=== PATIENT | male | born 1950 | race Caucasian/White ===

== ENCOUNTER 2022-01-15 13:18 | Outpatient (CLI) | payer BC, SELFPAY ==
--- NOTE | 2022-01-15 13:21 | RAD_ITS ---
STUDY: X-RAY - RIGHT FOOT CLINICAL: Lateral right foot pain. TECHNIQUE: 3 view(s) of the foot. COMPARISON: None. FINDINGS: Normal talus, calcaneus, and tarsal bones. Normal visualized subtalar, talonavicular, calcaneocuboid, tarsal and tarsometatarsal articulations. Normal metatarsi. Normal metatarsophalangeal joint of the great toe. Normal tibial and fibular sesamoid bones. Normal interphalangeal joint of the great toe. Normal phalanges of the great toe. Normal second through fifth metatarsophalangeal joints. Normal interphalangeal joints and phalanges of the lesser toes. The soft tissue structures are unremarkable. RAD/Foot min 3 Views IMPRESSION: Unremarkable x-ray examination of the right foot. Electronically Signed: Darnell Caballero MD at 13:58 EDT ,
== END 2022-01-15 23:59 | disposition home or self-care (01) ==
LOC: MTRAD 13:21
PROVIDERS: PCP Family Medicine; Referring Provider Physician Assistant Surgical; Visit Provider Physician Assistant Surgical
DX: S96.911A Strain of unspecified muscle and tendon at ankle and foot level, right foot, initial encounter (principal)
CPT/HCPCS: 73630

== ENCOUNTER → 2023-03-21 | Outpatient (CLI) | payer BC, SELFPAY ==
[2023-03-21 10:17] LABS: Hematocrit 48.2 % (40-54); Hemoglobin 16.2 g/dL (13.0-16.5); Mean Corp Hgb Conc 33.6 g/dL (32-36); Mean Corpuscular Hgb 33.8 pg (27.0-32.0); Mean Corpuscular Volume 100.6 fL (80-94); Mean Platelet Vol. 9.4 fl (6.2-12.0); Platelet Count 285 K/mm3 (150-450); RBC Distribution Width CV 14.1 % (11.6-14.6); Red Blood Count 4.79 M/mm3 (4.6-6.2); White Blood Count 6.1 K/mm3 (4.4-11.0)
[2023-03-21 10:45] LABS: Anion Gap 3 (5-15); BUN 14 mg/dL (7-18); BUN/Creat Ratio 17.4 RATIO (10-20); Chloride 108 mmol/L (98-107); Cholesterol 159 mg/dL (200); Creatinine, Serum 0.81 mg/dL (0.70-1.30); EST Glomerular Filtration Rate 99 mL/min (>60); Est Glom Filt Rate - Afr Amer 120 mL/min (>60); Ferritin 83 ng/mL (26-388); Glucose 90 mg/dL (74-106); High Density Lipoprotein 55 mg/dL; Iron 69 ug/dL (65-175); Potassium 4.6 mmol/L (3.5-5.1); Sodium Level 142 mmol/L (136-145); Triglycerides 57 mg/dL; Very Low Density Lipoprotein 11 mg/dL (5-40)
== END | disposition home or self-care (01) ==
LOC: MFPLAB 08:42
PROVIDERS: PCP Family Medicine; Visit Provider Family Medicine
DX: J45.909 Unspecified asthma, uncomplicated (principal); Z12.5 Encounter for screening for malignant neoplasm of prostate; Z13.1 Encounter for screening for diabetes mellitus; R06.00 Dyspnea, unspecified; Z13.220 Encounter for screening for lipoid disorders
CPT/HCPCS: 36415; 80048; 80061; 82728; 83540; 84153; 85027; G0103

== ENCOUNTER 2023-08-05 09:38 | Emergency (ER) | payer BC, SELFPAY ==
[2023-08-05 09:38] VITALS: BP 170/109; PULSE 89; RESP 14; TEMP 36.1; O2SAT 93; BMI 26.0
[2023-08-05] MEDS: Oxymetazoline 0.05% 1 SPRAY SPRAY.BTL 2 SPRAY NASAL (10:06)
--- NOTE | 2023-08-05 10:10 | EDS_ITS ---
HPI History of Present Illness Chief Complaint: Nosebleed Informant: patient Narrative Narrative: Nosebleed started spontaneously, especially after he blew his nose became a lot worse. He was blowing out clots, swallowing a little bit of blood, but not a lot. No systemic symptoms or presyncope/syncope. No injury or obvious reason for the bleeding. Takes no antiplatelet or anticoagulant medications. Mostly coming from the left side but a little from the right as well. Never had a bad bleed like this before but has had minor nosebleeds in the past. [facility] Medical History (Updated 08/05/23 @ 12:[address] Bj Pedraza MD) Asthma, mild intermittent Seasonal allergies Home Medications fluticasone 250 mcg-salmeterol 50 mcg/dose blistr powdr for inhalation ea inhalation 01/15/22 [History Last Taken Unknown] latanoprost 0.005 % eye drops ml ophthalmic (eye) 01/15/22 [History Last Taken Unknown] Allergy/AdvReac Type Severity Reaction Status Date / Time No Known Allergies Allergy Verified 08/05/23 09:38 Social History Smoking Status: Never smoker ROS ROS ED Constitutional Constitutional ED: Denies malaise or weakness ENT ENT ED: Reports as per HPI and epistaxis; Denies ear pain or sore throat Cardiovascular Cardiovascular: Denies chest pain, lightheadedness or tachypnea Respiratory/Chest Respiratory/Chest: Denies dyspnea Gastrointestinal Gastrointestinal: Denies abdominal pain, nausea or vomiting Integumentary Denies rash Neurologic Neurologic: Denies paresthesias or weakness EXAM Physical Exam Const Vital Signs: 08/05/23 09:38 Temperature 97.0 F L Temperature Source Temporal Pulse Rate 89 Respiratory Rate 14 Blood Pressure 170/109 H Blood Pressure Mean 129 Pulse Ox 93 Oxygen Delivery Method Room Air Positive well nourished and well developed General Appearance ED: well developed and NAD HEENT HEENT Narrative: Nasal clip in place, normal phonation no active bleeding no posterior pharyngeal blood. Eyes PERRL and EOMs intact bilaterally Neck no lymphadenopathy and supple Resp normal respiratory effort GI normal to inspection, nondistended, normoactive bowel sounds and non-tender Neuro oriented x3, CN's II-XII intact bilaterally, no focal motor deficits, no sensory deficits noted and gait normal MDM MDM MDM Narrative Medical decision making narrative: See the procedure note. Patient had evidence of active bleeding from 2 different areas on both sides, 1 on each. The one on the right was cauterized, the 1 on the left needed packing, he is tolerating this well and will follow-up with ENT or return if worse. Procedures Other Procedures Procedure(s): Epistaxis care: Patient was able to blow relatively small amount of blood out of his nose with minor bleeding, followed by placing oxymetazoline- soaked pledgets in both anterior nostrils, with good hemostasis. With removing the pledgets, on the right there is still good hemostasis and I was able to cauterize this with silver nitrate without recurrent bleeding. On the left, removing the pledget results in immediate recurrent bleeding. I had him blow his nose and placed a new oxymetazoline-soaked pledget. Again good hemostasis, after half an hour I checked it, there is persistent hemostasis but then it spo ntaneously started rebleeding while I was starting to reexamine him, so I placed a new pledget until I was able to get a Merisel packing, which was then placed. This was an anterior packing it was only 3 cm since I cut down the longer 1, he tolerated this well without any recurrent bleeding, and he will be discharged with this and refer to ENT. Discharge Plan Triage Chief Complaint: Nosebleed ED Provider: Bj Pedraza Dx/Rx/DC Orders Clinical Impression: Acute anterior epistaxis Instructions: ED Epistaxis (Adult) Prescriptions: No Action latanoprost 0.005 % drops ophthalmic (eye) fluticasone propion-salmeterol 250-50 mcg/dose blister with device inhalation Primary Care Provider: Oliver Frank Referrals: Oliver Frank MD [Primary Care Provider] - Sergey Sterling MD [Med Staff - Active Staff] - 2 Days (call for appt to have packing removed) Disposition Disposition: Home, Self Care
[2023-08-05] MEDS: Silver Nitrate (BKC) 1 EACH TOPICAL (12:05)
== END 2023-08-05 12:49 | disposition home or self-care (01) ==
PROVIDERS: Emergency Provider Emergency Medicine; PCP Family Medicine; Visit Provider Emergency Medicine
DX: R04.0 Epistaxis (principal)
CPT/HCPCS: 30901; 99282

== ENCOUNTER → 2023-12-26 | Outpatient (CLI) | payer BC, SELFPAY ==
--- OUTSIDE RECORDS SUMMARY | 2023-12-26 11:00 | XMS RPT_ITS | CCD ---
Author Name Unknown Address [facility] [employer] [id number] [place] [address] Organization [facility] Care Team Providers Care Watch Repairer Name Role Phone Ted Suárez Unavailable Medications Completed/Discontinued Medications Medication Drug Class(es) Dates Sig (Normalized) Sig (Original) cholecalciferol 0.025 mg oral capsule (3 sources) Vitamin D Start: 12-04-2019 take 1 capsule by mouth once daily Vitamin D (Cholecalciferol ) 25 MCG (1000 UT) Oral Capsule TAKE 1 CAPSULE Daily Quantity: 0 Refills: 0 Ordered: 04-Dec-2019 DO Start : 04-Dec-2019 Active Clobetasol (3 sources) Corticosteroid Clobetasol Propionate SOLN Quantity: 0 Refills: 0 Ordered: 14-Dec-2019 DO Active fluticasone propionate 0.05 mg/actuat metered dose nasal spray (3 sources) Corticosteroid Start: 12-04-2019 Fluticasone Propionate 50 MCG/ACT Nasal Suspension INSTILL 1 SPRAY Daily Quantity: 3 Refills: 3 Ordered: 04-Dec-2019 DO Start : 04-Dec-2019 Active 60 actuat fluticasone propionate 0.25 mg/actuat / salmeterol 0.05 mg/actuat dry powder inhaler (3 sources) Corticosteroid, beta2-Adrenergic Agonist Start: 09-09-2019 take 1 puff(s) by inhalation twice daily Wixela Inhub 250-50 MCG/ACT Inhalation Aerosol Powder Breath Activated INHALE 1 PUFF TWICE DAILY. Quantity: 3 Refills: 3 Ordered: 15-Apr-2022 Ted Suárez MD Start : 09-Sep-2019 Active latanoprost 0.05 mg/ml ophthalmic solution (3 sources) Prostaglandin Analog Start: 09-09-2019 take 1 drop(s) into the eye(s) at bedtime Latanoprost 0.005 % Ophthalmic Solution INSTILL 1 DROP IN BOTH EYES AT BEDTIME. Quantity: 3 Refills: 1 Ordered: 09-Sep-2019 Ted Suárez MD Start : 09-Sep-2019 Active loratadine 10 mg oral tablet (3 sources) Start: 12-14-2019 take 1 tablet by mouth once daily Claritin 10 MG Oral Tablet Take 1 tablet daily Quantity: 0 Refills: 0 Ordered: 14-Dec-2019 DO Start : 14-Dec-2019 Active sildenafil 50 mg oral tablet (3 sources) Phosphodiesterase 5 Inhibitor Start: 12-14-2019 take 1 tablet by mouth once daily Sildenafil Citrate 50 MG Oral Tablet TAKE 1 TABLET DAILY 1 HOUR BEFORE NEEDED Quantity: 30 Refills: 3 Ordered: 14-Dec-2019 Tde Suárez MD Start : 14-Dec-2019 Active Problems Problem Classification Problem Date Documented Da te Episodic/Chronic Asthma (3 sources) Asthma; Translations: [Asthma, unspecified type, unspecified] Chronic Immunizations and screening for infectious disease (3 sources) Viral screening status; Translations: [Special screening examination for unspecified viral disease] Episodic Nutritional deficiencies (3 sources) Vitamin D deficiency; Translations: [Unspecified vitamin D deficiency] Chronic Other aftercare (6 sources) Patient encounter status; Translations: [Long-term (current) use of other medications] Episodic Other and unspecified benign neoplasm (3 sources) Polyp of colon; Translations: [Benign neoplasm of colon] Episodic Other inflammatory condition of skin (3 sources) Seborrheic psoriasis; Translations: [Other psoriasis] Chronic Other male genital disorders (3 sources) Male erectile dysfunction, unspecified; Translations: [Erectile dysfunction] Chronic Other nutritional; endocrine; and metabolic disorders (3 sources) Body mass index 25-29 - overweight; Translations: [Body Mass Index 25.0-25.9, adult] Episodic Other upper respiratory disease (3 sources) Allergic rhinitis; Translations: [Allergic rhinitis, cause unspecified] Chronic Results Test Name Value Interpretation Reference Range Facil ity Encounters Encounter Date Encounter Type Care Provider Facility Start: 04-15-2022 AUDIT Ted Suárez Work Phone: [facility] Work Phone: Start: 02-04-2022 FRANK Suárez Work Phone: [facility] Work Phone: Start: 06-07-2021 AUDIT Ted Suárez Work Phone: [facility] Work Phone: Procedures Date Procedure Procedure Detail Performing Clinician Start: 11-10-2020 Follow-up visit Start: 12-14-2019 Follow-up visit Start: 06-22-2019 [object Object] Immunizations Immunization Date Immunization Notes Care Provider Dany [facility] 07-27-2019 influenza virus vaccine, unspecified formulation Ted Suárez Work Phone: [facility] Work Phone: Payers Date Payer Category Payer Policy ID Unknown ANTHEM Social History Date Type Detail Facility Former smoker Former smoker [facility] Work Phone: Summary Purpose Family History Unknown Family Member Name Dates Details No pertinent family history: Mother, Father(V49.89, Z78.9) Status:Active Unknown Family Member Name Dates Details No pertinent family history: Mother, Father(V49.89, Z78.9) Status:Active Unknown Family Member Name Dates Details No pertinent family history: Mother, Father(V49.89, Z78.9) Status:Active Advance Directives No Advanced Directives Records FoundNo Advanced Directives Records Found Additional Source Comments (unrecognized sect ion and content) No Status Records FoundNo Status Records Found INFORMATION SOURCE (unrecogn ized section and content) DATE CREATED AUTHOR AUTHOR'S ORGANIZ ATION 11/11/2020 [facility] FOR RECORDS PERTAINING TO PATIENTS WHO ARE OR HAVE BEEN ENROLLED IN A CHEMICAL DEPENDENCY/SUBSTANCEABUSE PROGRAM, SOME INFORMATION MAY BE OMITTED. This clinical summary was aggregated from multiple sources. Caution should be exercised in using it in the provision of clinical care. This summary normalizes information from multiple sources, and as a consequence, information in this document may materially change the coding, format and clinical context of patient data. In addition, data may be omitted in some cases. CLINICAL DECISIONS SHOULD BE BASED ON THE PRIMARY CLINICAL RECORDS. [facility] [employer] provides no warranty or guarantee of the accuracy or completeness of information in this document.
[2023-12-26 11:14] LABS: Absolute Lymphocyte Count 1.29 X10^3/uL (0.83-4.51); Absolute Neutrophil Count 5.5 X10^3/uL (2.0-7.7); Basophil# 0.07 X10^3/uL; Basophil% 0.8 % (0-1); Eosinophil# 0.72 X10^3/uL; Eosinophils% 8.4 % (0-5); Hematocrit 46.9 % (40-54); Lymphocyte # 1.29 X10^3/ul (0.83-4.51); Mean Corp Hgb Conc 34.1 g/dL (32-36); Mean Corpuscular Hgb 33.3 pg (27.0-32.0); Mean Corpuscular Volume 97.7 fL (80-94); Mean Platelet Vol. 8.9 fl (6.2-12.0); Monocyte# 0.98 X10^3/uL; Monocyte% 11.4 % (0-10); NRBC Flagged by Analyzer 0 % (0-5); Neutrophil # 5.52 X10^3/uL (2.7-7.7); Neutrophil % 63.9 % (47-70); Platelet Count 286 K/mm3 (150-450); RBC Distribution Width CV 13.2 % (11.6-14.6); RBC Distribution Width SD 48.1 fl (35.1-43.9); White Blood Count 8.6 K/mm3 (4.4-11.0)
[2023-12-26 11:19] LABS: Erythrocyte Sedimentation Rate 4 mm/hr (0-20)
[2023-12-26 11:33] LABS: Hemoglobin A1c 5.6 % (3.8-5.6)
[2023-12-26 11:44] LABS: AST(SGOT) 39 U/L (15-37); Alanine Aminotransfer ALT/SGPT 41 U/L (16-61); Albumin, Serum 3.7 g/dL (3.2-5.0); Alkaline Phosphatase 99 U/L (45-117); Anion Gap 1 (5-15); BUN 18 mg/dL (7-18); BUN/Creat Ratio 19.1 RATIO (10-20); CRP < 2.90 mg/L (0.0-3.0); Calcium,Total 8.6 mg/dL (8.5-10.1); Chloride 108 mmol/L (98-107); Creatinine, Serum 0.94 mg/dL (0.70-1.30); EST Glomerular Filtration Rate 83 mL/min (>60); Est Glom Filt Rate - Afr Amer 100 mL/min (>60); Globulin 3.6 g/dL (2.2-4.2); Glucose 102 mg/dL (74-106); Potassium 4.5 mmol/L (3.5-5.1); Protein, Total 7.3 g/dL (6.4-8.2); Sodium Level 139 mmol/L (136-145); Uric Acid 7.4 mg/dL (3.5-7.2)
[2024-01-02 10:09] LABS: HLA B27 Negative (.)
== END | disposition home or self-care (01) ==
PROVIDERS: PCP Family Medicine; Referring Provider Podiatrist; Visit Provider Podiatrist
DX: M79.671 Pain in right foot (principal)
CPT/HCPCS: 36415; 80053; 81374; 83036; 84550; 85025; 85652; 86140

== ENCOUNTER 2025-01-04 08:19 | Outpatient (CLI) | payer BC, SELFPAY ==
[2025-01-04 12:07] LABS: Cholesterol 175 mg/dL (<=200); High Density Lipoprotein 58 mg/dL; Low Density Lipoprotein Calc. 106 mg/dL; Triglycerides 57 mg/dL; Uric Acid 7.7 mg/dL (3.5-7.2); Very Low Density Lipoprotein 11 mg/dL (5-40); Vitamin D,25 Hydroxy 31.5 ng/mL (30-100); cholesterol:hdl ratio screen 3.04
[2025-01-04 12:16] LABS: Anion Gap 13 (5-15); BUN 18 mg/dL (4-19); BUN/Creat Ratio 20.8 RATIO (10-20); Calcium,Total 9.4 mg/dL (7.6-11.0); Carbon Dioxide 23.2 mmol/L (21.0-32.0); Chloride 102 mmol/L (98-108); Creatinine, Serum 0.87 mg/dL (0.70-1.20); EST Glomerular Filtration Rate 89 (>60); Glucose 116 mg/dL (70-99); Potassium 4.3 mmol/L (3.3-5.1); Sodium Level 138 mmol/L (133-145)
== END 2025-01-04 23:59 | disposition home or self-care (01) ==
LOC: MFPLAB 08:20
PROVIDERS: PCP Family Medicine; Referring Provider Family Medicine; Visit Provider Family Medicine
DX: Z13.1 Encounter for screening for diabetes mellitus (principal); Z13.220 Encounter for screening for lipoid disorders; M10.9 Gout, unspecified
CPT/HCPCS: 36415; 80048; 80061; 82306; 84550

== ENCOUNTER 2025-07-22 18:31 | Inpatient (IN) | payer BC, MEDICARE, SELFPAY ==
--- OUTSIDE RECORDS SUMMARY | 2025-05-19 11:00 | XMS RPT_ITS ---
Author Name Auto Generated Organization [facility] Care Team Providers Care Hydraulic Lift Operator Name Role Phone PCP, NONE Referring Unavailable PIPE RILEY Primary Care Unavailable PIPE RILEY Attending Unavailable PROBLEMS DATE TYPE CONDITION / CODE ATTENDING STATUS JOSE RAFAEL RCE 05/19/2025 Unknown Moderate persist ent asthma, uncomplicated / J45.40(ICD-10) PIPE RILEY Active [facility] PROCEDURES No Procedure Records Found RESULTS ALLERGIES No Allergies Records Found ENCOUNTERS ADMIT/DISCHARGE ACCOUNT NUMBER ADMITTING ENCOUNTER CLASS LOCATION SOURCE 05/19/2025/ [id number] [facility] [place] [address] PAYERS ENCOUNTER GUARANTOR PAYER SUBSCRIBER SOURCE 05/19/2025 SHEA MADONNAB: [facility] [address], [place] [address]Wqd: [phone]) Primary Insurance:MARK Cardona Number: [id number] ective Date:[facility] [id number] [place] [id number]: SHEA MADONNAB: [id number] [facility] [address], [place] [address]Txm: (HP) [facility]
[2025-07-22] VITALS (11 sets, daily range): BP systolic 134–165; BP diastolic 69–98; PULSE 54–69; RESP 16–22; TEMP 35.8–36.9; O2SAT 93–97; BMI 25.5
--- NOTE | 2025-07-22 18:39 | EKG12_ITS ---
Test Reason : STROKE Blood Pressure : */* mmHG Vent. Rate : 64 BPM Atrial Rate : 64 BPM P-R Int : 176 ms QRS Dur : 86 ms QT Int : 424 ms P-R-T Axes : * 16 36 degrees QTcB Int : 437 ms Normal sinus rhythm Normal ECG Confirmed by MUSHTAQ FLORES ([id number]), editor & co founder YIFAN BARAHONA ([id number]) on 07/25/2025 9:06:45 AM Referred By: Confirmed By: MUSHTAQ FLORES
--- NOTE | 2025-07-22 18:39 | CT_ITS ---
PROCEDURE: STROKE BRAIN/HEAD WITHOUT CONT 07/22/2025 REASON FOR EXAM: NEURO DEFICIT, ACUTE, STROKE SUSPECTED TECHNIQUE: Procedure Code: CTBR.ST Modality: CT Procedure: STROKE BRAIN/HEAD WITHOUT CONT Coronal and Sagittal reconstruction series were provided. One or more dose reduction techniques were used (e.g., Automated exposure control, adjustment of the mA and/or kV according to patient size, use of iterative reconstruction technique. RADIATION DOSE SUMMARY: CTDlvol: 47.06 mGy DLP: 890.33 mGycm COMPARISON: None. FINDINGS: BRAIN: No acute intraparenchymal hemorrhage. No mass lesion. No CT evidence for acute territorial infarct. No midline shift or extra-axial collection. VENTRICLES: No hydrocephalus. ORBITS: The orbits are unremarkable. SINUSES AND MASTOIDS: Mild bilateral maxillary, ethmoid and sphenoid sinus mucosal thickening. Small amount of right maxillary sinus fluid. The right mastoid air cells are clear. A few left inferior mastoid air cells are opacified. SOFT TISSUES: No acute abnormality seen. BONES: No acute osseous abnormality seen. OTHER: Carotid siphon calcification bilaterally. CT/STROKE Brain/Head without Cont IMPRESSION: No acute intracranial abnormality seen. Reading Location: [id number]
--- NOTE | 2025-07-22 18:40 | CT_ITS ---
PROCEDURE: STROKE CTA HEAD AND NECK W/CON 07/22/2025 REASON FOR EXAM: NEURO DEFICIT, ACUTE, STROKE SUSPECTED TECHNIQUE: Procedure Code: CTCTA.ST.HN Modality: CT Procedure: STROKE CTA HEAD AND NECK W/CON Multiplanar Sagittal and Coronal images were obtained. 3D post processing was performed. CONTRAST: Isovue 370 VOLUME: 100 mL One or more dose reduction techniques were used (e.g., Automated exposure control, adjustment of the mA and/or kV according to patient size, use of iterative reconstruction technique). RADIATION DOSE SUMMARY: DLP: 993.19 mGycm COMPARISON: None. FINDINGS: CTA HEAD: Patent intracranial arterial vasculature. No large vessel occlusion, flow- limiting stenosis, saccular aneurysm, or vascular malformation identified. There is focal short-segment mild luminal narrowing of the proximal basilar artery (S2 image [id number]). origin of the right posterior cerebral artery with no visible connection to the basilar, anatomic variant. Hypoplastic caliber of the right FARZANA A1 segment compared to the left. CTA NECK: Conventional aortic arch branching. Bilateral cervical carotid and codominant vertebral arteries are patent without any significant stenosis. No aneurysm or dissection. NON-ANGIOGRAPHIC FINDINGS: Absent [place] ocular lenses. Peripheral mucosal thickening throughout the paranasal sinuses with small amount of dependent fluid in right maxillary sinus. Mild multilevel cervical spondylotic changes. CT/STROKE CTA Head AND Neck W/Con IMPRESSION: No intracranial or cervical large vessel arterial occlusion or hemodynamically significant stenosis. Short-segment mild narrowing of the proximal basilar artery. Anatomic variants as noted. Reading Location: [id number]
--- OUTSIDE RECORDS SUMMARY | 2025-07-22 18:45 | XMS RPT_ITS | CCD ---
Author Organization [facility] Care Team Providers Care Duco Polisher Name Role Phone Ted Suárez Unavailable ADITHYA Lloyd Attending Provider Zac ISLAS, Dr. Arrington Primary Care Provider Zac ISLAS, Dr. Arrington Attending Provider Zac ISLAS, Dr. Arrington Referring Provider Murphy Frank Referring Unavailable Murphy Frank Attending Unavailable Murphy Frank Primary Care Unavailable PCP, NONE Referring Unavailable PIPE RILEY Primary Care Unavailable PIPE RILEY Attending Unavailable Medications Current Medications Medication Drug Class(es) Dates Sig (Normalized) Sig (Original) Fluticasone Propion-Salmeterol (6 sources) Corticosteroid, beta2-Adrenergic Agonist Start: 01-15-2022 Fluticasone Propion-Salmeterol Active EACH INHALATION January 15, 2022 1:06pm Start: 01-15-2022 Fluticasone Pr opion-Salmeterol 250-50 mcg/dose blister with device Active NMA INHALATION January 15, 2022 12:00am Start: 01-15-2022 Fluticasone Pr opion-Salmeterol Active EACH INHALATION January 15, 2022 12:00am Start: 09-09-2019 take 1 puff(s) by in halation twice daily Wixela Inhub 250-50 MCG/ACT Inhalation Aerosol Powder Breath Activated INHALE 1 PUFF TWICE DAILY. Quantity: 3 Refills: 3 Ordered: 15-Apr-2022 Ted Suárez MD Start : 09-Sep-2019 Active latanoprost 0.05 mg/ml ophthalmic solution (6 sources) Prostaglandin Analog Start: 01-15-[address] 0.005 % drops Active mL OPHTHALMIC January 15, 2022 12:00am Start: 01-15-2022 Latanoprost Ac tive ML OPHTHALMIC January 15, 2022 1:06pm Start: 09-09-2019 take 1 drop(s) into the eye(s) at bedtime Latanoprost 0.005 % Ophthalmic Solution INSTILL 1 DROP IN BOTH EYES AT BEDTIME. Quantity: 3 Refills: 1 Ordered: 09-Sep-2019 Ted Suárez MD Start : 09-Sep-2019 Active Completed/Discontinued Medications Medication Drug Class(es) Dates Sig [...] Ordered: 04-Dec-2019 DO Start : 04-Dec-2019 Active loratadine 10 mg oral tablet (3 [...] NEEDED Quantity: 30 Refills: 3 Ordered: 14-Dec-2019 Ted Suárez MD Start : 14-Dec-2019 Active Problems Problem Classification Problem Date Documented Da te Episodic/Chronic Asthma (4 sources) Asthma; Translations: [Asthma, unspecified type, unspecified] Onset: 05-19-2025 Chronic Immunizations and screening for infectious disease [...] [Body Mass Index 25.0-25.9, adult] Episodic Other screening for suspected conditions (not mental disorders or infectious disease) (1 source) Encounter for screening for diabetes mellitus; Translations: [Encounter for screening for diabetes mellitus] Onset: 02-18-2025 Episodic Other upper respiratory disease (3 sources) Allergic rhinitis; Translations: [Allergic rhinitis, cause unspecified] Chronic Other upper respiratory disease (1 source) Anterior epistaxis; Translations: [Epistaxis] 08-13-2023 Episodic Sprains and strains (4 sources) Strain of tendon of foot and ankle; Translations: [Strain of unspecified muscle and tendon at ankle and foot level, right foot, initial encounter] Episodic Results Test Name Value Interpretation Reference Range Facility Anion gap in Serum or Plasma Ordered By: Murphy Frank on 01-04-2025 Anion gap [Moles/Vol] 13 mmol/L - [facility] BUN/creatinine ratioOrdered By: Murphy Frank on 01-04-2025 Urea nitrogen/Creatinine [Mass ratio] 20.8 mg/mg High 08-15 [facility] Basic Metabolic Profile (BMP )on 01-04-2025 BUN/CRE 20.8 RATIO High 08-15 [facility] Comment on above: Order Comment: Order Date: 01/03/25 Order Info: 0667-1 - BMP Order Info: [id number] - LIPID Order Info: [id number] - URIC Performed By: #### L 500.4100, L501.1400, L500.2500 #### [facility] [address] [place], [address] Calcium [Mass/Vol] 9.4 mg/dL Normal 7.6-11.0 [facility] Comment on above: Order Comment: Order Date: 01/03/25 Order Info: 666-10 - BMP Order Info: - LIPID Order Info: [id number] - URIC Performed By: #### L 500.4100, L501.1400, L500.2500 #### [facility] [address] [place], [address] Chloride [Moles/Vol] 102 mmol/L Normal 98-108 [facility] Comment on above: Order Comment: Order Date: 01/03/25 Order Info: 666-10 - BMP Order Info: - LIPID Order Info: [id number] - URIC Performed By: #### L 500.4100, L501.1400, L500.2500 #### [facility] [address] [place], [address] CO2 [Moles/Vol] 23.2 mmol/L Normal 21.0-32.0 [facility] Comment on above: Order Comment: Order Date: 01/03/25 Order Info: 666-10 - BMP Order Info: - LIPID Order Info: [id number] - URIC Performed By: #### L 500.4100, L501.1400, L500.2500 #### [facility] [address] [place], [address] Creatinine [Mass/Vol] 0.87 mg/dL Normal 0.70-1.20 [facility] Comment on above: Order Comment: Order Date: 01/03/25 Order Info: 666-10 - BMP Order Info: - LIPID Order Info: [id number] - URIC Performed By: #### L 500.4100, L501.1400, L500.2500 #### [facility] [address] [place], [address] GAP 13 Normal 5-15 [facility] Comment on above: Order Comment: Order Date: 01/03/25 Order Info: 666-10 - BMP Order Info: - LIPID Order Info: [id number] - URIC Performed By: #### L 500.4100, L501.1400, L500.2500 #### [facility] [address] [place], [address] GFR/1.73 sq M.predicted among non-blacks MDRD (S/P/Bld) [Vol rate/Area] 89 mL/min/{1.73_m2} Normal >60 [facility] Comment on above: Order Comment: Order Date: 01/03/25 Order Info: 666-10 - BMP Order Info: - LIPID Order Info: [id number] - URIC Result Comment: mL/m in/1.73m2 CKD-EPI Creatinine Equation (2020) Performed By: #### L 500.4100, L501.1400, L500.2500 #### [facility] [address] [place], [address] Glucose [Mass/Vol] 116 mg/dL High 70-99 [facility] Comment on above: Order Comment: Order Date: 01/03/25 Order Info: 666-10 - BMP Order Info: - LIPID Order Info: 3083-10 - URIC Performed By: #### L 500.4100, L501.1400, L500.2500 #### [facility] [address] [place], [address] Potassium [Moles/Vol] 4.3 mmol/L Normal 3.3-5.1 [facility] Comment on above: Order Comment: Order Date: 01/03/25 Order Info: 666-10 - BMP Order Info: - LIPID Order Info: [id number] - URIC Performed By: #### L 500.4100, L501.1400, L500.2500 #### [facility] [address] [place], [place], [address] Sodium [Moles/Vol] 138 mmol/L Normal 133-145 [facility] Comment on above: Order Comment: Order Date: 01/03/25 Order Info: 0667-1 - BMP Order Info: [id number] - LIPID Order Info: 3081 - URIC Performed By: #### L 500.4100, L501.1400, L500.2500 #### [facility] [address] [place], [address] Urea nitrogen [Mass/Vol] 18 mg/dL Normal 4-19 [facility] Comment on above: Order Comment: Order Date: 01/03/25 Order Info: 0667-1 - BMP Order Info: [id number] - LIPID Order Info: [id number] - URIC Performed By: #### L 500.4100, L501.1400, L500.2500 #### [facility] [address] [place], [address] Calculated very low density lipoprotein (VLDL) cholesterol measurementOrdered By: Murphy Frank on 01-04-2025 VLDL Cholesterol 11 mg/dL 5-40 [facility] Carbon dioxide, total [Moles /volume] in Central venous bloodOrdered By: Murphy Frank on 01-04-2025 CO2 [Moles/Vol] 23.2 mmol/L 21.0-32.0 [facility] Chloride assayOrdered By: Michael Frank on 01-04-2025 Chloride [Moles/Vol] 102 mmol/L 98-108 [facility] GFR/1.73 sq M.predicted maria victoria g non-blacks MDRD (S/P/Bld) [Vol rate/Area]Ordered By: Murphy Frank on 01-04-2025 Estimated GFR (MDRD) Non-Af Amer 89 >60 [facility] Comment on above: mL/min/1.73m2 CKD-EP I Creatinine Equation (2020) L506.1001on 01-04-2025 Vitamin D 25-OH 31.5 ng/mL Normal 30-100 [facility] Comment on above: Order Comment: Order Date: 01/03/25 Order Info: 0667-1 - BMP Order Info: [id number] - LIPID Order Info: 308- - URIC Result Comment: Nayana min D Status Deficiency: <20 ng/mL (50nmol/L) Insufficiency: 20-30 ng/mL (50-75 nmol/L) Sufficiency: 30-100 ng/mL (75-250 nmol/L) Toxicity: >100 ng/mL (>250 nmol/L) Performed By: #### L 506.1001 #### [facility] [address] [place], [address] LDL calc ser/plasOrdered By: Murphy Frank on 01-04-2025 LDL Cholesterol, Calculated 106 mg/dL [facility] Comment on above: Vjndikhbgj=162-215 m g/dL & Higher Fdpz=698 mg/dL or greater Lipid Profileon 01-04-2025 CHOL:HDL 3.04 Normal [facility] Comment on above: Order Comment: Order Date: 01/03/25 Order Info: 06 - BMP Order Info: [id number] - LIPID Order Info: [id number] - URIC Performed By: #### L 500.4100, L501.1400, L500.2500 #### [facility] [address] [place], [address] Cholesterol [Mass/Vol] 175 mg/dL Normal <=200 [facility] Comment on above: Order Comment: Order Date: 01/03/25 Order Info: 0667-1 - BMP Order Info: [id number] - LIPID Order Info: 308- - URIC Result Comment: Chol esterol level, Desirable <200 mg/dL Borderline high cholesterol 200-239 mg/dL High cholesterol >=240 mg/dL Recommendations of the NCEP Adult Treatment Panel for the following risk-cutoff thresholds for the [place] population. Performed By: #### L 500.4100, L501.1400, L500.2500 #### [facility] [address] [place], [address] Cholesterol in HDL [Mass/Vol] 58 mg/dL Normal [facility] Comment on above: Order Comment: Order Date: 01/03/25 Order Info: 666-10 - BMP Order Info: - LIPID Order Info: [id number] - URIC Result Comment: Ashley onal Cholesterol Education Program (NCEP) guidelines: <40 mg/dL: Low HDL-cholesterol (major risk factor for CHD) >= 60 mg/dL: High HDL-cholesterol (negative risk factor for CHD) HDL-cholesterol is affected by a number of factors, e.g. smoking, exercise, hormones, sex and age. Performed By: #### L 500.4100, L501.1400, L500.2500 #### [facility] [address] [place], [address] Cholesterol in LDL [Mass/Vol] 106 mg/dL Normal [facility] Comment on above: Order Comment: Order Date: 01/03/25 Order Info: 666-10 - BMP Order Info: - LIPID Order Info: [id number] - URIC Result Comment: Bord ljqjoq=495-402 mg/dL Higher Tjuv=170 mg/dL or greater Performed By: #### L 500.4100, L501.1400, L500.2500 #### [facility] [address] [place], [address] Cholesterol in VLDL [Mass/Vol] 11 mg/dL Normal 5-40 [facility] Comment on above: Order Comment: Order Date: 01/03/25 Order Info: 666-10 - BMP Order Info: - LIPID Order Info: [id number] - URIC Performed By: #### L 500.4100, L501.1400, L500.2500 #### [facility] [address] [place], [address] Triglyceride [Mass/Vol] 57 mg/dL Normal [facility] Comment on above: Order Comment: Order Date: 01/03/25 Order Info: 666-10 - BMP Order Info: - LIPID Order Info: [id number] - URIC Result Comment: The drugs N-Acetylcysteine and Metamizole may falsely depress this assay. Normal range: <150 mg/dL Borderline High: 150-199 mg/dL High: 200-499 mg/dL Very High: >500 mg/dL Performed By: #### L 500.4100, L501.1400, L500.2500 #### [facility] [address] [place], [address] Potassium (Unsp spec) [Mass/ Vol]Ordered By: Murphy Frank on 01-04-2025 Potassium [Moles/Vol] 4.3 mmol/L 3.3-5.1 [facility] Screening total cholesterol/ high density lipoprotein (HDL) cholesterol ratioOrdered By: Murphy Frank on 01-04-2025 Cholesterol.total/Kaila sterol in HDL [Mass ratio] 3.04 {ratio} [facility] Serum creatinine measurement (mass/volume)Ordered By: Murphy Frank on 01-04-2025 Creatinine [Mass/Vol] 0.87 mg/dL 0.70-1.20 [facility] Serum glucose measurement (m ass/volume)Ordered By: Murphy Frank on 01-04-2025 Glucose [Mass/Vol] 116 mg/dL High 70-99 [facility] Serum or plasma calcium joe urement (mass/volume)Ordered By: Murphy Frank on 01-04-2025 Calcium [Mass/Vol] 9.4 mg/dL 7.6-11.0 [facility] Serum or plasma cholesterol in HDL measurement (mass/volume)Ordered By: Murphy Frank on 01-04-2025 Cholesterol in HDL [Mass/Vol] 58 mg/dL >40 [facility] Comment on above: National Cholesterol Education Program (NCEP) guidelines:<40 mg/dL: Low HDL-cholesterol (major risk factor for CHD)>= 60 mg/dL: High HDL-cholesterol (negative risk factor for CHD)HDL-cholesterol is affected by a number of factors, e.g. smoking, exercise, hormones, sex and age. Serum or plasma cholesterol measurement (mass/volume)Ordered By: Murphy Frank on 01-04-2025 Cholesterol [Mass/Vol] 175 mg/dL <201 [facility] Comment on above: Cholesterol level, D esirable <200 mg/dLBorderline high cholesterol 200-239 mg/dLHigh cholesterol >=240 mg/dLRecommendations of the NCEP Adult Treatment Panel for the following risk-cutoff thresholds for the [place] population. Serum or plasma urea nitroge n measurement (mass/volume)Ordered By: Murphy Frank on 01-04-2025 Urea nitrogen [Mass/Vol] 18 mg/dL 4-19 [facility] Serum or plasma uric acid me asurement (mass/volume)Ordered By: Murphy Frank on 01-04-2025 Urate [Mass/Vol] 7.7 mg/dL High 3.5-7.2 [facility] Comment on above: The drugs N-Acetylcy steine and Metamizole may falsely depress this assay. Sodium levelOrdered By: Hola Frank on 01-04-2025 Sodium [Moles/Vol] 138 mmol/L 133-145 [facility] Triglycerides measurementOrd ered By: Murphy Frank on 01-04-2025 Triglyceride [Mass/Vol] 57 mg/dL <199 [facility] Comment on above: The drugs N-Acetylcy steine and Metamizole may falsely depress this assay. Normal range: <150 mg/dLBorderline High: 150-199 mg/dLHigh: 200-499 mg/dLVery High: >500 mg/dL Uric Acidon 01-04-2025 URIC 7.7 mg/dL High 3.5-7.2 [facility] Comment on above: Order Comment: Order Date: 01/03/25 Order Info: 0667-1 - BMP Order Info: [id number] - LIPID Order Info: [id number] - URIC Result Comment: The drugs N-Acetylcysteine and Metamizole may falsely depress this assay. Performed By: #### L 500.4100, L501.1400, L500.2500 #### [facility] [address] [place], [place], [address] Vitamin D, 25-hydroxyOrdered By: Murphy Frank on 01-04-2025 Vitamin D 25-Hydroxy 31.5 ng/mL 30-100 [facility] Comment on above: Vitamin D StatusDefi ciency: <20 ng/mL (50nmol/L)Insufficiency: 20-30 ng/mL (50-75 nmol/L)Sufficiency: 30-100 ng/mL (75-250 nmol/L)Toxicity: >100 ng/mL (>250 nmol/L) Basophil percentageOrdered B y: Oliver Frank on 03-21-2023 Chloride [Moles/Vol] 108 mmol/L 98-107 [facility] Cholesterol [Mass/Vol] 159 mg/dL <200 [facility] Comment on above: <200 mg/dL Desirable 200-240 mg/dL Borderline >240 mg/dL High Risk Glucose [Mass/Vol] 90 mg/dL 74-106 [facility] Potassium [Moles/Vol] 4.6 mmol/L 3.5-5.1 [facility] Sodium [Moles/Vol] 142 mmol/L 136-145 [facility] Triglyceride [Mass/Vol] 57 mg/dL <199 [facility] Comment on above: The drugs N-Acetylcy steine and Metamizole may falsely depress this assay.Serum Triglycerides Reference Interval Normal <150 mg/dL Borderline high 150 - 199 mg/dL High 200 - 499 mg/dL Very High > or = 500 mg/dL WBC (Bld) [#/Vol] 6.1 10*3/uL 4.4-11.0 [facility] Blood erythrocytes count (nu mber/volume)Ordered By: Oliver Frank on 03-21-2023 RBC (Bld) [#/Vol] 4.79 10*6/uL 4.6-6.2 [facility] Blood hemoglobin measurement (mass/volume)Ordered By: Oliver Frank on 03-21-2023 Hemoglobin (Bld) [Mass/Vol] 16.2 g/dL 13.0-16.5 [facility] Blood platelet mean volumeOr dered By: Oliver Frank on 03-21-2023 Platelet mean volume (Bld) [Entitic vol] 9.4 fL 6.2-12.0 [facility] Determination of erythrocyte mean corpuscular volume (MCV)Ordered By: Oliver Frank on 03-21-2023 MCV (RBC) [Entitic vol] 100.6 fL 80-94 [facility] Hematocrit Auto (Bld) [Volum e fraction]Ordered By: Oliver Frank on 03-21-2023 Hematocrit (Bld) [Volume fraction] 48.2 % 40-54 [facility] Iron measurement (mass/mass) Ordered By: Oliver Frank on 03-21-2023 Iron (Unsp spec) [Mass/Mass] 69 ug/dL 65-175 [facility] - Chemistry and C hemistry - challengeOrdered By: Oliver Frank on 03-21-2023 CO2 [Moles/Vol] 31.0 mmol/L 21.0-32.0 [facility] Urea nitrogen/Creatinine [Mass ratio] 17.4 mg/mg 10-20 [facility] - Hematology and Cell countsOrdered By: Oliver Frank on 03-21-2023 Erythrocyte distribution width (RBC) [Entitic vol] 53.0 fL 35.1-43.9 [facility] Erythrocyte distribution width (RBC) [Ratio] 14.1 % 11.6-14.6 [facility] MCH (RBC) [Entitic mass] 33.8 pg 27.0-32.0 [facility] MCHC Auto (RBC) [Mass/Vol]Or dered By: Oliver Frank on 03-21-2023 MCHC (RBC) [Mass/Vol] 33.6 g/dL 32-36 [facility] No Panel InformationOrdered By: Oliver Frank on 03-21-2023 Estimated GFR (MDRD) Amer 120 mL/min >60 [facility] Comment on above: GFR Calc Estimated GFR (MDRD) Non-Af Amer 99 mL/min >60 [facility] Comment on above: Non- GFR Calc Prostate Specific Antigen Screen 0.60 ng/mL 0.00-4.00 [facility] Comment on above: This test was perfor med using the TPSA assay method for theDimension chemistry system. Values obtained with differentassay methods cannot be used interchangably.When changing PSA assays in the course of monitoring apatient, additional sequential testing should be carriedout to confirm baseline values. Platelets bldOrdered By: Evangelina Frank on 03-21-2023 Platelets (Bld) [#/Vol] 285 10*3/uL 150-450 [facility] Serum or plasma calcium joe urement (mass/volume)Ordered By: Oliver Frank on 03-21-2023 Calcium [Mass/Vol] 9.0 mg/dL 8.5-10.1 [facility] Serum or plasma cholesterol in HDL measurement (mass/volume)Ordered By: Oliver Frank on 03-21-2023 Cholesterol in HDL [Mass/Vol] 55 mg/dL >40 [facility] Comment on above: The drugs N-Acetylcy steine and Metamizole may falsely depress this assay. Reference Range HDL <40 mg/dL Low HDL Cholesterol HDL >or= 60 mg/dL High HDL Cholesterol Serum or plasma cholesterol in VLDL measurement (mass/volume)Ordered By: Oliver Frank on 03-21-2023 Cholesterol in VLDL [Mass/Vol] 11 mg/dL 5-40 [facility] Serum or plasma creatinine m easurement (mass/volume)Ordered By: Oliver Frank on 03-21-2023 Creatinine [Mass/Vol] 0.81 mg/dL 0.70-1.30 [facility] Comment on above: The validity of the calculated GFR & GFRAA in patients over 70 years has not been determined. Clinical correlation is essential. Serum or plasma ferritin eduar surement (mass/volume)Ordered By: Oliver Frank on 03-21-2023 Ferritin [Mass/Vol] 83 ng/mL 26-388 [facility] Serum or plasma low density lipoprotein (LDL) cholesterol measurement (mass/volume)Ordered By: Oliver Frank on 03-21-2023 Cholesterol in LDL [Mass/Vol] 93 mg/dL 0-130 [facility] Serum or plasma urea nitroge n measurement (mass/volume)Ordered By: Oliver Frank on 03-21-2023 Urea nitrogen [Mass/Vol] 14 mg/dL 7-18 [facility] Thin prep Papanicolaou smear with manual screeningOrdered By: Oliver Frank on 03-21-2023 Thin prep Papanicolaou smear with manual screening 3 5-15 [facility] Auto Diffon 06-22-2019 Basophils (Bld) [#/Vol] 0.0 E3/mcL Normal 0.0-0.2 [facility] Comment on above: Order Comment: Order Added by Discern Expert. Performed By: #### 2 [id number] #### [facility] [address] [place] [address] Basophils/100 WBC (Bld) 0.6 % Normal 0.0-2.0 [facility] Comment on above: Order Comment: Order Added by Discern Expert. Performed By: #### 2 [id number] #### [facility] [address] [address] [place] [address] Eos Absolute 0.5 E3/mcL Normal 0.0-0.7 [facility] Comment on above: Order Comment: Order Added by Discern Expert. Performed By: #### 2 [id number] #### [facility] [address] [place] [address] Eosinophils/100 WBC (Bld) 6.2 % Normal 0.0-11.0 [facility] Comment on above: Order Comment: Order Added by Discern Expert. Performed By: #### 2 [id number] #### [facility] [address] [place] [address] Lymphocytes (Bld) [#/Vol] 1.3 E3/mcL Normal 1.2-3.4 [facility] Comment on above: Order Comment: Order Added by Discern Expert. Performed By: #### 2 [id number] #### [facility] [address] [place] [address] Lymphocytes/100 WBC (Bld) 16.8 % Low 20.0-55.0 [facility] Comment on above: Order Comment: Order Added by Discern Expert. Performed By: #### 2 [id number] #### [facility] [address] [place] [address] [place] Absolute 0.8 E3/mcL High 0.0-0.7 [facility] Comment on above: Order Comment: Order Added by Discern Expert. Performed By: #### 2 [id number] #### [facility] [address] [place] [address] Monocytes/100 WBC (Bld) 10.2 % High 0.0-10.0 [facility] Comment on above: Order Comment: Order Added by Discern Expert. Performed By: #### 2 [id number] #### [facility] [address] [place] [address] Neutro Absolute 5.0 E3/mcL Normal 1.4-6.5 [facility] Comment on above: Order Comment: Order Added by Discern Expert. Performed By: #### 2 [id number] #### [facility] [address] [place] [address] Neutro Auto 66.2 % Normal 37.0-75.0 [facility] Comment on above: Order Comment: Order Added by Discern Expert. Performed By: #### 2 [id number] #### [facility] [address] [place] [address] CBC w/ Auto Diffon Erythrocyte distribution width (RBC) [Ratio] 14.3 % Normal 11.5-14.5 [facility] Comment on above: Performed By: #### 2 [id number] #### [facility] [address] [place] [address] Hematocrit (Bld) [Volume fraction] 46.3 % Normal 42.0-52.0 [facility] Comment on above: Performed By: #### 2 [id number] #### [facility] [address] [place] [address] Hemoglobin (Bld) [Mass/Vol] 15.5 g/dL Normal 13.5-18.0 [facility] Comment on above: Performed By: #### 2 [id number] #### [facility] [address] [place] [address] MCH (RBC) [Entitic mass] 32.6 pg High 27.0-31.0 [facility] Comment on above: Performed By: #### 2 [id number] #### [facility] [address] [place] [address] MCHC (RBC) [Mass/Vol] 33.5 g/dL Normal 33.0-37.0 [facility] Comment on above: Performed By: #### 2 [id number] #### [facility] [address] [place] [address] MCV (RBC) [Entitic vol] 97.3 fL Normal 78.0-100.0 [facility] Comment on above: Performed By: #### 2 [id number] #### [facility] [address] [place] [address] Platelet mean volume (Bld) [Entitic vol] 7.8 fL Normal 7.4-11.0 [facility] Comment on above: Performed By: #### 2 [id number] #### [facility] [address] [place] [address] Platelets (Bld) [#/Vol] 317 E3/mcL Normal 130-400 [facility] Comment on above: Performed By: #### 2 [id number] #### [facility] [address] [place] [address] RBC (Bld) [#/Vol] 4.75 E6/mcL Normal 3.90-6.10 [facility] Comment on above: Performed By: #### 2 [id number] #### [facility] [address] [place] [address] WBC (Bld) [#/Vol] 7.6 E3/mcL Normal 3.6-11.0 [facility] Comment on above: Performed By: #### 2 [id number] #### [facility] [address] [place] [address] CMPon 06-22-2019 Albumin [Mass/Vol] 4.1 g/dL Normal 3.4-5.0 [facility] Comment on above: Performed By: #### 2 [id number] #### [facility] [employer] [address] [place] [address] Albumin/Globulin [Mass ratio] 1.6 {ratio} Normal 1.1-1.9 [facility] Comment on above: Performed By: #### 2 [id number] #### [facility] [employer] [address] [place] [address] Alk Phos 74 Int._Unit/L Normal 33-136 [facility] Comment on above: Performed By: #### 2 [id number] #### [facility] [employer] [address] [place] [address] ALT [Catalytic activity/Vol] 32 Int._Unit/L Normal 10-52 [facility] Comment on above: Performed By: #### 2 [id number] #### [facility] [employer] [facility] [place] [address] Anion gap [Moles/Vol] 10 mmol/L Normal 10-20 [facility] Comment on above: Performed By: #### 2 [id number] #### [facility] [employer] [address] [place] [address] AST [Catalytic activity/Vol] 28 Int._Unit/L Normal 9-39 [facility] Comment on above: Performed By: #### 2 [id number] #### [facility] [employer] [address] [place] [address] 34625 Bili Total 0.67 mg/dL Normal 0.00-1.20 [facility] Comment on above: Performed By: #### 2 [id number] #### [facility] [employer] [address] [place] [address] 43113 Calcium [Mass/Vol] 8.9 mg/dL Normal 8.6-10.3 [facility] Comment on above: Performed By: #### 2 [id number] #### [facility] [employer] [address] [place] [address] 59546 Chloride [Moles/Vol] 105 mmol/L Normal 98-107 [facility] Comment on above: Performed By: #### 2 [id number] #### [facility] [employer] [address] [place] [address] 92430 CO2 [Moles/Vol] 31.0 mmol/L Normal 21.0-32.0 [facility] Comment on above: Performed By: #### 2 [id number] #### [facility] [employer] [address] [place] [address] 71346 Creatinine [Mass/Vol] 0.7 mg/dL Normal 0.5-1.3 [facility] Comment on above: Performed By: #### 2 [id number] #### [facility] [employer] [address] [place] [address] 78693 Globulin (S) [Mass/Vol] 3.0 g/dL Normal 2.0-4.0 [facility] Comment on above: Performed By: #### 2 [id number] #### [facility] [employer] [address] [place] [address] 13988 Glucose [Mass/Vol] 101 mg/dL High 70-99 [facility] Comment on above: Performed By: #### 2 [id number] #### [facility] [employer] [address] [place] [address] 06607 Potassium [Moles/Vol] 4.4 mmol/L Normal 3.5-5.3 [facility] Comment on above: Performed By: #### 2 [id number] #### [facility] [employer] [address] [place] [address] 76851 Protein [Mass/Vol] 6.7 g/dL Normal 6.4-8.2 [facility] Comment on above: Performed By: #### 2 [id number] #### [facility] [employer] [address] [place] [address] 53675 Sodium [Moles/Vol] 141 mmol/L Normal 136-145 [facility] Comment on above: Performed By: #### 2 [id number] #### [facility] [employer] [address] [place] [address] 95152 Urea nitrogen [Mass/Vol] 13 mg/dL Normal 6-23 [facility] Comment on above: Performed By: #### 2 [id number] #### [facility] [employer] [address] [place] [address] 84591 Urea nitrogen/Creatinine [Mass ratio] 18.6 ratio Normal 5.4-30.0 [facility] Comment on above: Performed By: #### 2 [id number] #### [facility] [employer] [address] [place] [address] 08235 Lipid Profileon 06-22-2019 Cholesterol [Mass/Vol] 176 mg/dL Normal 0-[address] [facility] Comment on above: Result Comment: TOTA L CHOLEESTEROL: <200 NORMAL 200 - 239 BORDERLINE HIGH >240 HIGH Performed By: #### 3 [id number] #### [facility] [employer] [address] [place] [address] 89310 Cholesterol in HDL [Mass/Vol] 54 mg/dL Normal 40-60 [facility] Comment on above: Performed By: #### 3 [id number] #### [facility] [employer] [address] [place] [address] 73005 Cholesterol in LDL [Mass/Vol] 107 mg/dL Normal 0-130 [facility] Comment on above: Result Comment: <100 OPTIMAL 100-129 NEAR / ABOVE OPTIMAL 130-159 BORDERLINE HIGH 160-189 HIGH >190 VERY HIGH CALC LDL NOT VALID WHEN TRIGLYCERIDE IS >400 MG/DL Performed By: #### 3 [id number] #### [facility] [employer] [address] [place], [place] [id number] Cholesterol in VLDL [Mass/Vol] 15 mg/dL Normal 0-40 [facility] Comment on above: Performed By: #### 3 [id number] #### [facility] [employer] [address] [place], [place] [id number] Triglyceride [Mass/Vol] 77 mg/dL Normal 0-149 [facility] Comment on above: Result Comment: AGE DESIRABLE BORDERLINE HIGH 91 D - 9 Y 0 - 74 75 - 99 > 100 10 - 19 Y 0 - 89 90 - 129 > 130 20 -24 Y 0 - 114 115 - 149 > 150 > 25 0 - 149 150 - 199 200 - 499 Performed By: #### 3 [id number] #### [facility] [employer] [address] [place], [place] [id number] Vit B12on 06-22-2019 Cobalamin (Vitamin B12) [Mass/Vol] 229 pg/mL Normal 180-914 [facility] Comment on above: Performed By: #### 2 [id number] #### [facility] [employer] [address] [place] [address] 93239 XR Chest 2 Viewson 9 XR Chest 2 Views Exam Date/Time: 06/22/2019 09:44 EDT Reason for Exam: Cough Report STUDY: XR Chest 2 Views; 06/22/2019 9:44 am INDICATION: Cough. COMPARISON: None. ACCESSION NUMBER(S): [id number] ORDERING CLINICIAN: Ted Suárez FINDINGS: PA and lateral views of the chest were obtained. No focal infiltrate, pleural effusion or pneumothorax is identified. The cardiac silhouette is within normal limits for size. Minimal discogenic degenerative changes are seen throughout the thoracic spine. IMPRESSION: No focal infiltrate or pneumothorax. FINAL REPORT Dictated: 06/22/2019 11:06 am Reynaldo Todd MD Signed (Electronic Signature): 06/22/2019 11:06 am Signed by: Reynaldo Todd MD Technologist: ADRIANO Normal [facility] eGFRon 06-22-2019 GFR/1.73 sq M predicted among non-blacks MDRD (S/P/Bld) [Vol rate/Area] mL/min/{1.73_m2} Normal [facility] Comment on above: Order Comment: Order added by Discern Expert. Performed By: #### 1 [id number] #### [facility] [employer] [facility] [place] [id number] Vital Signs Date Time Vital Sign Value Performing Clinician Abril morales 01-15-2022 13:05-0400 Body height 2255.52 cm PA Ivan Haynes PA Work Phone: [facility] Work Phone: 01-15-2022 13:05-0400 Body mass index (BMI) [Ratio] 0.1 kg/m2 PA Ivan Haynes PA Work Phone: [facility] Work Phone: 01-15-2022 13:05-0400 Body temperature 96.5 [degF] PA Ivan Haynes PA Work Phone: [facility] Work Phone: 01-15-2022 13:05-0400 Body weight 92.98 kg PA Ivan Haynes PA Work Phone: [facility] Work Phone: 01-15-2022 13:05-0400 Diastolic blood pressure 80 mm[Hg] PA Ivan Haynes PA Work Phone: [facility] Work Phone: 01-15-2022 13:05-0400 Heart rate 82 /min PA Ivan Haynes PA Work Phone: [facility] Work Phone: 01-15-2022 13:05-0400 Respiratory rate 14 /min PA Ivan Haynes PA Work Phone: [facility] Work Phone: 01-15-2022 13:05-0400 SaO2% (BldA) [Mass fraction] 95 % PA Ivan Haynes PA Work Phone: [facility] Work Phone: 01-15-2022 13:05-0400 Systolic blood pressure 130 mm[Hg] ADITHYA HAJI Work Phone: [facility] Work Phone: Encounters Encounter Date Encounter Type Care Provider Facility Start: 05-19-2025 End: 05-19-2025 ambulatory NONE [facility] Start: 01-04-2025 End: 01-04-[address] Murphy Frank MD Work Phone: [facility] Work Phone: Start: 01-04-2025 End: 01-04-[address] Murphy Frank MD -[facility] Start: 01-04-2025 End: 01-04-2025 ambulatory Murphy Frank Facility:[facility] Start: 03-21-2023 End: 03-21-2023 ambulatory [facility] Work Phone: Start: 03-21-2023 End: 03-21-2023 Patient encounter procedure [facility] Start: 04-15-2022 AUDIT Ted Suárez Work Phone: [facility] Work Phone: Start: 02-04-2022 AUDIT Ted Suárez Work Phone: [facility] Work Phone: Start: 01-15-2022 End: 01-15-2022 Patient encounter procedure ADITHYA HAJI Work Phone: [facility] Start: 06-07-2021 AUDIT Ted Suárez Work Phone: [facility] Work Phone: Procedures Date Procedure Procedure Detail Performing Clinician Start: 01-15-2022 X-ray of both feet ADITHYA HAJI Work Phone: Start: 11-10-2020 Follow-up visit Start: 12-14-2019 Follow-up visit Start: 06-22-2019 [object Object] Comment on above: Result Comment: AGE- SPECIFIC REFERENCE RANGES FOR SERUM PSA REFERENCE RANGE NG/ML AGE ASIANS BLACKS WHITE 40-49 0-2 0-2 0-2.5 50-59 0-3 0-4 0-3.5 60-69 0-4 0-4.5 0-4.5 70-79 0-5 0-5.5 0-6.5 PSA INCREASES WITH AGE, RACE, AND EJACULATION WITHIN 48 HRS. [facility] VOL24,NO.2, , PG.339 Performed By: #### 1 [id number] #### [facility] [place] [address] Start: 12-10-2013 Colonoscopy Ted fishermohan Work Phone: Appendectomy Ted Louise CruzSuárez Work Phone: Phacoemulsification of cataract with intraocular lens implantation Ted Louise Suárez Work Phone: Vasectomy Ted Louise CruzSuárez Work Phone: Immunizations Immunization Date Immunization Notes Care Provider Fa cility 07-27-2019 influenza virus vacc ine, unspecified formulation Ted Louise Suárez Work Phone: [facility] Work Phone: Comment on above: Series: 2019 tetanus toxoid, redu maximilian diphtheria toxoid, and acellular pertussis vaccine, adsorbed; Translations: [Tdap] Ted Degrooter Work Phone: [facility] Work Phone: Comment on above: Series: 09-01-2018 influenza virus vacc ine, unspecified formulation; Translations: [influenza virus vaccine, unspecified formulation] Ted Louise Suárez Work Phone: [facility] Work Phone: Comment on above: Series: 07-27-2018 pneumococcal polysaccharide vaccine, 23 valent; Translations: [Pneumovax 23 25 MCG/0.5ML Injection Injectable] Ted Suárez Work Phone: [facility] Work Phone: Comment on above: Series: 09-24-2017 pneumococcal conjuga te vaccine, 13 valent; Translations: [Prevnar 13 Intramuscular Suspension] Ted Degrooter Work Phone: [facility] Work Phone: Comment on above: Series: 11-20-2012 zoster vaccine, live ; Translations: [zoster vaccine, live] Tedyasmeen Cruzyder Work Phone: [facility] Work Phone: Comment on above: Series: Payers Date Payer Category Payer Self-pay [id number] 2025 Unknown [id number] 1950 Unknown [id number] Unknown ANTHEM Unknown SELF PAY INSURANCE [id number] Unknown [id number] Social History Date Type Detail Facility Former smoker Former smoker [facility] Work Phone: Start: 1950 Sex Assigned At Male [facility] Start: 08[facility]05-2023 [facility] Start: 01-14-2025 Sex Female (finding) [facility] Evaluation note Note Date & Type Note Facility Evaluation note Diagnosis Onset Date Right foot strain acute [facility] Work Phone: Evaluation note Note Date & Type Note Facility Evaluation note No assessment information availa ble [facility] Work Phone: Reason for referral (narrative) Note Date & Type Note Facility Reason for referral (narrative) No reason for referral information available [facility] Work Phone: Summary Purpose Family History No Family History Records FoundUnknown Family Member Name Dates Details No pertinent family history: Mother, Father(V49.89, Z78.9) Status:Active Unknown Family Member Name Dates Details No pertinent family history: Mother, Father(V49.89, Z78.9) Status:Active Unknown Family Member Name Dates Details No pertinent family history: Mother, Father(V49.89, Z78.9) Status:Active Advance Directives No Advanced Directives Records FoundNo Advanced Directives Records FoundNo Advanced Directives Records FoundNo Advanced Directives Records Found Chief Complaint and Reason for Visit Chief Complaint RIGHT FOOT INJURY EORDER- RIGHT FOOT Reason for Visit Right foot strain Additional Source Comments (unrecognized sect ion and content) No Status Records FoundNo Status Records FoundNo Status Records FoundNo Status Records Found INFORMATION SOURCE (unrecogn ized section and content) DATE CREATED AUTHOR 06/23/2019 [facility] DATE CREATED AUTHOR AUTHOR'S ORGANIZ ATION 11/11/2020 [employer] DATE CREATED AUTHOR AUTHOR'S ORGANIZ ATION 02/20/2025 [facility] DATE CREATED AUTHOR AUTHOR'S ORGANIZ ATION 05/20/2025 [facility] Goals (unrecognized section and content) Goals may be documented in a n alternate sectionGoals may be documented in an alternate sectionGoals may be documented in an alternate section Care Teams (unrecognized sec tion and content) Team Status: Active Member Role Status Dates Dr. Oliver Frank MD Primary Care Provider Activ e Team Status: Inactive Member Role Status Dates Dr. Oliver Frank MD Primary Care Provider, Atte nding Provider Active Team Status: Active Member Role Status Dates Dr. Murphy Frank MD Primary Care Provider Acti ve Team Status: Inactive Member Role Status Dates Dr. Murphy Frank MD Primary Care Provider Acti ve Start: January 04, 2025 End: January 04, 2025 Dr. Murphy Frank MD Attending Provider Active Start: January 04, 2025 End: January 04, 2025 Dr. Murphy Frank MD Referring Provider Active Start: January 04, 2025 End: January 04, 2025 FOR RECORDS PERTAINING TO PATIENTS WHO ARE [...] BE BASED ON THE PRIMARY CLINICAL RECORDS. [facility] [employer] [facility]. provides no warranty or guarantee of the accuracy or completeness of information in this document.
--- NOTE | 2025-07-22 19:10 | CM.ED ---
Social work Reason for referral: stroke alert SW responded to stroke alert and patient was back from imaging. Patient's , Missy, was bedside and SW introduced self and role at [facility]. Patient and Missy both expressed gratitude for support as they both expressed being concerned. SW provided active listening and supportive presence as needed. SW to remain available for further support. Beth Cagle, DINKEY BRAKEMAN, EXECUTIVE MEETING MANAGER
--- NOTE | 2025-07-22 19:12 | RAD_ITS ---
PROCEDURE: CHEST 1 VIEW 07/22/2025 REASON FOR EXAM: NEURO DEFICIT, ACUTE, STROKE SUSPECTED TECHNIQUE: Frontal view of the chest. COMPARISON: None. FINDINGS: Lungs/Pleura: Clear. No pneumothorax or sizable pleural effusion. Heart/Mediastinum: Mildly enlarged. No vascular congestion. Bones/Soft tissues: Mild degenerative changes of the spine and AC joints. RAD/Chest 1 View IMPRESSION: Cardiomegaly. No acute pulmonary disease. Reading Location: [id number]
[2025-07-22 19:22] LABS: Anion Gap 14 (5-15); BUN 21 mg/dL (4-19); BUN/Creat Ratio 24.2 RATIO (10-20); Calcium,Total 9.1 mg/dL (7.6-11.0); Carbon Dioxide 21.4 mmol/L (21.0-32.0); Chloride 105 mmol/L (98-108); Glucose 101 mg/dL (70-99); Potassium 4.1 mmol/L (3.3-5.1); Troponin T High Sensitivity 12 ng/L (<=22)
[2025-07-22 19:31] LABS: Hematocrit 45.8 % (40-54); Hemoglobin 15.7 g/dL (13.0-16.5); Immature Granulocytes Count 0.040 X10^3/uL (0.0-0.0); Mean Corp Hgb Conc 34.3 g/dL (32-36); Mean Corpuscular Volume 96.8 fL (80-94); Mean Platelet Vol. 9.3 fl (6.2-12.0); NRBC Flagged by Analyzer 0 % (0-5); Platelet Count 279 K/mm3 (150-450); RBC Distribution Width CV 13.1 % (11.6-14.6); RBC Distribution Width SD 47.1 fl (35.1-43.9); Red Blood Count 4.73 M/mm3 (4.6-6.2); White Blood Count 10.2 K/mm3 (4.4-11.0)
[2025-07-22 19:55] LABS: Prothrombin Time (Protime)PT. 13.7 SECONDS (11.7-14.9)
[2025-07-22 19:56] LABS: Partial Thromboplast Time 34.6 Seconds (24.1-36.2)
--- NOTE | 2025-07-22 20:07 | EDS_ITS ---
HPI History of Present Illness Chief Complaint: Stroke Alert Narrative Narrative: Patient is a 75-year-old male with no known significant past medical history who presents to the emergency department with concern for stroke. Patient was stroke alerted from triage. Patient states that around 8 AM this morning he was doing some exercises and notes that his right lower extremity felt heavy and felt off he continued about his day. He states that he later on throughout the day also developed some right hand fine motor difficulty. He also complains of slurred speech as well as his significant other at bedside also states that he has had slurred speech. They state that nothing like this has ever happened before but given the concern for stroke they brought him here to be further evaluated. Patient denies any headaches denies any head trauma denies any blood thinner medications [facility] Medical History Seasonal allergies Asthma, mild intermittent Home Medications ?Medication ?Instructions ?Recorded ?Last Taken ?Type fluticasone 250 mcg-salmeterol 50 1 inh inhalation Q12 H 01/15/22 Unknown History mcg/dose blistr powdr for inhalation latanoprost 0.005 % eye drops 1 drp ophthalmic (eye) Q AVERY 01/15/22 Unknown History cholecalciferol (vitamin D3) 50 50 mcg PO DAILY Unknown History mcg (2,000 unit) tablet (Vitamin D3) fluticasone propionate 50 1 spray intranasal DAILY Unknown History mcg/actuation nasal spray,suspension (Allergy Relief (fluticasone)) loratadine 10 mg tablet (Claritin) 10 mg PO DAILY 06/28 04/20 Unknown History Allergy/AdvReac Type Severity Reaction Status Date / Time No Known Allergies Allergy Verified 08/05/23 09:38 Social History Smoking Status: Former smoker ROS ROS ED ROS Narrative Constitutional: Denies any headache, lightness, dizziness, fevers, chills Eyes: Denies double vision blurry vision Cardiovascular: Denies chest pain Respiratory: Denies shortness of breath Abdomen: Denies abdominal pain nausea vomit diarrhea : Denies urinary symptoms Neurological: Complains of right leg and arm heaviness and numbness as noted above as well as slurred speech as noted above Musculoskeletal: Denies back pain Skin: Denies any rashes or lesions EXAM Physical Exam Narrative Exam Narrative: General: Patient was lying in bed rest comfortably did not appear to be in acute distress Head: Atraumatic, normocephalic Eyes: PERRL bilaterally, EOMI bilaterally, no conjunctival injection noted Neck: Soft, supple, trachea midline Cardiovascular: Regular rate and rhythm no murmurs gallops rubs noted Respiratory: Clear to auscultation bilaterally no rales rhonchi or wheeze noted Abdomen: Soft, nondistended, no tenderness to palpation Extremities: +5/5 strength noted in the bilateral lower extremities, radial pulses +2/4 in the bilateral extremities, no pedal edema exam Neurological: Patient following commands knew that he was at [facility] the year is 2024 NIH of 2 GCS 15 Skin: Warm, dry, intact no rashes or lesions noted Const Vital Signs: 07/22/25 18:35 07/22/25 18:46 07/22/25 18:56 Temperature 96.4 F L Temperature Source Oral Pulse Rate 54 L 54 L Respiratory Rate 16 16 Blood Pressure 165/98 H 165/98 H Blood Pressure Mean 120 120 Pulse Ox 95 95 Oxygen Delivery Method Room Air Room Air Room Air 07/22/25 18:59 07/22/25 19:30 07/22/25 20:00 Temperature Temperature Source Pulse Rate 65 68 69 Respiratory Rate 22 H 16 18 Blood Pressure 145/89 H 150/82 H 134/88 H Blood Pressure Mean 107 104 103 Pulse Ox 96 96 94 Oxygen Delivery Method Room Air Room Air Room Air 07/22/25 20:30 Temperature Temperature Source Pulse Rate 64 Respiratory Rate 16 Blood Pressure 141/69 H Blood Pressure Mean 93 Pulse Ox 97 Oxygen Delivery Method Room Air MDM MDM MDM Narrative Medical decision making narrative: Patient is a 75-year-old male who presents to the emergency department with concern for stroke. On the differential diagnose includes but not limited to, intracranial hemorrhage, hypertensive emergency, ischemic stroke, posterior circulation stroke, complex migraine. Once workup is obtained and reviewed he will be reevaluated. Patient is not a tenecteplase candidate as his symptoms started around 8 AM this morning, and states that his symptoms were persistent throughout the day however they did progressively worsen throughout the day and into this evening. Patient's CBC reviewed and showed no evidence of cytosis white blood cell normal at 10.2, he was 15.7, plate count of 279. Patient INR normal at 1, PT of 13.7. Patient sodium was 140, potassium normal 4.1, creatinine 0.85. Patient's troponin was 12, EKG reviewed which showed sinus rhythm with a rate of 64 bpm UT interval normal at 176. Patient CT head and brain without contrast reviewed showed no acute intracranial abnormalities. Patient CTA head and neck reviewed showed no acute large vessel occlusion there were short segmental mild narrowing of the proximal basilar artery anatomic variant as noted. Patient chest x-ray reviewed by myself by radiology showed cardiomegaly no other acute cardiopulmonary processes. Patient was given 325 mg aspirin. At this point time will discuss case with hospitalist for admission for further stroke workup. Spoke with hospitalist Dr. Cartwright who will accept the patient for admission. Patient was notified is agreeable with this plan all question concerns answered. Lab Data Labs: Laboratory Results - last 24 hr 07/22/25 18:51 WBC 10.2 RBC 4.73 Hgb 15.7 Hct 45.8 MCV 96.8 H MCH 33.2 H MCHC 34.3 RDW Std Deviation 47.1 H RDW Coeff of Driss 13.1 Plt Count 279 MPV 9.3 Immature Gran % (Auto) 0.400 Neut % (Auto) 67.3 Lymph % (Auto) 17.2 L [place] % (Auto) 10.6 H Eos % (Auto) 4.0 Baso % (Auto) 0.5 Absolute Neuts (auto) 6.8 Absolute Lymphs (auto) 1.75 Nucleated RBC % 0 PT 13.7 INR 1.0 APTT 34.6 Sodium 140 Potassium 4.1 Chloride 105 Carbon Dioxide 21.4 Anion Gap 14 BUN 21 H Creatinine 0.85 Est GFR (MDRD) Non-Af 90 BUN/Creatinine Ratio 24.2 H Glucose 101 H Calcium 9.1 Troponin T High Sens 12 Radiography Diagnostic Testing: Clinical Impression(s) from Imaging Studies Brain CT 07/22/25 18:39 IMPRESSION: No acute intracranial abnormality seen. Reading Location: [facility] Head/Neck CTA 07/22/25 18:40 IMPRESSION: No intracranial or cervical large vessel arterial occlusion or hemodynamically significant stenosis. Short-segment mild narrowing of the proximal basilar artery. Anatomic variants as noted. Reading Location: [facility] Chest X-Ray 07/22/25 19:12 IMPRESSION: Cardiomegaly. No acute pulmonary disease. Reading Location: [facility] Discharge Plan Dx/Rx/DC Orders Clinical Impression: Right arm weakness, Right leg weakness, Slurred speech Disposition Disposition: Acute Care Hospital [facility]
--- NOTE | 2025-07-22 20:36 | PCM.HP.STD ---
[facility] - General General Date of Admission: 07/22/25 Date of Service: 07/22/25 Chief Complaint: RLE Weakness and Slurred Speech. HPI Narrative KODY RUGGIERO, is a 75 M with a past medical history of former tobacco abuse, mild intermittent asthma; on fluticasone propion-salmeterol BID, seasonal allergies; on loratadine and fluticasone NS and glaucoma; on latanoprost eye drops who presents to [facility] ER complaining of RLE weakness and slurred speech. Mr. Ruggiero reports his symptoms began at ~8 AM earlier this morning while he was doing some exercises when he noted increasing heaviness and weakness in his Right lower extremity with patient not feeling right throughout the day. Then a few hours later he noted decreased dexterity in his Right hand followed by slurred speech so he and his family decided to come in for further evaluation and treatment with strong suspicion for CVA. He denies associated headache, head trauma, anticoagulation or similar previous episodes. In the ER he underwent CT scan of the brain without contrast which revealed no acute intracranial abnormality followed by CTA of the head and neck with IV contrast that revealed no large intracranial or cervical large vessel occlusion or hemodynamically significant stenosis with mild short-segment narrowing of the proximal basilar artery in addition to a CXR that revealed no acute pulmonary process. He was then diagnosed with TIA versus CVA and admitted to the PCU under observation status for ongoing care for stay that is expected to be less than 2 midnights. [facility] Medical History Seasonal allergies Asthma, mild intermittent Home Medications ?Medication ?Instructions ?Recorded ?Last Taken ?Type fluticasone 250 mcg-salmeterol 50 1 inh inhalation Q12H 01/15/22 07/22/25 08:14 History mcg/dose blistr powdr for inhalation latanoprost 0.005 % eye drops 1 drp ophthalmic (eye) QODAY 01/15/22 07/21/25 22:12 History cholecalciferol (vitamin D3) 50 50 mcg PO DAILY 07/22/25 07/22/25 08:00 History mcg (2,000 unit) tablet (Vitamin D3) fluticasone propionate 50 1 spray intranasal DAILY 07/22/25 07/22/25 08:13 History mcg/actuation nasal spray,suspension (Allergy Relief (fluticasone)) loratadine 10 mg tablet (Claritin) 10 mg PO DAILY 07/22/25 07/22/25 08:12 History Allergy/AdvReac Type Severity Reaction Status Date / Time No Known Allergies Allergy Verified 08/05/23 09:38 Social History Smoking Status: Former smoker ROS ROS Narrative Review of Systems: Constitutional: Patient denies fever or chills. Eyes: Patient denies change in vision or discharge from eyes. ENT: Patient denies runny nose, sore throat or ear pain. Resp: Patient denies shortness of breath or cough. CV: Patient denies chest pain, palpitations, heart racing or lower extremity edema. GI: Patient denies abdominal pain, nausea, vomiting, diarrhea or constipation. : Patient denies dysuria or hematuria. MSK: Patient admits to weakness and heaviness in his Right upper and lower extremity as per HPI. Skin: Patient denies rash, abscess, wounds or jaundice. Psych: Patient denies symptoms of uncontrolled depression or anxiety. Neuro: Patient admits to Right-sided weakness with slurred speech as per HPI but he denies headache or paresthesias. Allergy: Patient denies lip swelling, tongue swelling or urticaria. Hematology: Patient denies easy bleeding or easy bruisability. Endocrinology: Patient denies polyuria, polydipsia, polyphagia or heat/cold intolerance. 14 point ROS otherwise negative except for positives noted above in HPI. Vital Signs Vital Signs Vital Signs: 07/22/25 18:35 07/22/25 18:46 07/22/25 18:56 Temperature 96.4 F L Temperature Source Oral Pulse Rate 54 L 54 L Respiratory Rate 16 16 Blood Pressure 165/98 H 165/98 H Blood Pressure Mean 120 120 Pulse Ox 95 95 Oxygen Delivery Method Room Air Room Air Room Air 07/22/25 18:59 07/22/25 19:30 07/22/25 20:00 Temperature Temperature Source Pulse Rate 65 68 69 Respiratory Rate 22 H 16 18 Blood Pressure 145/89 H 150/82 H 134/88 H Blood Pressure Mean 107 104 103 Pulse Ox 96 96 94 Oxygen Delivery Method Room Air Room Air Room Air 07/22/25 20:30 Temperature Temperature Source Pulse Rate 64 Respiratory Rate 16 Blood Pressure 141/69 H Blood Pressure Mean 93 Pulse Ox 97 Oxygen Delivery Method Room Air Physical Exam Const alert, oriented x3, no apparent distress, average body habitus and healthy appearing General Appearance: cooperative HEENT normocephalic, head/scalp atraumatic, hearing grossly normal bilaterally and moist oral mucous membranes Eyes PERRL, EOMs intact bilaterally and conjunctivae normal Neck no lymphadenopathy, supple and no JVD Resp normal respiratory effort, no retractions, no use of accessory muscles and clear to auscultation bilaterally Cardio regular rate and regular rhythm GI normal to inspection, nondistended, normoactive bowel sounds, soft to palpation, non-tender and non-distended Extremity normal to inspection, full ROM and no clubbing, cyanosis or edema Skin Skin Narrative: Patient has evidence of rash, abscess, wounds or jaundice. Neuro oriented x3, CN's II-XII intact bilaterally, moves all extremities and no focal motor deficits Sensorium / Orientation: awake, alert, oriented to person, oriented to place and oriented to time Speech: speech normal Psych affect normal Results Medical Records Data Attestation: I reviewed the patient's medical records Lab / Micro Data Attestation: I reviewed the patient's lab results. 07/22/25 18:51 07/22/25 18:51 Labs: Laboratory Results - last 24 hr 07/22/25 18:51: WBC 10.2, RBC 4.73, Hgb 15.7, Hct 45.8, MCV 96.8 H, MCH 33.2 H, MCHC 34.3, RDW Std Deviation 47.1 H, RDW Coeff of Driss 13.1, Plt Count 279, MPV 9.3, Immature Gran % (Auto) 0.400, Neut % (Auto) 67.3, Lymph % (Auto) 17.2 L, [place] % (Auto) 10.6 H, Eos % (Auto) 4.0, Baso % (Auto) 0.5, Absolute Neuts (auto) 6.8, Absolute Lymphs (auto) 1.75, Nucleated RBC % 0, PT 13.7, INR 1.0, APTT 34.6, Sodium 140, Potassium 4.1, Chloride 105, Carbon Dioxide 21.4, Anion Gap 14, BUN 21 H, Creatinine 0.85, Est GFR (MDRD) Non-Af 90, BUN/Creatinine Ratio 24.2 H, Glucose 101 H, Calcium 9.1, Troponin T High Sens 12 Imaging Radiology Impression Brain CT 07/22/25 18:39 IMPRESSION: No acute intracranial abnormality seen. Reading Location: [facility] Head/Neck CTA 07/22/25 18:40 IMPRESSION: No intracranial or cervical large vessel arterial occlusion or hemodynamically significant stenosis. Short-segment mild narrowing of the proximal basilar artery. Anatomic variants as noted. Reading Location: [facility] Chest X-Ray 07/22/25 19:12 IMPRESSION: Cardiomegaly. No acute pulmonary disease. Reading Location: [facility] Assessment & Plan Assessment/Plan (1) Right arm weakness: (2) Right leg weakness: (3) Slurred speech: PLAN: Plan 1. Right-sided weakness with Slurred speech consistent with TIA vs CVA - Admit to PCU under observation status. Check MRI of the brain to evaluate for evidence of CVA. Check echocardiogram to evaluate LVEF. Continue ECASA and begin satin. Check TSH, B12, Folate, HgbA1c, Lipid Profile, CLEMENTINE and UDS. [facility] evaluation is greatly appreciated. 2. Mild intermittent asthma; on fluticasone propion-salmeterol BID - Stable with no evidence of acute flare at this time. Continue current treatment. 3. Former tobacco abuse - Noted. 4. Seasonal allergies; on loratadine and fluticasone NS - Present treatment to be maintained as before. 5. Glaucoma; on latanoprost eye drops - Continue latanoprost as previous. 6. DVT prophylaxis - Enoxaparin 40 mg sq daily. Update: Stroke alert was called at approximately 5:30 AM after patient was noted to have increasing weakness in his right upper extremity and right lower extremity. He underwent stat head CT without contrast that revealed no acute changes. Dr. Kuo of [facility] evaluated patient thoroughly and recommended for Plavix load of 600 mg p.o. x 1+500 cc bolus of normal saline x 1 and then continue maintenance fluid for suspected stuttering infarct with MRI of brain still pending in a.m. DINKEY BRAKEMAN was updated with plan. Total time: Approximately (but not less than) 40 minutes. Charges/Coding Visit Charges Inpatient E&M: 81892 Init Hosp L1
--- NOTE | 2025-07-22 20:51 | CDU_ITS ---
Reason For Study Reason For Study: Stroke Rt. Velocities/BP Lt. Velocities/BP Prox CCA 61.0/11.0 cm/sec. Prox CCA 84.2/12.7 cm/sec. Mid CCA 61.0/10.0 cm/sec. Mid CCA 112.5/17.5 cm/sec. Dist CCA 43.1/7.2 cm/sec. Dist CCA 90.4/10.6 cm/sec. Prox ICA 65.5/16.0 cm/sec. Prox ICA 58.9/11.7 cm/sec. Mid ICA 75.4/14.9 cm/sec. Mid ICA 61.9/20.7 cm/sec. Dist ICA 64.6/20.2 cm/sec. Dist ICA 45.8/13.9 cm/sec. Rt. ICA/CCA = 1.2. Lt. ICA/CCA = 0.6. Prox ECA 95.3/4.4 cm/sec. Prox ECA 66.6/5.1 cm/sec. Rt. Vert. 31.5/8.9 cm/sec. Lt. Vert. 39.3/10.0 cm/sec. Right Extracranial There is homogeneous, smooth atherosclerotic plaque noted in the right common carotid artery. There is heterogeneous, irregular atherosclerotic plaque noted in the right internal carotid artery. There is intimal thickening but no significant atherosclerotic plaque noted in the right external carotid artery. Antegrade flow is noted in the right vertebral artery. Left Extracranial There is heterogeneous, irregular atherosclerotic plaque noted in the left common carotid artery. There is heterogeneous, irregular atherosclerotic plaque noted in the left internal carotid artery. There is intimal thickening but no significant atherosclerotic plaque noted in the left external carotid artery. Antegrade flow is noted in the left vertebral artery. Procedure Carotid Duplex 44451. This is a Carotid Duplex examination using B-mode, color flow and specral Doppler. This is a venous duplex using B-mode, color flow and spectral Doppler. Exam performed portable in patient room. VL/Carotid Duplex Ultrasound Interpretation Summary Mild (<50%) stenosis right extracranial internal carotid. Mild (<50%) stenosis left extracranial internal carotid. Patent and antegrade vertebrals bilaterally. Ordering Physician: Rod Collins Referring Physician: Murphy Frank MD Performed By: Cady Spicer and Student, RVT
--- NOTE | 2025-07-22 20:51 | ECHOCS_ITS ---
Reason For Study Reason For Study: TIA/Stroke Procedure This was a 2D Doppler, Color Flow transthoracic echocardiogram. Contrast injection was performed. Exam performed portable in patient room. Left Ventricle Normal left ventricle. The estimated ejection fraction is 60-65 %. Right Ventricle Normal right ventricle. Normal systolic function. Atria Normal left atrium. Normal right atrium. Mitral Valve Anterior leaflet diffuse mitral valve thickening. Mild (1+) mitral valve insufficiency. Tricuspid Valve Normal tricuspid valve. Aortic Valve Trisinus/trileaflet aortic valve. Pulmonic Valve The pulmonic valve is not well visualized. Great Vessels The aortic root is not well visualized. Pericardium/Pleural No pericardial effusion. Medication Diluted definity 1.5ml given slow IV push to enhance endocardial definition. MMode/2D Measurements & Calculations LVIDd: 5.3 cm IVSd: 1.0 cm Ao root diam: 3.6 cm LVIDs: 3.7 cm LVPWd: 1.0 cm RVDd: 3.4 cm FS: 29.5 % LAV(MOD-bp): 49.1 ml LVAd ap4: 29.6 cm2 SV(MOD-sp4): 61.9 ml LAV(MOD-bp) Indexed: 22.6 ml/m2 LVLd ap4: 8.1 cm SI(MOD-sp4): 28.5 ml/m2 LAV(MOD-sp2): 51.7 ml EDV(MOD-sp4): 88.7 ml LAV(MOD-sp4): 40.7 ml EDV(sp4-el): 91.3 ml LVAs ap4: 14.9 cm2 LVLs ap4: 6.9 cm ESV(MOD-sp4): 26.9 ml ESV(sp4-el): 27.6 ml EF(MOD-sp4): 69.7 % EF(sp4-el): 69.8 % SV(sp4-el): 63.7 ml LA A4 area: 17.4 cm2 LA dimension(2D): 3.3 cm RA A4 area: 14.8 cm2 TAPSE: 1.8 cm Time Measurements MV dec time: 0.38 sec Doppler Measurements & Calculations MV E max dontrell: 38.4 cm/sec Lat Peak E' Dontrell: 8.5 cm/sec Med Peak E' Dontrell: 6.9 cm/sec MV A max dontrell: 73.5 cm/sec E/E' lat: 4.5 E/E' med: 5.6 MV E/A: 0.52 MV dec slope: 101.8 cm/sec2 Ao V2 max: 98.3 cm/sec LV V1 max: 72.1 cm/sec Ao max P.9 mmHg LV V1 max P.1 mmHg Ao V2 mean: 61.3 cm/sec LV V1 mean P.2 mmHg Ao mean P.8 mmHg LV V1 mean: 52.5 cm/sec Ao V2 VTI: 21.2 cm LV V1 VTI: 14.8 cm AV (velocity ratio): 0.70 PA V2 max: 65.6 cm/sec PI end-d dontrell: 110.9 cm/sec TR max dontrell: 200.4 cm/sec TR max P.1 mmHg ECHO/Echo Complete W/ Contrast Interpretation Summary The estimated ejection fraction is 60-65 %. Mild MR Contrast/Definity used Ordering Physician: Rod Collins Referring Physician: Murphy Frank Performed By: Roxanne Courtney RDCS, RVT
[2025-07-22 21:24] LABS: Troponin T High Sens 2 HR 13 ng/L (<=22)
[2025-07-22] MEDS: 0.9% Normal Saline (1000mL) 1,000 ML 70 ML IV (22:50)
[2025-07-22 23:14] LABS: Alcohol, Blood (Medical)-Serum < 10.1 mg/dL (<=10.0)
[2025-07-22 23:15] LABS: Troponin T High Sens 4 HR 11 ng/L (<=22)
[2025-07-23] VITALS (9 sets, daily range): BP systolic 147–175; BP diastolic 72–107; PULSE 60–72; RESP 16–18; TEMP 36.2–36.8; O2SAT 95–98; BMI 25.5
[2025-07-23 02:28] LABS: Barbiturate Urine NEGATIVE (< 200 ng/mL); Benzodiazepine Urine NEGATIVE (< 200 ng/mL); PCP Urine NEGATIVE (< 25 ng/mL); THC Urine NEGATIVE (< 50 ng/mL)
--- NOTE | 2025-07-23 05:36 | CT_ITS ---
PROCEDURE: STROKE BRAIN/HEAD WITHOUT CONT 07/23/2025 REASON FOR EXAM: STROKE ALERT TECHNIQUE: Procedure Code: CTBR.ST Modality: CT Procedure: STROKE BRAIN/HEAD WITHOUT CONT Coronal and Sagittal reconstruction series were provided. One or more dose reduction techniques were used (e.g., Automated exposure control, adjustment of the mA and/or kV according to patient size, use of iterative reconstruction technique. RADIATION DOSE SUMMARY: CTDlvol: 12.3 mGy DLP: 387 mGycm COMPARISON: CT scan on 07/22/2025. FINDINGS: Mild diffuse cortical atrophy, commensurate with the patient's age. Scattered hypodense foci in the periventricular and subcortical white matter suggestive of chronic ischemic white matter disease. Normal size of the ventricles and extra-axial spaces for the patient's age. Normal basal ganglia and thalami. Normal brainstem. Normal cerebellum. There is no demonstrated extra-axial, intraparenchymal, or intraventricular hemorrhage. There are no findings of an acute ischemic infarction. Normal calvarium. There is no demonstrated fracture. Normal soft tissue structures. Moderate chronic mucosal inflammatory changes of the visualized paranasal sinuses. Air-fluid level in the right maxillary sinus. CT/STROKE Brain/Head without Cont IMPRESSION: No CT evidence for acute brain abnormality. [facility]
[2025-07-23] MEDS: 0.9% Normal Saline (500mL Bag) 500 ML 999 ML IV (06:30)
[2025-07-23 08:14] LABS: Cholesterol 146 mg/dL (<=200); Low Density Lipoprotein Calc. 88 mg/dL; Triglycerides 67 mg/dL; Very Low Density Lipoprotein 13 mg/dL (5-40); cholesterol:hdl ratio screen 3.26
--- NOTE | 2025-07-23 08:54 | PN.HOSP_ITS ---
Reason for Visit Chief Complaint: RLE Weakness and Slurred Speech. Subjective Subjective Patient has had progressive right sided weakness as well as dysarthria since 8:00 yesterday morning. And currently has very limited movement of his right upper extremity. Also has weakness in his right lower extremity but not as profound as his arm. Objective Data Objective Data Vital Signs: Vital Signs Temp Pulse Resp BP Pulse Ox O2 Del Method O2 Flow Rate 36.6 C 60 18 175/90 H 97 Room Air 2 07/23/25 07:28 07/23/25 07:28 07/23/25 07:28 07/23/25 07:28 07/23/25 07:28 07/23/25 08:09 07/23/25 07:28 Oxygen Flow Rate (L/min) 2 Oxygen Delivery Method Room Air Weight: 90.2 kg Body Mass Index (BMI) 25.5 Intake & Output: Intake and Output for Last 24 Hours 07/21/25 07/22/25 07/23/25 23:59 23:59 23:59 Intake Total 650 / 650 Balance 650 / 650 Lab / Micro Data 07/22/25 18:51 07/22/25 18:51 Labs: Laboratory Results - last 24 hr 07/22/25 18:51: WBC 10.2, RBC 4.73, Hgb 15.7, Hct 45.8, MCV 96.8 H, MCH 33.2 H, MCHC 34.3, RDW Std Deviation 47.1 H, RDW Coeff of Driss 13.1, Plt Count 279, MPV 9.3, Immature Gran % (Auto) 0.400, Neut % (Auto) 67.3, Lymph % (Auto) 17.2 L, M [place] % (Auto) 10.6 H, Eos % (Auto) 4.0, Baso % (Auto) 0.5, Absolute Neuts (auto) 6.8, Absolute Lymphs (auto) 1.75, Nucleated RBC % 0, PT 13.7, INR 1.0, APTT 34.6, Sodium 140, Potassium 4.1, Chloride 105, Carbon Dioxide 21.4, Anion Gap 14, BUN 21 H, Creatinine 0.85, Est GFR (MDRD) Non-Af 90, BUN/Creatinine Ratio 24.2 H, Glucose 101 H, Hemoglobin A1c 5.6, Calcium 9.1, Troponin T High Sens 12 07/22/25 20:52: Troponin T Hi Sens 2 Hr 13, TSH 1.890 07/22/25 22:37: Troponin T Hi Sens 4Hr 11, Ethyl Alcohol < 10.1 07/23/25 01:30: Urine Opiates Screen NEGATIVE, U Buprenorphine Qual NEGATIVE, Ur Oxycodone Screen NEGATIVE, Urine Methadone Screen NEGATIVE, Urine Fentanyl Screen NEGATIVE, Ur Barbiturates Screen NEGATIVE, Ur Phencyclidine Scrn NEGATIVE, Ur Amphetamines Screen NEGATIVE, U Benzodiazepines Scrn NEGATIVE, Urine Cocaine Screen NEGATIVE, U Cannabinoids Screen NEGATIVE 07/23/25 05:35: POC Glucose 108 H 07/23/25 07:30: Triglycerides 67, Cholesterol 146, LDL Cholesterol, Calc 88, VLDL Cholesterol 13, HDL Cholesterol 45, Cholesterol/HDL Ratio 3.26 Radiography Diagnostic Testing: Radiology Impression Brain CT 07/22/25 18:39 IMPRESSION: No acute intracranial abnormality seen. Reading Location: [facility] Head/Neck CTA 07/22/25 18:40 IMPRESSION: No intracranial or cervical large vessel arterial occlusion or hemodynamically significant stenosis. Short-segment mild narrowing of the proximal basilar artery. Anatomic variants as noted. Reading Location: [facility] Chest X-Ray 07/22/25 19:12 IMPRESSION: Cardiomegaly. No acute pulmonary disease. Reading Location: [facility] Brain CT 07/23/25 05:36 IMPRESSION: No CT evidence for acute brain abnormality. [facility] Physical Exam Const alert and no apparent distress HEENT head/scalp atraumatic and moist oral mucous membranes Resp normal respiratory effort, no retractions, no use of accessory muscles and clear to auscultation bilaterally Cardio regular rate, regular rhythm, S1 normal heart sound and S2 normal heart sound GI normal to inspection, nondistended, normoactive bowel sounds, soft to palpation, non-tender and non-distended Extremity normal to inspection Neuro Neuro Narrative: Slight right facial droop compared to the left. Slight dysarthria. Muscle strength 2-5 in the right upper extremity and 3-5 in the right lower extremity. 5-5 in left upper and left lower extremity. Sensation grossly intact throughout. Sensorium / Orientation: awake and alert Psych affect normal Assessment & Plan Assessment/Plan (1) Right arm weakness: (2) Right leg weakness: (3) Slurred speech: PLAN: Plan Acute CVA * suspected given his symptoms * Delayed presentation as patient presented several hours after initial presentation as his symptoms did progress even while he was in the hospital. * CTA of the head and neck showed no LVO. He had a repeat CT given worsening symptoms and that was negative. * follow up MRI, neuro consult, echo * continue ASA, atorvastatin, clopidogrel Chronic conditions: * Mild intermittent asthma; on fluticasone propion-salmeterol BID - Stable with no evidence of acute flare at this time. Continue current treatment. * Glaucoma; on latanoprost eye drops - Continue latanoprost as previous. DVT prophylaxis - Enoxaparin 40 mg sq daily. Charges/Coding Visit Charges Inpatient E&M: 72536 Subs Hosp L2 NIHSS NIHSS Nursing Documentation NIHSS Nursing Documentation: NIHSS: Ischemic Stroke/TIA Start: 07/22/25 21:50 Text: For PCU Patients: NIH and Neuro Check every 4 Status: Active hours, PRN and with change in RN caregiver. Freq: [id number] Protocol: Activity Type Activity Date Activity User E-sign Co-sign Detail Recorded Client Recorded Date Recorded By Document 07/23/25 07:28 IA [id number] 07/23/25 08:07 IA 07/23/25 07:28 NIH Stroke Scale [NIHSS] A score of 0 is normal or asymptomatic . Total possible score is 42. Inpatient: RN or Physician to activate a stroke alert for onset of new stroke symptoms or with NIHSS increase >/= 3 points. Following change in neurological status, NIHSS will be performed per physician order or more frequently PRN. -1a. Level of Consciousness 0 - Alert; keenly responsive -1b. LOC Questions 0 - Answers BOTH questions correctly -1c. LOC Commands 0 - Performs BOTH tasks correctly -2. Best Gaze 0 - Normal -3. Visual 0 - No visual loss -4. Facial Palsy 0 - Normal symmetrical movements -5a. Left Arm 0 - No drift; arm holds 90 ( or 45) degrees for full 10 seconds -5b. Right Arm 3 - No effort against gravity ; arm falls -6a. Left Leg 0 - No drift; leg holds 30- degree position for full 5 seconds -6b. Right Leg 2 - Some effort against gravity; -7. Limb Ataxia 2 - Present in 2 limbs -8. Sensory 0 - Normal; no sensory loss -9. Best Language 0 - No aphasia; normal -10. Dysarthria 1 = Mild-to- moderate dysarthria; -11. Extinction and Inattention 0 - No abnormality -Total 8 Query Text:A score of 0 is normal or asymptomatic. Total possible score is 42 . ED: Notify Physician for NIHSS increase by > / = 3 points. Inpatient: RN or Physician to activate a stroke alert for NIHSS increase of > / = 3 points. Coma Scale [Assess] -Eye Opening Spontaneous -Motor Obeys Commands -Verbal Oriented [Total] -Coma Scale Total 15
[2025-07-23] MEDS: Fluticasone 0.05% 1 SPRAY NASAL.SRY NASAL (09:31)
[2025-07-23] MEDS: Cholecalciferol (VIT D3) 25 MCG TABLET (1,000 UNITS) 50 MCG PO (09:31)
--- NOTE | 2025-07-23 09:35 | STROKE.CONS ---
Assessment and Plan: Stroke Assessment/Plan KODY RUGGIERO is a 75 M with a history of tobacco abuse, mild intermittent asthma who presents for evaluation of right sided weakness Neurological examination shows Right hemiparesis. Neuroimaging shows CT head negative, CTA: Mid basilar stenosis, LDL: 88, MRI: Left pontine stroke. Acute stroke from basilar stenosis vs small vessel disease Plan Continue ASA, plavix for 3 months then ASA alone stroke w/up: ECHO, HBA1c Permissive HTN IVF PT,OT, speech, swallow eval stroke education Smoking cessation Tanks for consult. Spent 40 min in evaluation and management HPI Consult Data Date of Consult: 07/23/25 HPI Narrative HPI Narrative: KODY RUGGIERO, is a 75 M with a past medical history of former tobacco abuse, mild intermittent asthma who presents to [facility] ER complaining of RLE weakness and slurred speech. Mr. Ruggiero reports his symptoms began at ~8 AM while he was doing some exercises when he noted increasing heaviness and weakness in his Right lower extremity with patient not feeling right throughout the day. Then a few hours later he noted decreased dexterity in his Right hand followed by slurred speech so he and his family decided to come in for further evaluation and treatment with strong suspicion for CVA. He denies associated headache, head trauma, anticoagulation or similar previous episodes. His symptoms got worse in the night with worsening weakness on right side, slurred speech with NIHSS 5. He was given ASA initially then loaded with plavix CT scan of the brain without contrast which revealed no acute intracranial abnormality CTA of the head and neck with IV contrast that revealed no large intracranial or cervical large vessel occlusion or hemodynamically significant stenosis. there is with mild short-segment narrowing of the proximal basilar artery [facility] Medical History Seasonal allergies Asthma, mild intermittent Home Medications ?Medication ?Instructions ?Recorded ?Last Taken ?Type fluticasone 250 mcg-salmeterol 50 1 inh inhalation Q12H 01/15/22 07/22/25 08:14 History mcg/dose blistr powdr for inhalation latanoprost 0.005 % eye drops 1 drp ophthalmic (eye) QODAY 01/15/22 07/21/25 22:12 History cholecalciferol (vitamin D3) 50 50 mcg PO DAILY 07/22/25 07/22/25 08:00 History mcg (2,000 unit) tablet (Vitamin D3) fluticasone propionate 50 1 spray intranasal DAILY 07/22/25 07/22/25 08:13 History mcg/actuation nasal spray,suspension (Allergy Relief (fluticasone)) loratadine 10 mg tablet (Claritin) 10 mg PO DAILY 07/22/25 07/22/25 08:12 History Allergy/AdvReac Type Severity Reaction Status Date / Time No Known Allergies Allergy Verified 08/05/23 09:38 Social History Smoking Status: Former smoker Vital Signs Vital Signs Vital Signs: 07/22/25 18:35 07/22/25 18:46 07/22/25 18:56 Temperature 96.4 F L Temperature Source Oral Pulse Rate 54 L 54 L Pulse Strength Respiratory Rate 16 16 Respiratory Effort Respiratory Depth Respiratory Pattern Blood Pressure 165/98 H 165/98 H Blood Pressure Mean 120 120 Blood Pressure Source Blood Pressure Position Blood Pressure Location Pulse Ox 95 95 Oxygen Delivery Method Room Air Room Air Room Air Oxygen Flow Rate (L/min) 07/22/25 18:59 07/22/25 19:30 07/22/25 20:00 Temperature Temperature Source Pulse Rate 65 68 69 Pulse Strength Respiratory Rate 22 H 16 18 Respiratory Effort Respiratory Depth Respiratory Pattern Blood Pressure 145/89 H 150/82 H 134/88 H Blood Pressure Mean 107 104 103 Blood Pressure Source Blood Pressure Position Blood Pressure Location Pulse Ox 96 96 94 Oxygen Delivery Method Room Air Room Air Room Air Oxygen Flow Rate (L/min) 07/22/25 20:30 07/22/25 21:00 07/22/25 21:00 Temperature 98.0 F Temperature Source Pulse Rate 64 64 64 Pulse Strength Respiratory Rate 16 16 16 Respiratory Effort Respiratory Depth Respiratory Pattern Blood Pressure 141/69 H 140/81 H 140/81 H Blood Pressure Mean 93 100 100 Blood Pressure Source Blood Pressure Position Blood Pressure Location Pulse Ox 97 94 94 Oxygen Delivery Method Room Air Room Air Oxygen Flow Rate (L/min) 07/22/25 21:30 07/22/25 22:00 07/22/25 22:00 Temperature 98.5 F Temperature Source Oral Pulse Rate 65 62 Pulse Strength Normal (2+) Respiratory Rate 18 18 Respiratory Effort Respiratory Depth Respiratory Pattern Blood Pressure 141/90 H 159/92 H Blood Pressure Mean 107 114 Blood Pressure Source Monitor Blood Pressure Position Semi-Fowlers Blood Pressure Location Right Arm Pulse Ox 93 96 Oxygen Delivery Method Room Air Room Air Oxygen Flow Rate (L/min) 07/22/25 22:26 07/22/25 23:00 07/22/25 23:11 Temperature Temperature Source Pulse Rate Pulse Strength Respiratory Rate Respiratory Effort Normal Non-Labored Respiratory Depth Normal Respiratory Pattern Normal Blood Pressure Blood Pressure Mean Blood Pressure Source Blood Pressure Position Blood Pressure Location Pulse Ox 94 97 Oxygen Delivery Method Room Air Room Air Nasal Cannula Oxygen Flow Rate (L/min) 1 07/23/25 01:20 07/23/25 05:20 07/23/25 05:35 Temperature 97.2 F L 97.4 F L 97.8 F Temperature Source Temporal Temporal Temporal Pulse Rate 66 66 64 Pulse Strength Respiratory Rate 18 18 18 Respiratory Effort Respiratory Depth Respiratory Pattern Blood Pressure 161/100 H 164/89 H 168/96 H Blood Pressure Mean 120 114 120 Blood Pressure Source Monitor Monitor Blood Pressure Position Semi-Fowlers Semi-Fowlers Blood Pressure Location Right Arm Right Arm Pulse Ox 96 98 96 Oxygen Delivery Method Nasal Cannula Nasal Cannula Nasal Cannula Oxygen Flow Rate (L/min) 1 2 2 07/23/25 06:48 07/23/25 07:28 07/23/25 08:05 Temperature 97.8 F Temperature Source Temporal Pulse Rate 60 Pulse Strength Normal (2+) Respiratory Rate 18 Respiratory Effort Respiratory Depth Respiratory Pattern Blood Pressure 175/90 H Blood Pressure Mean 118 Blood Pressure Source Monitor Blood Pressure Position Semi-Fowlers Blood Pressure Location Left Arm Pulse Ox 97 Oxygen Delivery Method Nasal Cannula Nasal Cannula Oxygen Flow Rate (L/min) 1 2 07/23/25 08:09 Temperature Temperature Source Pulse Rate Pulse Strength Respiratory Rate Respiratory Effort Normal Non-Labored Respiratory Depth Normal Respiratory Pattern Normal Blood Pressure Blood Pressure Mean Blood Pressure Source Blood Pressure Position Blood Pressure Location Pulse Ox Oxygen Delivery Method Room Air Oxygen Flow Rate (L/min) Weight Weight: 90.2 kg Body Mass Index (BMI) 25.5 Physical Exam Const alert, oriented x3 and no apparent distress General Appearance: cooperative, comfortable and well kempt HEENT normocephalic Neuro Neuro Narrative: AAOX3 speech fluent No aphasia C 2-12 intact except ? mild right facial assymetry Right hemiparesis and left antigravity 5/5 Sensation: Intact No ataxia on left Lab / Micro Data 07/22/25 18:51 07/22/25 18:51 Labs: Laboratory Results - last 24 hr 07/22/25 18:51: WBC 10.2, RBC 4.73, Hgb 15.7, Hct 45.8, MCV 96.8 H, MCH 33.2 H, MCHC 34.3, RDW Std Deviation 47.1 H, RDW Coeff of Driss 13.1, Plt Count 279, MPV 9.3, Immature Gran % (Auto) 0.400, Neut % (Auto) 67.3, Lymph % (Auto) 17.2 L, [place] % (Auto) 10.6 H, Eos % (Auto) 4.0, Baso % (Auto) 0.5, Absolute Neuts (auto) 6.8, Absolute Lymphs (auto) 1.75, Nucleated RBC % 0, PT 13.7, INR 1.0, APTT 34.6, Sodium 140, Potassium 4.1, Chloride 105, Carbon Dioxide 21.4, Anion Gap 14, BUN 21 H, Creatinine 0.85, Est GFR (MDRD) Non-Af 90, BUN/Creatinine Ratio 24.2 H, Glucose 101 H, Hemoglobin A1c 5.6, Calcium 9.1, Troponin T High Sens 12 07/22/25 20:52: Troponin T Hi Sens 2 Hr 13, TSH 1.890 07/22/25 22:37: Troponin T Hi Sens 4Hr 11, Ethyl Alcohol < 10.1 07/23/25 01:30: Urine Opiates Screen NEGATIVE, U Buprenorphine Qual NEGATIVE, Ur Oxycodone Screen NEGATIVE, Urine Methadone Screen NEGATIVE, Urine Fentanyl Screen NEGATIVE, Ur Barbiturates Screen NEGATIVE, Ur Phencyclidine Scrn NEGATIVE, Ur Amphetamines Screen NEGATIVE, U Benzodiazepines Scrn NEGATIVE, Urine Cocaine Screen NEGATIVE, U Cannabinoids Screen NEGATIVE 07/23/25 05:35: POC Glucose 108 H 07/23/25 07:30: Triglycerides 67, Cholesterol 146, LDL Cholesterol, Calc 88, VLDL Cholesterol 13, HDL Cholesterol 45, Cholesterol/HDL Ratio 3.26 Imaging Radiology Impression Brain CT 07/22/25 18:39 IMPRESSION: No acute intracranial abnormality seen. Reading Location: [id number] Head/Neck CTA 07/22/25 18:40 IMPRESSION: No intracranial or cervical large vessel arterial occlusion or hemodynamically significant stenosis. Short-segment mild narrowing of the proximal basilar artery. Anatomic variants as noted. Reading Location: [facility] Chest X-Ray 07/22/25 19:12 IMPRESSION: Cardiomegaly. No acute pulmonary disease. Reading Location: [facility] Brain CT 07/23/25 05:36 IMPRESSION: No CT evidence for acute brain abnormality. Reading Location: [place] [id number] Active Medications Active Medications Active Medications: Current Medications Generic Name Dose Route Start Last Admin Trade Name Freq PRN Reason Stop Dose Admin Acetaminophen 650 mg 07/22/25 21:50 Acetaminophen 325 Mg Tablet PO Q6H PRN PRN Pain 1-10 Or Fever>99.6 Albuterol Sulfate 2.5 mg 07/23/25 00:00 Albuterol 2.5 Mg/3 Ml Vial.Neb. INHALATION Q6HWA.RT IRENE Aspirin 81 mg 07/23/25 08:00 07/23/25 09:31 Aspirin 81 Mg Tab.Chew PO 81 mg BREAKFAST IRENE Administration Atorvastatin Calcium 40 mg 07/22/25 22:00 07/22/25 22:50 Atorvastatin Calcium 40 Mg Tablet PO 40 mg QHS IRENE Administration Budesonide 0.5 mg 07/23/25 06:00 Budesonide Respules 0.5 Mg/2 Ml Ampul.Neb. INHALATION Q12H.RT IRENE Cholecalciferol 50 mcg 07/23/25 10:00 07/23/25 09:31 Cholecalciferol (Vit D3) 25 Mcg Tablet (1,000 Units) PO 50 mcg DAILY IRENE Administration Clopidogrel Bisulfate 75 mg 07/24/25 10:00 Clopidogrel Bisulfate 75 Mg Tablet PO DAILY IRENE Enoxaparin Sodium 40 mg 07/23/25 10:00 07/23/25 09:32 Enoxaparin 40 Mg/0.4 Ml Syringe SC 40 mg DAILY IRENE Administration Fluticasone Propionate 1 spray 07/23/25 10:00 07/23/25 09:31 Fluticasone 0.05% 1 [place] Nasal.Sry NASAL 1 spray DAILY IRENE Administration Sodium Chloride 1,000 mls @ 70 mls/hr 07/22/25 20:52 07/22/25 22:50 IV 07/23/25 11:09 70 mls/hr .[id number] IRENE Administration Sodium Chloride 250 mls @ 15 mls/hr 07/22/25 21:51 IV .[id number] PRN Saline Flush Sodium Chloride 250 mls @ 15 mls/hr 07/22/25 21:51 IV .[id number] PRN Additional IVPB Infusion Latanoprost 1 drp 07/23/25 22:00 Latanoprost 0.005% 1 Bottle OPHTHALMIC QODAY@2200 IRENE Loratadine 10 mg 07/23/25 10:00 07/23/25 09:31 Loratadine 10 Mg Tablet PO 10 mg DAILY IRENE Administration Sodium Chloride 10 - 40 ml 07/22/25 21:51 0.9% Saline Lock 10 Ml Syringe IV UD PRN SALINE FLUSH NIHSS NIHSS Nursing Documentation NIHSS Nursing Documentation: NIHSS: Ischemic Stroke/TIA Start: 07/22/25 21:50 Text: For PCU Patients: NIH and Neuro Check every 4 Status: Active hours, PRN and with change in RN caregiver. Freq: [id number] Protocol: Activity Type Activity Date Activity User E-sign Co-sign Detail Recorded Client Recorded Date Recorded By Document 07/23/25 07:28 OK [id number] 07/23/25 08:07 OK 07/23/25 07:28 NIH Stroke Scale [NIHSS] A score of 0 is normal or asymptomatic . Total possible score is 42. Inpatient: RN or Physician to activate a stroke alert for onset of new stroke symptoms or with NIHSS increase >/= 3 points. Following change in neurological status, NIHSS will be performed per physician order or more frequently PRN. -1a. Level of Consciousness 0 - Alert; keenly responsive -1b. LOC Questions 0 - Answers BOTH questions correctly -1c. LOC Commands 0 - Performs BOTH tasks correctly -2. Best Gaze 0 - Normal -3. Visual 0 - No visual loss -4. Facial Palsy 0 - Normal symmetrical movements -5a. Left Arm 0 - No drift; arm holds 90 ( or 45) degrees for full 10 seconds -5b. Right Arm 3 - No effort against gravity ; arm falls -6a. Left Leg 0 - No drift; leg holds 30- degree position for full 5 seconds -6b. Right Leg 2 - Some effort against gravity; -7. Limb Ataxia 2 - Present in 2 limbs -8. Sensory 0 - Normal; no sensory loss -9. Best Language 0 - No aphasia; normal -10. Dysarthria 1 = Mild-to- moderate dysarthria; -11. Extinction and Inattention 0 - No abnormality -Total 8 Query Text:A score of 0 is normal or asymptomatic. Total possible score is 42 . ED: Notify Physician for NIHSS increase by > / = 3 points. Inpatient: RN or Physician to activate a stroke alert for NIHSS increase of > / = 3 points. Coma Scale [Assess] -Eye Opening Spontaneous -Motor Obeys Commands -Verbal Oriented [Total] -Coma Scale Total 15 NIHSS 1a. Level of Consciousness: 0 - Alert; keenly responsive 1b. LOC Questions: 0 - Answers BOTH questions correctly 3. Visual: 0 - No visual loss 5a. Left Arm: 0 - No drift; arm holds 90 (or 45) degrees for full 10 seconds 5b. Right Arm: 4- No movement 6a. Left Le - No drift; leg holds 30-degree position for full 5 seconds 6b. Right Le - No effort against gravity; leg falls to bed immediately 7. Limb Ataxia: 0 - Absent 8. Sensory: 0 - Normal; no sensory loss 9. Best Language: 0 - No aphasia; normal 10. Dysarthria: 0 - Normal 11. Extinction and Inattention: 0 - No abnormality Total: 7
--- NOTE | 2025-07-23 17:45 | CASEMGMT ---
RN?CM?ADMISSIONS DEAN?CM?to room to meet with patient for initial transition planning/care coordination?assessment.?RN?CM?introduced self and role at [facility].? Pt voices understanding and consents to?assessment?at this time.? Pt sitting up in chair in room in no distress at this time.? in room visiting. Pt is A/O at this time and answers all questions appropriately.?? Care providers, pharmacy, and demographics verified/updated at this time. PCP: Dr Frank Specialists: none [facility]erred Pharmacy: [facility] Insurance: [employer] [facility] only. Prescription Benefit:?yes LNOK: Missy Living Arrangements: Lives w/ in one-story condo w/1 step to enter through the garage or no steps through front entrance. Pt was very independent w/ADL's and IADL's prior to admission. and pt share home mgnt tasks. Pt works full-time from home. Pt also works-out several times a day. Transportation:?Pt and both drive. DME: ?Pt used no DME prior to admission. HHC/SNF: No history of either. Reviewed therapy notes from today. Pt able to go 2-3 ft w/max assist of 2 w/use of charlie-walker today. Per therapy note, pt would benefit from RU. Discussed discharge planning w/pt and . Questions answered about RU's & SNF's, insurance, and referral process. Pt and both state they would like pt to go to [facility] RU @ dc and they deny wanting list of other RU or SNF options at this time. Message sent to [employer]du [facility] JOHN, aquatics coordinator, via e-mail and backline. PLAN:? [facility] RU, pending acceptance and insurance approval. Ana M MARTINEZN?RN?CM
--- NOTE | 2025-07-23 17:52 | CASEMGMT ---
JOBY BOYKIN NOTE: CALDERON form explained re: Observation status for treatment of TIA vs CVA.? Explained hospitalization will be paid per his insurance policy for Outpatient billing?and condition will continue to be evaluated for Inpt necessity. Also let pt know that [facility] sends paper in the billing packet with their phone number if questions arise. Pt and verbalize understanding and do not have further questions. ?Form signed, copy made and placed in chart, and original given to pt & . Ana M HEART RN CM
--- NOTE | 2025-07-23 20:51 | MRI_ITS ---
PROCEDURE: BRAIN WITHOUT CONTRAST 07/23/2025 REASON FOR EXAM: PLEASE EVALUATE FOR CVA. TECHNIQUE: Procedure Code: MRIBR Modality: MR Procedure: BRAIN WITHOUT CONTRAST Multiplanar and multisequence images were obtained. COMPARISON: CT head without contrast and CTA head and neck, 07/23/2025 at 5:42 a.m. FINDINGS: There are few scattered foci of abnormal periventricular and subcortical white matter signal abnormality. These are nonspecific but are consistent with chronic ischemic white matter disease. There is a normal sulcal pattern and gyral configuration. There is no evidence of acute intracranial hemorrhage or infarction. The suarez-white differentiation is well preserved. There is no evidence of restricted diffusion. The ventricles and basilar cisterns are normal. There are normal flow voids demonstrated in the recognized intracranial vessels. The cerebellum and brainstem are unremarkable. The cerebellar pontine angles are normal. The craniovertebral junction is normal. The sella and suprasellar regions are normal. There are bilateral intra-ocular lens implants. The intraorbital contents are otherwise unremarkable. There is left melody bullosa with nasal septal deviation to the right. There is mucoperiosteal thickening of the frontal sinuses, the ethmoidal air cells and the maxillary sinuses. The mastoid air cells are clear. There is normal bone marrow signal in the skull base and calvarium. MRI/Brain without Contrast IMPRESSION: 1. No evidence of acute intracranial pathology. 2. Other findings as noted. Reading Location: [id number]
[2025-07-23] MEDS: Latanoprost 0.005% 1 Bottle 1 DRP OPHTHALMIC (23:34)
[2025-07-24 03:28] VITALS: BP 155/97; PULSE 66; RESP 16; TEMP 36.7; O2SAT 96
[2025-07-24 05:00] VITALS: BMI 25.5
[2025-07-24 07:17] VITALS: BP 147/102; PULSE 67; RESP 20; TEMP 36.1; O2SAT 96
--- NOTE | 2025-07-24 07:30 | STROKE.PNOTE ---
Objective Data Objective Data Vital Signs: Vital Signs Temp Pulse Resp BP Pulse Ox O2 Del Method O2 Flow Rate 96.9 F L 67 20 H 147/102 H 96 Nasal Cannula 2 07/24/25 07:17 07/24/25 07:17 07/24/25 07:17 07/24/25 07:17 07/24/25 07:17 07/24/25 07:17 07/24/25 07:17 Oxygen Flow Rate (L/min) 2 Oxygen Delivery Method Nasal Cannula Weight: 90.2 kg Body Mass Index (BMI) 25.5 Intake & Output: Intake and Output for Last 24 Hours 07/22/25 07/23/25 07/24/25 23:59 23:59 23:59 Intake Total 2450 / 2450 Balance 2450 / 2450 Lab / Micro Data 07/22/25 18:51 07/22/25 18:51 Labs: Laboratory Results - last 24 hr 07/23/25 07:30: Triglycerides 67, Cholesterol 146, LDL Cholesterol, Calc 88, VLDL Cholesterol 13, HDL Cholesterol 45, Cholesterol/HDL Ratio 3.26 Radiography Diagnostic Testing: Radiology Impression Echocardiogram 07/22/25 20:51 Interpretation Summary The estimated ejection fraction is 60-65 %. Mild MR Contrast/Definity used Ordering Physician: Rod Collins Referring Physician: Murphy Frank Performed By: Roxanne Courtney, RDCS, RVT Brain MRI 07/23/25 20:51 IMPRESSION: 1. No evidence of acute intracranial pathology. 2. Other findings as noted. Reading Location: [id number] Physical Exam Const Orientation / Consciousness: awake and oriented to person HEENT normocephalic Resp normal respiratory effort Neuro Neuro Narrative: Awake, alert oriented X3 CN: No gross facial assymetry Mild dysarthria RHP Right UE is plegic and RLE able to lift it a second against gravity2-3/5 Left 5/5 Sensation: Intact Subject: Neurology Subjective MURPHY RUGGIERO is a 75 year old M, with a past medical history of former tobacco abuse, mild intermittent asthma who presents to [facility] ER complaining of RLE weakness and slurred speech. Mr. Ruggiero reports his symptoms began at ~8 AM while he was doing some exercises when he noted increasing heaviness and weakness in his Right lower extremity with patient not feeling right throughout the day. Then a few hours later he noted decreased dexterity in his Right hand followed by slurred speech so he and his family decided to come in for further evaluation and treatment with strong suspicion for CVA. He denies associated headache, head trauma, anticoagulation or similar previous episodes. His symptoms got worse in the night with worsening weakness on right side, slurred speech with NIHSS 5. He was given ASA initially then loaded with plavix He is getting better over last 24 hours in terms of speech and right leg weakness CT scan of the brain without contrast which revealed no acute intracranial abnormality CTA of the head and neck with IV contrast that revealed no large intracranial or cervical large vessel occlusion or hemodynamically significant stenosis. there is with mild short-segment narrowing of the proximal basilar artery Assessment and Plan: Stroke Assessment/Plan MURPHY RUGGIERO is a 75 M with a history of with a history of tobacco abuse, mild intermittent asthma who presents for evaluation of right sided weakness Neurological examination shows Right hemiparesis. Neuroimaging shows CT head negative, CTA: Mid basilar stenosis, LDL: 88, MRI: Left pontine stroke. Acute stroke from basilar stenosis vs small vessel disease, ECHO: EF 60-65% Plan Continue ASA, plavix for 3 months then ASA alone Permissive HTN acutely and gradual normalization of blood pressure PT,OT, speech, swallow eval stroke education Smoking cessation Evaluation for rehabilitation Thanks for consult. Spent 30 min in evaluation and management NIHSS NIHSS Nursing Documentation NIHSS Nursing Documentation: NIHSS: Ischemic Stroke/TIA Start: 07/22/25 21:50 Text: For PCU Patients: NIH and Neuro Check every 4 Status: Active hours, PRN and with change in RN caregiver. Freq: [id number] Protocol: Activity Type Activity Date Activity User E-sign Co-sign Detail Recorded Client Recorded Date Recorded By Document 07/24/25 07:17 LV [id number] 07/24/25 07:24 LV 07/24/25 07:17 NIH Stroke Scale [NIHSS] A score of 0 is normal or asymptomatic . Total possible score is 42. Inpatient: RN or Physician to activate a stroke alert for onset of new stroke symptoms or with NIHSS increase >/= 3 points. Following change in neurological status, NIHSS will be performed per physician order or more frequently PRN. -1a. Level of Consciousness 0 - Alert; keenly responsive -1b. LOC Questions 0 - Answers BOTH questions correctly -1c. LOC Commands 0 - Performs BOTH tasks correctly -2. Best Gaze 0 - Normal -3. Visual 0 - No visual loss -4. Facial Palsy 1 - Minor paralysis ( flattened nasolabial fold , asymmetry on smiling) -5a. Left Arm 0 - No drift; arm holds 90 ( or 45) degrees for full 10 seconds -5b. Right Arm 3 - No effort against gravity ; arm falls -6a. Left Leg 0 - No drift; leg holds 30- degree position for full 5 seconds -6b. Right Leg 2 - Some effort against gravity; -7. Limb Ataxia 1 - Present in 1 limb -8. Sensory 0 - Normal; no sensory loss -9. Best Language 0 - No aphasia; normal -10. Dysarthria 1 = Mild-to- moderate dysarthria; -11. Extinction and Inattention 0 - No abnormality -Total 8 Query Text:A score of 0 is normal or asymptomatic. Total possible score is 42 . ED: Notify Physician for NIHSS increase by > / = 3 points. Inpatient: RN or Physician to activate a stroke alert for NIHSS increase of > / = 3 points. Coma Scale [Assess] -Eye Opening Spontaneous -Motor Obeys Commands -Verbal Oriented [Total] -Coma Scale Total 15 NIHSS 1a. Level of Consciousness: 0 - Alert; keenly responsive 1b. LOC Questions: 0 - Answers BOTH questions correctly 1c. LOC Commands: 0 - Performs BOTH tasks correctly 2. Best Gaze: 0 - Normal 3. Visual: 0 - No visual loss 4. Facial Palsy: 0 - Normal symmetrical movements 5b. Right Arm: 4- No movement 6a. Left Le - No drift; leg holds 30-degree position for full 5 seconds 6b. Right Le - Some effort against gravity; 7. Limb Ataxia: 0 - Absent 8. Sensory: 0 - Normal; no sensory loss 9. Best Language: 0 - No aphasia; normal 10. Dysarthria: 1 = [id number] dysarthria; 11. Extinction and Inattention: 0 - No abnormality Total: 7
[2025-07-24 07:48] VITALS: BMI 25.5
[2025-07-24] MEDS: Cholecalciferol (VIT D3) 25 MCG TABLET (1,000 UNITS) 50 MCG PO (08:59)
[2025-07-24] MEDS: Fluticasone 0.05% 1 SPRAY NASAL.SRY NASAL (09:01)
--- NOTE | 2025-07-24 09:17 | PN.HOSP_ITS ---
Reason for Visit Chief Complaint: RLE Weakness and Slurred Speech. Subjective Subjective Feels he is able to speak better. Able to move his right lower extremity somewhat better but still profound deficits in his right upper extremity. Objective Data Objective Data Vital Signs: Vital Signs Temp Pulse Resp BP Pulse Ox O2 Del Method O2 Flow Rate 36.1 C L 67 20 H 147/102 H 96 Room Air 2 07/24/25 07:17 07/24/25 07:17 07/24/25 07:17 07/24/25 07:17 07/24/25 07:17 07/24/25 07:50 07/24/25 07:17 Oxygen Flow Rate (L/min) 2 Oxygen Delivery Method Room Air Weight: 90.2 kg Body Mass Index (BMI) 25.5 Intake & Output: Intake and Output for Last 24 Hours 07/22/25 07/23/25 07/24/25 23:59 23:59 23:59 Intake Total 2450 / 2450 Balance 2450 / 2450 Lab / Micro Data 07/22/25 18:51 07/22/25 18:51 Radiography Diagnostic Testing: Radiology Impression Echocardiogram 07/22/25 20:51 Interpretation Summary The estimated ejection fraction is 60-65 %. Mild MR Contrast/Definity used Ordering Physician: Rod Collins Referring Physician: Murphy Frank Performed By: Roxanne Courtney, RADHACS, RVT Brain MRI 07/23/25 20:51 IMPRESSION: 1. No evidence of acute intracranial pathology. 2. Other findings as noted. Reading Location: [id number] Physical Exam Const alert and no apparent distress HEENT head/scalp atraumatic and moist oral mucous membranes Resp normal respiratory effort and no retractions Extremity normal to inspection and no clubbing, cyanosis or edema Neuro Neuro Narrative: Muscle strength is 1 out of 5 in the right upper extremity and he is able to flex his right knee but not extend it. Sensation is grossly intact on his face arms and legs and equal. Still slightly slurred speech but overall improved from the . Psych affect normal Assessment & Plan Assessment/Plan (1) Right arm weakness: (2) Right leg weakness: (3) Slurred speech: PLAN: Plan Acute CVA * Delayed presentation as patient presented several hours after initial presentation as his symptoms did progress even while he was in the hospital. * CTA of the head and neck showed no LVO. He had a repeat CT given worsening symptoms and that was negative. * MRI read by radiology as unremarkable but neurology felt the patient had a pontine stroke. I would defer to neurology as the patient has profound symptoms. * continue ASA, atorvastatin, clopidogrel * Continue with PT OT and speech therapy. Chronic conditions: * Mild intermittent asthma; Stable with no evidence of acute flare at this time. Continue current treatment. * Glaucoma; on latanoprost eye drops - Continue latanoprost as previous. DVT prophylaxis - Enoxaparin 40 mg sq daily. Disposition: To be determined. But anticipate the patient requiring acute rehab when he is ready for discharge. Discussed with the patient's at bedside. Charges/Coding Visit Charges Inpatient E&M: 55218 Subs Hosp L2 NIHSS NIHSS Nursing Documentation NIHSS Nursing Documentation: NIHSS: Ischemic Stroke/TIA Start: 07/22/25 21:50 Text: For PCU Patients: NIH and Neuro Check every 4 Status: Active hours, PRN and with change in RN caregiver. Freq: [id number] Protocol: Activity Type Activity Date Activity User E-sign Co-sign Detail Recorded Client Recorded Date Recorded By Document 07/24/25 07:17 [id number] 07/24/25 07:24 07/24/25 07:17 NIH Stroke Scale [NIHSS] A score of 0 is normal or asymptomatic . Total possible score is 42. Inpatient: RN or Physician to activate a stroke alert for onset of new stroke symptoms or with NIHSS increase >/= 3 points. Following change in neurological status, NIHSS will be performed per physician order or more frequently PRN. -1a. Level of Consciousness 0 - Alert; keenly responsive -1b. LOC Questions 0 - Answers BOTH questions correctly -1c. LOC Commands 0 - Performs BOTH tasks correctly -2. Best Gaze 0 - Normal -3. Visual 0 - No visual loss -4. Facial Palsy 1 - Minor paralysis ( flattened nasolabial fold , asymmetry on smiling) -5a. Left Arm 0 - No drift; arm holds 90 ( or 45) degrees for full 10 seconds -5b. Right Arm 3 - No effort against gravity ; arm falls -6a. Left Leg 0 - No drift; leg holds 30- degree position for full 5 seconds -6b. Right Leg 2 - Some effort against gravity; -7. Limb Ataxia 1 - Present in 1 limb -8. Sensory 0 - Normal; no sensory loss -9. Best Language 0 - No aphasia; normal -10. Dysarthria 1 = Mild-to- moderate dysarthria; -11. Extinction and Inattention 0 - No abnormality -Total 8 Query Text:A score of 0 is normal or asymptomatic. Total possible score is 42 . ED: Notify Physician for NIHSS increase by > / = 3 points. Inpatient: RN or Physician to activate a stroke alert for NIHSS increase of > / = 3 points. Coma Scale [Assess] -Eye Opening Spontaneous -Motor Obeys Commands -Verbal Oriented [Total] -Coma Scale Total 15
[2025-07-24 11:15] VITALS: BP 153/101; PULSE 63; RESP 18; TEMP 36.7; O2SAT 98
[2025-07-24 15:15] VITALS: BP 148/91; PULSE 70; RESP 18; TEMP 36.6; O2SAT 95
[2025-07-24 17:00] VITALS: BP 144/89; PULSE 76; RESP 18; TEMP 36.6; O2SAT 95
[2025-07-24 21:00] VITALS: BP 142/96; PULSE 74; RESP 18; TEMP 36.2; O2SAT 95
[2025-07-25 01:00] VITALS: BP 150/98; PULSE 68; RESP 16; TEMP 35.7; O2SAT 94
[2025-07-25 02:41] VITALS: BMI 25.5
[2025-07-25 05:00] VITALS: BP 132/97; PULSE 68; RESP 16; TEMP 36.4; O2SAT 94
[2025-07-25 08:06] VITALS: BP 143/103; PULSE 73; RESP 16; TEMP 36.7; O2SAT 95
[2025-07-25 09:01] VITALS: BMI 25.5
[2025-07-25 09:43] VITALS: BP 111/80; PULSE 84; RESP 16; TEMP 36.7; O2SAT 98
[2025-07-25] MEDS: Fluticasone 0.05% 1 SPRAY NASAL.SRY NASAL (09:44)
[2025-07-25] MEDS: Cholecalciferol (VIT D3) 25 MCG TABLET (1,000 UNITS) 50 MCG PO (09:44)
--- NOTE | 2025-07-25 10:42 | CASEMGMT ---
Social Work SW completed a PHQ9 with the patient. Patient scored a 0. L. NORI Schuler
[2025-07-25 12:25] LABS: Hematocrit 46.9 % (40-54); Hemoglobin 16.3 g/dL (13.0-16.5); Immature Granulocytes Count 0.030 X10^3/uL (0.0-0.0); Mean Corp Hgb Conc 34.8 g/dL (32-36); Mean Corpuscular Volume 94.4 fL (80-94); Mean Platelet Vol. 9.1 fl (6.2-12.0); NRBC Flagged by Analyzer 0 % (0-5); Platelet Count 285 K/mm3 (150-450); RBC Distribution Width CV 13.0 % (11.6-14.6); RBC Distribution Width SD 44.9 fl (35.1-43.9); Red Blood Count 4.97 M/mm3 (4.6-6.2); White Blood Count 8.6 K/mm3 (4.4-11.0)
[2025-07-25 13:15] LABS: AST(SGOT) 32 U/L (<=37); Alanine Aminotransfer ALT/SGPT 27 U/L (<=46); Albumin, Serum 4.1 g/dL (3.4-4.8); Alkaline Phosphatase 89 U/L (40-129); Anion Gap 13 (5-15); BUN 13 mg/dL (4-19); BUN/Creat Ratio 16.7 RATIO (10-20); Calcium,Total 9.2 mg/dL (7.6-11.0); Carbon Dioxide 20.5 mmol/L (21.0-32.0); Chloride 106 mmol/L (98-108); Estimated Creatinine Clearance 89.91 ml/min (50-250); Globulin 2.8 g/dL (2.2-4.2); Glucose 117 mg/dL (70-99); Potassium 4.4 mmol/L (3.3-5.1)
--- NOTE | 2025-07-25 13:54 | CASEMGMT ---
Social Work Patient wants to discharge to [facility] acute inpatient rehab. The patient has been accepted and the pre-cert has been started. NORI Harper
[2025-07-25 14:00] VITALS: BP 124/102; PULSE 86; RESP 16; TEMP 36.5; O2SAT 97
--- NOTE | 2025-07-25 14:27 | NEURO.PNOTE ---
Assessment and Plan: Neuro Assessment/Plan Telestroke Attending Progress Note 75 y/o man with h/o former tobacco abuse, mild intermittent asthma p/w right sided weakness along with slurred speech, progressive worsening. CT Head- no acute intracranial process. CTA- mild stenosis of basilar artery. LDL: 88, MRI: Left pontine stroke. Likely small vessel disease. Diagnosis: Left pontine stroke, small vessel disease Plan: Continue ASA, plavix for 3 months then ASA alone along with statin. Permissive HTN acutely and gradual normalization of blood pressure PT,OT, speech, swallow eval stroke education Smoking cessation Evaluation for rehabilitation I personally attended this patient and spent a total time of 35 minutes evaluating this patient including clinical assessment, review of chart, medical history imaging, and determining appropriate treatment and workup. Subject: Neurology Subjective He reports no new complaints at this time. Still has no movement in RUE with antigravity in RLE. EEG Results Procedure Details EEG Procedure Details: KODY KRAUSE is a 75 year old M with a past medical history of , who presents for evaluation of Electroencephalogram on DATE at TIME Objective Data Objective Data Vital Signs: Vital Signs Temp Pulse Resp BP Pulse Ox O2 Del Method O2 Flow Rate 97.7 F L 86 16 124/102 H 97 Room Air 2 07/25/25 14:00 07/25/25 14:00 07/25/25 14:00 07/25/25 14:00 07/25/25 14:00 07/25/25 14:00 07/24/25 13:41 Oxygen Flow Rate (L/min) 2 Oxygen Delivery Method Room Air Weight: 90.2 kg Body Mass Index (BMI) 25.5 Intake & Output: Intake and Output for Last 24 Hours 07/23/25 07/24/25 07/25/25 23:59 23:59 23:59 Intake Total 2450 / 2450 900 / 900 Balance 2450 / 2450 900 / 900 Lab / Micro Data 07/25/25 12:10 07/25/25 12:10 Labs: Laboratory Results - last 24 hr 07/25/25 12:10: WBC 8.6, RBC 4.97, Hgb 16.3, Hct 46.9, MCV 94.4 H, MCH 32.8 H, MCHC 34.8, RDW Std Deviation 44.9 H, RDW Coeff of Driss 13.0, Plt Count 285, MPV 9.1, Immature Gran % (Auto) 0.300, Neut % (Auto) 61.2, Lymph % (Auto) 17.6 L, [place] % (Auto) 14.7 H, Eos % (Auto) 5.7 H, Baso % (Auto) 0.5, Absolute Neuts (auto) 5.3, Absolute Lymphs (auto) 1.51, Nucleated RBC % 0, Sodium 140, Potassium 4.4, Chloride 106, Carbon Dioxide 20.5 L, Anion Gap 13, BUN 13, Creatinine 0.78, Estim Creat Clear Calc 89.91, Est GFR (MDRD) Non-Af 92, BUN/Creatinine Ratio 16.7, Glucose 117 H, Calcium 9.2, Total Bilirubin 0.56, AST 32, ALT 27, Alkaline Phosphatase 89, Total Protein 6.9, Albumin 4.1, Globulin 2.8, Albumin/Globulin Ratio 1.5 NIHSS NIHSS Nursing Documentation NIHSS Nursing Documentation: NIHSS: Ischemic Stroke/TIA Start: 07/22/25 21:50 Text: For PCU Patients: NIH and Neuro Check every 4 Status: Active hours, PRN and with change in RN caregiver. Freq: [id number] Protocol: Activity Type Activity Date Activity User E-sign Co-sign Detail Recorded Client Recorded Date Recorded By Document 07/25/25 14:00 ...7 07/25/25 14:25 07/25/25 14:00 NIH Stroke Scale [NIHSS] A score of 0 is normal or asymptomatic . Total possible score is 42. Inpatient: RN or Physician to activate a stroke alert for onset of new stroke symptoms or with NIHSS increase >/= 3 points. Following change in neurological status, NIHSS will be performed per physician order or more frequently PRN. -1a. Level of Consciousness 0 - Alert; keenly responsive -1b. LOC Questions 0 - Answers BOTH questions correctly -1c. LOC Commands 0 - Performs BOTH tasks correctly -2. Best Gaze 0 - Normal -3. Visual 0 - No visual loss -4. Facial Palsy 1 - Minor paralysis ( flattened nasolabial fold , asymmetry on smiling) -5a. Left Arm 0 - No drift; arm holds 90 ( or 45) degrees for full 10 seconds -5b. Right Arm 3 - No effort against gravity ; arm falls -6a. Left Leg 0 - No drift; leg holds 30- degree position for full 5 seconds -6b. Right Leg 2 - Some effort against gravity; -7. Limb Ataxia 0 - Absent -8. Sensory 0 - Normal; no sensory loss -9. Best Language 0 - No aphasia; normal -10. Dysarthria 1 = Mild-to- moderate dysarthria; -11. Extinction and Inattention 0 - No abnormality -Total 7 Query Text:A score of 0 is normal or asymptomatic. Total possible score is 42 . ED: Notify Physician for NIHSS increase by > / = 3 points. Inpatient: RN or Physician to activate a stroke alert for NIHSS increase of > / = 3 points. Coma Scale [Assess] -Eye Opening Spontaneous -Motor Obeys Commands -Verbal Oriented [Total] -Coma Scale Total 15 NIHSS 1a. Level of Consciousness: 0 - Alert; keenly responsive 1b. LOC Questions: 0 - Answers BOTH questions correctly 1c. LOC Commands: 0 - Performs BOTH tasks correctly 2. Best Gaze: 0 - Normal 3. Visual: 0 - No visual loss 4. Facial Palsy: 0 - Normal symmetrical movements 5a. Left Arm: 0 - No drift; arm holds 90 (or 45) degrees for full 10 seconds 5b. Right Arm: 4- No movement 6a. Left Le - No drift; leg holds 30-degree position for full 5 seconds 6b. Right Le - Drift; leg falls by the end of 5-seconds, but does not hit bed 7. Limb Ataxia: 0 - Absent 8. Sensory: 0 - Normal; no sensory loss 9. Best Language: 0 - No aphasia; normal 10. Dysarthria: 0 - Normal 11. Extinction and Inattention: 0 - No abnormality Total: 5
--- NOTE | 2025-07-25 15:55 | CASEMGMT ---
Social Work SW was informed that the patient has been approved to be admitted to [facility] acute inpatient rehab. SW notified the physician, patient and nurse. NORI Harper
--- NOTE | 2025-07-25 16:10 | NURSING ---
report called to Cori HEMPHILL in [facility]
--- NOTE | 2025-07-25 16:52 | PCM.TXEXTCAR ---
Diet Diet Order/Speech Therapy: INPATIENT Hospital Diet / Speech Therapy Order(s) 07/23/25 07:34 Diet: Cardiac - Heart Healthy Routine Orders/Code Status Enema Frequency: Daily PRN Suppository Type: Dulcolax 10mg DC O2, CPAP, BIPAP needs Home O2 Discharge instructions: No Therapies Weight Bearing: Weight bearing as tolerated Physical Therapy: Eval and Treat Occupational Therapy: Eval and Treat Problem/Diagnosis (1) Right arm weakness: Status: Acute Code(s): R29.898 - Other symptoms and signs involving the musculoskeletal system (2) Right leg weakness: Status: Acute Code(s): R29.898 - Other symptoms and signs involving the musculoskeletal system (3) Slurred speech: Status: Acute Code(s): R47.81 - Slurred speech Allergies/Procedures Done in Hospital Allergies No Known Allergies Allergy (Verified 08/05/23 09:38) Procedures: 2-D Echocardiogram Type of Care/Length of Stay Estimated LOS: Convalescent Care Less Than 30 days Type of Care Needed: Skilled Rehab Potential: Fair Prognosis: Fair Additional Orders/Day of Discharge Day of Discharge: 07/25/25 Dietary and Speech Recommendations Dietitian Recommendations/Changes: Continue Cardiac diet to manage medical conditions. Discharge Plan Admission Admit Date/Time: 07/23/25 10:51 Primary Reason for Your Visit: acute CVA Attending Provider: Jaye Murrieta Primary Care Provider: Murphy Frank Consulting Providers: Herve Pendleton; Lillian Parker; Suzanne Reddy; Sharda Luna; Alona Kuo; Low Dillon; Ragini Mishra; Drew Ortiz; Ronny Bolanos; Mor Ibarra; Danni Odonnell; Jessica Lee; Josue Sesay; Torie De Leon; Oneida Castro; Roger Jack; Flaquito Noble; Tonny Miller; Yonas Hall; Marianela Jacobs; Maren De La Cruz; Rod Collins; James Freeman Instructions Patient Instructions: Booklet - Understanding Stroke Discharge Orders/Prescriptions Prescriptions: New atorvastatin 40 mg Tablet 40 mg PO QHS Qty: 30 2RF clopidogrel 75 mg Tablet 75 mg PO DAILY Qty: 90 0RF aspirin 81 mg Tablet,Chewable 81 mg PO BREAKFAST Qty: 30 2RF amlodipine 10 mg tablet 10 mg PO DAILY Qty: 30 2RF Continued latanoprost 0.005 % drops 1 drp ophthalmic (eye) QODAY fluticasone propion-salmeterol 250-50 mcg/dose blister with device 1 inh inhalation Q12H cholecalciferol (vitamin D3) [Vitamin D3] 50 mcg (2,000 unit) tablet 50 mcg PO DAILY loratadine [Claritin] 10 mg tablet 10 mg PO DAILY fluticasone propionate [Allergy Relief (fluticasone)] 50 mcg/actuation spray,suspension 1 spray intranasal DAILY Rx Instructions: administer into each nostril Referrals / Follow Up: Murphy Frank MD [Primary Care Provider, Family Practice] - Within 1 Week Efrain Lawson MD [Non-Staff -Ordering Privileges, Neurology] - Within 2 Weeks Disposition Disposition (needs filled in before D/C Order can be placed): Inpatient Rehab Unit/Facility Charges/Coding Visit Charges Inpatient E&M: 90935 Disch Hosp >30min
--- NOTE | 2025-07-25 16:53 | DS.PCM_ITS ---
Providers Date of Admission: 07/23/25 Date of Discharge: 07/25/25 Primary Care Physician: Dr. Murphy Frank MD Consultations 07/22/25 21:50 Consult: Tele-Neurology Routine Consulting Provider: [facility] Reason for Consult: Acute Ischemic Stroke/TIA EMERGENT Consult: No MD Notified: Yes Date Notified: 07/22/25 Time Notified: 23:40 Method of Notification: Answering Service Nursing Unit Staff Notify [facility] of Tele-Neurology Consult: Yes Reason For Visit: TIA VS CVA Diagnosis Discharge Diagnosis (1) Right arm weakness: Status: Deleted Code(s): R29.898 - Other symptoms and signs involving the musculoskeletal system (2) Right leg weakness: Status: Deleted Code(s): R29.898 - Other symptoms and signs involving the musculoskeletal system (3) Slurred speech: Status: Deleted Code(s): R47.81 - Slurred speech Medications at Discharge Home Medications fluticasone 250 mcg-salmeterol 50 mcg/dose blistr powdr for inhalation 1 inh inhalation Q12H SOB/Wheezing 01/15/22 latanoprost 0.005 % eye drops 1 drp ophthalmic (eye) QODAY eye drops 01/15/22 cholecalciferol (vitamin D3) 50 mcg (2,000 unit) tablet (Vitamin D3) 50 mcg PO DAILY supplement 07/22/25 fluticasone propionate 50 mcg/actuation nasal spray,suspension (Allergy Relief (fluticasone)) 1 spray intranasal DAILY SOB/Wheezing 07/22/25 loratadine 10 mg tablet (Claritin) 10 mg PO DAILY allergies 07/22/25 amlodipine 10 mg tablet 10 mg PO DAILY BP #30 tabs 07/25/25 aspirin 81 mg chewable tablet 81 mg PO BREAKFAST heart health #30 tabs 07/25/25 atorvastatin 40 mg tablet 40 mg PO QHS cholestrol #30 tabs 07/25/25 clopidogrel 75 mg tablet 75 mg PO DAILY supplement #90 tabs 07/25/25 fluticasone 250 mcg-salmeterol 50 mcg/dose blistr powdr for inhalation (Advair Diskus) 1 inh inhalation BID sob/wheezing 07/26/25 Hospital Course Operations None Procedures 2-D Echocardiogram Summary of Care Provided Minutes Spent on Discharge: 40 Hospital Course: Patient is a 75-year-old male with a past medical history as outlined was admitted to the ED on 07/22/2025 with complaint of right lower extremity weakness and slurred speech with the symptoms beginning at around 8 AM on the morning of admission. He was doing some exercise and noted increased heaviness and weakness in his right lower extremity. He did not feel right throughout the whole day. He also noted subsequently that the dexterity in his right hand was affected and associated with slurred speech so he came into the ED due to concerns for stroke. CT of the brain showed no acute intracranial abnormality. CTA of the head and neck showed no hemodynamically significant occlusion. He was admitted to be managed for stroke rule out. Telestroke was consulted. He had 2D echo which showed EF of 60 to 65% with mild mitral regurgitation. He had MRI which showed no evidence of acute intracranial pathology. However neurology reviewed the MRI and felt that patient likely had a left pontine stroke. Patient was therefore managed for acute stroke especially in light of him having the clear deficits with a right-sided weakness. He was placed on aspirin and atorvastatin high intensity as well as Plavix. PT OT and speech therapy were consulted. Per neurology he was to be on dual antiplatelet therapy for 3 months and then to continue with aspirin monotherapy and continue with high intensity statin. He was discharged to the acute rehab unit on 07/25/2025. He is follow- up with his primary care doctor within 1 to 2 weeks and was referred to neurology on outpatient basis. Patient seen and examined prior to discharge. He had no active complaints and had an uneventful night. Review of systems otherwise negative. Labs and vitals reviewed. Home medication reviewed and reconciled. Physical Exam Const alert, oriented x3 and no apparent distress General Appearance: cooperative and comfortable HEENT normocephalic, head/scalp atraumatic, moist oral mucous membranes and oropharynx normal Mouth: oral and palatal mucosa normal Eyes EOMs intact bilaterally and conjunctivae normal Neck supple and no JVD Resp normal respiratory effort, no retractions, no use of accessory muscles and clear to auscultation bilaterally Cardio regular rate, regular rhythm, S1 normal heart sound, S2 normal heart sound and no murmurs GI normal to inspection, nondistended, normoactive bowel sounds, soft to palpation and non-tender Extremity normal to inspection Skin no rashes or lesions noted Neuro oriented x3 Neuro Narrative: Right sided hemiplegia due to stroke. Speech is mildly slurred. Motor Exam: strength 5/5 throughout Psych affect normal Weight / BMI Weight Weight: 198 lb 13.711 oz Body Mass Index (BMI) 25.5 ABG / Lab / Microbiology Data 07/25/25 12:10 07/25/25 12:10 Laboratory: Laboratory Results - last 24 hr 07/25/25 12:10: WBC 8.6, RBC 4.97, Hgb 16.3, Hct 46.9, MCV 94.4 H, MCH 32.8 H, MCHC 34.8, RDW Std Deviation 44.9 H, RDW Coeff of Driss 13.0, Plt Count 285, MPV 9.1, Immature Gran % (Auto) 0.300, Neut % (Auto) 61.2, Lymph % (Auto) 17.6 L, [place] % (Auto) 14.7 H, Eos % (Auto) 5.7 H, Baso % (Auto) 0.5, Absolute Neuts (auto) 5.3, Absolute Lymphs (auto) 1.51, Nucleated RBC % 0, Sodium 140, Potassium 4.4, Chloride 106, Carbon Dioxide 20.5 L, Anion Gap 13, BUN 13, Creatinine 0.78, Estim Creat Clear Calc 89.91, Est GFR (MDRD) Non-Af 92, BUN/Creatinine Ratio 16.7, Glucose 117 H, Calcium 9.2, Total Bilirubin 0.56, AST 32, ALT 27, Alkaline Phosphatase 89, Total Protein 6.9, Albumin 4.1, Globulin 2.8, Albumin/Globulin Ratio 1.5 D/C Instructions Discharge Activity: Return to Normal Activity Weight Bearing Status: Weight bearing as tolerated Call your doctor if you observe: Fever of 101 or Higher, Inability to urinate, Shortness of breath, Dizziness and Chest pain DC O2, CPAP, BIPAP Needs Home O2 Discharge instructions: No Meaningful Use Info Meaningful Use Meaningful Use Diagnoses (Choose all that apply): Ischemic CVA CVA Therapy Assessed for PT,OT and/or ST?: Yes Ischemic Stroke Antithrombotic order at d/c?: Yes Reason antithrombotic not ordered: Treatment not Indicated Dx of Atrial fib/flutter?: No Anticoagulant at discharge?: No Reason anticoagulant not ordered: Treatment not Indicated Statins at discharge?: Yes Primary Dx Acute Ischemic CVA?: Yes IV thrombolytic ordered during stay?: No Reason IV thrombolytic not ordered: Treatment not Indicated Discharge Plan Admission Admit Date/Time: 07/23/25 10:51 Primary Reason for Your Visit: acute CVA Attending Provider: Jaye Murrieta Primary Care Provider: Murphy Frank Consulting Providers: Herve Pendleton; Lillian Parker; Suzanne Reddy; Sharda Luna; Alona Kuo; Low Dillon; Ragini Mishra; Drew Ortiz; Ronny Bolanos; Mor Ibarra; Danni Odonnell; Jessica Lee; Josue Sesay; Torie De Leon; Oneida Castro; Roger Jack; Flaquito Noble; Tonny Miller; Yonas Hall; Marianela Jacobs; Maren De La Cruz; Rod Collins; James Freeman Instructions Patient Instructions: Booklet - Understanding Stroke Discharge Orders/Prescriptions Prescriptions: New atorvastatin 40 mg Tablet 40 mg PO QHS Qty: 30 2RF clopidogrel 75 mg Tablet 75 mg PO DAILY Qty: 90 0RF aspirin 81 mg Tablet,Chewable 81 mg PO BREAKFAST Qty: 30 2RF amlodipine 10 mg tablet 10 mg PO DAILY Qty: 30 2RF Continued latanoprost 0.005 % drops 1 drp ophthalmic (eye) QODAY fluticasone propion-salmeterol 250-50 mcg/dose blister with device 1 inh inhalation Q12H cholecalciferol (vitamin D3) [Vitamin D3] 50 mcg (2,000 unit) tablet 50 mcg PO DAILY loratadine [Claritin] 10 mg tablet 10 mg PO DAILY fluticasone propionate [Allergy Relief (fluticasone)] 50 mcg/actuation spray,suspension 1 spray intranasal DAILY Rx Instructions: administer into each nostril No Action fluticasone propion-salmeterol [Advair Diskus] 250-50 mcg/dose blister with device 1 inh inhalation BID Referrals / Follow Up: Murphy Frank MD [Primary Care Provider, Family Practice] - Within 1 Week Efrain Lawson MD [Non-Staff -Ordering Privileges, Neurology] - Within 2 Weeks Disposition Disposition (needs filled in before D/C Order can be placed): Inpatient Rehab Unit/Facility Charges/Coding Visit Charges Inpatient E&M: 93488 Disch Hosp >30min
== END 2025-07-25 17:25 | DRG 65 ==
LOC: ED 21:01 → PCU 21:09
PROVIDERS: Admitting Provider Internal Medicine; Emergency Provider Emergency Medicine; PCP Family Medicine; Visit Provider Student in an Organized Health Care Education/Training Program
DX: I63.9 Cerebral infarction, unspecified (principal); G81.91 Hemiplegia, unspecified affecting right dominant side; J45.20 Mild intermittent asthma, uncomplicated; J30.2 Other seasonal allergic rhinitis; Z87.891 Personal history of nicotine dependence; R29.705 NIHSS score 5; Z79.899 Other long term (current) drug therapy; Z79.51 Long term (current) use of inhaled steroids
CPT/HCPCS: 36415; 70450; 70496; 70498; 70551; 71045; 80048; 80053; 80061; 80307; 82077; 82962; 83036; 84443; 84484; 85025; 85610; 85730; 92526; 92610; 93005; 93306; 93880; 94762; 97110; 97116; 97163; 97166; 97530; 99285; Q9957; Q9967; A4216; C8929

== ENCOUNTER 2025-07-25 17:30 | Inpatient (IN) | payer BC, MEDICARE, SELFPAY ==
--- OUTSIDE RECORDS SUMMARY | 2025-05-19 11:00 | XMS RPT_ITS ---
Author Name Auto Generated Organization [facility] Care Team Providers Care Long Chain Quiller Tender Name Role Phone PCP, NONE Referring Unavailable PIPE RILEY Attending Unavailable PIPE RILEY Primary Care Unavailable PROBLEMS DATE TYPE CONDITION / CODE ATTENDING STATUS JOSE RAFAEL RCE 05/19/2025 Unknown Moderate persist ent asthma, uncomplicated / J45.40(ICD-10) PIPE RILEY Active [facility] PROCEDURES No Procedure Records Found RESULTS ALLERGIES No Allergies Records Found ENCOUNTERS ADMIT/DISCHARGE ACCOUNT NUMBER ADMITTING ENCOUNTER CLASS LOCATION SOURCE 05/19/2025/ [address] [id number] [facility] [facility] [place] [address] PAYERS ENCOUNTER GUARANTOR PAYER SUBSCRIBER SOURCE 05/19/2025 SHEA MADONNAB: [facility] [address], [place] [address]Jif: ~[phone]) Primary Insurance:MARK Cardona Number: [id number] ective Date:[facility] [id number] [place] [id number]: SHEA MADONNAB: [id number] [facility] [address], [place] [address]Myw: (HP) [facility]
[2025-07-25 17:43] VITALS: BP 128/83; PULSE 93; RESP 15; TEMP 36.9; O2SAT 93; BMI 25.4
[2025-07-25 18:00] VITALS: BP 128/83; PULSE 79; RESP 15; TEMP 36.9; O2SAT 93
[2025-07-25] MEDS: Senna/Docusate Sodium 1 Tablet 2 TABLET PO (20:03)
[2025-07-25] MEDS: 0.9% Saline Lock 10 ML Syringe IV (21:14)
[2025-07-26 06:00] VITALS: BP 113/69; PULSE 79; RESP 16; TEMP 36.3; O2SAT 96
--- NOTE | 2025-07-26 07:23 | EX.PCM.HP.RE ---
HPI - General General Date of Admission: 07/25/25 Date of Service: 07/26/25 Chief Complaint: POST STROKE DEBILITY HPI Narrative KODY RUGGIERO, is a 75 YO M with a PMH of tobacco dependence in remission, glaucoma, asthma and seasonal allergies who presented to the emergency room at [facility] on 07/22/2025 at approximately 8 PM complaining of right-sided weakness and slurred speech that had started at about 8 AM that morning and had gotten progressively worse throughout the day. Noncontrast CT brain showed no acute abnormalities. CTA of the head and neck revealed no large intracranial or cervical large vessel occlusion or hemodynamically significant stenosis. There was a mild short segment narrowing of the proximal basilar artery. The ED doc scored a 2 on the NIHSS. He was not a candidate for thrombolytics because sx had been present for > 4 hours. He received ASA in the ED. He was admitted to the hospitalist service and consult was ordered with neurology. NIHSS was 5 when evaluated by teleneurology. 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 MRI was recommended and also loading with 600 mg of Plavix. Radiology reported the MRI is having no evidence of acute intracranial pathology. The neurologist felt the MRI showed a left pontine stroke. Carotid ultrasound showed less than 50% stenosis in the right and left extracranial internal carotid arteries. The vertebrals were patent and antegrade bilaterally. Transthoracic echocardiogram showed a ejection fraction of 60 to 65% with mild mitral regurgitation. Both atria were of normal size. Labs showed the total cholesterol to be 146 with an LDL of 88 and an HDL of 45. Triglycerides were 67. TSH was normal. Hemoglobin A1c was 5.6%. Neurology recommended continuing aspirin and Plavix for a total of 3 months and then discontinuing Plavix and continuing aspirin alone. Mr. Ruggiero was transferred to the acute inpt rehab unit at [facility] on 07/25/25 for 3 hours of therapy daily to restore function/independence at or near his level prior to the recent stroke. All lab drawn this morning was personally reviewed. The white blood cell count is normal at 7.3 with an unremarkable differential. Hemoglobin is 16.5 and platelets are within normal limits. I reviewed the results of the CMP done yesterday and they were unremarkable. LFTs are normal. Has had hyperuricemia in the past. Calcium is normal. Phosphorus and magnesium are normal today. Lipid panel showed triglycerides of 67 with a total cholesterol of 146 and an LDL of 88. The HDL is 45. Tells me that he exercises regular.....walking and hiking. He also tells me that he has had AF in the past.........it usually resolves without treatment and he is not currently on an AC or an antiarrhythmic. He had a stress test in the past and it was negative. No FH of CAD. He has a brother who has had a stroke. REPLACED BY [facility] Medical History (Updated 07/26/25 @ 12:[address] Judith Brizuela, DO) Paroxysmal A-fib Tobacco dependence due to cigarettes, in remission Glaucoma Hyperuricemia Seasonal allergies Asthma, mild intermittent Home Medications ?Medication ?Instructions ?Recorded ?Last Taken ?Type fluticasone 250 mcg-salmeterol 50 1 inh inhalation Q12H SOB/Wheezing 01/15/22 07/22/25 08:14 History mcg/dose blistr powdr for inhalation latanoprost 0.005 % eye drops 1 drp ophthalmic (eye) QODAY eye 01/15/22 07/21/25 22:12 History drops cholecalciferol (vitamin D3) 50 50 mcg PO DAILY supplement 07/22/25 07/22/25 08:00 History mcg (2,000 unit) tablet (Vitamin D3) fluticasone propionate 50 1 spray intranasal DAILY 07/22/25 07/22/25 08:13 History mcg/actuation nasal SOB/Wheezing spray,suspension (Allergy Relief (fluticasone)) loratadine 10 mg tablet (Claritin) 10 mg PO DAILY allergies 07/22/25 07/22/25 08:12 History amlodipine 10 mg tablet 10 mg PO DAILY BP #30 tabs 07/25/25 Unknown Rx aspirin 81 mg chewable tablet 81 mg PO BREAKFAST heart health 07/25/25 Unknown Rx #30 tabs atorvastatin 40 mg tablet 40 mg PO QHS cholestrol #30 tabs 07/25/25 Unknown Rx clopidogrel 75 mg tablet 75 mg PO DAILY supplement #90 tabs 07/25/25 Unknown Rx fluticasone 250 mcg-salmeterol 50 1 inh inhalation BID sob/wheezing 07/26/25 Unknown History mcg/dose blistr powdr for inhalation (Advair Diskus) Allergy/AdvReac Type Severity Reaction Status Date / Time No Known Allergies Allergy Verified 08/05/23 09:38 Family History (Updated 07/26/25 @ 12:[address] Judith Brizuela DO) Brother CVA (cerebral vascular accident) Father COPD (chronic obstructive pulmonary disease) Surgical History (Updated 07/26/25 @ 12:[address] Judith Brizuela DO) Status post excisional debridement History of tonsillectomy Social History (Updated 07/26/25 @ 12:[address] 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 what type of physical activity do you participate in: walking ROS Review of Systems ROS Unobtainable: Denies due to encephalopathy, due to endotracheal tube, due to mental condition or due to mental status Constitutional Constitutional: Reports weakness and other Details: Snores when he lies on his back ; Denies anorexia, change in weight, chills, fatigue, fever(s), frequent falls, headache(s) or night sweats Eyes Eyes: Denies blurry vision, change in vision, discongugate gaze, eye pain or loss of vision ENT HEENT: Reports nasal congestion and rhinorrhea; Denies abnormal hearing, dizziness, dysphagia, headache(s), hearing loss, odynophagia or sore throat Cardiovascular Cardiovascular: Denies chest pain, dyspnea on exertion, edema, lightheadedness, orthopnea, palpitations, paroxysmal nocturnal dyspnea or syncope Respiratory/Chest Respiratory/Chest: Reports other Details: Takes Advair 1 puff BID and has a rescue inhaler but, rarely uses it. ; Denies chest congestion, chest tightness, cough, dyspnea, hemoptysis, portable oxygen @ home, shortness of breath at rest, shortness of breath with exertion or wheezing Gastrointestinal Gastrointestinal: Reports dysphagia and other Details: No hx of PUD ; Denies abdominal pain, constipation, diarrhea, dyspepsia, early satiety, hematemesis, hematochezia, nausea, odynophagia or vomiting Genitourinary Genitourinary: Reports change in urinary stream, nocturia and urinary hesitancy; Denies burning urination, dysuria, erectile dysfunction, hematuria, urinary frequency, urinary incontinence or urinary urgency Musculoskeletal Musculoskeletal: Denies back pain, joint pain, joint swelling, neck pain, numbness, radiating pain into limb or tremors Integumentary Integumentary: Reports alopecia; Denies jaundice, non-healing lesions, pruritus or rash Neurologic Neurologic: Denies confusion, disequilibrium, dizziness, focal weakness, headache(s), paresthesias, seizures or tremor(s) Psychiatric Psychiatric: Denies anxiety, depression, homicidal ideation or suicidal ideation Endocrine Endocrinology: Denies change in body appearance, polydipsia or polyuria Hematologic/Lymphatic Hematologic/Lymphatic: Denies easy bleeding, easy bruising or lymphadenopathy Allergic/Immunologic Allergic/Immunologic: Reports seasonal rhinorrhea and asthma; Denies rhinitis or eczemia Vital Signs Vital Signs Vital Signs: 07/25/25 17:43 07/25/25 18:00 07/25/25 19:45 Temperature 98.4 F 98.4 F Temperature Source Temporal Temporal Pulse Rate 93 79 Respiratory Rate 15 15 Respiratory Effort Normal Non-Labored Respiratory Depth Normal Respiratory Pattern Normal Blood Pressure 128/83 H 128/83 H Blood Pressure Mean 98 98 Blood Pressure Source Monitor Monitor Blood Pressure Position Semi-Fowlers Semi-Fowlers Blood Pressure Location Right Arm Left Arm Pulse Ox 93 93 Oxygen Delivery Method Room Air Room Air Room Air 07/25/25 20:28 07/26/25 06:00 Temperature 97.3 F L Temperature Source Temporal Pulse Rate 79 Respiratory Rate 16 Respiratory Effort Respiratory Depth Respiratory Pattern Blood Pressure 113/69 Blood Pressure Mean 83 Blood Pressure Source Monitor Blood Pressure Position Semi-Fowlers Blood Pressure Location Left Arm Pulse Ox 96 Oxygen Delivery Method Room Air Room Air Weight Weight: 198 lb 3.129 oz Body Mass Index (BMI) 25.4 Indicators for Scoring Admitted with or Primary Diagnosis of CVA/Stroke: Yes Hx of CVA/Stroke: No Modified Jose Score MRS Score at time of Evaluation: 4-Moderate/severe disability NIHSS NIHSS 1a. Level of Consciousness: 0 - Alert; keenly responsive 1b. LOC Questions: 0 - Answers BOTH questions correctly 1c. LOC Commands: 0 - Performs BOTH tasks correctly 2. Best Gaze: 0 - Normal 3. Visual: 0 - No visual loss 4. Facial Palsy: 1 - Minor paralysis (flattened nasolabial fold, asymmetry on smiling) 5a. Left Arm: 0 - No drift; arm holds 90 (or 45) degrees for full 10 seconds 5b. Right Arm: 4- No movement 6a. Left Le - No drift; leg holds 30-degree position for full 5 seconds 6b. Right Le - Some effort against gravity; 7. Limb Ataxia: 0 - Absent (unable to do the test due to extreme weakness R arm>leg) 8. Sensory: 0 - Normal; no sensory loss 9. Best Language: 0 - No aphasia; normal 10. Dysarthria: 1 = [id number] dysarthria; 11. Extinction and Inattention: 0 - No abnormality Total: 8 Stroke Questions Stroke Team Activated: No Physical Exam Const alert, oriented x3 and no apparent distress Constitutional Narrative: Sitting in the recliner at the bedside General Appearance: cooperative, well kempt and well developed; Negative for anxious HEENT normocephalic and head/scalp atraumatic HEENT Narrative: Mucous membranes are little dry. Tongue deviates a little to the left. Eyes PERRL, EOMs intact bilaterally, conjunctivae normal and no scleral icterus Eyes Narrative: No discharge from the eyes and no mattering of the eyelashes. No visual field cuts. General Eye: normal appearance of both eyes Neck supple, no JVD, No nodes and no carotid bruits General: trachea midline Chest Chest: symmetrical chest wall rise Resp normal respiratory effort, normal air movement, no use of accessory muscles and clear to auscultation bilaterally Effort and Inspection: able to speak in complete sentences Cardio regular rate, regular rhythm, S1 normal heart sound, S2 normal heart sound, no murmurs, no rub and no gallops Cardio Narrative: Occasional dropped beat. GI normal to inspection, nondistended, normoactive bowel sounds, soft to palpation and non-tender GI Narrative: No guarding with palpation no CVA tenderness Neuro oriented x3 Neuro Narrative: Right facial droop. Pupils are equal round reactive to light. Extraocular muscles are intact. No nystagmus. No visual field cuts. The tongue deviates mildly to the left when protruded. Positive dysarthria. Decreased shoulder shrug on the right. No movement in the right upper extremity. No drift with the left upper extremity. No drift with the left lower extremity. Able to lift the right lower extremity but it falls to the bed prior to 5 seconds. No loss of sensation. No ataxia (not able to test the right arm and leg secondary to marked weakness). No aphasia. No trouble word finding. Psych mental status grossly normal, cooperative, affect normal, denies hallucinations, denies homicidal ideation and denies suicidal ideation Psych Narrative: Thought process seems normal. Appearance: grossly normal, appropriate and well kempt Attitude: calm and engaged Activity / Motor Behavior: appropriate eye contact Speech: slurred Mood & Affect: anxious Results Lab / Micro Data 07/26/25 07:10 Assessment & Plan Assessment/Plan (1) Physical debility: (2) Ischemic cerebrovascular accident (CVA): (3) Right sided weakness: (4) Dysarthria: (5) Dysphagia: (6) Facial droop due to acute cerebrovascular accident (CVA): (7) Paroxysmal A-fib: (8) Seasonal allergies: (9) Glaucoma: (10) Hyperuricemia: (11) Asthma, mild intermittent: PLAN: Plan PLAN PT for gait stability OT for ADL's ST for evaluation Analgesics as needed Bowel protocol Fall precautions Assess for Anxiety/Depression GI prophylaxis -not necessary at this time. He is going to be on aspirin and Plavix for a total of 3 months so we will check a Hemoccult stool. Hemoglobin is normal but the MCV is mildly increased and the RDW was also mildly increased. DVT prophylaxis with Lovenox 40 mg subcu daily Follow up with PCP, neurology following DC from Rehab AM labs are personally reviewed. Will need a 30-day event monitor at discharge since he has had paroxysmal atrial fibrillation sporadically in the past. Advair inhaler 1 puff twice daily 250/50 Continue Claritin and Flonase for seasonal allergies. Blood pressure this a.m. is only 113/69. He was not on an antihypertensive at admission to the hospital and was placed on amlodipine 10 mg daily. Heart rate is within normal limits. Blood pressure at admission was 128/83 last night. Will continue to monitor the blood pressure closely and decrease the amlodipine should he have any systolic blood pressures less than 110. Charges/Coding Visit Charges Inpatient E&M: 21742 Init Hosp L3
[2025-07-26 07:31] LABS: Hematocrit 47.8 % (40-54); Hemoglobin 16.5 g/dL (13.0-16.5); Immature Granulocytes Count 0.030 X10^3/uL (0.0-0.0); Mean Corp Hgb Conc 34.5 g/dL (32-36); Mean Corpuscular Volume 96.0 fL (80-94); Mean Platelet Vol. 9.4 fl (6.2-12.0); NRBC Flagged by Analyzer 0 % (0-5); Platelet Count 299 K/mm3 (150-450); RBC Distribution Width CV 13.0 % (11.6-14.6); RBC Distribution Width SD 46.1 fl (35.1-43.9); Red Blood Count 4.98 M/mm3 (4.6-6.2); White Blood Count 7.3 K/mm3 (4.4-11.0)
[2025-07-26 07:50] VITALS: O2SAT 92
[2025-07-26] MEDS: Senna/Docusate Sodium 1 Tablet 2 TABLET PO (08:03)
[2025-07-26] MEDS: Cholecalciferol (VIT D3) 25 MCG TABLET (1,000 UNITS) 50 MCG PO (08:03)
[2025-07-26] MEDS: Fluticasone 0.05% 1 SPRAY NASAL.SRY NASAL (08:03)
[2025-07-26 08:15] LABS: Magnesium 2.1 mg/dL (1.5-2.2)
--- NOTE | 2025-07-26 12:59 | REHABEVAL_ITS ---
Admission Information Primary Diagnosis:: Poststroke debility Status Changes from Prescreening?: No changes Identified Actual Problem List:: Alteration in Sleep, Mobility Impaired, Self Care Deficit, Know.Dfct/Disease Process, Know.Dfct of Medicaitons, BP, Hypertension and Alteration-Leisure Activ. Potential Problem List:: DVT, Bleeding, Infection, UTI, Aspiration, Falls, Skin Integrity and Depression Risk of Complications DVT: CAROLANN Hose and - (Lovenox 40 mg subcu daily) Plan of Care Patient requires physician specializing in physical medicine and rehab oversight to provide close medical supervision of rehab issues including: Pain Management, Sleep Problems, Bowel and Bladder, Medical and co-morbidity Management, DVT prophylaxis, Rehabilitation Leadership and Coordination of treatment team Patient needs Physical Therapy: For a minimum of 1 hour and At least 5 out of 7 days Patient needs Physical Therapy to improve:: Mobility, Strengthening, Transfers, Stretching, ROM, Endurance, Stairs, Gait and Balance Patient needs Occupational Therapy: For a minimum of 1 hour and At least 5 out of 7 days Patient needs Occupational Therapy to improve ADL's incl.: Eating, Grooming, Bathing, Dressing, Toileting, Toilet transfers, Community Reintegration, Higher functioning activities, Household tasks, Adaptive Equipment, Splinting and Other activities as determined Patient requires speech therapy: For a minimum of 1 hour and At least 5 out of 7 days Patient requires speech therapy for: Swallowing, Cognition, Language Skills and Compensatory Strategies Patient requires 24/7 Rehabilitation Nursing for: Pain Issues, Identifying and preventing risk factors, Monitoring and reporting current medical conditions, Assisting with ambulation, transfer, and all ADL's, Teaching patients about disease process and medications, Family teaching, Providing safe environment, Bowel and Bladder Issues, Skin integrity and Medication Management Patient needs [employer] Crm Developer/ Case Management for: Discharge Planning, Arranging Home Equipment or Services and Family Interventions Patient needs Dietary and Nutrition Services for: Adequate Nutrition, Nutritional Supplements and Nutritional Education Goals Goals Patient will remain: free from falls Patient will perform eating at: MOD I level of assist. Patient will perform bed mobility at: MOD I level of assist. Patient will complete transfers from bed to chair at: Standby Assist. Patient will ambulate: - (150 feet with a hemiwalker at standby assist) Patient will complete upper body dressing at: - (Set up) Patient will complete lower body dressing at: Standby Assist. (With adaptive equipment as needed for increased independence with self-care) Patient will complete toilet transfer at: Standby Assist. Patient will complete toileting at: - (Contact-guard assist) Patient will perform bathing at: - (Upper body bathing at min assist and lower body bathing at contact-guard assist with adaptive equipment as needed.) Patient will perform Tub/Shower transfer at: Standby Assist. (Using DME as needed) Patient will complete grooming at: MOD I level of assist. Patient will complete home management skills at: - (Contact-guard assist) Patient will achieve: - (2-3 steps using 1 handrail at contact-guard assist) Patient will have pain level of: of 3 or less Patient's skin will: remain intact Patient will receive: adequate nutrition. Discharge Planning Pt Prognosis for Sig. Practical Improv. w/in Reasonable Time: Good Estimated Length of stay (days): 28 Anticipated D/C Destination: Home with Outpt Therapy Was Preadmission Assessment Accurate?: Yes
[2025-07-26 18:00] VITALS: BP 128/87; PULSE 83; RESP 18; TEMP 36.6; O2SAT 94
[2025-07-26 20:22] VITALS: BMI 25.4
[2025-07-26] MEDS: Senna/Docusate Sodium 1 Tablet PO (21:13)
[2025-07-26] MEDS: Fluticasone Propion/Salmeterol 250-50 Inhaler 1 PUFF INHALATION (21:13)
[2025-07-27 06:00] VITALS: BP 111/56; PULSE 86; RESP 16; TEMP 36.3; O2SAT 95
[2025-07-27 07:08] VITALS: O2SAT 92
[2025-07-27] MEDS: Fluticasone 0.05% 1 SPRAY NASAL.SRY NASAL (08:26)
[2025-07-27] MEDS: Cholecalciferol (VIT D3) 25 MCG TABLET (1,000 UNITS) 50 MCG PO (08:27)
[2025-07-27] MEDS: Fluticasone Propion/Salmeterol 250-50 Inhaler 1 PUFF INHALATION ×2 (08:27→21:06)
[2025-07-27] MEDS: Senna/Docusate Sodium 1 Tablet PO ×2 (08:27→21:06)
[2025-07-27 10:00] VITALS: PULSE 85; RESP 16
--- NOTE | 2025-07-27 10:12 | NURSING ---
pt taken down for swallow study via wheelchair
--- NOTE | 2025-07-27 10:37 | NURSING ---
pt returned to unit
--- NOTE | 2025-07-27 10:47 | SP.MBSS_ITS ---
Modified Barium Swallow Patient Information Study Date: 07/27/25 Study Time: 10:00 Direct Billable Minutes: 120 Total Minutes procedure & reportin Diagnosis: CVA/dysphagia Referring Physician: Judith Brizuela Reason for Referral: Objective assessment of swallow function under fluoroscopy recommended d/t coughing /w thin liquids during CBSE Medical History: KODY RUGGIERO, is a 75 YO M with a PMH of tobacco dependence in remission, glaucoma, asthma and seasonal allergies who presented to the emerg ency room at [facility] on 07/22/2025 at approximately 8 PM complaining of right-sided weakness and slurred speech that had started at about 8 AM that morning and had gotten progressively worse throughout the day. Noncontrast CT brain showed no acute abnormalities. CTA of the head and neck revealed no large intracranial or cervical large vessel occlusion or hemodynamically significant stenosis. There was a mild short segment narrowing of the proximal basilar artery. The ED doc scored a 2 on the NIHSS. He was not a candidate for thrombolytics because sx had been present for > 4 hours. He received ASA in the ED. He was admitted to the hospitalist service and consult was ordered with neurology. NIHSS was 5 when evaluated by teleneurology. 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 MRI was recommended and also loading with 600 mg of Plavix. Radiology reported the MRI is having no evidence of acute intracranial pathology. The neurologist felt the MRI showed a left pontine stroke. Carotid ultrasound showed less than 50% stenosis in the right and left extracranial internal carotid arteries. The vertebrals were patent and antegrade bilaterally. Transthoracic echocardiogram showed a ejection fraction of 60 to 65% with mild mitral regurgitation. Both atria were of normal size. Labs showed the total cholesterol to be 146 with an LDL of 88 and an HDL of 45. Triglycerides were 67. TSH was normal. Hemoglobin A1c was 5.6%. Neurology recommended continuing aspirin and Plavix for a total of 3 months and then discontinuing Plavix and continuing aspirin alone. Mr. Ruggiero was transferred to the acute inpt rehab unit at [facility] on 07/25/25 for 3 hours of therapy daily to restore function/independence at or near his level prior to the recent stroke. Dentition: Natural Teeth Respiratory Status: Oxygenating on Room Air Penetration-Aspiration Scale Penetration-Aspiration Scale: OBJECTIVE ASSESSMENT OF SWALLOW FUNCTION (QUANTITATIVE ? PER TRIAL): PENETRATION / ASPIRATION SCALE (DIAZ): 1 = does not enter airway 2 = enters airway/above vocal folds/ejected 3 = enters airway/above vocal folds/not ejected 4 = enters airway/contacts vocal folds/ejected 5 = enters airway/contacts vocal folds/not ejected 6 = enters airway/below vocal folds/ejected 7 = enters airway/below vocal folds/not ejected despite effort 8 = enters airway/below vocal folds/no effort Penetration-Aspiration Scale Score Thin Liquid via teaspoon: Result: 1= does not enter airway Thin Liquid via teaspoon Trial 2: Result: 1= does not enter airway Thin Liquid via small single sip: cup: Result: 2= enter airway/above vocal folds/ejected Thin Liquid via sequential sips: cup: Result: 1= does not enter airway Thin Liquid via single sip: straw: Result: 1= does not enter airway Thin Liquid via single sip: straw Trial 2: Result: 1= does not enter airway Pudding: Result: 1= does not enter airway Cookie: Result: 1= does not enter airway Thin Liquid via small single sip: cup Trial 2: Result: 6= enters airway/below vocal folds/ejected Thin Liquid via small single sip: cup Trial 3: Result: 3= enters airways/above vocal folds/not ejected Thin Liquid via small single sip: cup Trial 4: Result: 6= enters airway/below vocal folds/ejected Thin Liquid via small single sip: cup Chin tuck: Result: 1= does not enter airway Oral Phase Labial Seal: No Labial Escape Tongue Control During Bolus Hold: Cohesive bolus between tongue to palatal seal Bolus Preparation/Mastication: Slow prolonged chewing/mashing with complete recollection Bolus Transport/Lingual Motion: Slowed tongue motion Oral Residue: Trace residue lining oral structures Pharyngeal Phase Initiation of Pharyngeal Swallow: Bolus head in pyriforms Soft Palate Elevation: No bolus between soft palate and pharyngeal wall Laryngeal Elevation: Partial superior movement thyroid cart/partial apprx aryt- epig petiole Anterior Hyoid Excursion: Partial anterior movement Epiglottic Movement: Complete inversion Laryngeal Vestibule Closure at Height of Swallow: Complete; no air/contrast in laryngeal vestibule Pharyngeal Stripping Wave: Present - complete Pharyngoesophageal Segment Opening: Parital distension and partial duration; parital obstruction of flow Tongue Base Retraction: Narrow column of contrast between tongue base & post. pharyngeal wall Pharyngeal Residue: Trace residue within or on pharyngeal structures Esophageal Phase Esophageal Clearance: Esophageal retention Diagnosis/Impression Diagnosis: mild oropharyngeal dysphagia .: The oral phase is characterized by... * slowed mastication * slowed lingual motion for AP bolus transportation The pharyngeal phase is characterized by... * liquid spillage to the pyriforms prior to swallow resulting in laryngeal vestibule penetration during the swallow w/ thin via cup * use of a chin tuck posture was effective to narrow the opening to the laryngeal vestibule and eliminate penetration * mildly reduced hyopharyngeal excursion * partial PES distention/duration The esophageal phase is characterized by... * trace-mild esophageal retention medially Recommendations Diet: Regular Textures and Thin Liquids Compensatory Strategies: Small Bites, Small Sips, Chin Tuck, Sitting upright and Remain sitting upright for 30 minutes after PO intake Recommend Repeat Modified Barium Swallow: TBD Need for Skilled Speech Therapy Services: Yes Education Completed: 1. Described result of evaluation. and 2. Pt understands evaluation & agrees with goals and treatment plan. Status Active ST Patient: Active Contact Information [facility] Speech Therapy:: Janel Goldberg M.A. BRICK OFFBEARER Speech-Language Pathologist [facility] [address] [place] [address] [email or web address] [phone]
--- NOTE | 2025-07-27 12:51 | PCM.PROGNOTE ---
Subjective Subjective Afebrile VSS -blood pressure over the past 24 hours has ranged from 111/56 to 128/87. Heart rate is within normal limits. Maintaining appropriate oxygen saturation on RA Oral intake - FOOD good FLUIDS good Postvoid residuals are not consistent with urine retention. Discussed with nursing - no problems that need addressed Reviewed the THERAPY notes - BCAT yesterday was 41/50 consistent with MCI. Has oropharyngeal dysphagia but was approved for regular textures and thin liquids. Medication list reviewed. Jose M denies lightheadedness, vertigo, CP, SOB at rest, SOB with exertion, cough, nausea, vomiting, abd pain, diarrhea, constipation, dysuria, calf pain and ankle swelling. Last night he started to have pain in the R great toe. He has known hyperuricemia and he tells me that he has had gout twice in his life. the gout has been treated with Prednisone in the past and this has worked well for him. The overnight trending pulse ox was reviewed. 94.8% of the time the pulse ox was 90% or greater. The other 5.2% of the time the pulse ox was 89% or lower. He was considered hypoxic for 14 minutes and 12 seconds. There were 3 desaturation events lasting at least 60 seconds. 1 lasted 13 minutes and 56 seconds and the pulse ox low was 60%. Objective Data Objective Data Vital Signs: Vital Signs Temp Pulse Resp BP Pulse Ox O2 Del Method 97.4 F L 85 16 111/56 L 92 Room Air 07/27/25 06:00 07/27/25 10:00 07/27/25 10:00 07/27/25 06:00 07/27/25 07:08 07/27/25 10:00 Oxygen Delivery Method Room Air Weight: 198 lb 3.129 oz Body Mass Index (BMI) 25.4 Intake & Output: Intake and Output for Last 24 Hours 07/25/25 07/26/25 07/27/25 23:59 23:59 23:59 Intake Total 1040 / 1040 2720 / 2720 720 / 720 Output Total 400 / 400 2600 / 2600 1175 / 1175 Balance 640 / 640 120 / 120 -455 / -455 Lab / Micro Data 07/26/25 07:10 Micro: Microbiology 07/27/25 08:56 Stool Stool Occult Blood (JUSTA) - Final Physical Exam Const alert, oriented x3 and no apparent distress Constitutional Narrative: Pleasant, talkative, appropriate. General Appearance: cooperative HEENT normocephalic and head/scalp atraumatic HEENT Narrative: Mucous membranes are little dry. Tongue deviates a little to the left. Eyes PERRL, EOMs intact bilaterally, conjunctivae normal and no scleral icterus Eyes Narrative: No discharge from the eyes and no mattering of the eyelashes. No visual field cuts. General Eye: normal appearance of both eyes Neck supple, no JVD, No nodes and no carotid bruits General: trachea midline Chest Chest: symmetrical chest wall rise Resp normal respiratory effort, normal air movement and clear to auscultation bilaterally Effort and Inspection: Negative for tachypneic Cardio regular rate, regular rhythm, no murmurs and no gallops Cardio Narrative: No ectopy GI normal to inspection, nondistended, normoactive bowel sounds, soft to palpation and non-tender GI Narrative: No guarding with palpation no CVA tenderness Extremity no calf tenderness Extremity Narrative: The R great toe is painful and the first MTP joint is swollen, red and warm to touch. Exquisitely painful even with light touch. Skin General Skin Exam: no breakdown Rashes: no rashes Neuro oriented x3 Neuro Narrative: Right facial droop. Pupils are equal round reactive to light. Extraocular muscles are intact. No nystagmus. No visual field cuts. The tongue deviates mildly to the left when protruded. Positive dysarthria. Decreased shoulder shrug on the right. No movement in the right upper extremity. No drift with the left upper extremity. No drift with the left lower extremity. Able to lift the right lower extremity but it falls to the bed prior to 5 seconds. No loss of sensation. No ataxia (not able to test the right arm and leg secondary to marked weakness). No aphasia. No trouble word finding. Psych affect normal Psych Narrative: Thought process seems normal. Appearance: grossly normal, appropriate and well kempt Attitude: calm and engaged Activity / Motor Behavior: appropriate eye contact Speech: slurred Mood & Affect: anxious Assessment & Plan Assessment/Plan (1) Physical debility: (2) Ischemic cerebrovascular accident (CVA): (3) Right sided weakness: (4) Dysarthria: (5) Dysphagia: (6) Facial droop due to acute cerebrovascular accident (CVA): (7) Paroxysmal A-fib: (8) Seasonal allergies: (9) Glaucoma: (10) Hyperuricemia: (11) Asthma, mild intermittent: (12) Acute gouty arthritis: PLAN: Plan 1. Continue therapy 2. Start prednisone 20 mg today and then 20 mg daily for 2-3 additional days. He has only had 2 episodes of gout in his entire life and this has been over the past few years. No need to prophylax with allopurinol. 3. Consult with dietitian to once again discuss a low purine diet with him.......he has been educated on this in the past but, now he has MCI due to the stroke. 4. when we have a DC date will try and schedule a sleep study for the night of DC. 5. Oxycodone 5 mg p.o. every 6 hours as needed pain 4-10. 1. Do you snore loudly? Yes 2. Do you often feel tired, fatigued or sleepy during the day? Yes 3. Has anyone ever observed you stop breathing during sleep? Yes 4. Do you have (or are you being treated for) HTN? Yes BMI 24.8 AGE 75 Neck circumference less than 40 cm Gender male Total 5 HIGH RISK for CARLA Charges/Coding Visit Charges Inpatient E&M: 89280 Subs Hosp L2
[2025-07-27] MEDS: 0.9% Saline Lock 10 ML Syringe IV (14:51)
[2025-07-27 15:02] VITALS: BMI 25.4
[2025-07-27 17:28] VITALS: BP 111/65; PULSE 62; RESP 16; TEMP 36.6; O2SAT 95
[2025-07-27 21:50] VITALS: PULSE 92; O2SAT 96
--- NOTE | 2025-07-27 22:15 | NURSING ---
c/o right greater toe throbbing, painful, red, swollen causing muscle spasms in right leg. Pt states this all started when he had on extremely tight tedhose and his toe was purple. Administered tylenol, elevated leg, offered ice but declined. Will continue to monitor
[2025-07-28 03:06] VITALS: BMI 25.4
[2025-07-28 06:00] VITALS: BP 108/71; PULSE 97; RESP 17; TEMP 36.6; O2SAT 94
--- NOTE | 2025-07-28 06:37 | NURSING ---
pt states right greater toe is still hurting and causing muscle spasms. Will continue to monitor. Dr. Brizuela will be notified via up dates paper
[2025-07-28] MEDS: Senna/Docusate Sodium 1 Tablet PO (08:10)
[2025-07-28] MEDS: Fluticasone Propion/Salmeterol 250-50 Inhaler 1 PUFF INHALATION ×2 (08:10→20:38)
[2025-07-28] MEDS: Fluticasone 0.05% 1 SPRAY NASAL.SRY NASAL (08:10)
[2025-07-28] MEDS: Cholecalciferol (VIT D3) 25 MCG TABLET (1,000 UNITS) 50 MCG PO (08:10)
[2025-07-28] MEDS: 0.9% Saline Lock 10 ML Syringe IV (08:11)
--- NOTE | 2025-07-28 12:49 | CASEMGMT ---
Social Work IDT met with patient and for Team meeting. 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 Educated to [place] insurance with NRD 08/01 and continued stay is not guaranteed with each review; no advanced notice is required. will have the physical ability to assist at home, but pt is currently requiring extensive assist physically. Reiterated options available once insurance issues DC date and if pt cannot return home - appeal, pay privately to remain in [place], precert request at a SNF, pay privately at a SNF. SW will coordinate HHC/OP therapy and DME needs if needed if pt returns home. SW provided resources for stroke support group and ASA information on Caregiver Guide after a Stroke and Life After a Stroke. Pt/ very appreciative. SW will continue to follow for DC planning. Toshia Mckenzie DOUBLER OPERATOR SURGEON/PRESIDENT
[2025-07-28 17:40] VITALS: BP 107/72; PULSE 84; RESP 17; TEMP 36.2; O2SAT 95
[2025-07-28 20:30] VITALS: PULSE 84; RESP 17; O2SAT 95; BMI 25.4
[2025-07-28] MEDS: Senna/Docusate Sodium 1 Tablet 2 TABLET PO (20:37)
[2025-07-29 04:26] VITALS: BP 116/74; PULSE 76; RESP 17; TEMP 36.3; O2SAT 95
[2025-07-29 06:00] VITALS: BMI 23.8
[2025-07-29] MEDS: Fluticasone 0.05% 1 SPRAY NASAL.SRY NASAL (07:47)
[2025-07-29] MEDS: Senna/Docusate Sodium 1 Tablet 2 TABLET PO ×2 (07:47→21:00)
[2025-07-29] MEDS: Fluticasone Propion/Salmeterol 250-50 Inhaler 1 PUFF INHALATION ×2 (07:49→21:00)
[2025-07-29] MEDS: Latanoprost 0.005% 1 Bottle 1 DRP OPHTHALMIC (07:49)
[2025-07-29] MEDS: Cholecalciferol (VIT D3) 25 MCG TABLET (1,000 UNITS) 50 MCG PO (07:49)
[2025-07-29 13:45] VITALS: BMI 25.4
[2025-07-29 17:25] VITALS: BP 121/80; PULSE 79; RESP 16; TEMP 36.4; O2SAT 98
[2025-07-29 20:45] VITALS: PULSE 79; RESP 16; O2SAT 98; BMI 25.4
[2025-07-30 06:00] VITALS: BP 123/76; PULSE 71; TEMP 36.1; O2SAT 16
[2025-07-30] MEDS: Senna/Docusate Sodium 1 Tablet 2 TABLET PO (08:08)
[2025-07-30] MEDS: Fluticasone 0.05% 1 SPRAY NASAL.SRY NASAL (08:09)
[2025-07-30] MEDS: Cholecalciferol (VIT D3) 25 MCG TABLET (1,000 UNITS) 50 MCG PO (08:09)
[2025-07-30] MEDS: Fluticasone Propion/Salmeterol 250-50 Inhaler 1 PUFF INHALATION ×2 (08:09→20:58)
[2025-07-30 08:13] VITALS: BP 139/82; PULSE 92
[2025-07-30 14:09] VITALS: BMI 25.4
[2025-07-30 18:00] VITALS: BP 123/71; PULSE 73; RESP 18; TEMP 35.9; O2SAT 96
[2025-07-30] MEDS: 0.9% Saline Lock 10 ML Syringe IV (20:59)
[2025-07-30 21:00] VITALS: O2SAT 98
[2025-07-31 00:07] VITALS: PULSE 71; RESP 16; O2SAT 97
[2025-07-31 06:00] VITALS: BP 109/68; PULSE 67; RESP 18; TEMP 36.6; O2SAT 94
[2025-07-31] MEDS: Cholecalciferol (VIT D3) 25 MCG TABLET (1,000 UNITS) 50 MCG PO (08:27)
[2025-07-31] MEDS: Fluticasone 0.05% 1 SPRAY NASAL.SRY NASAL (08:32)
[2025-07-31] MEDS: Fluticasone Propion/Salmeterol 250-50 Inhaler 1 PUFF INHALATION ×2 (08:32→20:00)
[2025-07-31 08:39] VITALS: BP 134/70; PULSE 68
[2025-07-31 10:23] VITALS: BMI 25.4
[2025-07-31 17:19] VITALS: BP 131/86; PULSE 74; RESP 14; TEMP 36.4; O2SAT 94
[2025-07-31 20:08] VITALS: PULSE 72; RESP 16; O2SAT 96
[2025-08-01 01:23] VITALS: PULSE 80; O2SAT 95
[2025-08-01 05:40] VITALS: BP 109/69; PULSE 72; RESP 16; TEMP 36.9; O2SAT 93
[2025-08-01] MEDS: Cholecalciferol (VIT D3) 25 MCG TABLET (1,000 UNITS) 50 MCG PO (08:05)
[2025-08-01] MEDS: Fluticasone 0.05% 1 SPRAY NASAL.SRY NASAL (08:06)
[2025-08-01] MEDS: Fluticasone Propion/Salmeterol 250-50 Inhaler 1 PUFF INHALATION ×2 (08:10→20:44)
[2025-08-01 08:13] VITALS: BP 134/77; PULSE 73
[2025-08-01 11:37] VITALS: BMI 25.4
--- NOTE | 2025-08-01 15:27 | PCM.PROGNOTE ---
Subjective Subjective Afebrile VSS -blood pressures over the past 48 hours have ranged from 109/68 to 131/86 (this is an outlier) Maintaining appropriate oxygen saturation on RA Oral intake - FOOD good FLUIDS excellent Discussed with nursing - no problems that need addressed Reviewed the THERAPY notes Medication list reviewed. Denies pain in the right foot. He has completed 4 doses of prednisone. Tells me he is not sleeping well at night and he feels this is likely secondary to the prednisone which I concur with. He denies cephalgia, vertigo, lightheadedness, chest pain, palpitations, shortness of breath, cough, nausea/vomiting/abdominal pain, dysuria and calf pain. Feels like his cognition is improving but, having some memory issues. Still with some dysarthria. Objective Data Objective Data Vital Signs: Vital Signs Temp Pulse Resp BP Pulse Ox O2 Del Method O2 Flow Rate 98.4 F 73 16 134/77 H 93 Room Air 2 08/01/25 05:40 08/01/25 08:13 08/01/25 05:40 08/01/25 08:13 08/01/25 05:40 08/01/25 05:40 08/01/25 01:23 FiO2 21 07/27/25 21:50 Oxygen Flow Rate (L/min) 2 Oxygen Delivery Method Room Air Weight: 198 lb 3.129 oz Body Mass Index (BMI) 25.4 Intake & Output: Intake and Output for Last 24 Hours 07/30/25 07/31/25 08/01/25 23:59 23:59 23:59 Intake Total 3520 / 3520 3600 / 3600 3680 / 3680 Output Total 3250 / 3250 3475 / 3475 2049 Balance 270 / 270 125 / 125 1630 / 1630 Lab / Micro Data 07/26/25 07:10 Micro: Microbiology 07/27/25 08:56 Stool Stool Occult Blood (JUSTA) - Final Physical Exam Const alert, oriented x3 and no apparent distress Constitutional Narrative: Pleasant, talkative, appropriate. General Appearance: cooperative HEENT normocephalic and head/scalp atraumatic HEENT Narrative: Mucous membranes are little dry. Tongue deviates a little to the left. Still with R facial droop. Eyes General Eye: normal appearance of both eyes Neck General: trachea midline Resp normal respiratory effort, normal air movement and clear to auscultation bilaterally Resp Narrative: no cough Effort and Inspection: Negative for tachypneic or respiratory distress Cardio regular rate, regular rhythm, no murmurs and no gallops Cardio Narrative: No ectopy GI normal to inspection, nondistended, normoactive bowel sounds, soft to palpation and non-tender GI Narrative: No guarding with palpation. Denies constipation. Extremity no calf tenderness Extremity Narrative: Swelling and erythema of the right first MTP joint has markedly improved. I can palpate the toe without any significant pain. Skin General Skin Exam: no breakdown Rashes: no rashes Psych affect normal Appearance: appropriate Attitude: calm and engaged Activity / Motor Behavior: appropriate eye contact Speech: slurred Assessment & Plan Assessment/Plan (1) Physical debility: (2) Ischemic cerebrovascular accident (CVA): (3) Right sided weakness: (4) Dysarthria: (5) Dysphagia: (6) Facial droop due to acute cerebrovascular accident (CVA): (7) Paroxysmal A-fib: (8) Seasonal allergies: (9) Glaucoma: (10) Hyperuricemia: (11) Asthma, mild intermittent: (12) Acute gouty arthritis: PLAN: Resolved with prednisone 20 mg daily x 4 days. (13) Insomnia: PLAN: Plan 1. Continue therapy 2. Order Ambien 5 mg nightly and will start tonight. May only need this for a few days since I suspect the insomnia is related to prednisone. No signs of depression but we did discuss the symptoms of depression. 3. Continue dual antiplatelet drugs....... per neurology for 3 months. 4. Continue Lovenox for DVT prophylaxis 5. Continue statin. Recheck a lipid panel/liver panel in another 4 weeks. 6. Continue amlodipine 10 mg daily for blood pressure control. Charges/Coding Visit Charges Inpatient E&M: 02676 Subs Hosp L1
[2025-08-01 18:00] VITALS: BP 124/77; PULSE 74; RESP 18; TEMP 36.8; O2SAT 93
[2025-08-01 19:55] VITALS: PULSE 74; RESP 18; O2SAT 93; BMI 25.4
[2025-08-01] MEDS: Latanoprost 0.005% 1 Bottle 1 DRP OPHTHALMIC (20:43)
[2025-08-02 02:25] VITALS: PULSE 78; RESP 16; O2SAT 94
[2025-08-02 05:00] VITALS: BP 119/66; PULSE 82; RESP 16; TEMP 36.7; O2SAT 95
[2025-08-02] MEDS: Fluticasone 0.05% 1 SPRAY NASAL.SRY NASAL (07:41)
[2025-08-02] MEDS: Cholecalciferol (VIT D3) 25 MCG TABLET (1,000 UNITS) 50 MCG PO (07:41)
[2025-08-02] MEDS: Fluticasone Propion/Salmeterol 250-50 Inhaler 1 PUFF INHALATION ×2 (07:42→20:20)
[2025-08-02 09:23] VITALS: BMI 25.4
--- NOTE | 2025-08-02 09:40 | PCM.PROGNOTE ---
Subjective Subjective Afebrile VSS -blood pressure is at goal. Heart rate is within normal limits. Maintaining appropriate oxygen saturation on RA Oral intake - FOOD good FLUIDS. Discussed with nursing - no problems that need addressed Reviewed the THERAPY notes Medication list reviewed. Libia came in yesterday for family training. Jose M denies cephalgia, vertigo, lightheadedness, chest pain, palpitations, shortness of breath, cough, nausea/vomiting/abdominal pain, calf pain and dysuria. Objective Data Objective Data Vital Signs: Vital Signs Temp Pulse Resp BP Pulse Ox O2 Del Method O2 Flow Rate 98.0 F 82 16 119/66 95 Nasal Cannula 2 08/02/25 05:00 08/02/25 05:00 08/02/25 05:00 08/02/25 05:00 08/02/25 05:00 08/02/25 05:00 08/02/25 06:29 FiO2 21 07/27/25 21:50 Oxygen Flow Rate (L/min) 2 Oxygen Delivery Method Nasal Cannula Weight: 198 lb 3.129 oz Body Mass Index (BMI) 25.4 Intake & Output: Intake and Output for Last 24 Hours 07/31/25 08/01/25 08/02/25 23:59 23:59 23:59 Intake Total 3600 / 3600 4730 / 4730 450 / 450 Output Total 3475 / 3475 3850 / 3850 625 / 625 Balance 125 / 125 880 / 880 -175 / -175 Lab / Micro Data 07/26/25 07:10 Micro: Microbiology 07/27/25 08:56 Stool Stool Occult Blood (JUSTA) - Final Physical Exam Const alert, oriented x3 and no apparent distress Constitutional Narrative: Pleasant, talkative, appropriate. General Appearance: cooperative HEENT normocephalic and head/scalp atraumatic HEENT Narrative: Mucous membranes are little dry. Tongue deviates a little to the left. Still with R facial droop. Eyes General Eye: normal appearance of both eyes Neck General: trachea midline Resp normal respiratory effort, normal air movement and clear to auscultation bilaterally Resp Narrative: no cough Effort and Inspection: Negative for tachypneic or respiratory distress Cardio regular rate, regular rhythm, no murmurs and no gallops Cardio Narrative: No ectopy GI normal to inspection, nondistended, normoactive bowel sounds, soft to palpation and non-tender GI Narrative: No guarding with palpation. Denies constipation. Extremity no calf tenderness Extremity Narrative: Swelling and erythema of the right first MTP joint has markedly improved. I can palpate the toe without any significant pain. Skin General Skin Exam: no breakdown Rashes: no rashes Psych affect normal Appearance: appropriate Attitude: calm and engaged Activity / Motor Behavior: appropriate eye contact Speech: slurred Assessment & Plan Assessment/Plan (1) Debility: (2) Stroke: (3) Right hemiplegia: (4) Hyperlipidemia, unspecified: (5) Gout: PLAN: Plan 1. Continue therapy Charges/Coding Visit Charges Inpatient E&M: 71914 Subs Hosp L1
[2025-08-02 17:47] VITALS: BP 116/73; PULSE 80; RESP 16; TEMP 36.5; O2SAT 95
[2025-08-02 20:15] VITALS: PULSE 80; RESP 16; O2SAT 95; BMI 25.4
[2025-08-02] MEDS: Latanoprost 0.005% 1 Bottle 1 DRP OPHTHALMIC (20:19)
[2025-08-03 00:37] VITALS: PULSE 61; O2SAT 92
[2025-08-03 06:00] VITALS: BP 120/75; PULSE 72; RESP 15; TEMP 36.2; O2SAT 97
[2025-08-03] MEDS: Fluticasone 0.05% 1 SPRAY NASAL.SRY NASAL (09:05)
[2025-08-03] MEDS: Cholecalciferol (VIT D3) 25 MCG TABLET (1,000 UNITS) 50 MCG PO (09:07)
[2025-08-03] MEDS: Fluticasone Propion/Salmeterol 250-50 Inhaler 1 PUFF INHALATION ×2 (09:08→19:58)
[2025-08-03 10:00] VITALS: PULSE 75; RESP 16; O2SAT 95
[2025-08-03 15:51] VITALS: BMI 25.4
[2025-08-03 17:44] VITALS: BP 134/78; PULSE 77; RESP 16; TEMP 37; O2SAT 95
--- NOTE | 2025-08-03 19:33 | PN.REHAB_ITS ---
Subjective Subjective Patient seen, examined. He is sitting in chair, commenting on how difficult it is to put on a pair of shoes after a stroke. He states his gout is much better after Dr. Brizuela treated it with steroids. Objective Data Objective Data Vital Signs: Vital Signs Temp Pulse Resp BP Pulse Ox O2 Del Method O2 Flow Rate 98.6 F 77 16 134/78 H 95 Room Air 2 08/03/25 17:44 08/03/25 17:44 08/03/25 17:44 08/03/25 17:44 08/03/25 17:44 08/03/25 17:44 08/03/25 06:00 FiO2 21 07/27/25 21:50 Oxygen Flow Rate (L/min) 2 Oxygen Delivery Method Room Air Weight: 89.9 kg Body Mass Index (BMI) 25.4 Intake & Output: Intake and Output for Last 24 Hours 08/01/25 08/02/25 08/03/25 23:59 23:59 23:59 Intake Total 4730 / 4730 2640 / 2640 1100 / 1100 Output Total 3850 / 3850 2250 / 2250 2600 / 2600 Balance 880 / 880 390 / 390 -1500 / -1500 Lab / Micro Data 07/26/25 07:10 Micro: Microbiology 07/27/25 08:56 Stool Stool Occult Blood (JUSTA) - Final Indicators for Scoring Admitted with or Primary Diagnosis of CVA/Stroke: Yes Hx of CVA/Stroke: Yes Modified [place] Score MRS Score at time of Evaluation: 4-Moderate/severe disability Physical Exam Const alert General Appearance: cooperative HEENT normocephalic Eyes PERRL and EOMs intact bilaterally Neck supple, no JVD and no carotid bruits Resp normal respiratory effort, normal air movement and clear to auscultation bilaterally Cardio regular rate and regular rhythm GI normal to inspection, nondistended, normoactive bowel sounds, non-tender and non-distended Extremity normal capillary refill General Extremity: Negative for edema Skin no rashes or lesions noted General Skin Exam: no breakdown Neuro Neuro Narrative: Dense right upper extremity hemiplegia. Psych affect normal Appearance: appropriate Assessment & Plan Assessment/Plan (1) Debility: (2) Stroke: (3) Right hemiplegia: (4) Glaucoma: (5) Asthma: (6) Allergic rhinitis: (7) Hyperlipidemia, unspecified: (8) Gout: PLAN: Plan 75 year old male with below past medical history hospitalized for stroke with dense right upper extremity hemiplegia admitted to for 3 hours daily rehabilitation, strengthening, prior to discharge home with . * Debility - PT/OT/ST. * Pain - Tylenol 650mg q6 prn, Oxycodone 5mg q6 prn. * Bowel - Senna/colace 2 tablets bid, Dulcolax 10mg pr x 1 prn, MOM 30mL daily prn. * DVT prophylaxis - Lovenox 40mg sc daily. * Hypertension - Amlodipine 10mg daily. * Stroke - Aspirin 81mg daily indefinitely, Plavix 75mg daily thru 10/21/2025, then stop. * Hyperlipidemia - Atorvastatin 40mg qhs. * Vitamin D deficiency - D3 50mcg daily. * Allergic rhinitis - Flonase 1 spray daily prn, Loratadine 10mg daily. * Asthma - Wixela 250/50 1 puff bid. * Glaucoma - Latanoprost 1gtt ou qod. * Insomnia - Zolpidem 5mg qhs.
[2025-08-03 19:55] VITALS: PULSE 77; RESP 16; O2SAT 95; BMI 25.4
[2025-08-04 05:22] VITALS: BP 114/76; PULSE 86; RESP 16; TEMP 36.6; O2SAT 93
[2025-08-04] MEDS: Cholecalciferol (VIT D3) 25 MCG TABLET (1,000 UNITS) 50 MCG PO (07:33)
[2025-08-04] MEDS: Fluticasone 0.05% 1 SPRAY NASAL.SRY NASAL (07:33)
[2025-08-04] MEDS: Fluticasone Propion/Salmeterol 250-50 Inhaler 1 PUFF INHALATION ×2 (07:34→21:28)
--- NOTE | 2025-08-04 08:48 | CASEMGMT ---
Social Work IDT met with patient and for Team meeting. 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 Educated to [place] insurance with NRD 08/08 and continued stay is not guaranteed with each review. Nurse to follow up with sleep lab to get precert started and check on bed availability for next week. SW will coordinate overnight O2. Identified DME needs at DC - [facility], transport w/c, and will determine HHC/OP therapy at DC. Will ReTeam weekly. Family expressed great appreciation for this worker's assistance with insurance and DC planning. SW will continue to follow for DC planning. Toshia Mckenzie DEPARTMENT OF MATHEMATICS CHAIR PROTOZOOLOGIST
[2025-08-04] MEDS: MethylPREDNISolone DosePak 4 MG BOX PO ×3 (11:26→21:28)
[2025-08-04 15:44] VITALS: BMI 25.4
[2025-08-04 18:00] VITALS: BP 128/69; PULSE 86; RESP 17; TEMP 36.7; O2SAT 94
[2025-08-04 21:34] VITALS: PULSE 70
[2025-08-05 00:05] VITALS: O2SAT 98
[2025-08-05 00:07] VITALS: BMI 25.4
[2025-08-05 05:32] VITALS: BP 122/69; PULSE 60; RESP 16; TEMP 36.4; O2SAT 98
[2025-08-05] MEDS: Fluticasone 0.05% 1 SPRAY NASAL.SRY NASAL (07:39)
[2025-08-05] MEDS: MethylPREDNISolone DosePak 4 MG BOX PO ×4 (07:39→21:07)
[2025-08-05] MEDS: Senna/Docusate Sodium 1 Tablet 2 TABLET PO ×2 (07:40→21:13)
[2025-08-05] MEDS: Fluticasone Propion/Salmeterol 250-50 Inhaler 1 PUFF INHALATION ×2 (07:40→21:08)
[2025-08-05] MEDS: Cholecalciferol (VIT D3) 25 MCG TABLET (1,000 UNITS) 50 MCG PO (07:40)
[2025-08-05 07:45] VITALS: BP 126/74; PULSE 76
--- NOTE | 2025-08-05 08:38 | PN.REHAB_ITS ---
Subjective Subjective Patient seen, examined. Right toe gout improved with Medrol dose pack. We had brief discussion about working with his PCP after discharge to work on uric acid lowering therapy to prevent gout. This episode is his 4th episode of gout over the past 2 years. Objective Data Objective Data Vital Signs: Vital Signs Temp Pulse Resp BP Pulse Ox O2 Del Method O2 Flow Rate 97.6 F L 76 16 126/74 H 98 Room Air 2 08/05/25 05:32 08/05/25 07:45 08/05/25 05:32 08/05/25 07:45 08/05/25 05:32 08/05/25 08:16 08/05/25 00:05 FiO2 21 07/27/25 21:50 Oxygen Flow Rate (L/min) 2 Oxygen Delivery Method Room Air Weight: 89.9 kg Body Mass Index (BMI) 25.4 Intake & Output: Intake and Output for Last 24 Hours 08/03/25 08/04/25 08/05/25 23:59 23:59 23:59 Intake Total 1200 / 1200 2260 / 2360 340 / 340 Output Total 2600 / 2600 4050 / 4350 1350 / 1350 Balance -1400 / -1400 -1790 / -1990 -1010 / -1010 Lab / Micro Data 07/26/25 07:10 Micro: Microbiology 07/27/25 08:56 Stool Stool Occult Blood (JUSTA) - Final Indicators for Scoring Admitted with or Primary Diagnosis of CVA/Stroke: Yes Hx of CVA/Stroke: Yes Modified [place] Score MRS Score at time of Evaluation: 4-Moderate/severe disability Physical Exam Const alert General Appearance: cooperative HEENT normocephalic Eyes PERRL and EOMs intact bilaterally Neck supple, no JVD and no carotid bruits Resp normal respiratory effort, normal air movement and clear to auscultation bilaterally Cardio regular rate and regular rhythm GI normal to inspection, nondistended, normoactive bowel sounds, non-tender and non-distended Extremity normal capillary refill General Extremity: Negative for edema Skin no rashes or lesions noted General Skin Exam: no breakdown Neuro Neuro Narrative: Dense right upper extremity hemiplegia. Psych affect normal Appearance: appropriate Assessment & Plan Assessment/Plan (1) Debility: (2) Stroke: (3) Right hemiplegia: (4) Glaucoma: (5) Asthma: (6) Allergic rhinitis: (7) Hyperlipidemia, unspecified: (8) Gout: PLAN: Plan 75 year old male with below past medical history hospitalized for stroke with dense right upper extremity hemiplegia admitted to for 3 hours daily rehabilitation, strengthening, prior to discharge home with . * Debility - PT/OT/ST. * Pain - Tylenol 650mg q6 prn, Oxycodone 5mg q6 prn. * Bowel - Senna/colace 2 tablets bid, Dulcolax 10mg pr x 1 prn, MOM 30mL daily prn. * DVT prophylaxis - Lovenox 40mg sc daily. * Gout - Medrol dose pack, right toe pain improving. * Hypertension - Amlodipine 10mg daily. * Stroke - Aspirin 81mg daily indefinitely, Plavix 75mg daily thru 10/21/2025, then stop. * Hyperlipidemia - Atorvastatin 40mg qhs. * Vitamin D deficiency - D3 50mcg daily. * Allergic rhinitis - Flonase 1 spray daily prn, Loratadine 10mg daily. * Asthma - Wixela 250/50 1 puff bid. * Glaucoma - Latanoprost 1gtt ou qod. * Insomnia - Zolpidem 5mg qhs.
[2025-08-05 09:53] VITALS: BMI 25.4
[2025-08-05 17:40] VITALS: BP 116/66; PULSE 73; RESP 18; TEMP 36.6; O2SAT 94
[2025-08-05] MEDS: Latanoprost 0.005% 1 Bottle 1 DRP OPHTHALMIC (21:08)
[2025-08-05 22:38] VITALS: BMI 25.4
[2025-08-06 00:43] VITALS: O2SAT 100
[2025-08-06 05:02] VITALS: BP 117/75; PULSE 73; RESP 18; TEMP 36.5; O2SAT 95
[2025-08-06 07:16] VITALS: O2SAT 94
[2025-08-06] MEDS: Fluticasone Propion/Salmeterol 250-50 Inhaler 1 PUFF INHALATION ×2 (08:18→22:05)
[2025-08-06] MEDS: Cholecalciferol (VIT D3) 25 MCG TABLET (1,000 UNITS) 50 MCG PO (08:18)
[2025-08-06] MEDS: MethylPREDNISolone DosePak 4 MG BOX PO ×4 (08:18→22:04)
[2025-08-06] MEDS: Fluticasone 0.05% 1 SPRAY NASAL.SRY NASAL (08:18)
[2025-08-06 18:00] VITALS: BP 118/76; PULSE 66; RESP 17; TEMP 36.4; O2SAT 97
[2025-08-06 20:29] VITALS: BMI 25.4
[2025-08-06] MEDS: Senna/Docusate Sodium 1 Tablet 2 TABLET PO (22:05)
[2025-08-07 00:20] VITALS: O2SAT 100
[2025-08-07 06:00] VITALS: BP 132/74; PULSE 68; RESP 18; TEMP 36.5; O2SAT 96
[2025-08-07 07:51] VITALS: O2SAT 92
[2025-08-07] MEDS: Fluticasone Propion/Salmeterol 250-50 Inhaler 1 PUFF INHALATION ×2 (08:01→20:20)
[2025-08-07] MEDS: Cholecalciferol (VIT D3) 25 MCG TABLET (1,000 UNITS) 50 MCG PO (08:01)
[2025-08-07] MEDS: MethylPREDNISolone DosePak 4 MG BOX PO ×3 (08:01→20:19)
[2025-08-07] MEDS: Fluticasone 0.05% 1 SPRAY NASAL.SRY NASAL (08:01)
[2025-08-07 17:11] VITALS: BP 117/74; PULSE 64; RESP 17; TEMP 36.3; O2SAT 97
[2025-08-07] MEDS: Senna/Docusate Sodium 1 Tablet 2 TABLET PO (20:19)
[2025-08-07] MEDS: Latanoprost 0.005% 1 Bottle 1 DRP OPHTHALMIC (20:20)
[2025-08-08 05:00] VITALS: BMI 25.4
[2025-08-08 06:00] VITALS: BP 129/79; PULSE 68; RESP 17; TEMP 36.5; O2SAT 94
[2025-08-08 07:53] VITALS: O2SAT 96
[2025-08-08] MEDS: Senna/Docusate Sodium 1 Tablet 2 TABLET PO (08:10)
[2025-08-08] MEDS: Cholecalciferol (VIT D3) 25 MCG TABLET (1,000 UNITS) 50 MCG PO (08:10)
[2025-08-08] MEDS: Fluticasone 0.05% 1 SPRAY NASAL.SRY NASAL (08:10)
[2025-08-08] MEDS: MethylPREDNISolone DosePak 4 MG BOX PO ×2 (08:11→21:54)
[2025-08-08] MEDS: Fluticasone Propion/Salmeterol 250-50 Inhaler 1 PUFF INHALATION ×2 (08:11→21:54)
--- NOTE | 2025-08-08 09:03 | PN.REHAB_ITS ---
Subjective Subjective Patient seen, examined. Progressing with therapy, getting some finger movement back in right hand. He is motivated. He has no new problems, concerns, issues, complaints. Objective Data Objective Data Vital Signs: Vital Signs Temp Pulse Resp BP Pulse Ox O2 Del Method O2 Flow Rate 97.7 F L 68 17 129/79 H 96 Room Air 2 08/08/25 06:00 08/08/25 06:00 08/08/25 06:00 08/08/25 06:00 08/08/25 07:53 08/08/25 07:53 08/07/25 06:00 FiO2 21 07/27/25 21:50 Oxygen Flow Rate (L/min) 2 Oxygen Delivery Method Room Air Weight: 89.9 kg Body Mass Index (BMI) 25.4 Intake & Output: Intake and Output for Last 24 Hours 08/06/25 08/07/25 08/08/25 23:59 23:59 23:59 Intake Total 3140 / 3140 2400 / 2400 1290 / 1290 Output Total 4175 / 4175 2950 / 3950 1500 / 1500 Balance -1035 / -1035 -550 / -1550 -210 / -210 Lab / Micro Data 07/26/25 07:10 Micro: Microbiology 07/27/25 08:56 Stool Stool Occult Blood (JUSTA) - Final Indicators for Scoring Admitted with or Primary Diagnosis of CVA/Stroke: Yes Hx of CVA/Stroke: Yes Modified Jose Score MRS Score at time of Evaluation: 4-Moderate/severe disability Physical Exam Const alert General Appearance: cooperative HEENT normocephalic Eyes PERRL and EOMs intact bilaterally Neck supple, no JVD and no carotid bruits Resp normal respiratory effort, normal air movement and clear to auscultation bilaterally Cardio regular rate and regular rhythm GI normal to inspection, nondistended, normoactive bowel sounds, non-tender and non-distended Extremity normal capillary refill General Extremity: Negative for edema Skin no rashes or lesions noted General Skin Exam: no breakdown Neuro Neuro Narrative: Dense right upper extremity hemiplegia. Psych affect normal Appearance: appropriate Assessment & Plan Assessment/Plan (1) Debility: (2) Stroke: (3) Right hemiplegia: (4) Glaucoma: (5) Asthma: (6) Allergic rhinitis: (7) Hyperlipidemia, unspecified: (8) Gout: PLAN: Plan 75 year old male with below past medical history hospitalized for stroke with dense right upper extremity hemiplegia admitted to for 3 hours daily rehabilitation, strengthening, prior to discharge home with . * Debility - PT/OT/ST. * Pain - Tylenol 650mg q6 prn, Oxycodone 5mg q6 prn. * Bowel - Senna/colace 2 tablets bid, Dulcolax 10mg pr x 1 prn, MOM 30mL daily prn. * DVT prophylaxis - Lovenox 40mg sc daily. * Gout - Medrol dose pack, right toe pain improving. * Hypertension - Amlodipine 10mg daily. * Stroke - Aspirin 81mg daily indefinitely, Plavix 75mg daily thru 10/21/2025, then stop. * Hyperlipidemia - Atorvastatin 40mg qhs. * Vitamin D deficiency - D3 50mcg daily. * Allergic rhinitis - Flonase 1 spray daily prn, Loratadine 10mg daily. * Asthma - Wixela 250/50 1 puff bid. * Glaucoma - Latanoprost 1gtt ou qod. * Insomnia - Zolpidem 5mg qhs.
[2025-08-08 17:41] VITALS: BP 125/75; PULSE 69; RESP 18; TEMP 36.4; O2SAT 94
[2025-08-08 20:23] VITALS: BMI 25.4
[2025-08-08 20:45] VITALS: PULSE 69; RESP 16; O2SAT 94
[2025-08-09 06:00] VITALS: BP 117/79; PULSE 70; RESP 16; TEMP 36.8; O2SAT 97
[2025-08-09] MEDS: Fluticasone 0.05% 1 SPRAY NASAL.SRY NASAL (07:42)
[2025-08-09] MEDS: Fluticasone Propion/Salmeterol 250-50 Inhaler 1 PUFF INHALATION ×2 (07:42→20:38)
[2025-08-09] MEDS: Cholecalciferol (VIT D3) 25 MCG TABLET (1,000 UNITS) 50 MCG PO (07:43)
--- NOTE | 2025-08-09 08:22 | PN.REHAB_ITS ---
Subjective Subjective Patient seen, examined. He had good BM today. No acute events overnight, no new complaints. His present today. Objective Data Objective Data Vital Signs: Vital Signs Temp Pulse Resp BP Pulse Ox O2 Del Method O2 Flow Rate 98.3 F 70 16 117/79 97 Room Air 2 08/09/25 06:00 08/09/25 06:00 08/09/25 06:00 08/09/25 06:00 08/09/25 06:00 08/09/25 06:00 08/07/25 06:00 FiO2 21 07/27/25 21:50 Oxygen Flow Rate (L/min) 2 Oxygen Delivery Method Room Air Weight: 89.9 kg Body Mass Index (BMI) 25.4 Intake & Output: Intake and Output for Last 24 Hours 08/07/25 08/08/25 08/09/25 23:59 23:59 23:59 Intake Total 2400 / 2400 2880 / 2880 586 / 586 Output Total 2950 / 3950 3450 / 3450 1200 / 1200 Balance -550 / -1550 -570 / -570 -614 / -614 Lab / Micro Data 07/26/25 07:10 Micro: Microbiology 07/27/25 08:56 Stool Stool Occult Blood (JUSTA) - Final Indicators for Scoring Admitted with or Primary Diagnosis of CVA/Stroke: Yes Hx of CVA/Stroke: Yes Modified Jose Score MRS Score at time of Evaluation: 4-Moderate/severe disability Physical Exam Const alert General Appearance: cooperative HEENT normocephalic Eyes PERRL and EOMs intact bilaterally Neck supple, no JVD and no carotid bruits Resp normal respiratory effort, normal air movement and clear to auscultation bilaterally Cardio regular rate and regular rhythm GI normal to inspection, nondistended, normoactive bowel sounds, non-tender and non-distended Extremity normal capillary refill General Extremity: Negative for edema Skin no rashes or lesions noted General Skin Exam: no breakdown Neuro Neuro Narrative: Dense right upper extremity hemiplegia. Psych affect normal Appearance: appropriate Assessment & Plan Assessment/Plan (1) Debility: (2) Stroke: (3) Right hemiplegia: (4) Glaucoma: (5) Asthma: (6) Allergic rhinitis: (7) Hyperlipidemia, unspecified: (8) Gout: PLAN: Plan 75 year old male with below past medical history hospitalized for stroke with dense right upper extremity hemiplegia admitted to for 3 hours daily rehabilitation, strengthening, prior to discharge home with . * Debility - PT/OT/ST. * Pain - Tylenol 650mg q6 prn, Oxycodone 5mg q6 prn. * Bowel - Senna/colace 2 tablets bid, Dulcolax 10mg pr x 1 prn, MOM 30mL daily prn. * DVT prophylaxis - Lovenox 40mg sc daily. * Gout - Medrol dose pack, right toe pain improved, recommend outpatient follow up for urate lowering agent. * Hypertension - Amlodipine 10mg daily. * Stroke - Aspirin 81mg daily indefinitely, Plavix 75mg daily thru 10/21/2025, then stop. * Hyperlipidemia - Atorvastatin 40mg qhs. * Vitamin D deficiency - D3 50mcg daily. * Allergic rhinitis - Flonase 1 spray daily prn, Loratadine 10mg daily. * Asthma - Wixela 250/50 1 puff bid. * Glaucoma - Latanoprost 1gtt ou qod. * Insomnia - Zolpidem 5mg qhs.
[2025-08-09 10:09] VITALS: BMI 25.4
[2025-08-09 17:30] VITALS: BP 134/86; PULSE 79; RESP 17; TEMP 36.3; O2SAT 96
[2025-08-09] MEDS: Latanoprost 0.005% 1 Bottle 1 DRP OPHTHALMIC (20:38)
[2025-08-09 21:22] VITALS: BMI 25.4
[2025-08-09 22:00] VITALS: O2SAT 96
[2025-08-10 06:00] VITALS: BP 120/77; PULSE 63; RESP 16; TEMP 36.3; O2SAT 93
[2025-08-10] MEDS: Fluticasone 0.05% 1 SPRAY NASAL.SRY NASAL (08:23)
[2025-08-10] MEDS: Cholecalciferol (VIT D3) 25 MCG TABLET (1,000 UNITS) 50 MCG PO (08:23)
[2025-08-10 08:35] VITALS: BP 104/69; PULSE 77
--- NOTE | 2025-08-10 08:40 | PN.REHAB_ITS ---
Subjective Subjective Patient seen, examined. He is sitting in chair, finished breakfast, no acute events overnight. He said he did not sleep as well last night, will increase Zolpidem to 10mg at bedtime for short term use, He continues to work hard and progress in therapy. He was able to walk outside on grass yesterday. Objective Data Objective Data Vital Signs: Vital Signs Temp Pulse Resp BP Pulse Ox O2 Del Method O2 Flow Rate 97.3 F L 77 16 104/69 93 Room Air 2 08/10/25 06:00 08/10/25 08:35 08/10/25 06:00 08/10/25 08:35 08/10/25 06:00 08/10/25 06:00 08/07/25 06:00 FiO2 21 07/27/25 21:50 Oxygen Flow Rate (L/min) 2 Oxygen Delivery Method Room Air Weight: 89.9 kg Body Mass Index (BMI) 25.4 Intake & Output: Intake and Output for Last 24 Hours 08/08/25 08/09/25 08/10/25 23:59 23:59 23:59 Intake Total 2880 / 2880 2436 / 2436 240 / 240 Output Total 3450 / 3450 2875 / 2875 200 / 200 Balance -570 / -570 -439 / -439 40 / 40 Lab / Micro Data 07/26/25 07:10 Micro: Microbiology 07/27/25 08:56 Stool Stool Occult Blood (JUSTA) - Final Indicators for Scoring Admitted with or Primary Diagnosis of CVA/Stroke: Yes Hx of CVA/Stroke: Yes Modified Caroline Score MRS Score at time of Evaluation: 4-Moderate/severe disability Physical Exam Const alert General Appearance: cooperative HEENT normocephalic Eyes PERRL and EOMs intact bilaterally Neck supple, no JVD and no carotid bruits Resp normal respiratory effort, normal air movement and clear to auscultation bilaterally Cardio regular rate and regular rhythm GI normal to inspection, nondistended, normoactive bowel sounds, non-tender and non-distended Extremity normal capillary refill General Extremity: Negative for edema Skin no rashes or lesions noted General Skin Exam: no breakdown Neuro Neuro Narrative: Dense right upper extremity hemiplegia. Psych affect normal Appearance: appropriate Assessment & Plan Assessment/Plan (1) Debility: (2) Stroke: (3) Right hemiplegia: (4) Glaucoma: (5) Asthma: (6) Allergic rhinitis: (7) Hyperlipidemia, unspecified: (8) Gout: PLAN: Plan 75 year old male with below past medical history hospitalized for stroke with dense right upper extremity hemiplegia admitted to for 3 hours daily rehabilitation, strengthening, prior to discharge home with . * Debility - PT/OT/ST. * Pain - Tylenol 650mg q6 prn, Oxycodone 5mg q6 prn. * Bowel - Senna/colace 2 tablets bid, Dulcolax 10mg pr x 1 prn, MOM 30mL daily prn. * DVT prophylaxis - Lovenox 40mg sc daily. * Gout - Medrol dose pack, right toe pain improved, recommend outpatient follow up for urate lowering agent. * Hypertension - Amlodipine 10mg daily. * Stroke - Aspirin 81mg daily indefinitely, Plavix 75mg daily thru 10/21/2025, then stop. * Hyperlipidemia - Atorvastatin 40mg qhs. * Vitamin D deficiency - D3 50mcg daily. * Allergic rhinitis - Flonase 1 spray daily prn, Loratadine 10mg daily. * Asthma - Wixela 250/50 1 puff bid. * Glaucoma - Latanoprost 1gtt ou qod. * Insomnia - Did not sleep well, increase Zolpidem to 10mg qhs.
[2025-08-10 17:00] VITALS: BMI 25.4
[2025-08-10 18:06] VITALS: BP 113/66; PULSE 79; RESP 16; TEMP 36.5; O2SAT 94
[2025-08-10] MEDS: Fluticasone Propion/Salmeterol 250-50 Inhaler 1 PUFF INHALATION (20:27)
[2025-08-11 05:00] VITALS: BMI 25.4
[2025-08-11 05:49] VITALS: BP 104/75; PULSE 77; RESP 16; TEMP 36.8; O2SAT 96
--- NOTE | 2025-08-11 08:00 | CASEMGMT ---
Social Work IDT met with patient and for Team meeting. 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 Educated to [place] CM with NRD 08/15 and continued stay is not guaranteed with each review. The goal with therapy is continue with least restrictive device - goal is quad cane. Pt is continuing with O2 while sleeping and sleep study is tentatively scheduled for 08/25, pending DC date. SW will coordinate DME and therapy needs at DC. Will ReTeam weekly. SW will continue to follow for DC planning. Toshia Mckenzie BEAM DEPARTMENT SUPERVISOR LASER SET UP OPERATOR
[2025-08-11] MEDS: Fluticasone 0.05% 1 SPRAY NASAL.SRY NASAL (08:47)
[2025-08-11] MEDS: Fluticasone Propion/Salmeterol 250-50 Inhaler 1 PUFF INHALATION ×2 (08:48→20:48)
[2025-08-11] MEDS: Cholecalciferol (VIT D3) 25 MCG TABLET (1,000 UNITS) 50 MCG PO (08:50)
[2025-08-11 17:00] VITALS: BMI 25.4
[2025-08-11 18:00] VITALS: BP 139/72; PULSE 74; RESP 16; TEMP 36.5; O2SAT 99
[2025-08-11] MEDS: Senna/Docusate Sodium 1 Tablet 2 TABLET PO (20:47)
[2025-08-11] MEDS: Latanoprost 0.005% 1 Bottle 1 DRP OPHTHALMIC (20:50)
[2025-08-12 04:31] VITALS: BMI 25.4
[2025-08-12 06:00] VITALS: BP 120/74; PULSE 81; RESP 16; TEMP 36.4; O2SAT 98
[2025-08-12] MEDS: Fluticasone 0.05% 1 SPRAY NASAL.SRY NASAL (08:55)
[2025-08-12] MEDS: Cholecalciferol (VIT D3) 25 MCG TABLET (1,000 UNITS) 50 MCG PO (08:56)
[2025-08-12] MEDS: Fluticasone Propion/Salmeterol 250-50 Inhaler 1 PUFF INHALATION ×2 (08:59→20:20)
[2025-08-12 09:07] VITALS: BP 114/71; PULSE 80
[2025-08-12 11:03] VITALS: BMI 23.6
[2025-08-12 12:34] VITALS: BMI 23.6
[2025-08-12 18:00] VITALS: BP 111/76; PULSE 70; RESP 17; TEMP 36.7; O2SAT 95
[2025-08-12 21:59] VITALS: BMI 23.6
[2025-08-13 06:00] VITALS: BP 116/63; PULSE 81; RESP 18; TEMP 36.7; O2SAT 97
[2025-08-13] MEDS: Fluticasone 0.05% 1 SPRAY NASAL.SRY NASAL (08:59)
[2025-08-13] MEDS: Cholecalciferol (VIT D3) 25 MCG TABLET (1,000 UNITS) 50 MCG PO (09:04)
[2025-08-13 09:09] VITALS: BP 111/72; PULSE 81
[2025-08-13] MEDS: Fluticasone Propion/Salmeterol 250-50 Inhaler 1 PUFF INHALATION ×2 (09:33→20:10)
[2025-08-13 11:50] VITALS: BMI 23.6
[2025-08-13 19:00] VITALS: BP 124/74; PULSE 86; RESP 18; TEMP 36.5; O2SAT 98
[2025-08-13] MEDS: Latanoprost 0.005% 1 Bottle 1 DRP OPHTHALMIC (20:10)
[2025-08-13 23:55] VITALS: BMI 23.6
[2025-08-14 00:10] VITALS: O2SAT 98
[2025-08-14 05:17] VITALS: BP 113/81; PULSE 76; RESP 17; TEMP 36.4; O2SAT 94
[2025-08-14 08:10] VITALS: BP 122/73; PULSE 80
[2025-08-14] MEDS: Fluticasone 0.05% 1 SPRAY NASAL.SRY NASAL (08:13)
[2025-08-14] MEDS: Fluticasone Propion/Salmeterol 250-50 Inhaler 1 PUFF INHALATION ×2 (08:14→20:18)
[2025-08-14] MEDS: Cholecalciferol (VIT D3) 25 MCG TABLET (1,000 UNITS) 50 MCG PO (08:15)
[2025-08-14 15:38] VITALS: BMI 23.6
[2025-08-14 17:52] VITALS: BP 93/66; PULSE 90; RESP 16; TEMP 36.6; O2SAT 94
[2025-08-14] MEDS: Senna/Docusate Sodium 1 Tablet 2 TABLET PO (20:18)
[2025-08-14 21:03] VITALS: BMI 23.6
[2025-08-15 05:40] VITALS: BP 106/72; PULSE 82; RESP 16; TEMP 36.4; O2SAT 96
--- NOTE | 2025-08-15 07:42 | PN.REHAB_ITS ---
Subjective Subjective Patient seen, examined. No acute events overnight. He continues to c/o sleep at night. He is on Zolpidem 10mg qhs for insomnia, I asked about his sleep regimen, he goes to bed at 9:00PM, and he wakes up at 4:30AM. I recommend he go to bed a little later to see if he can avoid waking up in the middle of the night. Objective Data Objective Data Vital Signs: Vital Signs Temp Pulse Resp BP Pulse Ox O2 Del Method O2 Flow Rate 97.6 F L 82 16 106/72 96 Room Air 2 08/15/25 05:40 08/15/25 05:40 08/15/25 05:40 08/15/25 05:40 08/15/25 05:40 08/15/25 05:40 08/07/25 06:00 FiO2 21 07/27/25 21:50 Oxygen Flow Rate (L/min) 2 Oxygen Delivery Method Room Air Weight: 85.899 kg Body Mass Index (BMI) 23.6 Intake & Output: Intake and Output for Last 24 Hours 08/13/25 08/14/25 08/15/25 23:59 23:59 23:59 Intake Total 1780 / 1780 1820 / 1820 1510 / 1510 Output Total 1675 / 1675 1850 / 2600 1430 / 1430 Balance 105 / 105 -30 / -780 80 / 80 Lab / Micro Data 07/26/25 07:10 Micro: Microbiology 07/27/25 08:56 Stool Stool Occult Blood (JUSTA) - Final Indicators for Scoring Admitted with or Primary Diagnosis of CVA/Stroke: Yes Hx of CVA/Stroke: Yes Modified Treasure Score MRS Score at time of Evaluation: 4-Moderate/severe disability Physical Exam Const alert General Appearance: cooperative HEENT normocephalic Eyes PERRL and EOMs intact bilaterally Neck supple, no JVD and no carotid bruits Resp normal respiratory effort, normal air movement and clear to auscultation bilaterally Cardio regular rate and regular rhythm GI normal to inspection, nondistended, normoactive bowel sounds, non-tender and non-distended Extremity normal capillary refill General Extremity: Negative for edema Skin no rashes or lesions noted General Skin Exam: no breakdown Neuro Neuro Narrative: Dense right upper extremity hemiplegia. Psych affect normal Appearance: appropriate Assessment & Plan Assessment/Plan (1) Debility: (2) Stroke: (3) Right hemiplegia: (4) Glaucoma: (5) Asthma: (6) Allergic rhinitis: (7) Hyperlipidemia, unspecified: (8) Gout: PLAN: Plan 75 year old male with below past medical history hospitalized for stroke with dense right upper extremity hemiplegia admitted to for 3 hours daily rehabilitation, strengthening, prior to discharge home with . * Debility - PT/OT/ST. * Pain - Tylenol 650mg q6 prn, Oxycodone 5mg q6 prn. * Bowel - Senna/colace 2 tablets bid, Dulcolax 10mg pr x 1 prn, MOM 30mL daily prn. * DVT prophylaxis - Lovenox 40mg sc daily. * Gout - Medrol dose pack, right toe pain improved, recommend outpatient follow up for urate lowering agent. * Hypertension - Amlodipine 10mg daily. * Stroke - Aspirin 81mg daily indefinitely, Plavix 75mg daily thru 10/21/2025, then stop. * Hyperlipidemia - Atorvastatin 40mg qhs. * Vitamin D deficiency - D3 50mcg daily. * Allergic rhinitis - Flonase 1 spray daily prn, Loratadine 10mg daily. * Asthma - Wixela 250/50 1 puff bid. * Glaucoma - Latanoprost 1gtt ou qod. * Insomnia - Zolpidem to 10mg qhs, Recommend going to bed a little later, instead of 9:00PM.
[2025-08-15] MEDS: Fluticasone Propion/Salmeterol 250-50 Inhaler 1 PUFF INHALATION ×2 (07:50→22:06)
[2025-08-15] MEDS: Fluticasone 0.05% 1 SPRAY NASAL.SRY NASAL (07:50)
[2025-08-15] MEDS: Cholecalciferol (VIT D3) 25 MCG TABLET (1,000 UNITS) 50 MCG PO (07:51)
[2025-08-15 07:57] VITALS: BP 121/80; PULSE 82
[2025-08-15 11:09] VITALS: BMI 23.6
--- NOTE | 2025-08-15 15:28 | CASEMGMT ---
Social Work SW received email from inquiring about setting DC for tomorrow, 08/16 and having outpatient therapy at [facility]. SW collaborated with Team and IDT is agreeable to DC home and OP therapy. Pt does need sleep study and new overnight O2. SW contacted sleep lab to inquire about precert and availability. Precert is obtained and there is a bed for the pt, but the would need to stay overnight with pt to assist with needs. SW replied to with the updates from sleep lab. SW can refer to [facility] for overnight O2 and w/c. and pt spoke and confirmed DC to sleep lab 08/16, with staying overnight. requesting w/c be delivered to the home with the O2 after DC. SW updated IDT and sleep lab. SW sent referral to [facility] via [employer]. SW faxed referral to [facility]. Plan: DC 08/16 to sleep study; home with 08/17, [facility] PT/OT/ST, 16 in. transport w/c, overnight O2 Toshia Mckenzie MSW CUSTOMER SERVICE TECHNICIAN
[2025-08-15 16:43] VITALS: BP 116/78; PULSE 82; RESP 16; TEMP 36.8; O2SAT 96
[2025-08-15 20:38] VITALS: PULSE 82; O2SAT 92
[2025-08-15] MEDS: Latanoprost 0.005% 1 Bottle 1 DRP OPHTHALMIC (22:05)
[2025-08-16 00:41] VITALS: BMI 23.6
[2025-08-16 06:00] VITALS: BP 135/69; PULSE 75; RESP 17; TEMP 36.5; O2SAT 95
[2025-08-16] MEDS: Fluticasone 0.05% 1 SPRAY NASAL.SRY NASAL (08:11)
[2025-08-16] MEDS: Senna/Docusate Sodium 1 Tablet 2 TABLET PO ×2 (08:12→19:57)
[2025-08-16] MEDS: Cholecalciferol (VIT D3) 25 MCG TABLET (1,000 UNITS) 50 MCG PO (08:12)
[2025-08-16] MEDS: Fluticasone Propion/Salmeterol 250-50 Inhaler 1 PUFF INHALATION ×2 (08:12→19:54)
--- NOTE | 2025-08-16 09:08 | DS.PCM_ITS ---
Providers Date of Admission: 07/25/25 Date of Discharge: 08/16/25 Primary Care Physician: Dr. Alen Betancourt MD Reason For Visit: debility following stroke Diagnosis Discharge Diagnosis (1) Debility: Status: Acute Code(s): R53.81 - Other malaise Plan: *Patient is unsafe to use a cane and requires a charlie walker ?for? ambulation for in the home and the community. The patient cannot use a standard walker d/t to disorder or condition that causes restricted use of one hand. *Patient has a mobility limitation that cannot be sufficiently resolved by using a cane or walker. Use of a w/c will improve the participating of ADLs on a regular basis in the home. A caregiver can propel patient safely. (2) Stroke: Status: Acute Code(s): I63.9 - Cerebral infarction, unspecified Plan: *continue aspirin 81mg PO daily and plavix 75mg PO daily for 3 months- RX send to pt home pharmacy *following the 3 months, the pt will continue with aspirin only (3) Right hemiplegia: Status: Acute Code(s): G81.91 - Hemiplegia, unspecified affecting right dominant side Plan: *Pt will require outpatient PT/OT/ST (4) Glaucoma: Status: Acute Code(s): H40.9 - Unspecified glaucoma Plan: *continue home medications (5) Asthma: Status: Acute Code(s): J45.909 - Unspecified asthma, uncomplicated Plan: *continue home medications *I have reviewed the oxygen testing and this patient qualifies for the home equipment and portability. The patient is mobile in the home in the community. *O2 at night with sleep or naps (6) Allergic rhinitis: Status: Acute Code(s): J30.9 - Allergic rhinitis, unspecified Plan: *continue home medications (7) Hyperlipidemia, unspecified: Status: Acute Code(s): E78.5 - Hyperlipidemia, unspecified Plan: *Atorvastatin 40mg PO at bedtime sent to pt home pharmacy (8) Gout: Status: Acute Code(s): M10.9 - Gout, unspecified Plan: *continue home medications * follow up with PCP for any flare ups Medications at Discharge Home Medications fluticasone 250 mcg-salmeterol 50 mcg/dose blistr powdr for inhalation 1 inh inhalation Q12H SOB/Wheezing 01/15/22 latanoprost 0.005 % eye drops 1 drp ophthalmic (eye) QODAY eye drops 01/15/22 cholecalciferol (vitamin D3) 50 mcg (2,000 unit) tablet (Vitamin D3) 50 mcg PO DAILY supplement 07/22/25 fluticasone propionate 50 mcg/actuation nasal spray,suspension (Allergy Relief (fluticasone)) 1 spray intranasal DAILY SOB/Wheezing 07/22/25 loratadine 10 mg tablet (Claritin) 10 mg PO DAILY allergies 07/22/25 amlodipine 10 mg tablet 10 mg PO DAILY BP #30 tabs 07/25/25 fluticasone 250 mcg-salmeterol 50 mcg/dose blistr powdr for inhalation (Advair Diskus) 1 inh inhalation BID sob/wheezing 07/26/25 aspirin 81 mg chewable tablet 81 mg PO BREAKFAST 90 days #0 tabs 08/16/25 atorvastatin 40 mg tablet 40 mg PO QHS cholestrol 30 days #30 tabs 08/16/25 clopidogrel 75 mg tablet 75 mg PO DAILY 90 days #90 tabs 08/16/25 Physical Exam Const alert, oriented x3, no apparent distress and average body habitus General Appearance: cooperative and comfortable Orientation / Consciousness: awake, oriented to person, oriented to place and oriented to time Exam Limitations: no limitations HEENT normocephalic Face and Sinus: other slight R sided facial drooping Mouth: oral and palatal mucosa normal Eyes PERRL Eyes Narrative: L eye glaucoma Neck full ROM General: normal visual inspection and trachea midline Lymph Lymphatic: no lymphadenopathy noted Chest inspection of chest normal Resp normal respiratory effort, normal air movement, no retractions, no use of accessory muscles and clear to auscultation bilaterally Effort and Inspection: able to speak in complete sentences Cardio regular rate, regular rhythm, S1 normal heart sound and S2 normal heart sound Peripheral Pulses: pulses 2+ throughout GI normal to inspection, nondistended, normoactive bowel sounds Palpation: soft no CVA tenderness Back/Spine no CVA tenderness Extremity Extremity Narrative: RUE/RLE weakness. RUE contraction felt but, essentially flaccid. R foot drop Skin no rashes or lesions noted Neuro oriented x3 Neuro Narrative: RUE sensation deficit Sensorium / Orientation: awake, alert, oriented to person, oriented to place and oriented to time Speech: speech normal Gait (Neuro): unable to assess gait Sensory Exam: extremities pin-prick: decreased (RUE ), light-touch: decreased (RUE), vibratory: decreased (RUE) and proprioception: decreased (RUE/RLE) RUE Motor Exam: movement abnormality noted Deep Tendon Reflexes: Rt Triceps (C7): 0, Rt Brachioradialis (C6): 1+ and Rt Patellar (L4): 2+ Psych mental status grossly normal Attitude: calm Activity / Motor Behavior: appropriate eye contact Speech: normal speech Memory / Cognition: memory grossly intact Weight / BMI Weight Weight: 189 lb 6 oz Body Mass Index (BMI) 23.6 ABG / Lab / Microbiology Data 07/26/25 07:10 Microbiology: Microbiology 07/27/25 08:56 Stool Stool Occult Blood (JUSTA) - Final Indicators for Scoring Admitted with or Primary Diagnosis of CVA/Stroke: Yes Hx of CVA/Stroke: Yes Modified Hemphill Score MRS Score at time of Evaluation: 4-Moderate/severe disability NIHSS NIHSS 1a. Level of Consciousness: 0 - Alert; keenly responsive 1b. LOC Questions: 0 - Answers BOTH questions correctly 1c. LOC Commands: 0 - Performs BOTH tasks correctly 2. Best Gaze: 0 - Normal 3. Visual: 0 - No visual loss 4. Facial Palsy: 0 - Normal symmetrical movements 5a. Left Arm: 0 - No drift; arm holds 90 (or 45) degrees for full 10 seconds 5b. Right Arm: 3 - No effort against gravity; arm falls 6a. Left Le - No drift; leg holds 30-degree position for full 5 seconds 6b. Right Le - Drift; leg falls by the end of 5-seconds, but does not hit bed 7. Limb Ataxia: 1 - Present in 1 limb 8. Sensory: 0 - Normal; no sensory loss 10. Dysarthria: 0 - Normal 11. Extinction and Inattention: 0 - No abnormality Total: 5 Stroke Questions Stroke Team Activated: Yes a.Reviewed Inclusion/Exclusion criteria: Yes Was Patient considered for Endovascular Intervention?: No IV Thrombolytic Administered: No No contraindications from thrombolytic administration: No Risks, Benefits, Alternatives Discussed: Yes Not given: Patient refusal: No (did not meet criteria ) D/C Instructions Diet Diet Order/Speech Therapy: INPATIENT Hospital Diet / Speech Therapy Order(s) 07/25/25 18:02 Diet: Cardiac - Heart Healthy Diet Comments: low purine diet. Discharge order: Continue INPATIENT Hospital Diet / Speech Therapy Orders: Yes Discharge Activity: Use Walker Call your doctor if you observe: Fever of 101 or Higher, Coldness, Increased Pain, Numbness or Tingling, Change in Color, Inability to urinate, Inability to have a bowel movement, Shortness of breath, Dizziness, Fainting spells, Swelling in the ankles, Chest pain, Increased palpitations (irregular heartbeat), Calf discomfort and Uncontrolled pain DC O2, CPAP, BIPAP Needs PSN CPAP & BiPAP: BiPAP & CPAP Settings per PSN Fraction of Inspired Oxygen ( 08/15/25 20:38 FIO2) Home Oxygen Instructions: I have reviewed the oxygen testing, and this patient qualifies for the home equipment and portability. The patient is mobile in the home and the community. Home O2 Discharge instructions: Yes Type of respiratory needs?: Oxygen Oxygen frequency: With Sleeping Oxygen liters per minute when sleepin DC home with Oxygen: Yes Home O2 MD Review: I have reviewed the oxygen testing, and the patient qualifies for home oxygen equipment and portability. The patient is mobile in the home and the community. Additional Instructions: utilize O2 at night with sleep or with napping Pending Tests Upon Discharge: sleep study Please Follow Up With: Alen Betancourt MD When: as scheduled Meaningful Use Info Meaningful Use Meaningful Use Diagnoses (Choose all that apply): Ischemic CVA CVA Therapy Assessed for PT,OT and/or ST?: Yes Ischemic Stroke Antithrombotic order at d/c?: Yes Dx of Atrial fib/flutter?: No Anticoagulant at discharge?: Yes Statin Dosing Therapy Reference: STATIN DOSE THERAPY REFERENCE: * Patients > 75 years receive moderate or high dose statin therapy. * Patients 75 years or YOUNGER should receive HIGH intensity statin dose unless contraindicated. You will be required to document reason for non-treatment if statin daily dose does not meet guidelines. HIGH DOSE STATIN THERAPY DAILY Atorvastatin > than or = to 40 mg Rosuvastatin > than or = to 20 mg Amlodipine + Atorvastatin > than or = to 2.5/40 mg Ezetimibe + Simvastatin 10/80 mg Simvastatin 80mg Statins at discharge?: Yes Primary Dx Acute Ischemic CVA?: Yes IV thrombolytic ordered during stay?: No Reason IV thrombolytic not ordered: Procedure not Indicated Discharge Plan Admission Admit Date/Time: 07/25/25 17:30 Primary Reason for Your Visit: debility following pontine stroke Attending Provider: Judith Brizuela Primary Care Provider: Alen Betancourt Discharge Orders/Prescriptions Prescriptions: New clopidogrel 75 mg Tablet 75 mg PO DAILY 90 Days Qty: 90 0RF aspirin 81 mg Tablet,Chewable 81 mg PO BREAKFAST 90 Days Qty: 0 0RF Continued latanoprost 0.005 % drops 1 drp ophthalmic (eye) QODAY fluticasone propion-salmeterol 250-50 mcg/dose blister with device 1 inh inhalation Q12H cholecalciferol (vitamin D3) [Vitamin D3] 50 mcg (2,000 unit) tablet 50 mcg PO DAILY loratadine [Claritin] 10 mg tablet 10 mg PO DAILY fluticasone propionate [Allergy Relief (fluticasone)] 50 mcg/actuation spray,suspension 1 spray intranasal DAILY Rx Instructions: administer into each nostril amlodipine 10 mg tablet 10 mg PO DAILY Qty: 30 2RF fluticasone propion-salmeterol [Advair Diskus] 250-50 mcg/dose blister with device 1 inh inhalation BID atorvastatin 40 mg Tablet 40 mg PO QHS 30 Days Qty: 30 0RF Discontinued clopidogrel 75 mg Tablet 75 mg PO DAILY Qty: 90 0RF aspirin 81 mg Tablet,Chewable 81 mg PO BREAKFAST Qty: 30 2RF Referrals / Follow Up: lab,sleep [Other] - 08/16/25 8:00 pm Alen Betancourt MD [Primary Care Provider, Family Practice] Efrain Lawson MD [Non-Staff -Ordering Privileges, Neurology] - 09/05/25 9:30 am Referral Note: Disposition Disposition (needs filled in before D/C Order can be placed): Home, Self Care Charges/Coding Visit Charges Inpatient E&M: 29781 Disch Hosp >30min Hospital Course RU Operations None Procedures None Summary of Care Provided Minutes Spent on Discharge: 90 Hospital Course: Murphy Ruggiero was admitted to the IRU on 07/25/25, following presentation to the ED on 07/22/25 for R sided weakness. CTA and MRI were essentially negative. Teleneurology did feel that there was a L pontine CVA on MRI imaging. Pt continues to have significant R sided weakness but has worked very hard with therapies and is able to utilize a charlie walker for ambulation. Patient has a mobility limitation that cannot be sufficiently resolved by using a cane or walker. Patient has a mobility limitation that cannot be sufficiently resolved by using a cane or walker. Use of a w/c will improve the participating of ADLs on a regular basis in the home. A caregiver can propel patient safely when in the community. This will be utilized for times that he has longer outings or becomes fatigued. Per the recommendations of neurology, the patient will require three months on Plavix and aspirin. Following the three months, the patient will remain on aspirin therapy. Pr did work hard with therapies and did regain minimal function of the RUE and RLE. It will be essential that he continues therapies on an outpatient basis. He will require ST out pt, as well for to assist with improving swallow. During Jose M' time in the inpatient rehab unit, it was noted that he has significant desaturations during sleep. Overnight trending pulse ox was ordered. The oxygen testing was reviewed by Dr. Brizuela, and this patient qualifies for the home equipment and portability. The patient is mobile in the home and the community. He does require supplemental oxygen during sleep or napping. A sleep study has been ordered and will be performed after discharge from IRU. All questions were answered. Pt will follow up with PCP and neurology as scheduled.
[2025-08-16 17:00] VITALS: BMI 23.6
[2025-08-16 18:00] VITALS: BP 119/77; PULSE 81; RESP 16; TEMP 36.4; O2SAT 98
[2025-08-16 19:44] VITALS: BMI 23.6
== END 2025-08-16 20:14 | disposition home or self-care (01) | DRG 57 ==
PROVIDERS: Admitting Provider Internal Medicine; PCP Family Medicine Adult Medicine; Referring Provider Internal Medicine; Visit Provider Internal Medicine
DX: I69.351 Hemiplegia and hemiparesis following cerebral infarction affecting right dominant side (principal); I69.322 Dysarthria following cerebral infarction; J45.20 Mild intermittent asthma, uncomplicated; I48.0 Paroxysmal atrial fibrillation; I69.391 Dysphagia following cerebral infarction; J30.2 Other seasonal allergic rhinitis; M10.9 Gout, unspecified; E78.5 Hyperlipidemia, unspecified; I69.392 Facial weakness following cerebral infarction; R13.12 Dysphagia, oropharyngeal phase; H40.9 Unspecified glaucoma; R09.02 Hypoxemia; Z79.02 Long term (current) use of antithrombotics/antiplatelets; Z79.51 Long term (current) use of inhaled steroids; Z87.891 Personal history of nicotine dependence; G47.00 Insomnia, unspecified; Z79.82 Long term (current) use of aspirin; Z79.899 Other long term (current) drug therapy
CPT/HCPCS: 36415; 74230; 82274; 83735; 84100; 85025; 92507; 92523; 92526; 92610; 92611; 94762; 97110; 97112; 97116; 97129; 97130; 97140; 97162; 97167; 97530; 97535; 97802; 97803; A4216

== ENCOUNTER → 2025-08-16 | Outpatient (CLI) | payer BC, SELFPAY ==
--- OUTSIDE RECORDS SUMMARY | 2025-08-16 20:37 | XMS RPT_ITS | CCD ---
Author Organization [facility] Inform ion Partnership [facility] Care Team Providers Care Ep Specialist Name Role Phone Ted Suárez Unavailable ADITHYA Lloyd Attending Provider Zac ISLAS, Dr. Arrington Primary Care Provider Dr. Kody Frank MD Attending Provider Dr. Kody Frank MD Referring Provider PCP, NONE Referring Unavailable PIPE BETANCOURT Primary Care Unavailable PIEP BETANCOURT Attending Unavailable Zac ISLAS, Dr. Arrington Primary Care Physicia n Dr. Lobito Her DO Emergency Department Physic kenia Collins DO, Dr. Velasco Admitting Physician Myra vailable de Maykel MEADE, Dr. Velasco Attending Physician Myra vailable de Maykel MEADE, Dr. Velasco Nurse Practitioner Unav ailable Keerthi ISLAS, Herve Nurse Practitioner Unavailable Keith ISLAS, Dr. Snyder Nurse Practitioner Suzanne Reddy MD Nurse Practitioner Unavailab og Luna DO, Dr. Robin Nurse Practitioner Dr. Alona Kuo MD Nurse Practitioner Dr. Low Dillon MD Nurse Practitioner Danica ISLAS, Dr. Eid Nurse Practitioner Dr. Drew Ortiz MD Nurse Practitioner [phone] Luis Miguel ISLAS, Dr. Jefferson Nurse Practitioner Fred ISLAS, Dr. Juares Nurse Practitioner Blas MEADE, Dr. Razo Nurse Practitioner Jesus ISLAS, Jessica Nurse Practitioner Shama ISLAS, Dr. Salas Nurse Practitioner Moises ISLAS, Dr. Vogt Nurse Practitioner Gloria ISLAS, Dr. Mohamud Nurse Practitioner Marcie ISLAS, Dr. Roger Yañez Nurse Practitioner Real ISLAS, Dr. Huddleston Nurse Practitioner Paul ISLAS, Dr. Lancaster Nurse Practitioner Rafael ISLAS, Dr. Branham Nurse Practitioner Reynaldo ISLAS, Dr. Bear Nurse Practitioner Bernard De La Cruz MD, [facility] Nurse Practitioner Bernard Freeman DO, Dr. Ramirez Nurse Practitioner Blake ISLAS, Dr. Villatoro Attending Physician Ptee MEADE, Dr. Ramirez Attending Physician Glenny ISLAS, Dr. Jaye Caldwell Attending Physician Galileo ISLAS, Dr. Ramirez Attending Physician Glenny ISLAS, Dr. Jaye Caldwell Nurse Practitioner Semenrober DO, Dr. Judith Foster Admitting Physici an Sementi DO, Dr. Judith Foster Attending Physici an Sementi DO, Dr. Judith Foster Referring Provide r Sementi DO, Dr. Judith Foster Nurse Practitione r Judith Brizuela Referring Unavaila ble Sementi, Judith Foster Admitting Unavaila ble Kody Frank Primary Care Unavailable Semenrober, Judith Foster Attending Unavaila ble Sementi, Judith Foster Consulting Unavaila ble Pipe Betancourt Primary Care Unavailable Kt, Kartik Chi Attending Unavailable Kt, Kartik Chi Referring Unavailable Pipe Betancourt Primary Care Unavailable Dewitt, Herve Consulting Unavailable Jaye Murrieta Attending Unavailable Rod Collins Admitting Unavailable [facility] Primary Care Unavailable Adeli, Amir Consulting Unavailable Hinduja, Suzanne Consulting Unavailable Jeremy, Sharda Consulting Unavailable Zha, Alona Consulting Unavailable Wilma, Low Consulting Unavailable Danica, Ragini Consulting Unavailable Bittar, Drew Consulting Unavailable Ronny Bolanos Consulting Unavailable Ibarra, Mor Consulting Unavailable Franchini, Danni Consulting Unavailable Beigel, Jessica Consulting Unavailable Gusler, Josue Consulting Unavailable Moises, Torie Consulting Unavailable Ridha, Mohamed Consulting Unavailable Zaghlobarbh, Mhd Otilio Consulting UnavailFlaquito Mccracken Consulting Unavailable Miller, Rami Consulting Unavailable Rafael, Yonas Consulting Unavailable Reynaldo, Marianela Consulting Unavailable Jono, Luis Enriquesef Consulting Unavailable Rod Collins Consulting Unavailable James Freeman Consulting Unavailable [facility] Care Unavailable Mushtaq Lozano Attending Unavailable Pipe Betancourt Primary Care Unavailable Pipe Betancourt Referring Unavailable Anika AND [employer]RE [employer]HTER CR[employer] FIRE, Cristal Attending Unavailable Rod Collins Referring Unavailable [facility] Care Unavailable James Gurrola Attending Unavailable Rod Collins Admitting Unavailable Rod Collins Attending Unavailable [facility] Unavailable Herve Pendleton Consulting Unavailable Adeli, Amir Consulting Unavailable Hinduja, Suzanne Consulting Unavailable Jeremy, Sharda Consulting Unavailable Zha, Alona Consulting Unavailable Wilma, Low Consulting Unavailable Danica, Ragini Consulting Unavailable Bittar, Drew Consulting Unavailable Ronny Bolanos Consulting Unavailable Mor Ibarra Consulting Unavailable Franchini, Danni Consulting Unavailable Bebetsy, Jessica Consulting Unavailable Shama, Josue Consulting Unavailable Moises, Torie Consulting Unavailable Ridha, Mohamed Consulting Unavailable Zaghlouleh, Mhd Otilio Consulting UnavailFlaquito Mccracken Consulting Unavailable Miller, Rami Consulting Unavailable Rafael, Yonas Consulting Unavailable Reynaldo, Marianela Consulting Unavailable Jono, Yousef Consulting Unavailable Rod Collins Consulting Unavailable James Freeman Consulting Unavailable James Freeman Attending Unavailable Keerthi, Herve Consulting Unavailable James Freeman Attending Unavailable Kody Frank Primary Care Unavailable Rod Collins Admitting Unavailable Lillian Parker Consulting Unavailable Suzanne Reddy Consulting Unavailable Sharda Luna Consulting Unavailable Alona Kuo Consulting Unavailable Low Dillon Consulting Unavailable Ragini Mishra Consulting Unavailable Drew Ortiz Consulting Unavailable Ronny Bolanos Consulting Unavailable Mor Ibarra Consulting Unavailable Danni Odonnell Consulting Unavailable Jessica Lee Consulting Unavailable Josue Sesay Consulting Unavailable Torie De Leon Consulting Unavailable Oneida Castro Consulting Unavailable Roger Jack Consulting UnavailFlaquito Mccracken Consulting Unavailable Tonny Miller Consulting Unavailable Yonas Hall Consulting Unavailable Marianela Jacobs Consulting Unavailable Maren De La Cruz Consulting Unavailable Rod Collins Consulting Unavailable James Freeman Consulting Unavailable Jaye Murrieta Attending Unavailable Jaye Murrieta Consulting Unavailable Cami Kong Attending Kody Romo Referring Unavailable Kody Frank Attending Unavailable Kody Frank Primary Care Unavailable Medications Current Medications Medication Drug Class(es) Dates Sig (Normalized) Sig (Original) amLODIPine 10 mg oral tablet (2 sources) Dihydropyridine Calcium Channel Russ Start: 07-25-2025 take 1 tablet by mouth once daily Amlodipine 10 mg tablet Active 10 mg PO DAILY July 25, 2025 12:00am BP Complies with drug therapy Start: 07-25-2025 take 1 tablet by nicky th once daily Amlodipine 10 mg tablet Active 10 mg PO DAILY July 25, 2025 12:00am BP Complies with drug therapy aspirin 81 mg chewable tablet (2 sources) Platelet Aggregation Inhibitor, Nonsteroidal Anti-inflammatory Drug Start: 07-25-2025 take 1 tablet by mouth at breakfast Aspirin 81 mg Tablet,Chewable Active 81 mg PO WITH BREAKFAST July 25, 2025 12:00am heart health Complies with drug therapy Start: 07-25-2025 take 1 tablet by nicky th at breakfast Aspirin 81 mg Tablet,Chewable Active 81 mg PO WITH BREAKFAST July 25, 2025 12:00am [facility] Complies with drug therapy atorvastatin 40 mg oral tablet (2 sources) HMG-CoA Reductase Inhibitor Start: 07-25-2025 take 1 tablet by mouth at bedtime Atorvastatin 40 mg Tablet Active 40 mg PO AT BEDTIME 30 2 July 25, 2025 12:00am cholestrol Complies with drug therapy Start: 07-25-2025 take 1 tablet by nicky th at bedtime Atorvastatin 40 mg Tablet Active 40 mg PO AT BEDTIME 30 2 July 25, 2025 12:00am cholestrol Complies with drug therapy cholecalciferol 0.05 mg oral tablet (5 sources) Vitamin D Start: 07-22-2025 take 1 tablet by mouth once daily Cholecalciferol (Vitamin D3) (Vitamin D3) 50 mcg (2,000 unit) tablet Active 50 ug PO DAILY July 22, 2025 12:00am supplement Complies with drug therapy Start: 12-04-2019 take 1 capsule by mo wyh once daily Vitamin D (Cholecalciferol) 25 MCG (1000 UT) Oral Capsule TAKE 1 CAPSULE Daily Quantity: 0 Refills: 0 Ordered: 04-Dec-2019 DO Start : 04-Dec-2019 Active clopidogrel 75 mg oral tablet (2 sources) P2Y12 Platelet Inhibitor Start: 07-25-2025 take 1 tablet by mouth once daily Clopidogrel 75 mg Tablet Active 75 mg PO DAILY 90 0 July 25, 2025 12:00am supplement Complies with drug therapy Start: 07-25-2025 take 1 tablet by nicky once daily Clopidogrel 75 mg Tablet Active 75 mg PO DAILY 90 0 July 25, 2025 12:00am supplement Complies with drug therapy fluticasone propionate 0.05 mg/actuat metered dose nasal spray (5 sources) Corticosteroid Start: 07-22-2025 take 50 ug nasal route once daily Fluticasone Propionate (Allergy Relief (Fluticasone)) 50 mcg/actuation spray,suspension Active 1 NMA INTRANASAL DAILY July 22, 2025 12:00am SOB/Wheezing administer into each nostril Complies with drug therapy Start: 12-04-2019 Fluticasone Pr opionate 50 MCG/ACT Nasal Suspension INSTILL 1 SPRAY Daily Quantity: 3 Refills: 3 Ordered: 04-Dec-2019 DO Start : 04-Dec-2019 Active Fluticasone Propion-Salmeterol (10 sources) Corticosteroid, beta2-Adrenergic Agonist Start: 07-26-2025 Fluticasone Propion-Salmeterol (Advair Diskus) 250-50 mcg/dose blister with device Active 1 NMA INHALATION TWICE A DAY July 26, 2025 12:00am sob/wheezing Complies with drug therapy Start: 01-15-2022 Fluticasone Pr opion-Salmeterol Active EACH INHALATION January 15, 2022 1:06pm Start: 01-15-2022 Fluticasone Pr opion-Salmeterol 250-50 mcg/dose blister with device Active 1 NMA INHALATION Q12H January 15, 2022 12:00am SOB/Wheezing Complies with drug therapy Start: 01-15-2022 Fluticasone Pr opion-Salmeterol 250-50 mcg/dose [...] 09-Sep-2019 Active latanoprost 0.05 mg/ml ophthalmic solution (8 sources) Prostaglandin Analog Start: 01-15-[address] 0.005 % drops Active 1 NMA OPHTHALMIC EVERY OTHER DAY January 15, 2022 12:00am eye drops Complies with drug therapy Start: 01-15-2022 Latanoprost 0. 005 % drops Active mL OPHTHALMIC January 15, 2022 12:00am Start: 09-09-2019 take 1 drop(s) into the eye(s) at bedtime Latanoprost 0.005 % Ophthalmic Solution INSTILL 1 DROP IN BOTH EYES AT BEDTIME. Quantity: 3 Refills: 1 Ordered: 09-Sep-2019 Ted Suárez MD Start : 09-Sep-2019 Active loratadine 10 mg oral tablet (5 sources) Start: 07-22-2025 take 1 tablet by mouth once daily Loratadine (Claritin) 10 mg tablet Active 10 mg PO DAILY July 22, 2025 12:00am allergies Complies with drug therapy Start: 12-14-2019 take 1 tablet by nicky th once daily Claritin 10 MG Oral Tablet Take 1 tablet daily Quantity: 0 Refills: 0 Ordered: 14-Dec-2019 DO Start : 14-Dec-2019 Active Completed/Discontinued Medications Medication Drug Class(es) Dates Sig (Normalized) Sig (Original) Clobetasol (3 sources) Corticosteroid Clobetasol Propionate SOLN Quantity: 0 Refills: 0 Ordered: 14-Dec-2019 DO Active sildenafil 50 mg oral tablet (3 sources) Phosphodiesterase 5 Inhibitor Start: 12-14-2019 take 1 tablet by mouth once daily Sildenafil Citrate 50 MG Oral Tablet TAKE 1 TABLET DAILY 1 HOUR BEFORE NEEDED Quantity: 30 Refills: 3 Ordered: 14-Dec-2019 Ted Suárez MD Start : 14-Dec-2019 Active Problems Active Problems Problem Classification Problem Date Documented Da te Episodic/Chronic Acute cerebrovascular disease (10 sources) Ischemic stroke; Translations: [Cerebral infarction, unspecified] Onset: 08-12-2025 07-26-2025 Chronic Comment on above: Left chente Right facial droop. Asthma (10 sources) Asthma; Translations: [Asthma, unspecified type, unspecified] Onset: 05-19-2025 07-26-2025 Chronic Comment on above: Uses Advair 250/50 1 puff every 12 hours and rarely needs a rescue inhaler. Cardiac dysrhythmias (5 sources) Paroxysmal atrial fibrillation; Translations: [Paroxysmal atrial fibrillation] Onset: 08-16-2025 07-26-2025 Chronic Disorders of lipid metabolism (1 source) Hyperlipidemia, unspecified; Translations: [Hyperlipidemia, unspecified] Onset: 08-16-2025 Chronic Glaucoma (5 sources) Glaucoma; Translations: [Unspecified glaucoma] Onset: 08-16-2025 07-26-2025 Chronic Gout and other crystal arthropathies (1 source) Gout, unspecified; Translations: [Gout, unspecified] Onset: 08-16-2025 Chronic Immunizations and screening for infectious disease (3 sources) Viral screening status; Translations: [Special screening examination for unspecified viral disease] Episodic Malaise and fatigue (10 sources) Asthenia; Translations: [Other malaise] Onset: 08-16-2025 07-26-2025 Episodic Comment on above: Flaccid right upper extremity with some movement in the right lower extremity. Nutritional deficiencies (3 sources) Vitamin D deficiency; Translations: [Unspecified vitamin D deficiency] Chronic Other aftercare (6 sources) Patient encounter status; Translations: [Long-term (current) use of other medications] Episodic Other and unspecified benign neoplasm (3 sources) Polyp of colon; Translations: [Benign neoplasm of colon] Episodic Other connective tissue disease (5 sources) Other symptoms and signs involving the musculoskeletal system; Translations: [Right arm weakness] Onset: 07-27-2025 07-25-2025 Episodic Other connective tissue disease (1 source) Facial weakness; Translations: [Facial weakness] Onset: 08-16-2025 Episodic Other gastrointestinal disorders (4 sources) Dysphagia; Translations: [Dysphagia, unspecified] 07-26-2025 Episodic Other gastrointestinal disorders (1 source) Dysphagia, unspecified; Translations: [Dysphagia, unspecified] Onset: 08-16-2025 Episodic Other inflammatory condition of skin (3 sources) Seborrheic psoriasis; Translations: [Other psoriasis] Chronic Other male genital disorders (3 sources) Male erectile dysfunction, unspecified; Translations: [Erectile dysfunction] Chronic Other nervous system disorders (4 sources) Dysarthria; Translations: [Dysarthria and anarthria] 07-26-2025 Episodic Other nervous system disorders (2 sources) Slurred speech; Translations: [Slurred speech] 07-25-2025 Episodic Other nervous system disorders (1 source) Dysarthria and anarthria; Translations: [Dysarthria and anarthria] Onset: 08-16-2025 Episodic Other nervous system disorders (1 source) Slurred speech; Translations: [Slurred speech] Onset: 07-27-2025 Episodic Other nutritional; endocrine; and metabolic disorders (3 sources) Body mass index 25-29 - overweight; Translations: [Body Mass Index 25.0-25.9, adult] Episodic Other nutritional; endocrine; and metabolic disorders (4 sources) Hyperuricemia; Translations: [Hyperuricemia without signs of inflammatory arthritis and tophaceous disease] 07-26-2025 Episodic Other nutritional; endocrine; and metabolic disorders (1 source) Hyperuricemia without signs of inflammatory arthritis and tophaceous disease; Translations: [Hyperuricemia without signs of inflammatory arthritis and tophaceous disease] Onset: 08-16-2025 Episodic Other upper respiratory disease (3 sources) Allergic rhinitis; Translations: [Allergic rhinitis, cause unspecified] Chronic Other upper respiratory disease (4 sources) Seasonal allergy; Translations: [Other seasonal allergic rhinitis] 07-26-2025 Chronic Comment on above: On Claritin and Flon ase chronically. Other upper respiratory disease (1 source) Other seasonal allergic rhinitis; Translations: [Other seasonal allergic rhinitis] Onset: 08-16-2025 Chronic Other upper respiratory disease (1 source) Allergic rhinitis, unspecified; Translations: [Allergic rhinitis, unspecified] Onset: 08-16-2025 Chronic Other upper respiratory disease (3 sources) Anterior epistaxis; Translations: [Epistaxis] 08-13-2023 Episodic Paralysis (1 source) Hemiplegia, unspecified affecting right dominant side; Translations: [Hemiplegia, unspecified affecting right dominant side] Onset: 08-16-2025 Chronic Residual codes; unclassified (1 source) Insomnia, unspecified; Translations: [Insomnia, unspecified] Onset: 08-16-2025 Episodic Sprains and strains (4 sources) Strain of tendon of foot and ankle; Translations: [Strain of unspecified muscle and tendon at ankle and foot level, right foot, initial encounter] Episodic Past or Other Problems Problem Classification Problem Date Documented Da te Episodic/Chronic Other screening for suspected conditions (not mental disorders or infectious disease) (1 source) Encounter for screening for diabetes mellitus; Translations: [Encounter for screening for diabetes mellitus] Onset: 02-18-2025 Episodic Results Test Name Value Interpretation Reference Range Facility Modified Barium Swallow Stud [facility] 07-27-2025 Modified Barium Swallow Study [facility] Speech Pathology [address] [place] [address] Modified Barium Swallow Study MR#: [id number] Acct: [id number] Name: KODY RUGGIERO Rep #: [id number] : [id number] 75 From: Janel Goldberg M.A. [facility] Modified Barium Swallow Patient Information Study Date: 07/27/25 Study Time: 10:00 Direct Billable Minutes: 120 Total Minutes procedure reportin Diagnosis: CVA/dysphagia Referring Physician: Judith Brizuela Reason for Referral: Objective assessment of swallow function under fluoroscopy recommended d/t coughing /w thin liquids during CBSE Medical History: KODY RUGGIERO, is a 75 YO M with a PMH of tobacco dependence in remission, glaucoma, asthma and seasonal allergies who presented to the emergency room at [facility] on 07/22/2025 at approximately 8 PM complaining of right-sided weakness and slurred speech that had started at about 8 AM that morning and had gotten progressively worse throughout the day. Noncontrast CT brain showed no acute abnormalities. CTA of the head and neck revealed no large intracranial or cervical large vessel occlusion or hemodynamically significant stenosis. There was a mild short segment narrowing of the proximal basilar artery. The ED doc scored a 2 on the NIHSS. He was not a candidate for thrombolytics because sx had been present for > 4 hours. He received ASA in the ED. He was admitted to the hospitalist service and consult was ordered with neurology. NIHSS was 5 when evaluated by teleneurology. 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 MRI was recommended and also loading with 600 mg of Plavix. Radiology reported the MRI is having no evidence of acute intracranial pathology. The neurologist felt the MRI showed a left pontine stroke. Carotid ultrasound showed less than 50% stenosis in the right and left extracranial internal carotid arteries. The vertebrals were patent and antegrade bilaterally. Transthoracic echocardiogram showed a ejection fraction of 60 to 65% with mild mitral regurgitation. Both atria were of normal size. Labs showed the total cholesterol to be 146 with an LDL of 88 and an HDL of 45. Triglycerides were 67. TSH was normal. Hemoglobin A1c was 5.6%. Neurology recommended continuing aspirin and Plavix for a total of 3 months and then discontinuing Plavix and continuing aspirin alone. Mr. Ruggiero was transferred to the acute inpt rehab unit at [facility] on 07/25/25 for 3 hours of therapy daily to restore function/independence at or near his level prior to the recent stroke. Dentition: Natural Teeth Respiratory Status: Oxygenating on Room Air Penetration-Aspiration Scale Penetration-Aspiration Scale: OBJECTIVE ASSESSMENT OF SWALLOW FUNCTION (QUANTITATIVE ??? PER TRIAL): PENETRATION / ASPIRATION SCALE (DIAZ): 1 = does not enter airway 2 = enters airway/above vocal folds/ejected 3 = enters airway/above vocal folds/not ejected 4 = enters airway/contacts vocal folds/ejected 5 = enters airway/contacts vocal folds/not ejected 6 = enters airway/below vocal folds/ejected 7 = enters airway/below vocal folds/not ejected despite effort 8 = enters airway/below vocal folds/no effort Penetration-Aspiration Scale Score Thin Liquid via teaspoon: Result: 1= does not enter airway Thin Liquid via teaspoon Trial 2: Result: 1= does not enter airway Thin Liquid via small single sip: cup: Result: 2= enter airway/above vocal folds/ejected Thin Liquid via sequential sips: cup: Result: 1= does not enter airway Thin Liquid via single sip: straw: Result: 1= does not enter airway Thin Liquid via single sip: straw Trial 2: Result: 1= does not enter airway Pudding: Result: 1= does not enter airway Cookie: Result: 1= does not enter airway Thin Liquid via small single sip: cup Trial 2: Result: 6= enters airway/below vocal folds/ejected Thin Liquid via small single sip: cup Trial 3: Result: 3= enters airways/above vocal folds/not ejected Thin Liquid via small single sip: cup Trial 4: Result: 6= enters airway/below vocal folds/ejected Thin Liquid via small single sip: cup Chin tuck: Result: 1= does not enter airway Oral Phase Labial Seal: No Labial Escape Tongue Control During Bolus Hold: Cohesive bolus between tongue to palatal seal Bolus Preparation/Mastication: Slow prolonged chewing/mashing with complete recollection Bolus Transport/Lingual Motion: Slowed tongue motion Oral Residue: Trace residue lining oral structures Pharyngeal Phase Initiation of Pharyngeal Swallow: Bolus head in pyriforms Soft Palate Elevation: No bolus between soft palate and pharyngeal wall Laryngeal Elevation: Partial superior movement thyroid cart/partial apprx aryt-epig petiole Anterior Hyoid Excursion: Partial anterior movement Epiglottic Movement: Complete inversion Laryngeal Vestibule Closure at Height of Swallow: Complete; no air/c (more content not included)... Normal [facility] Stool Occult Blood iFOBon STOB Normal Reference Ran ge = Negative Immunochemical Fecal Occult Blood (iFOBT) method. Hemoccult Stl Ql IA Limitation: Menstrual bleeding, constipation bleeding, bleeding hemorrhoids, and urinary bleeding conditions may interfere with test. Occult Blood Negative Normal [facility] Comment on above: Performed By: #### L [id number], L501.9100, L505.5000, L501.9985 #### [facility] [address] [facility] [place], [address] Stool gastrointestinal hemog lobin detection by immunologic methodOrdered By: Judith Brizuela on 07-27-2025 Lower GI hemoglobin IA Ql (Stl) [facility] Absolute lymphocyte countOrd ered By: Judith Brizuela on 07-26-2025 Lymphocytes Auto (Unsp spec) [#/Vol] 1.49 10*3/uL 0.83-4.51 [facility] Absolute neutrophil countOrd ered By: Judith Brizuela on 07-26-2025 Neutrophils (Bld) [#/Vol] 4.3 10*3/uL 2.0-7.7 [facility] Automated lymphocyte count a s percentage of total leukocytesOrdered By: Judith Brizuela on 07-26-2025 Lymphocytes/100 WBC Auto (Unsp spec) 20.4 % 19-41 [facility] Basophil percentageOrdered B y: Judith Brizuela on 07-26-2025 Basophils/100 WBC (Bld) 0.7 % 0-1 [facility] CBC W/Diff, Automatedon 06-29 Absolute Lymph 1.49 X10 3/uL Normal 0.83-4.51 [facility] Comment on above: Performed By: #### L [id number], L501.9100, L505.5000, L501.9985 #### [facility] [address] [place], [address] Absolute Neut 4.3 X10 3/uL Normal 2.0-7.7 [facility] Comment on above: Performed By: #### L [id number], L501.9100, L505.5000, [id number] #### [facility] [address] [place], [address] Basophils/100 WBC (Bld) 0.7 % Normal 0-1 [facility] Comment on above: Performed By: #### L [id number], L501.9100, L505.5000, L501.9985 #### [facility] [address] [place], [address] Eosinophils/100 WBC (Bld) 6.3 % High 0-5 [facility] Comment on above: Performed By: #### L [id number], L501.9100, L505.5000, [id number] #### [facility] [address] [place], [address] Erythrocyte distribution width (RBC) [Ratio] 13.0 % Normal 11.6-14.6 [facility] Comment on above: Performed By: #### L [id number], [id number], L505.5000, [id number] #### [facility] [address] [place], [address] Hematocrit (Bld) [Volume fraction] 47.8 % Normal 40-54 [facility] Comment on above: Performed By: #### L [id number], [id number], L505.5000, [id number] #### [facility] [address] [place], [address] Hemoglobin (Bld) [Mass/Vol] 16.5 g/dL Normal 13.0-16.5 [facility] Comment on above: Performed By: #### L 501.9520, L501.9100, L505.5000, L501.9985 #### [facility] [address] [place], [address] IG% 0.400 Normal 0.0-0.9 [facility] Comment on above: Result Comment: IG% - Immature Granulocytes (promyelocytes, myelocytes and metamyelocytes) > 1% indicates that a LEFT SHIFT is Present. Performed By: #### L 501.9520, L501.9100, L505.5000, L501.9985 #### [facility] [address] [place], [address] Lymphocytes/100 WBC (Bld) 20.4 % Normal 19-41 [facility] Comment on above: Performed By: #### L 501.9520, L501.9100, L505.5000, L501.9985 #### [facility] [address] [place], [address] MCH (RBC) [Entitic mass] 33.1 pg High 27.0-32.0 [facility] Comment on above: Performed By: #### L 501.9520, L501.9100, L505.5000, L501.9985 #### [facility] [address] [place], [address] MCHC (RBC) [Mass/Vol] 34.5 g/dL Normal 32-36 [facility] Comment on above: Performed By: #### L 501.9520, L501.9100, L505.5000, L501.9985 #### [facility] [address] [place], [address] MCV (RBC) [Entitic vol] 96.0 fL High 80-94 [facility] Comment on above: Performed By: #### L 501.9520, L501.9100, L505.5000, L501.9985 #### [facility] [address] [place], [address] Monocytes/100 WBC (Bld) 13.7 % High 0-10 [facility] Comment on above: Performed By: #### L 501.9520, L501.9100, L505.5000, L501.9985 #### [facility] [address] [place], [address] Neutrophils/100 WBC (Bld) 58.5 % Normal 47-70 [facility] Comment on above: Performed By: #### L 501.9520, L501.9100, L505.5000, L501.9985 #### [facility] [address] [place], [address] Nucleated RBC (Bld) [#/Vol] 0 10*3/uL Normal 0-5 [facility] Comment on above: Performed By: #### L 501.9520, L501.9100, L505.5000, L501.9985 #### [facility] [address] [place], [address] Platelet mean volume (Bld) [Entitic vol] 9.4 fL Normal 6.2-12.0 [facility] Comment on above: Performed By: #### L 501.9520, L501.9100, L505.5000, L501.9985 #### [facility] [address] [place], [address] Platelets (Bld) [#/Vol] 299 10*3/uL Normal 150-450 [facility] Comment on above: Performed By: #### L 501.9520, L501.9100, L505.5000, L501.9985 #### [facility] [address] [place], [address] RBC (Bld) [#/Vol] 4.98 10*6/uL Normal 4.6-6.2 [facility] Comment on above: Performed By: #### L 501.9520, L501.9100, L505.5000, L501.9985 #### [facility] [address] [place], [address] RDW SD 46.1 fl High 35.1-43.9 [facility] Comment on above: Performed By: #### L 501.9520, L501.9100, L505.5000, L501.9985 #### [facility] [address] [place], [address] WBC (Bld) [#/Vol] 7.3 10*3/uL Normal 4.4-11.0 [facility] Comment on above: Performed By: #### L 501.9520, L501.9100, L505.5000, L501.9985 #### [facility] [address] [place], [place], [address] Eosinophil percentageOrdered By: Judith Brizuela on 07-26-2025 Eosinophils/100 WBC (Bld) 6.3 % High 0-5 [facility] Erythrocyte distribution wid th ratioOrdered By: Judith Brizuela on 07-26-2025 Erythrocyte distribution width (RBC) [Ratio] 13.0 % 11.6-14.6 [facility] Erythrocyte distribution wid th standard deviationOrdered By: Judith Brizuela on 07-26-2025 Erythrocyte distribution width (RBC) [Ratio] 46.1 fl High 35.1-43.9 [facility] Hematocrit Auto (Bld) [Volum e fraction]Ordered By: [facility] Raisarober on 07-26-2025 Hematocrit (Bld) [Volume fraction] 47.8 % 40-54 [facility] Hemoglobin measurementOrdere d By: Judith Brizuela on 07-26-2025 Hemoglobin (Bld) [Mass/Vol] 16.5 g/dL 13.0-16.5 [facility] Immature granulocytes/100 WB C Auto (Bld)Ordered By: Judith Klinerober on 07-26-2025 Immature granulocytes/100 WBC (Bld) 0.400 % 0.0-0.9 [facility] Comment on above: IG% - Immature Granu locytes (promyelocytes, myelocytes and metamyelocytes) > 1% indicates that a LEFT SHIFT is Present. MCV (mean corpuscular volume ) determinationOrdered By: Judith Klinerober on 07-26-2025 MCV (RBC) [Entitic vol] 96.0 fL High 80-94 [facility] Magnesiumon 07-26-2025 Magnesium [Mass/Vol] 2.1 mg/dL Normal 1.5-2.2 [facility] Comment on above: Performed By: #### L 501.9520, L501.9100, L505.5000, L501.9985 #### [facility] [address] [place], [place], [address] Magnesium measurement (mass/ volume)Ordered By: Judith Chata on 07-26-2025 Magnesium (Unsp spec) [Mass/Vol] 2.1 mg/dL 1.5-2.2 [facility] Mean corpuscular hemoglobin (MCH) determinationOrdered By: Judith Chata on 07-26-2025 MCH (RBC) [Entitic mass] 33.1 pg High 27.0-32.0 [facility] Mean corpuscular hemoglobin concentration (MCHC) determinationOrdered By: Judith Brizuela on 07-26-2025 MCHC (RBC) [Mass/Vol] 34.5 g/dL 32-36 [facility] Mean platelet volume determi nationOrdered By: Judith Brizuela on 07-26-2025 Platelet mean volume (Bld) [Entitic vol] 9.4 fL 6.2-12.0 [facility] Monocyte percentageOrdered B y: Judith Brizuela on 07-26-2025 Monocytes/100 WBC (Bld) 13.7 % High 0-10 [facility] Neutrophil percentageOrdered By: Judith Brizuela on 07-26-2025 Neutrophils/100 WBC (Bld) 58.5 % 47-70 [facility] Nucleated red blood cell per centageOrdered By: Judith Brizuela on 07-26-2025 Nucleated RBC/100 WBC (Bld) [Ratio] 0 % 0-5 [facility] Phosphoruson 07-26-2025 Phosphate [Mass/Vol] 3.6 mg/dL Normal 2.7-4.5 [facility] Comment on above: Performed By: #### L 501.9520, L501.9100, L505.5000, L501.9985 #### [facility] [address], [address] Platelet countOrdered By: Jaquelin Brizuela on 07-26-2025 Platelets (Bld) [#/Vol] 299 10*3/uL 150-450 [facility] RBC Auto (Bld) [#/Vol]Ordere d By: Judith Brizuela on 07-26-2025 RBC (Bld) [#/Vol] 4.98 10*6/uL 4.6-6.2 [facility] White blood cell (WBC) count Ordered By: Judith Brizuela on 07-26-2025 WBC (Bld) [#/Vol] 7.3 10*3/uL 4.4-11.0 [facility] Absolute lymphocyte countOrd ered By: Jaye Goldsteinvaleria on 07-25-2025 Lymphocytes Auto (Unsp spec) [#/Vol] 1.51 10*3/uL 0.83-4.51 [facility] Absolute neutrophil countOrd ered By: Jaye Glenny on 07-25-2025 Neutrophils (Bld) [#/Vol] 5.3 10*3/uL 2.0-7.7 [facility] Anion gap in Serum or Plasma Ordered By: Jaye Glenny on 07-25-2025 Anion gap [Moles/Vol] 13 mmol/L 5-15 [facility] Automated lymphocyte count a s percentage of total leukocytesOrdered By: Jaye Glenny on 07-25-2025 Lymphocytes/100 WBC Auto (Unsp spec) 17.6 % Low 19-41 [facility] BUN/creatinine ratioOrdered By: Jayeazul Murrieta on 07-25-2025 Urea nitrogen/Creatinine [Mass ratio] 16.7 mg/mg 10-20 [facility] Basophil percentageOrdered B y: Jaye Goldsteinvaleria on 07-25-2025 Basophils/100 WBC (Bld) 0.5 % 0-1 [facility] Bilirubin, totalOrdered By: Jaye Glenny on 07-25-2025 Bilirubin [Mass/Vol] 0.56 mg/dL 0.00-1.30 [facility] CBC W/Diff, Automatedon 06-28 Absolute Lymph 1.51 X10 3/uL Normal 0.83-4.51 [facility] Comment on above: Performed By: #### L 501.9520, L501.9100, L505.5000, L501.9985 #### [facility] [address] [place], [place], [address] Absolute Neut 5.3 X10 3/uL Normal 2.0-7.7 [facility] Comment on above: Performed By: #### L 501.9520, L501.9100, L505.5000, L501.9985 #### [facility] [address] [place], [address] Basophils/100 WBC (Bld) 0.5 % Normal 0-1 [facility] Comment on above: Performed By: #### L 501.9520, L501.9100, L505.5000, L501.9985 #### [facility] [address] [place], [address] Eosinophils/100 WBC (Bld) 5.7 % High 0-5 [facility] Comment on above: Performed By: #### L 501.9520, L501.9100, L505.5000, L501.9985 #### [facility] [address] [place], [address] Erythrocyte distribution width (RBC) [Ratio] 13.0 % Normal 11.6-14.6 [facility] Comment on above: Performed By: #### L 501.9520, L501.9100, L505.5000, L501.9985 #### [facility] [address] [place], [address] Hematocrit (Bld) [Volume fraction] 46.9 % Normal 40-54 [facility] Comment on above: Performed By: #### L 501.9520, L501.9100, L505.5000, L501.9985 #### [facility] [address] [place], [address] Hemoglobin (Bld) [Mass/Vol] 16.3 g/dL Normal 13.0-16.5 [facility] Comment on above: Performed By: #### L 501.9520, L501.9100, L505.5000, L501.9985 #### [facility] [address] [place], [address] IG% 0.300 Normal 0.0-0.9 [facility] Comment on above: Result Comment: IG% - Immature Granulocytes (promyelocytes, myelocytes and metamyelocytes) > 1% indicates that a LEFT SHIFT is Present. Performed By: #### L 501.9520, L501.9100, L505.5000, L501.9985 #### [facility] [address] [place], [address] Lymphocytes/100 WBC (Bld) 17.6 % Low 19-41 [facility] Comment on above: Performed By: #### L 501.9520, L501.9100, L505.5000, L501.9985 #### [facility] [address] [place], [address] MCH (RBC) [Entitic mass] 32.8 pg High 27.0-32.0 [facility] Comment on above: Performed By: #### L 501.9520, L501.9100, L505.5000, L501.9985 #### [facility] [address] [place], [address] MCHC (RBC) [Mass/Vol] 34.8 g/dL Normal 32-36 [facility] Comment on above: Performed By: #### L 501.9520, L501.9100, L505.5000, L501.9985 #### [facility] [address] [place], [address] MCV (RBC) [Entitic vol] 94.4 fL High 80-94 [facility] Comment on above: Performed By: #### L 501.9520, L501.9100, L505.5000, L501.9985 #### [facility] [address] [place], [address] Monocytes/100 WBC (Bld) 14.7 % High 0-10 [facility] Comment on above: Performed By: #### L 501.9520, L501.9100, L505.5000, L501.9985 #### [facility] [address] [place], [address] Neutrophils/100 WBC (Bld) 61.2 % Normal 47-70 [facility] Comment on above: Performed By: #### L 501.9520, L501.9100, L505.5000, L501.9985 #### [facility] [address] [place], [address] Nucleated RBC (Bld) [#/Vol] 0 10*3/uL Normal 0-5 [facility] Comment on above: Performed By: #### L 501.9520, L501.9100, L505.5000, L501.9985 #### [facility] [address] [place], [address] Platelet mean volume (Bld) [Entitic vol] 9.1 fL Normal 6.2-12.0 [facility] Comment on above: Performed By: #### L 501.9520, L501.9100, L505.5000, L501.9985 #### [facility] [address] [place], [address] Platelets (Bld) [#/Vol] 285 10*3/uL Normal 150-450 [facility] Comment on above: Performed By: #### L 501.9520, L501.9100, L505.5000, L501.9985 #### [facility] [address] [place], [address] RBC (Bld) [#/Vol] 4.97 10*6/uL Normal 4.6-6.2 [facility] Comment on above: Performed By: #### L 501.9520, L501.9100, L505.5000, L501.9985 #### [facility] [address] [place], [address] RDW SD 44.9 fl High 35.1-43.9 [facility] Comment on above: Performed By: #### L 501.9520, L501.9100, L505.5000, L501.9985 #### [facility] [address] [place], [address] WBC (Bld) [#/Vol] 8.6 10*3/uL Normal 4.4-11.0 [facility] Comment on above: Performed By: #### L 501.9520, L501.9100, L505.5000, L501.9985 #### [facility] [address] [place], [address] Carbon dioxide, total [Moles /volume] in Central venous bloodOrdered By: Jaye Murrieta on 07-25-2025 CO2 [Moles/Vol] 20.5 mmol/L Low 21.0-32.0 [facility] Chloride assayOrdered By: Kayli Murrieta on 07-25-2025 Chloride [Moles/Vol] 106 mmol/L 98-108 [facility] Comprehensive Metabolic Prof ilon 07-25-2025 Albumin [Mass/Vol] 4.1 g/dL Normal 3.4-4.8 [facility] Comment on above: Performed By: #### L 501.9520, L501.9100, L505.5000, L501.9985 #### [facility] [address] [place], [address] Albumin/Globulin [Mass ratio] 1.5 {ratio} Normal 0.9-2.4 [facility] Comment on above: Performed By: #### L 501.9520, L501.9100, L505.5000, L501.9985 #### [facility] [address] [place], [address] ALK PHOS 89 U/L Normal 40-129 [facility] Comment on above: Performed By: #### L 501.9520, L501.9100, L505.5000, L501.9985 #### [facility] [address] [place], [address] ALT [Catalytic activity/Vol] 27 U/L Normal <=46 [facility] Comment on above: Performed By: #### L 501.9520, L501.9100, L505.5000, L501.9985 #### [facility] [address] [place], [address] AST [Catalytic activity/Vol] 32 U/L Normal <=37 [facility] Comment on above: Performed By: #### L 501.9520, L501.9100, L505.5000, L501.9985 #### [facility] [address] [place], [address] Bilirubin [Mass/Vol] 0.56 mg/dL Normal 0.00-1.30 [facility] Comment on above: Performed By: #### L 501.9520, L501.9100, L505.5000, L501.9985 #### [facility] [address] [place], [address] BUN/CRE 16.7 RATIO Normal 10-20 [facility] Comment on above: Performed By: #### L 501.9520, L501.9100, L505.5000, L501.9985 #### [facility] [address] [place], [address] Calcium [Mass/Vol] 9.2 mg/dL Normal 7.6-11.0 [facility] Comment on above: Performed By: #### L 501.9520, L501.9100, L505.5000, L501.9985 #### [facility] [address] [place], [address] Chloride [Moles/Vol] 106 mmol/L Normal 98-108 [facility] Comment on above: Performed By: #### L 501.9520, L501.9100, L505.5000, L501.9985 #### [facility] [address] [place], [address] CO2 [Moles/Vol] 20.5 mmol/L Low 21.0-32.0 [facility] Comment on above: Performed By: #### L 501.9520, L501.9100, L505.5000, L501.9985 #### [facility] [address] [place], [address] Creatinine [Mass/Vol] 0.78 mg/dL Normal 0.70-1.20 [facility] Comment on above: Performed By: #### L 501.9520, L501.9100, L505.5000, L501.9985 #### [facility] [address] [place], [address] ECRCL 89.91 ml/min Normal 50-250 [facility] Comment on above: Performed By: #### L 501.9520, L501.9100, L505.5000, L501.9985 #### [facility] [address] [place], [address] GAP 13 Normal 5-15 [facility] Comment on above: Performed By: #### L 501.9520, L501.9100, L505.5000, L501.9985 #### [facility] [address] [place], [address] GFR/1.73 sq M.predicted among non-blacks MDRD (S/P/Bld) [Vol rate/Area] 92 mL/min/{1.73_m2} Normal >60 [facility] Comment on above: Result Comment: mL/m in/1.73m2 CKD-EPI Creatinine Equation (2020) Performed By: #### L 501.9520, L501.9100, L505.5000, L501.9985 #### [facility] [address] [place], [address] Globulin (S) [Mass/Vol] 2.8 g/dL Normal 2.2-4.2 [facility] Comment on above: Performed By: #### L 501.9520, L501.9100, L505.5000, L501.9985 #### [facility] [address] [place], [address] Glucose [Mass/Vol] 117 mg/dL High 70-99 [facility] Comment on above: Performed By: #### L 501.9520, L501.9100, L505.5000, L501.9985 #### [facility] [address] [place], [address] Potassium [Moles/Vol] 4.4 mmol/L Normal 3.3-5.1 [facility] Comment on above: Performed By: #### L 501.9520, L501.9100, L505.5000, L501.9985 #### [facility] [address] [place], [address] Sodium [Moles/Vol] 140 mmol/L Normal 133-145 [facility] Comment on above: Performed By: #### L 501.9520, L501.9100, L505.5000, L501.9985 #### [facility] [address] [place], [address] T PROT 6.9 g/dL Normal 5.9-8.4 [facility] Comment on above: Performed By: #### L 501.9520, L501.9100, L505.5000, L501.9985 #### [facility] [address] [place], [address] Urea nitrogen [Mass/Vol] 13 mg/dL Normal 4-19 [facility] Comment on above: Performed By: #### L 501.9520, L501.9100, L505.5000, L501.9985 #### [facility] [address] [place], [address] Duplex ultrasound of carotid artery reportOrdered By: James Gurrola on 07-25-2025 Study report [facility] [address] [place] [address] Carotid Duplex Ultrasound 07/25/25 1320 MR#: [id number] Acct: [id number] Name: KODY RUGGIERO Rep #:[id number] : 1950 75 From: James Roa Attending Dr: Dr. Jaye Murrieta MD Status: ADM IN Ordering Dr: Rod Collins DO Date: 07/22/25 Location: [facility] Sex: M C Admitted: 07/23/25 Reason For Study Reason For Study: Stroke Rt. Velocities/BP Lt. Velocities/BP Prox CCA 61.0/11.0 cm/sec. Prox CCA 84.2/12.7 cm/sec. Mid CCA 61.0/10.0 cm/sec. Mid CCA 112.5/17.5 cm/sec. Dist CCA 43.1/7.2 cm/sec. Dist CCA 90.4/10.6 cm/sec. Prox ICA 65.5/16.0 cm/sec. Prox ICA 58.9/11.7 cm/sec. Mid ICA 75.4/14.9 cm/sec. Mid ICA 61.9/20.7 cm/sec. Dist ICA 64.6/20.2 cm/sec. Dist ICA 45.8/13.9 cm/sec. Rt. ICA/CCA = 1.2. Lt. ICA/CCA = 0.6. Prox ECA 95.3/4.4 cm/sec. Prox ECA 66.6/5.1 cm/sec. Rt. Vert. 31.5/8.9 cm/sec. Lt. Vert. 39.3/10.0 cm/sec. Right Extracranial There is homogeneous, smooth atherosclerotic plaque noted in the right common carotid artery. There is heterogeneous, irregular atherosclerotic plaque noted in the right internal carotid artery. There is intimal thickening but no significant atherosclerotic plaque noted in the right external carotid artery. Antegrade flow is noted in the right vertebral artery. Left Extracranial There is heterogeneous, irregular atherosclerotic plaque noted in the left common carotid artery. There is heterogeneous, irregular atherosclerotic plaque noted in the left internal carotid artery. There is intimal thickening but no significant atherosclerotic plaque noted in the left external carotid artery. Antegrade flow is noted in the left vertebral artery. Procedure Carotid Duplex 80209. This is a Carotid Duplex examination using B-mode, color flow and specral Doppler. This is a venous duplex using B-mode, color flow and spectral Doppler. Exam performed portable in patient room. VL/Carotid Duplex Ultrasound Interpretation Summary Mild (<50%) stenosis right extracranial internal carotid. Mild (<50%) stenosis left extracranial internal carotid. Patent and antegrade vertebrals bilaterally. Ordering Physician: Rod Collins Referring Physician: Kody Frank MD Performed By: Cady Spicer and Student, RVT 07/25/25 1721 Date _ James Gurrola MD CC: Dr. Kody Frank MD; Dr. Rod Collins DO; Dr. Jaye Murrieta MD ~ Date Dictated: 07/25/25 1320 Date Transcribed: 07/25/25 172 [employer] Clerk: Signed [facility] Work Phone: Electrocardiogram reportOrde red By: Mushtaq Lozano on 07-25-2025 EKG study [facility] [address] [place] [address] 12 Lead EKG 07/22/25 1853 MR#: [id number] Acct: [id number] Name: KODY RUGGIERO Rep #:[id number] : 1950 75 From: Mushtaq Lozano MD Attending Dr: Dr. Jaye Murrieta MD Status: ADM IN Ordering Dr: Lobito Her DO Date: Location: [facility] Sex: M C Admitted: 07/23/25 Test Reason : STROKE Blood Pressure : */* mmHG Vent. Rate : 64 BPM Atrial Rate : 64 BPM P-R Int : 176 ms QRS Dur : 86 ms QT Int : 424 ms P-R-T Axes : * 16 36 degrees QTcB Int : 437 ms Normal sinus rhythm Normal ECG Confirmed by MUSHTAQ LOZANO ([id number]), clinical editor YIFAN BARAHONA ([id number]) on 07/25/2025 9:06:45 AM Referred By: Confirmed By: MUSHTAQ LOZANO 07/25/25905 _ Mushtaq Lozano MD CC: Dr. Kody Frank MD; Dr. Jaye Murrieta MD; Dr. Lobito Her DO ~ Signed [facility] Work Phone: [phone] Eosinophil percentageOrdered By: Jaye Murrieta on 07-25-2025 Eosinophils/100 WBC (Bld) 5.7 % High 0-5 [facility] Erythrocyte distribution wid th ratioOrdered By: Jaye Murrieta on 07-25-2025 Erythrocyte distribution width (RBC) [Ratio] 13.0 % 11.6-14.6 [facility] Erythrocyte distribution wid th standard deviationOrdered By: Jaye Murrieta on 07-25-2025 Erythrocyte distribution width (RBC) [Ratio] 44.9 fl High 35.1-43.9 [facility] Glomerular filtration rate ( GFR) estimation/1.73 sq m using serum, plasma, or whole bOrdered By: Jaye Murrieta on 07-25-2025 GFR/1.73 sq M.predicted among non-blacks MDRD (S/P/Bld) [Vol rate/Area] 92 mL/min/{1.73_m2} >60 [facility] Comment on above: mL/min/1.73m2 CKD-EP I Creatinine Equation (2020) Hematocrit Auto (Bld) [Volum e fraction]Ordered By: Jaye Murrieta on 07-25-2025 Hematocrit (Bld) [Volume fraction] 46.9 % 40-54 [facility] Hemoglobin measurementOrdere d By: Jaye Murrieta on 07-25-2025 Hemoglobin (Bld) [Mass/Vol] 16.3 g/dL 13.0-16.5 [facility] Immature granulocytes/100 WB C Auto (Bld)Ordered By: Jaye Murrieta on 07-25-2025 Immature granulocytes/100 WBC (Bld) 0.300 % 0.0-0.9 [facility] Comment on above: IG% - Immature Granu locytes (promyelocytes, myelocytes and metamyelocytes) > 1% indicates that a LEFT SHIFT is Present. Laboratory - Chemistry and C hemistry - challengeOrdered By: Jaye Murrieta on 07-25-2025 AST [Catalytic activity/Vol] 32 U/L <38 [facility] MCV (mean corpuscular volume ) determinationOrdered By: Jaye Murrieta on 07-25-2025 MCV (RBC) [Entitic vol] 94.4 fL High 80-94 [facility] Magnetic resonance imaging r eportOrdered By: Pancho Joya on 07-25-2025 Study report [facility] Imaging Services [address] [place] [address] Brain without Contrast MR#: [id number] Acct: [id number] Name: KODY RUGGIERO Rep #: [id number] : 1950 M 75 From: Burt Joya MD PCP: Dr. Kody Frank MD Status: ADM SANDEEP Study:Brain without Contrast Date of Exam: 07/23/25 Exam# [id number] Ordering Dr: Rod Liu DO PROCEDURE: BRAIN WITHOUT CONTRAST 07/23/2025 REASON FOR EXAM: PLEASE EVALUATE FOR CVA. TECHNIQUE: Procedure Code: MRIBR Modality: MR Procedure: BRAIN WITHOUT CONTRAST Multiplanar and multisequence images were obtained. COMPARISON: CT head without contrast and CTA head and neck, 07/23/2025 at 5:42 a.m. FINDINGS: There are few scattered foci of abnormal periventricular and subcortical white matter signal abnormality. These are nonspecific but are consistent with chronic ischemic white matter disease. There is a normal sulcal pattern and gyral configuration. There is no evidence of acute intracranial hemorrhage or infarction. The suarez-white differentiation is well preserved. There is no evidence of restricted diffusion. The ventricles and basilar cisterns are normal. There are normal flow voids demonstrated in the recognized intracranial vessels. The cerebellum and brainstem are unremarkable. The cerebellar pontine angles arenormal. The craniovertebral junction is normal. The sella and suprasellar regions are normal. There are bilateral intra-ocular lens implants. The intraorbital contents are otherwise unremarkable. There is left melody bullosa with nasal septal deviation to the right. There is mucoperiosteal thickening of the frontal sinuses, the ethmoidal air cells and the maxillary sinuses. The mastoid air cells are clear. There is normal bone marrow signal in the skull base and calvarium. MRI/Brain without Contrast IMPRESSION: 1. No evidence of acute intracranial pathology. 2. Other findings as noted. Reading Location: [id number] CC: Dr. Kody Frank MD; Dr. Rod Collins, DO ~ Paint Stock Clerk: Signed [facility] Work Phone: Mean corpuscular hemoglobin (MCH) determinationOrdered By: Jaye Murrieta on 07-25-2025 MCH (RBC) [Entitic mass] 32.8 pg High 27.0-32.0 [facility] Mean corpuscular hemoglobin concentration (MCHC) determinationOrdered By: Jaye Murrieta on 07-25-2025 MCHC (RBC) [Mass/Vol] 34.8 g/dL 32-36 [facility] Mean platelet volume determi nationOrdered By: Jaye Murrieta on 07-25-2025 Platelet mean volume (Bld) [Entitic vol] 9.1 fL 6.2-12.0 [facility] Monocyte percentageOrdered B y: Jaye Murrieta on 07-25-2025 Monocytes/100 WBC (Bld) 14.7 % High 0-10 [facility] Neutrophil percentageOrdered By: Jaye Murrieta on 07-25-2025 Neutrophils/100 WBC (Bld) 61.2 % 47-70 [facility] Nucleated red blood cell per centageOrdered By: Jaye Murrieta on 07-25-2025 Nucleated RBC/100 WBC (Bld) [Ratio] 0 % 0-5 [facility] Platelet countOrdered By: Kayli Murrieta on 07-25-2025 Platelets (Bld) [#/Vol] 285 10*3/uL 150-450 [facility] Potassium measurement (mass/ volume)Ordered By: Jaye Murrieta on 07-25-2025 Potassium (Unsp spec) [Mass/Vol] 4.4 mmol/L 3.3-5.1 [facility] RBC Auto (Bld) [#/Vol]Ordere d By: Jaye Murrieta on 07-25-2025 RBC (Bld) [#/Vol] 4.97 10*6/uL 4.6-6.2 [facility] Serum creatinine measurement (mass/volume)Ordered By: Jaye Murrieta on 07-25-2025 Creatinine [Mass/Vol] 0.78 mg/dL 0.70-1.20 [facility] Serum globulin measurementOr dered By: Jaye Murrieta on 07-25-2025 Globulin (S) [Mass/Vol] 2.8 g/dL 2.2-4.2 [facility] Serum glucose measurement (m ass/volume)Ordered By: Jaye Murrieta on 07-25-2025 Glucose [Mass/Vol] 117 mg/dL High 70-99 [facility] Serum or plasma alanine marcos otransferase (ALT) measurementOrdered By: Jaye Murrieta 07-25-2025 ALT [Catalytic activity/Vol] 27 U/L <47 [facility] Serum or plasma albumin joe urement (mass/volume)Ordered By: Jaye Murrieta 07-25-2025 Albumin [Mass/Vol] 4.1 g/dL 3.4-4.8 [facility] Serum or plasma albumin/glob ulin mass ratioOrdered By: Jaye Murrieta 07-25-2025 Albumin/Globulin [Mass ratio] 1.5 {ratio} 0.9-2.4 [facility] Serum or plasma alkaline tianna sphatase measurementOrdered By: Jaye Murrieta 07-25-2025 ALP [Catalytic activity/Vol] 89 U/L 40-129 [facility] Serum or plasma calcium joe urement (mass/volume)Ordered By: Jaye Murrieta on 07-25-2025 Calcium [Mass/Vol] 9.2 mg/dL 7.6-11.0 [facility] Serum or plasma urea nitroge n measurement (mass/volume)Ordered By: Jaye Murrieta on 07-25-2025 Urea nitrogen [Mass/Vol] 13 mg/dL 4-19 [facility] Sodium levelOrdered By: Jaye Murrieta on 07-25-2025 Sodium [Moles/Vol] 140 mmol/L 133-145 [facility] Total proteinOrdered By: Zahraa Murrieta on 07-25-2025 Protein [Mass/Vol] 6.9 g/dL 5.9-8.4 [facility] White blood cell (WBC) count Ordered By: Jaye Murrieta on 07-25-2025 WBC (Bld) [#/Vol] 8.6 10*3/uL 4.4-11.0 [facility] Amphetamine detection with 1 000 ng/mL as cutoffOrdered By: Rod Brar on 07-23-2025 Amphetamines Screen method >1000 ng/mL Ql (U) Negative < 200 ng/mL [facility] Bedside Glucoseon 07-23-2025 FINGERSTICK GLU 108 mg/dL High 74-106 [facility] Comment on above: Result Comment: SIM CARRENO OF PATIENT CARE PER NURSING PROTOCOL Performed By: #### L 501.9520, L501.9100, L505.5000, L501.9985 #### [facility] Laboratory [address] [place], [address] Brain without Contraston Brain without Contrast [facility] Imaging Services [address] [place], [place] [address] Brain without Contrast MR#: [id number] Acct: [id number] Name: KODY RUGGIERO Rep #: [id number] : 1950 M 75 From: Pancho Joya MD PCP: Dr. Kody Frank MD Status: DIS IN Study: Brain without Contrast Date of Exam: 07/23/25 Exam# [id number] Ordering Dr: Rod Collins DO ADDENDUM by Dr. Pancho Joya MD on 08/09/25 at 1004 See below IMPRESSION 1. There is an apparent acute infarction in the central chente. 2. Other findings as noted. Reading Location: [place] [address] 08/09/25 1005 Date cc: Dr. Kody Frank MD; Dr. Rod Collins DO * Signed PROCEDURE: BRAIN WITHOUT CONTRAST 07/23/2025 REASON FOR EXAM: PLEASE EVALUATE FOR CVA. TECHNIQUE: Procedure Code: MRIBR Modality: MR Procedure: BRAIN WITHOUT CONTRAST Multiplanar and multisequence images were obtained. COMPARISON: CT head without contrast and CTA head and neck, 07/23/2025 at 5:42 a.m. FINDINGS: There are few scattered foci of abnormal periventricular and subcortical white matter signal abnormality. These are nonspecific but are consistent with chronic ischemic white matter disease. There is a normal sulcal pattern and gyral configuration. There is no evidence of acute intracranial hemorrhage or infarction. The suarez-white differentiation is well preserved. There is no evidence of restricted diffusion. The ventricles and basilar cisterns are normal. There are normal flow voids demonstrated in the recognized intracranial vessels. The cerebellum and brainstem are unremarkable. The cerebellar pontine angles are normal. The craniovertebral junction is normal. The sella and suprasellar regions are normal. There are bilateral intra-ocular lens implants. The intraorbital contents are otherwise unremarkable. There is left melody bullosa with nasal septal deviation to the right. There is mucoperiosteal thickening of the frontal sinuses, the ethmoidal air cells and the maxillary sinuses. The mastoid air cells are clear. There is normal bone marrow signal in the skull base and calvarium. MRI/Brain without Contrast IMPRESSION: 1. No evidence of acute intracranial pathology. 2. Other findings as noted. Reading Location: [facility] CC: Dr. Kody Frank MD; Dr. Rod Collins DO Paint Stock Clerk: Signed Normal [facility] Calculated very low density lipoprotein (VLDL) cholesterol measurementOrdered By: Rod Brar on 07-23-2025 Calculated very low density lipoprotein (VLDL) cholesterol measurement 13 mg/dL 5-40 [facility] Echocardiogram study reportO rdered By: Mushtaq Lozano on 07-23-2025 Study report [facility] Cardiovascular Services [address] [place] [address] Echo Complete W/ Contrast 07/23/25 0832 MR#: [id number] Acct: [id number] Name: KODY RUGGIERO Rep #:[id number] : 1950 75 From: Mushtaq Lozano MD Attending Dr: Dr. James Freeman DO Status: ADM SANDEEP Ordering Dr: Rod Collins DO Date: 07/22/25 Location: U Sex: M C Admitted: 07/22/25 Reason For Study Reason For Study: TIA/Stroke Procedure This was a 2D Doppler, Color Flow transthoracic echocardiogram. Contrast injection was performed. Exam performed portable in patient room. Left Ventricle Normal left ventricle. The estimated ejection fraction is 60-65 %. Right Ventricle Normal right ventricle. Normal systolic function. Atria Normal left atrium. Normal right atrium. Mitral Valve Anterior leaflet diffuse mitral valve thickening. Mild (1+) mitral valve insufficiency. Tricuspid Valve Normal tricuspid valve. Aortic Valve Trisinus/trileaflet aortic valve. Pulmonic Valve The pulmonic valve is not well visualized. Great Vessels The aortic root is not well visualized. Pericardium/Pleural No pericardial effusion. Medication Diluted definity 1.5ml given slow IV push to enhance endocardial definition. MMode/2D Measurements & Calculations LVIDd: 5.3 cm IVSd: 1.0 cm Ao root diam: 3.6 cm LVIDs: 3.7 cm LVPWd: 1.0 cm RVDd: 3.4 cm FS: 29.5 % LAV(MOD-bp): 49.1 ml LVAd ap4: 29.6 cm2 SV(MOD-sp4): 61.9 ml LAV(MOD-bp) Indexed: 22.6 ml/m2 LVLd ap4: 8.1 cm SI(MOD-sp4): 28.5 ml/m2 LAV(MOD-sp2): 51.7 ml EDV(MOD-sp4): 88.7 ml LAV(MOD-sp4): 40.7 ml EDV(sp4-el): 91.3 ml LVAs ap4: 14.9 cm2 LVLs ap4: 6.9 cm ESV(MOD-sp4): 26.9 ml ESV(sp4-el): 27.6 ml EF(MOD-sp4): 69.7 % EF(sp4-el): 69.8 % _ SV(sp4-el): 63.7 ml LA A4 area: 17.4 cm2 LA dimension(2D): 3.3 cm _ RA A4 area: 14.8 cm2 TAPSE: 1.8 cm Time Measurements MV dec time: 0.38 sec Doppler Measurements & Calculations MV E max jarrett: 38.4 cm/sec Lat Peak E' Jarrett: 8.5 cm/sec Med Peak E' Jarrett: 6.9 cm/sec MV A max jarrett: 73.5 cm/sec E/E' lat: 4.5 E/E' med: 5.6 MV E/A: 0.52 MV dec slope: 101.8 cm/sec2 Ao V2 max: 98.3 cm/sec LV V1 max: 72.1 cm/sec Ao max P.9 mmHg LV V1 max P.1 mmHg Ao V2 mean: 61.3 cm/sec LV V1 mean P.2 mmHg Ao mean P.8 mmHg LV V1 mean: 52.5 cm/sec Ao V2 VTI: 21.2 cm LV V1 VTI: 14.8 cm AV (velocity ratio): 0.70 PA V2 max: 65.6 cm/sec PI end-d jarrett: 110.9 cm/sec TR max jarrett: 200.4 cm/sec TR max P.1 mmHg ECHO/Echo Complete W/ Contrast Interpretation Summary The estimated ejection fraction is 60-65 %. Mild MR Contrast/Definity used Ordering Physician: de Maykel, Rod Referring Physician: Kody Frank Performed By: Roxanne Courtney, SARINA, RVT 07/23/25 1403 Date _ Mushtaq Lozano MD CC: Dr. Kody Frank MD; Dr. Rod Collins DO; Dr. James Freeman DO ~ Date Dictated: 07/23/25 0832 Date Transcribed: 07/23/251402 Paint Stock Clerk: Signed [facility] Work Phone: [facility] deOrdered By: Rod Brar on 07-23-2025 Glucose [Mass/Vol] 108 mg/dL High 74-106 [facility] Comment on above: MANAGEMENT OF PATIEN T CARE PER NURSING PROTOCOL LDL calc ser/plasOrdered By: Rod Brar on 07-23-2025 Cholesterol in LDL [Mass/Vol] 88 mg/dL [facility] Comment on above: Mnidcnlytj=695-961 m g/dL & Higher Pclw=176 mg/dL or greaterFriedwald Equation for LDL-C Lipid Profileon 07-23-2025 CHOL:HDL 3.26 Normal [facility] Comment on above: Order Comment: Comme nts: NPO at [place] prior to lipid panel Performed By: #### L 501.9520, L501.9100, L505.5000, L501.9985 #### [facility] Laboratory [address] [place], [place], [address] Cholesterol [Mass/Vol] 146 mg/dL Normal <=200 [facility] Comment on above: Order Comment: Comme nts: NPO at MN prior to lipid panel Result Comment: Chol esterol level, Desirable <200 mg/dL Borderline high cholesterol 200-239 mg/dL High cholesterol >=240 mg/dL Recommendations of the NCEP Adult Treatment Panel for the following risk-cutoff thresholds for the [place] population. Performed By: #### L 501.9520, L501.9100, L505.5000, L501.9985 #### [facility] [address] [place], [address] Cholesterol in HDL [Mass/Vol] 45 mg/dL Normal [facility] Comment on above: Order Comment: Comme nts: NPO at MN prior to lipid panel Result Comment: Ashley onal Cholesterol Education Program (NCEP) guidelines: <40 mg/dL: Low HDL-cholesterol (major risk factor for CHD) >= 60 mg/dL: High HDL-cholesterol (negative risk factor for CHD) HDL-cholesterol is affected by a number of factors, e.g. smoking, exercise, hormones, sex and age. Performed By: #### L 501.9520, L501.9100, L505.5000, L501.9985 #### [facility] [address] [place], [address] Cholesterol in LDL [Mass/Vol] 88 mg/dL Normal [facility] Comment on above: Order Comment: Comme nts: NPO at MN prior to lipid panel Result Comment: Bord bduagx=419-898 mg/dL Higher Zujd=723 mg/dL or greater Friedwald Equation for LDL-C Performed By: #### L 501.9520, L501.9100, L505.5000, L501.9985 #### [facility] [address] [place], [address] Cholesterol in VLDL [Mass/Vol] 13 mg/dL Normal 5-40 [facility] Comment on above: Order Comment: Comme nts: NPO at MN prior to lipid panel Performed By: #### L 501.9520, L501.9100, L505.5000, L501.9985 #### [facility] [address] [place], [address] Triglyceride [Mass/Vol] 67 mg/dL Normal [facility] Comment on above: Order Comment: Comme nts: NPO at [place] prior to lipid panel Result Comment: The drugs N-Acetylcysteine and Metamizole may falsely depress this assay. Normal range: <150 mg/dL Borderline High: 150-199 mg/dL High: 200-499 mg/dL Very High: >500 mg/dL Performed By: #### L 501.9520, L501.9100, L505.5000, L501.9985 #### [facility] [address] [place], [address] MR/CON.PCM.NEon 07-23-2025 MR/CON.PCM.NE [facility] Medical Records Department [address] [place] [address] Consultation - Neurology 07/23/25 0935 MR#: [id number] Acct: [id number] Name: KODY RUGGIERO Rep #: [id number] : 1950 75 From: Suzanne Reddy MD PCP: Dr. Kody Frank MD Status:ADM SANDEEP Location: [place] [address] Assessment and Plan: Stroke Assessment/Plan KODY RUGGIERO is a 75 M with a history of tobacco abuse, mild intermittent asthma who presents for evaluation of right sided weakness Neurological examination shows Right hemiparesis. Neuroimaging shows CT head negative, CTA: Mid basilar stenosis, LDL: 88, MRI: Left pontine stroke. Acute stroke from basilar stenosis vs small vessel disease Plan Continue ASA, plavix for 3 months then ASA alone stroke w/up: ECHO, HBA1c Permissive HTN IVF PT,OT, speech, swallow eval stroke education Smoking cessation Tanks for consult. Spent 40 min in evaluation and management HPI Consult Data Date of Consult: 07/23/25 HPI Narrative HPI Narrative: KODY RUGGIERO, is a 75 M with a past medical history of former tobacco abuse, mild intermittent asthma who presents to [facility] ER complaining of RLE weakness and slurred speech. Mr. Rgugiero reports his symptoms began at 8 AM while he was doing some exercises when he noted increasing heaviness and weakness in his Right lower extremity with patient not feeling right throughout the day. Then a few hours later he noted decreased dexterity in his Right hand followed by slurred speech so he and his family decided to come in for further evaluation and treatment with strong suspicion for CVA. He denies associated headache, head trauma, anticoagulation or similar previous episodes. His symptoms got worse in the night with worsening weakness on right side, slurred speech with NIHSS 5. He was given ASA initially then loaded with plavix CT scan of the brain without contrast which revealed no acute intracranial abnormality CTA of the head and neck with IV contrast that revealed no large intracranial or cervical large vessel occlusion or hemodynamically significant stenosis. there is with mild short-segment narrowing of the proximal basilar artery [facility] Medical History Seasonal allergies Asthma, mild intermittent Home Medications ???Medication ???Instructions ???Recorded ???Last Taken ???Type fluticasone 250 mcg-salmeterol 50 1 inh inhalation Q12H 01/15/22 08:14 History mcg/dose blistr powdr for inhalation latanoprost 0.005 % eye drops 1 drp ophthalmic (eye) QODAY 01/1507/21/25 22:12 History cholecalciferol (vitamin D3) 50 50 mcg PO DAILY 07/22/25 07/22/25 08:00 History mcg (2,000 unit) tablet (Vitamin D3) fluticasone propionate 50 1 spray intranasal DAILY 07/22/25 07/22/25 08:13 History mcg/actuation nasal spray,suspension (Allergy Relief (fluticasone)) loratadine 10 mg tablet (Claritin) 10 mg PO DAILY 07/22/25 07/22/25 08:12 History Allergy/AdvReac Type Severity Reaction Status Date / Time No Known Allergies Allergy Verified 08/05/23 09:38 Social History Smoking Status: Former smoker Vital Signs Vital Signs Vital Signs: 07/22/25 18:35 07/22/25 18:46 07/22/25 18:56 Temperature 96.4 F L Temperature Source Oral Pulse Rate 54 L 54 L Pulse Strength Respiratory Rate 16 16 Respiratory Effort Respiratory Depth Respiratory Pattern Blood Pressure 165/98 H 165/98 H Blood Pressure Mean 120 120 Blood Pressure Source Blood Pressure Position Blood Pressure Location Pulse Ox 95 95 Oxygen Delivery Method Room Air Room Air Room Air Oxygen Flow Rate (L/min) 07/22/25 18:59 07/22/25 19:30 07/22/25 20:00 Temperature Temperature Source Pulse Rate 65 68 69 Pulse Strength Respiratory Rate 22 H 16 18 Respiratory Effort Respiratory Depth Respiratory Pattern Blood Pressure 145/89 H 150/82 H 134/88 H Blood Pressure Mean 107 104 103 Blood Pressure Source Blood Pressure Position Blood Pressure Location Pulse Ox 96 96 94 Oxygen Delivery Method Room Air Room Air Room Air Oxygen Flow Rate (L/min) 07/22/25 20:30 07/22/25 21:00 07/22/25 21:00 Temperature 98.0 F Temperature Source Pulse Rate 64 64 64 Pulse Strength Respiratory Rate 16 16 16 Respiratory Effort Respiratory Depth Respiratory Pattern Blood Pressure 141/69 H 140/81 H 140/81 H Blood Pressure Mean 93 100 100 Blood Pressure Source Blood Pressure Position Blood Pressure Location Pulse Ox 97 94 94 Oxygen Delivery Method Room Air Room Air Oxygen Flow Rate (L/min) 06/28 (more content not included)... Normal [facility] No Panel InformationOrdered By: Rod Brar on 07-23-2025 Urine Buprenorphine Qualitative Negative < 200 ng/mL [facility] Urine Oxycodone Screen Negative < 100 ng/mL [facility] Quantitative urine opiates m easurementOrdered By: Rod Brar on 07-23-2025 Opiates Ql (U) Negative < 300 ng/mL [facility] STROKE Brain/Head without Co nton 07-23-2025 STROKE Brain/Head without Cont [facility] Imaging Services [address] [place] [id number] STROKE Brain/Head without Cont MR#: [id number] Acct: [id number] Name: NELIDAKODY Rep #: [id number] : 1950 M 75 From: Malorie montalvo MD PCP: Dr. Kody Frank MD Status: ADM SANDEEP Study: STROKE Brain/Head without Cont Date of Exam: 0 07/23/25 Exam# [id number] Ordering Dr: Rod Collins DO PROCEDURE: STROKE BRAIN/HEAD WITHOUT CONT 07/23/2025 REASON FOR EXAM: STROKE ALERT TECHNIQUE: Procedure Code: CTBR.ST Modality: CT Procedure: STROKE BRAIN/HEAD WITHOUT CONT Coronal and Sagittal reconstruction series were provided. One or more dose reduction techniques were used (e.g., Automated exposure control, adjustment of the mA and/or kV according to patient size, use of iterative reconstruction technique. RADIATION DOSE SUMMARY: CTDlvol: 12.3 mGy DLP: 387 mGycm COMPARISON: CT scan on 07/22/2025. FINDINGS: Mild diffuse cortical atrophy, commensurate with the patient's age. Scattered hypodense foci in the periventricular and subcortical white matter suggestive of chronic ischemic white matter disease. Normal size of the ventricles and extra-axial spaces for the patient's age. Normal basal ganglia and thalami. Normal brainstem. Normal cerebellum. There is no demonstrated extra-axial, intraparenchymal, or intraventricular hemorrhage. There are no findings of an acute ischemic infarction. Normal calvarium. There is no demonstrated fracture. Normal soft tissue structures. Moderate chronic mucosal inflammatory changes of the visualized paranasal sinuses. Air-fluid level in the right maxillary sinus. CT/STROKE Brain/Head without Cont IMPRESSION: No CT evidence for acute brain abnormality. Reading Location: [place] [address] CC: Dr. Kody Frank MD; Dr. Rod Collins DO Paint Stock Clerk: Signed Normal [facility] Screening total cholesterol/ high density lipoprotein (HDL) cholesterol ratioOrdered By: Rod Brar on 07-23-2025 Cholesterol.total/Kaila sterol in HDL [Mass ratio] 3.26 {ratio} [facility] Screening urine fentanyl eduar surementOrdered By: Rod Brar on 07-23-2025 fentaNYL Screen Ql (U) Negative <5 ng/mL [facility] Comment on above: CONFIRMATORY TESTING FOR ALL POSITIVE URINE DRUG SCREENRESULTS WILL ONLY BE SENT OUT UPON PHYSICIAN ORDER. Amanda Pro Urine Drug Screen methods provide only preliminaryanalytical test results. A more specific alternate chemicalmethod must be used in order to obtain a confirmedanalytical result. Gas chromatography/mass spectrometery(GC/MS) is the preferred confirmatory method. Clinicalconsideration and professional judgement should be appliedto any drug of abuse test result, particularly whenpreliminary positive results are used. Urine TCA testing must be ordered separately. Use test mnemonic: UTCA Serum or plasma cholesterol in HDL measurement (mass/volume)Ordered By: Rod Brar on 07-23-2025 Cholesterol in HDL [Mass/Vol] 45 mg/dL >40 [facility] Comment on above: National Cholesterol Education Program (NCEP) guidelines:<40 mg/dL: Low HDL-cholesterol (major risk factor for CHD)>= 60 mg/dL: High HDL-cholesterol (negative risk factor for CHD)HDL-cholesterol is affected by a number of factors, e.g. smoking, exercise, hormones, sex and age. Serum or plasma cholesterol measurement (mass/volume)Ordered By: Rod Brar on 07-23-2025 Cholesterol [Mass/Vol] 146 mg/dL <201 [facility] Comment on above: Cholesterol level, D esirable <200 mg/dLBorderline high cholesterol 200-239 mg/dLHigh cholesterol >=240 mg/dLRecommendations of the NCEP Adult Treatment Panel for the following risk-cutoff thresholds for the [place] population. Triglycerides measurementOrd ered By: Rod Brar on 07-23-2025 Triglyceride [Mass/Vol] 67 mg/dL <199 [facility] Comment on above: The drugs N-Acetylcy steine and Metamizole may falsely depress this assay. Normal range: <150 mg/dLBorderline High: 150-199 mg/dLHigh: 200-499 mg/dLVery High: >500 mg/dL Urine Drug Screen (VISTA)on 07-23-2025 AMPHETAMINES Negative Normal <1000 ng/mL [facility] Comment on above: Performed By: #### L 501.9520, L501.9100, L505.5000, L501.9985 #### [facility] Laboratory [address] [place], [address] BARBITIURATES Negative Normal < 200 ng/mL [facility] Comment on above: Performed By: #### L 501.9520, L501.9100, L505.5000, L501.9985 #### [facility] [address] [place], [address] BENZODIAZIPINE Negative Normal < 200 ng/mL [facility] Comment on above: Performed By: #### L 501.9520, L501.9100, L505.5000, L501.9985 #### [facility] [address] [place], [place], [address] BUP Ur Drug Scr Negative Normal < 200 ng/mL [facility] Comment on above: Performed By: #### L 501.9520, L501.9100, L505.5000, L501.9985 #### [facility] [address] [place], [address] COCAINE Negative Normal < 300 ng/mL [facility] Comment on above: Performed By: #### L 501.9520, L501.9100, L505.5000, L501.9985 #### [facility] [address] [place], [address] Fentanyl Negative Normal <5 ng/mL [facility] Comment on above: Result Comment: CONF IRMATORY TESTING FOR ALL POSITIVE URINE DRUG SCREEN RESULTS WILL ONLY BE SENT OUT UPON PHYSICIAN ORDER. Amanda Pro Urine Drug Screen methods provide only preliminary analytical test results. A more specific alternate chemical method must be used in order to obtain a confirmed analytical result. Gas chromatography/mass spectrometery (GC/MS) is the preferred confirmatory method. Clinical consideration and professional judgement should be applied to any drug of abuse test result, particularly when preliminary positive results are used. Urine TCA testing must be ordered separately. Use test mnemonic: UTCA Performed By: #### L 501.9520, L501.9100, L505.5000, L501.9985 #### [facility] [address] [place], [address] METHADONE Negative Normal < 300 ng/mL [facility] Comment on above: Performed By: #### L 501.9520, L501.9100, L505.5000, L501.9985 #### [facility] [address] [place], [address] OPIATES Negative Normal < 300 ng/mL [facility] Comment on above: Performed By: #### L 501.9520, L501.9100, L505.5000, L501.9985 #### [facility] [address] [place], [address] OXYCODONE Negative Normal < 100 ng/mL [facility] Comment on above: Performed By: #### L 501.9520, L501.9100, L505.5000, L501.9985 #### [facility] [address] [place], [address] PCP Negative Normal < 25 ng/mL [facility] Comment on above: Performed By: #### L 501.9520, L501.9100, L505.5000, L501.9985 #### [facility] [address] [place], [address] THC Negative Normal < 50 ng/mL [facility] Comment on above: Performed By: #### L 501.9520, L501.9100, L505.5000, L501.9985 #### [facility] [address] [place], [address] Urine benzodiazepine levelOr dered By: Rod Brar on 07-23-2025 Benzodiazepines Ql (U) Negative < 200 ng/mL [facility] Urine cocaine levelOrdered B y: Rod Brar on 07-23-2025 Cocaine Ql (U) Negative < 300 ng/mL [facility] Urine qinwo-2-kgloulktritnvr abinol (THC) measurementOrdered By: Rod Brar on 07-23-2025 Cannabinoids Screen Ql (U) Negative < 50 ng/mL [facility] Urine phencyclidine (PCP) de tectionOrdered By: Rod Brar on 07-23-2025 Phencyclidine Ql (U) Negative < 25 ng/mL [facility] 12 Lead EKGon 07-22-2025 12 Lead EKG [facility] Cardiovascular Services [address] [place] [address] 12 Lead EKG 07/22/25 1853 MR#: [id number] Acct: [id number] Name: KODY RUGGIERO Rep #: [id number] : 1950 75 From: Mushtaq Lozano MD Attending Dr: Dr. Jaye Murrieta MD Status: AD M IN Ordering Dr: Lobito Her DO Date: 07/22/25 Location: [facility] Sex: M C Admitted: 07/23/25 Test Reason : STROKE Blood Pressure : */* mmHG Vent. Rate : 64 BPM Atrial Rate : 64 BPM P-R Int : 176 ms QRS Dur : 86 ms QT Int : 424 ms P-R-T Axes : * 16 36 degrees QTcB Int : 437 ms Normal sinus rhythm Normal ECG Confirmed by MUSHTAQ LOZANO ([id number]), clinical editor YIFAN BARAHONA ([id number]) on 07/25/2025 9:06:45 AM Referred By: Confirmed By: MUSHTAQ LOZANO 07/25/25905 Date Mushtaq Lozano MD CC: Dr. Kody Frank MD; Dr. Jaye Murrieta MD; Dr. Lobito Her DO Signed Normal [facility] Activated partial thrombopla stin time (aPTT) in platelet poor plasma by coagulation aOrdered By: Lobito Her on 07-22-2025 aPTT Coag (PPP) [Time] 34.6 s 24.1-36.2 [facility] Alcohol, Blood (Medical)-Ser umon 07-22-2025 SERUM ETOH < 10.1 Normal <=10.0 [facility] Comment on above: Result Comment: This test is for medical purposes only. The legal definition of intoxication varies according to local law. Performed By: #### L 501.9526, L501.9100, L505.5000, L501.9985 #### [facility] [address] [place], [address] Basic Metabolic Profile (BMP )on 07-22-2025 BUN/CRE 24.2 RATIO High 10-20 [facility] Comment on above: Performed By: #### L 300.3900, L500.2500, L100.0100, L300.4310, L501.4021 #### [facility] [address] [place], [address] Calcium [Mass/Vol] 9.1 mg/dL Normal 7.6-11.0 [facility] Comment on above: Performed By: #### L 300.3900, L500.2500, L100.0100, L300.4310, L501.4021 #### [facility] [address] [place], [address] Chloride [Moles/Vol] 105 mmol/L Normal 98-108 [facility] Comment on above: Performed By: #### L 300.3900, L500.2500, L100.0100, L300.4310, L501.4021 #### [facility] [address] [place], [address] CO2 [Moles/Vol] 21.4 mmol/L Normal 21.0-32.0 [facility] Comment on above: Performed By: #### L 300.3900, L500.2500, L100.0100, L300.4310, L501.4021 #### [facility] [address] [place], [address] Creatinine [Mass/Vol] 0.85 mg/dL Normal 0.70-1.20 [facility] Comment on above: Performed By: #### L 300.3900, L500.2500, L100.0100, L300.4310, L501.4021 #### [facility] [address] [place], [address] GAP 14 Normal 5-15 [facility] Comment on above: Performed By: #### L 300.3900, L500.2500, L100.0100, L300.4310, L501.4021 #### [facility] [address] [place], [address] GFR/1.73 sq M.predicted among non-blacks MDRD (S/P/Bld) [Vol rate/Area] 90 mL/min/{1.73_m2} Normal >60 [facility] Comment on above: Result Comment: mL/m in/1.73m2 CKD-EPI Creatinine Equation (2020) Performed By: #### L 300.3900, L500.2500, L100.0100, L300.4310, L501.4021 #### [facility] [address] [place], [address] Glucose [Mass/Vol] 101 mg/dL High 70-99 [facility] Comment on above: Performed By: #### L 300.3900, L500.2500, L100.0100, L300.4310, L501.4021 #### [facility] [address] [place], [address] Potassium [Moles/Vol] 4.1 mmol/L Normal 3.3-5.1 [facility] Comment on above: Performed By: #### L 300.3900, L500.2500, L100.0100, L300.4310, L501.4021 #### [facility] [address] [place], [address] Sodium [Moles/Vol] 140 mmol/L Normal 133-145 [facility] Comment on above: Performed By: #### L 300.3900, L500.2500, L100.0100, L300.4310, L501.4021 #### [facility] [address] [place], [address] Urea nitrogen [Mass/Vol] 21 mg/dL High 4-19 [facility] Comment on above: Performed By: #### L 300.3900, L500.2500, L100.0100, L300.4310, L501.4021 #### [facility] [address] [place], [address] CBC W/Diff, Automatedon 09-2 Absolute Lymph 1.75 X10 3/uL Normal 0.83-4.51 [facility] Comment on above: Performed By: #### L 300.3900, L500.2500, L100.0100, L300.4310, L501.4021 #### [facility] [address] [place], [address] Absolute Neut 6.8 X10 3/uL Normal 2.0-7.7 [facility] Comment on above: Performed By: #### L 300.3900, L500.2500, L100.0100, L300.4310, L501.4021 #### [facility] [address] [place], [address] Basophils/100 WBC (Bld) 0.5 % Normal 0-1 [facility] Comment on above: Performed By: #### L 300.3900, L500.2500, L100.0100, L300.4310, L501.4021 #### [facility] [address] [place], [address] Eosinophils/100 WBC (Bld) 4.0 % Normal 0-5 [facility] Comment on above: Performed By: #### L 300.3900, L500.2500, L100.0100, L300.4310, L501.4021 #### [facility] [address] [place], [address] Erythrocyte distribution width (RBC) [Ratio] 13.1 % Normal 11.6-14.6 [facility] Comment on above: Performed By: #### L 300.3900, L500.2500, L100.0100, L300.4310, L501.4021 #### [facility] [address] [place], [address] Hematocrit (Bld) [Volume fraction] 45.8 % Normal 40-54 [facility] Comment on above: Performed By: #### L 300.3900, L500.2500, L100.0100, L300.4310, L501.4021 #### [facility] [address] [place], [address] Hemoglobin (Bld) [Mass/Vol] 15.7 g/dL Normal 13.0-16.5 [facility] Comment on above: Performed By: #### L 300.3900, L500.2500, L100.0100, L300.4310, L501.4021 #### [facility] [address] [place], [address] IG% 0.400 Normal 0.0-0.9 [facility] Comment on above: Result Comment: IG% - Immature Granulocytes (promyelocytes, myelocytes and metamyelocytes) > 1% indicates that a LEFT SHIFT is Present. Performed By: #### L 300.3900, L500.2500, L100.0100, L300.4310, L501.4021 #### [facility] [address] [place], [address] Lymphocytes/100 WBC (Bld) 17.2 % Low 19-41 [facility] Comment on above: Performed By: #### L 300.3900, L500.2500, L100.0100, L300.4310, L501.4021 #### [facility] [address] [place], [address] MCH (RBC) [Entitic mass] 33.2 pg High 27.0-32.0 [facility] Comment on above: Performed By: #### L 300.3900, L500.2500, L100.0100, L300.4310, L501.4021 #### [facility] [address] [place], [address] MCHC (RBC) [Mass/Vol] 34.3 g/dL Normal 32-36 [facility] Comment on above: Performed By: #### L 300.3900, L500.2500, L100.0100, L300.4310, L501.4021 #### [facility] [address] [place], [address] MCV (RBC) [Entitic vol] 96.8 fL High 80-94 [facility] Comment on above: Performed By: #### L 300.3900, L500.2500, L100.0100, L300.4310, L501.4021 #### [facility] [address] [place], [address] Monocytes/100 WBC (Bld) 10.6 % High 0-10 [facility] Comment on above: Performed By: #### L 300.3900, L500.2500, L100.0100, L300.4310, L501.4021 #### [facility] [address] [place], [address] Neutrophils/100 WBC (Bld) 67.3 % Normal 47-70 [facility] Comment on above: Performed By: #### L 300.3900, L500.2500, L100.0100, L300.4310, L501.4021 #### [facility] [address] [place], [address] Nucleated RBC (Bld) [#/Vol] 0 10*3/uL Normal 0-5 [facility] Comment on above: Performed By: #### L 300.3900, L500.2500, L100.0100, L300.4310, L501.4021 #### [facility] [address] [place], [address] Platelet mean volume (Bld) [Entitic vol] 9.3 fL Normal 6.2-12.0 [facility] Comment on above: Performed By: #### L 300.3900, L500.2500, L100.0100, L300.4310, L501.4021 #### [facility] [address] [place], [address] Platelets (Bld) [#/Vol] 279 10*3/uL Normal 150-450 [facility] Comment on above: Performed By: #### L 300.3900, L500.2500, L100.0100, L300.4310, L501.4021 #### [facility] [address] [place], [address] RBC (Bld) [#/Vol] 4.73 10*6/uL Normal 4.6-6.2 [facility] Comment on above: Performed By: #### L 300.3900, L500.2500, L100.0100, L300.4310, L501.4021 #### [facility] [address] [place], [address] RDW SD 47.1 fl High 35.1-43.9 [facility] Comment on above: Performed By: #### L 300.3900, L500.2500, L100.0100, L300.4310, L501.4021 #### [facility] [address] [place], [address] WBC (Bld) [#/Vol] 10.2 10*3/uL Normal 4.4-11.0 [facility] Comment on above: Performed By: #### L 300.3900, L500.2500, L100.0100, L300.4310, L501.4021 #### [facility] [address] [place], [address] Carotid Duplex Ultrasoundon 07-22-2025 Carotid Duplex Ultrasound [facility] Cardiovascular Services [address] [place] [address] Carotid Duplex Ultrasound 07/25/25 1320 MR#: [id number] Acct: [id number] Name: KODY RUGGIERO Rep #: [id number] : 1950 75 From: James Gurrola MD Attending Dr: Dr. Jaye Murrieta MD Status: AD M IN Ordering Dr: Rod Collins DO Date: 07/22/25 Location: [facility] Sex: M C Admitted: 07/23/25 Reason For Study Reason For Study: Stroke Rt. Velocities/BP Lt. Velocities/BP Prox CCA 61.0/11.0 cm/sec. Prox CCA 84.2/12.7 cm/sec. Mid CCA 61.0/10.0 cm/sec. Mid CCA 112.5/17.5 cm/sec. Dist CCA 43.1/7.2 cm/sec. Dist CCA 90.4/10.6 cm/sec. Prox ICA 65.5/16.0 cm/sec. Prox ICA 58.9/11.7 cm/sec. Mid ICA 75.4/14.9 cm/sec. Mid ICA 61.9/20.7 cm/sec. Dist ICA 64.6/20.2 cm/sec. Dist ICA 45.8/13.9 cm/sec. Rt. ICA/CCA = 1.2. Lt. ICA/CCA = 0.6. Prox ECA 95.3/4.4 cm/sec. Prox ECA 66.6/5.1 cm/sec. Rt. Vert. 31.5/8.9 cm/sec. Lt. Vert. 39.3/10.0 cm/sec. Right Extracranial There is homogeneous, smooth atherosclerotic plaque noted in the right common carotid artery. There is heterogeneous, irregular atherosclerotic plaque noted in the right internal carotid artery. There is intimal thickening but no significant atherosclerotic plaque noted in the right external carotid artery. Antegrade flow is noted in the right vertebral artery. Left Extracranial There is heterogeneous, irregular atherosclerotic plaque noted in the left common carotid artery. There is heterogeneous, irregular atherosclerotic plaque noted in the left internal carotid artery. There is intimal thickening but no significant atherosclerotic plaque noted in the left external carotid artery. Antegrade flow is noted in the left vertebral artery. Procedure Carotid Duplex 58769. This is a Carotid Duplex examination using B-mode, color flow and specral Doppler. This is a venous duplex using B-mode, color flow and spectral Doppler. Exam performed portable in patient room. VL/Carotid Duplex Ultrasound Interpretation Summary Mild (<50%) stenosis right extracranial internal carotid. Mild (<50%) stenosis left extracranial internal carotid. Patent and antegrade vertebrals bilaterally. Ordering Physician: Rod Collins Referring Physician: Kody Frank MD Performed By: Cady Spicer and Student, RVT 07/25/25 1721 Date James Gurrola MD CC: Dr. Kody Frank MD; Dr. Rod Collins DO; Dr. Jaye Murrieta MD Date Dictated: 07/25/25 1320 Date Transcribed: 07/25/25 172 Paint Stock Clerk: Signed Normal [facility] Chest 1 Viewon 07-22-2025 Chest 1 View [facility] Imaging Services [address] [place] [address] [id number] Chest 1 View MR#: [id number] Acct: [id number] Name: KODY RUGGIERO Rep #: [id number] : 1950 M 75 From: Trell House MD PCP: Dr. Kody Frank MD Status: REG ER Study: Chest 1 View Date of Exam: 07/22/25 Exam# [id number] Ordering Dr: Lobito Her DO PROCEDURE: CHEST 1 VIEW 07/22/2025 REASON FOR EXAM: NEURO DEFICIT, ACUTE, STROKE SUSPECTED TECHNIQUE: Frontal view of the chest. COMPARISON: None. FINDINGS: Lungs/Pleura: Clear. No pneumothorax or sizable pleural effusion. Heart/Mediastinum: Mildly enlarged. No vascular congestion. Bones/Soft tissues: Mild degenerative changes of the spine and AC joints. RAD/Chest 1 View IMPRESSION: Cardiomegaly. No acute pulmonary disease. Reading Location: [facility] CC: Dr. Kody Frank MD; Dr. Lobito Her DO Paint Stock Clerk: Signed Normal [facility] Echo Complete W/ Contraston 07-22-2025 Echo Complete W/ Contrast [facility] Cardiovascular Services [address] [place] [address] Echo Complete W/ Contrast 07/23/25 0832 MR#: [id number] Acct: [id number] Name: KODY RUGGIERO Rep #: [id number] : 1950 75 From: Mushtaq Lozano MD Attending Dr: Dr. James Freeman DO Status: ADM SANDEEP Ordering Dr: Rod Collins DO Date: 07/22/25 Location: [facility] Sex: M C Admitted: 07/22/25 Reason For Study Reason For Study: TIA/Stroke Procedure This was a 2D Doppler, Color Flow transthoracic echocardiogram. Contrast injection was performed. Exam performed portable in patient room. Left Ventricle Normal left ventricle. The estimated ejection fraction is 60-65 %. Right Ventricle Normal right ventricle. Normal systolic function. Atria Normal left atrium. Normal right atrium. Mitral Valve Anterior leaflet diffuse mitral valve thickening. Mild (1+) mitral valve insufficiency. Tricuspid Valve Normal tricuspid valve. Aortic Valve Trisinus/trileaflet aortic valve. Pulmonic Valve The pulmonic valve is not well visualized. Great Vessels The aortic root is not well visualized. Pericardium/Pleural No pericardial effusion. Medication Diluted definity 1.5ml given slow IV push to enhance endocardial definition. MMode/2D Measurements Calculations LVIDd: 5.3 cm IVSd: 1.0 cm Ao root diam: 3.6 cm LVIDs: 3.7 cm LVPWd: 1.0 cm RVDd: 3.4 cm FS: 29.5 % _ LAV(MOD-bp): 49.1 ml LVAd ap4: 29.6 cm2 SV(MOD-sp4): 61.9 ml LAV(MOD-bp) Indexed: 22.6 ml/m2 LVLd ap4: 8.1 cm SI(MOD-sp4): 28.5 ml/m2 LAV(MOD-sp2): 51.7 ml EDV(MOD-sp4): 88.7 ml LAV(MOD-sp4): 40.7 ml EDV(sp4-el): 91.3 ml LVAs ap4: 14.9 cm2 LVLs ap4: 6.9 cm ESV(MOD-sp4): 26.9 ml ESV(sp4-el): 27.6 ml EF(MOD-sp4): 69.7 % EF(sp4-el): 69.8 % _ SV(sp4-el): 63.7 ml LA A4 area: 17.4 cm2 LA dimension(2D): 3.3 cm _ RA A4 area: 14.8 cm2 TAPSE: 1.8 cm Time Measurements MV dec time: 0.38 sec Doppler Measurements Calculations MV E max jarrett: 38.4 cm/sec Lat Peak E' Jarrett: 8.5 cm/sec Med Peak E' Jarrett: 6.9 cm/sec MV A max jarrett: 73.5 cm/sec E/E' lat: 4.5 E/E' med: 5.6 MV E/A: 0.52 _ MV dec slope: 101.8 cm/sec2 Ao V2 max: 98.3 cm/sec LV V1 max: 72.1 cm/sec Ao max P.9 mmHg LV V1 max P.1 mmHg Ao V2 mean: 61.3 cm/sec LV V1 mean P.2 mmHg Ao mean P.8 mmHg LV V1 mean: 52.5 cm/sec Ao V2 VTI: 21.2 cm LV V1 VTI: 14.8 cm AV (velocity ratio): 0.70 _ PA V2 max: 65.6 cm/sec PI end-d jarrett: 110.9 cm/sec TR max jarrett: 200.4 cm/sec TR max P.1 mmHg ECHO/Echo Complete W/ Contrast Interpretation Summary The estimated ejection fraction is 60-65 %. Mild MR Contrast/Definity used Ordering Physician: Rod Collins Referring Physician: Kody Frank Performed By: Roxanne Courtney, RDCS, RVT 07/23/25 1403 Date Mushtaq Lozano MD CC: Dr. Kody Frank MD; Dr. Rod Collins DO; Dr. James Freeman DO Date Dictated: 07/23/2532 Date Transcribed: 07/23/251402 Paint Stock Clerk: Signed Normal [facility] Emergency Department Summary on 07-22-2025 Emergency Department Summary [facility] Medical Records Department [address] [place] [address] Emergency Department Summary 07/22/25 MR#: [id number] Acct: [id number] Name: KODY RUGGIERO Rep #: [id number] : 1950 75 From: Lobito Her DO PCP: Dr. Kody Frank MD Status:REG ER Location: ED HPI History of Present Illness Chief Complaint: Stroke Alert Narrative Narrative: Patient is a 75-year-old male with no known significant past medical history who presents to the emergency department with concern for stroke. Patient was stroke alerted from triage. Patient states that around 8 AM this morning he was doing some exercises and notes that his right lower extremity felt heavy and felt off he continued about his day. He states that he later on throughout the day also developed some right hand fine motor difficulty. He also complains of slurred speech as well as his significant other at bedside also states that he has had slurred speech. They state that nothing like this has ever happened before but given the concern for stroke they brought him here to be further evaluated. Patient denies any headaches denies any head trauma denies any blood thinner medications [facility] Medical History Seasonal allergies Asthma, mild intermittent Home Medications ???Medication ???Instructions ???Recorded ???Last Taken ???Type fluticasone 250 mcg-salmeterol 50 1 inh inhalation Q12H 01/15/22 Un known History mcg/dose blistr powdr for inhalation latanoprost 0.005 % eye drops 1 drp ophthalmic (eye) QODAY 01/15 Unknown History cholecalciferol (vitamin D3) 50 50 mcg PO DAILY 07/22/25 Unknown H istory mcg (2,000 unit) tablet (Vitamin D3) fluticasone propionate 50 1 spray intranasal DAILY 07/22/25 Unknown History mcg/actuation nasal spray,suspension (Allergy Relief (fluticasone)) loratadine 10 mg tablet (Claritin) 10 mg PO DAILY 07/22/25 Unknown History Allergy/AdvReac Type Severity Reaction Status Date / Time No Known Allergies Allergy Verified 08/05/23 09:38 Social History Smoking Status: Former smoker ROS ROS ED ROS Narrative Constitutional: Denies any headache, lightness, dizziness, fevers, chills Eyes: Denies double vision blurry vision Cardiovascular: Denies chest pain Respiratory: Denies shortness of breath Abdomen: Denies abdominal pain nausea vomit diarrhea : Denies urinary symptoms Neurological: Complains of right leg and arm heaviness and numbness as noted above as well as slurred speech as noted above Musculoskeletal: Denies back pain Skin: Denies any rashes or lesions EXAM Physical Exam Narrative Exam Narrative: General: Patient was lying in bed rest comfortably did not appear to be in acute distress Head: Atraumatic, normocephalic Eyes: PERRL bilaterally, EOMI bilaterally, no conjunctival injection noted Neck: Soft, supple, trachea midline Cardiovascular: Regular rate and rhythm no murmurs gallops rubs noted Respiratory: Clear to auscultation bilaterally no rales rhonchi or wheeze noted Abdomen: Soft, nondistended, no tenderness to palpation Extremities: +5/5 strength noted in the bilateral lower extremities, radial pulses +2/4 in the bilateral extremities, no pedal edema exam Neurological: Patient following commands knew that he was at [place] the year is 2024 NIH of 2 GCS 15 Skin: Warm, dry, intact no rashes or lesions noted Const Vital Signs: 07/22/25 18:35 07/22/25 18:46 07/22/25 18:56 Temperature 96.4 F L Temperature Source Oral Pulse Rate 54 L 54 L Respiratory Rate 16 16 Blood Pressure 165/98 H 165/98 H Blood Pressure Mean 120 120 Pulse Ox 95 95 Oxygen Delivery Method Room Air Room Air Room Air 07/22/25 18:59 07/22/25 19:30 07/22/25 20:00 Temperature Temperature Source Pulse Rate 65 68 69 Respiratory Rate 22 H 16 18 Blood Pressure 145/89 H 150/82 H 134/88 H Blood Pressure Mean 107 104 103 Pulse Ox 96 96 94 Oxygen Delivery Method Room Air Room Air Room Air 07/22/25 20:30 Temperature Temperature Source Pulse Rate 64 Respiratory Rate 16 Blood Pressure 141/69 H Blood Pressure Mean 93 Pulse Ox 97 Oxygen Delivery Method Room Air MDM MDM MDM Narrative Medical decision making narrative: Patient is a 75-year-old male who presents to the emergency department with concern for stroke. On the differential diagnose includes but not limited to, intracranial hemorrhage, hypertensive emergency, ischemic stroke, posterior circulation stroke, complex migraine. Once workup is obtained and reviewed he will be reevaluated. Patient is not a tenecteplase candidate as his symptoms st (more content not included)... Normal [facility] H AND P Exam - Hospitaliston 07-22-2025 H&P Exam - Hospitalist [facility] Medical Records Department [address] [place] [address] H P Exam - Hospitalist 07/22/252035 MR#: [id number] Acct: [id number] Name: KODY RUGGIERO Rep #: [id number] : 1950 75 From: Rod Collins DO PCP: Dr. Kody Frank MD Status:ADM SANDEEP Location: [place] [address] HPI - General General Date of Admission: 07/22/25 Date of Service: 07/22/25 Chief Complaint: RLE Weakness and Slurred Speech. HPI Narrative KODY RUGGIERO, is a 75 M with a past medical history of former tobacco abuse, mild intermittent asthma; on fluticasone propion-salmeterol BID, seasonal allergies; on loratadine and fluticasone NS and glaucoma; on latanoprost eye drops who presents to [facility] ER complaining of RLE weakness and slurred speech. Mr. Ruggiero reports his symptoms began at 8 AM earlier this morning while he was doing some exercises when he noted increasing heaviness and weakness in his Right lower extremity with patient not feeling right throughout the day. Then a few hours later he noted decreased dexterity in his Right hand followed by slurred speech so he and his family decided to come in for further evaluation and treatment with strong suspicion for CVA. He denies associated headache, head trauma, anticoagulation or similar previous episodes. In the ER he underwent CT scan of the brain without contrast which revealed no acute intracranial abnormality followed by CTA of the head and neck with IV contrast that revealed no large intracranial or cervical large vessel occlusion or hemodynamically significant stenosis with mild short-segment narrowing of the proximal basilar artery in addition to a CXR that revealed no acute pulmonary process. He was then diagnosed with TIA versus CVA and admitted to the PCU under observation status for ongoing care for stay that is expected to be less than 2 midnights. [facility] Medical History Seasonal allergies Asthma, mild intermittent Home Medications ???Medication ???Instructions ???Recorded ???Last Taken ???Type fluticasone 250 mcg-salmeterol 50 1 inh inhalation Q12H 01/15/22 08:14 History mcg/dose blistr powdr for inhalation latanoprost 0.005 % eye drops 1 drp ophthalmic (eye) QODAY 01/1507/21/25 22:12 History cholecalciferol (vitamin D3) 50 50 mcg PO DAILY 07/22/25 07/22/25 08:00 History mcg (2,000 unit) tablet (Vitamin D3) fluticasone propionate 50 1 spray intranasal DAILY 07/22/25 07/22/25 08:13 History mcg/actuation nasal spray,suspension (Allergy Relief (fluticasone)) loratadine 10 mg tablet (Claritin) 10 mg PO DAILY 07/22/25 07/22/25 08:12 History Allergy/AdvReac Type Severity Reaction Status Date / Time No Known Allergies Allergy Verified 08/05/23 09:38 Social History Smoking Status: Former smoker ROS ROS Narrative Review of Systems: Constitutional: Patient denies fever or chills. Eyes: Patient denies change in vision or discharge from eyes. ENT: Patient denies runny nose, sore throat or ear pain. Resp: Patient denies shortness of breath or cough. CV: Patient denies chest pain, palpitations, heart racing or lower extremity edema. GI: Patient denies abdominal pain, nausea, vomiting, diarrhea or constipation. : Patient denies dysuria or hematuria. MSK: Patient admits to weakness and heaviness in his Right upper and lower extremity as per HPI. Skin: Patient denies rash, abscess, wounds or jaundice. Psych: Patient denies symptoms of uncontrolled depression or anxiety. Neuro: Patient admits to Right-sided weakness with slurred speech as per HPI but he denies headache or paresthesias. Allergy: Patient denies lip swelling, tongue swelling or urticaria. Hematology: Patient denies easy bleeding or easy bruisability. Endocrinology: Patient denies polyuria, polydipsia, polyphagia or heat/cold intolerance. 14 point ROS otherwise negative except for positives noted above in HPI. Vital Signs Vital Signs Vital Signs: 07/22/25 18:35 07/22/25 18:46 07/22/25 18:56 Temperature 96.4 F L Temperature Source Oral Pulse Rate 54 L 54 L Respiratory Rate 16 16 Blood Pressure 165/98 H 165/98 H Blood Pressure Mean 120 120 Pulse Ox 95 95 Oxygen Delivery Method Room Air Room Air Room Air 07/22/25 18:59 07/22/25 19:30 07/22/25 20:00 Temperature Temperature Source Pulse Rate 65 68 69 Respiratory Rate 22 H 16 18 Blood Pressure 145/89 H 150/82 H 134/88 H Blood Pressure Mean 107 104 103 Pulse Ox 96 96 94 Oxygen Delivery Method Room Air Room Air Room Air 07/22/25 20:30 Temperature Temperature Source Pulse Rate 64 Respiratory Rate 16 Blood P (more content not included)... Normal [facility] Hemoglobin A1con 07-22-2025 HbA1c (Bld) [Mass fraction] 5.6 % Normal <=5.6 [facility] Comment on above: Result Comment: Norm al < 5.7 % Prediabetic 5.7 - 6.4 % Diabetic >or= 6.5 % Please note range changes. Performed By: #### L 501.9520, L501.9100, L505.5000, L501.9985 #### [facility] [address] [place], [address] Hemoglobin A1c percentageOrd ered By: Rod Brar on 07-22-2025 HbA1c (Bld) [Mass fraction] 5.6 % <5.7 [facility] Comment on above: Normal < 5.7 % Predi abetic 5.7 - 6.4 % Diabetic >or= 6.5 % Please note range changes. International normalized rat io (INR) calculationOrdered By: Lobito Her on 07-22-2025 INR Coag (Bld) [Relative time] 1.0 {INR} [facility] L501.4021on 07-22-2025 Trop T High Sen 12 ng/L Normal <=22 [facility] Comment on above: Performed By: #### L 300.3900, L500.2500, L100.0100, L300.4310, L501.4021 #### [facility] [address] [place], [address] Partial Thromboplast Timeon 07-22-2025 aPTT Coag (Bld) [Time] 34.6 s Normal 24.1-36.2 [facility] Comment on above: Performed By: #### L 300.3900, L500.2500, L100.0100, L300.4310, L501.4021 #### [facility] [address] [place], [address] Prothrombin Time w/INRon INR Coag (PPP) [Relative time] 1.0 {INR} Normal [facility] Comment on above: Performed By: #### L 300.3900, L500.2500, L100.0100, L300.4310, L501.4021 #### [facility] [address] [place], [address] PT Coag (PPP) [Time] 13.7 s Normal 11.7-14.9 [facility] Comment on above: Performed By: #### L 300.3900, L500.2500, L100.0100, L300.4310, L501.4021 #### [facility] [address] [facility] [place], [address] Prothrombin timeOrdered By: Lobito Her on 07-22-2025 PT Coag (PPP) [Time] 13.7 s 11.7-14.9 [facility] STROKE Brain/Head without Co nton 07-22-2025 STROKE Brain/Head without Cont [facility] Imaging Services [address] [place] [address] STROKE Brain/Head without Cont MR#: [id number] Acct: [id number] Name: KODY RUGGIERO Rep #: [id number] : 1950 M 75 From: Reny Faustin MD PCP: Dr. Kody Frank MD Status: REG ER Study: STROKE Brain/Head without Cont Date of Exam: 0 07/22/25 Exam# [id number] Ordering Dr: Lobito Her DO PROCEDURE: STROKE BRAIN/HEAD WITHOUT CONT 07/22/2025 REASON FOR EXAM: NEURO DEFICIT, ACUTE, STROKE SUSPECTED TECHNIQUE: Procedure Code: CTBR.ST Modality: CT Procedure: STROKE BRAIN/HEAD WITHOUT CONT Coronal and Sagittal reconstruction series were provided. One or more dose reduction techniques were used (e.g., Automated exposure control, adjustment of the mA and/or kV according to patient size, use of iterative reconstruction technique. RADIATION DOSE SUMMARY: CTDlvol: 47.06 mGy DLP: 890.33 mGycm COMPARISON: None. FINDINGS: BRAIN: No acute intraparenchymal hemorrhage. No mass lesion. No CT evidence for acute territorial infarct. No midline shift or extra-axial collection. VENTRICLES: No hydrocephalus. ORBITS: The orbits are unremarkable. SINUSES AND MASTOIDS: Mild bilateral maxillary, ethmoid and sphenoid sinus mucosal thickening. Small amount of right maxillary sinus fluid. The right mastoid air cells are clear. A few left inferior mastoid air cells are opacified. SOFT TISSUES: No acute abnormality seen. BONES: No acute osseous abnormality seen. OTHER: Carotid siphon calcification bilaterally. CT/STROKE Brain/Head without Cont IMPRESSION: No acute intracranial abnormality seen. Reading Location: [facility] CC: Dr. Kody Frank MD; Dr. Lobito Her DO Paint Stock Clerk: Signed Normal [facility] STROKE CTA Head AND Neck W/C onon 07-22-2025 STROKE CTA Head AND Neck W/Con [facility] Imaging Services [address] [place] [address] STROKE CTA Head AND Neck W/Con MR#: [id number] Acct: [id number] Name: KODY RUGGIERO Rep #: [id number] : 1950 75 From: Trell House MD PCP: Dr. Kody Frank MD Status: REG ER Study: STROKE CTA Head AND Neck W/Con Date of Exam: 0 07/22/25 Exam# [id number] Ordering Dr: Lobito Her DO PROCEDURE: STROKE CTA HEAD AND NECK W/CON 07/22/2025 REASON FOR EXAM: NEURO DEFICIT, ACUTE, STROKE SUSPECTED TECHNIQUE: Procedure Code: CTCTA.ST.HN Modality: CT Procedure: STROKE CTA HEAD AND NECK W/CON Multiplanar Sagittal and Coronal images were obtained. 3D post processing was performed. CONTRAST: Isovue 370 VOLUME: 100 mL One or more dose reduction techniques were used (e.g., Automated exposure control, adjustment of the mA and/or kV according to patient size, use of iterative reconstruction technique). RADIATION DOSE SUMMARY: DLP: 993.19 mGycm COMPARISON: None. FINDINGS: CTA HEAD: Patent intracranial arterial vasculature. No large vessel occlusion, flow-limiting stenosis, saccular aneurysm, or vascular malformation identified. There is focal short-segment mild luminal narrowing of the proximal basilar artery (S2 image 375). origin of the right posterior cerebral artery with no visible connection to the basilar, anatomic variant. Hypoplastic caliber of the right [place] A1 segment compared to the left. CTA NECK: Conventional aortic arch branching. Bilateral cervical carotid and codominant vertebral arteries are patent without any significant stenosis. No aneurysm or dissection. NON-ANGIOGRAPHIC FINDINGS: Absent [place] ocular lenses. Peripheral mucosal thickening throughout the paranasal sinuses with small amount of dependent fluid in right maxillary sinus. Mild multilevel cervical spondylotic changes. CT/STROKE CTA Head AND Neck W/Con IMPRESSION: No intracranial or cervical large vessel arterial occlusion or hemodynamically significant stenosis. Short-segment mild narrowing of the proximal basilar artery. Anatomic variants as noted. Reading Location: [id number] CC: Dr. Kody Frank MD; Dr. Lobito Her DO Paint Stock Clerk: Signed Normal [facility] Serum or plasma ethanol joe urement (mass/volume)Ordered By: Rod Brar on 07-22-2025 Ethanol [Mass/Vol] mg/dL <10.1 [facility] Comment on above: This test is for med ical purposes only. The legal definition of intoxication varies according to local law. TSH DL <= 0.005 mIU/L QnOrde red By: Rod Brar on 07-22-2025 TSH Qn 1.890 uIU/mL 0.300-4.200 [facility] Thyroid Stim Hormone (TSH)on 07-22-2025 TSH 1.890 uIU/mL Normal 0.300-4.200 [facility] Comment on above: Performed By: #### L 501.9520, L501.9100, L505.5000, L501.9985 #### [facility] [address] [place], [address] Troponin T HS 2 HRon 025 Trop T High Sen 13 ng/L Normal <=22 [facility] Comment on above: Performed By: #### L 501.9520, L501.9100, L505.5000, L501.9985 #### [facility] [address] [place], [address] Troponin T HS 4 HRon 025 Trop T High Sen 11 ng/L Normal <=22 [facility] Comment on above: Performed By: #### L 501.9520, L501.9100, L505.5000, L501.9985 #### [facility] [address] [place], [place], [address] Troponin T.cardiac [Mass/vol ume] in Serum or Plasma by High sensitivity methodOrdered By: Lobito Her on 07-22-2025 Troponin T.cardiac High sensitivity method [Mass/Vol] 11 ng/L <22 [facility] Troponin T.cardiac High sensitivity method [Mass/Vol] 13 ng/L <22 [facility] Troponin T.cardiac High sensitivity method [Mass/Vol] 12 ng/L <22 [facility] Anion gap in Serum or Plasma Ordered By: Kody Frank on 01-04-2025 Anion gap [Moles/Vol] 13 mmol/L - [facility] BUN/creatinine ratioOrdered By: Kody Frank on 01-04-2025 Urea nitrogen/Creatinine [Mass ratio] 20.8 mg/mg High - [facility] Basic Metabolic Profile (BMP )on 01-04-2025 BUN/CRE 20.8 RATIO High 08-15 [facility] Comment on above: Order Comment: Order Date: 01/03/25Order Info: [id number] - BMPOrder Info: [id number] - LIPIDOrder Info: [id number] - URIC Performed By: #### L 501.9520, L501.9100, L505.5000, L501.9985 #### [facility] [address] [place], [place], [address] Calcium [Mass/Vol] 9.4 mg/dL Normal 7.6-11.0 [facility] Comment on above: Order Comment: Order Date: 01/03/25Order Info: [id number] - BMPOrder Info: [id number] - LIPIDOrder Info: [id number] - URIC Performed By: #### L 501.9520, L501.9100, L505.5000, L501.9985 #### [facility] [address] [place], [address] Chloride [Moles/Vol] 102 mmol/L Normal 98-108 [facility] Comment on above: Order Comment: Order Date: 01/03/25Order Info: [id number] - BMPOrder Info: [id number] - LIPIDOrder Info: [id number] - URIC Performed By: #### L 501.9520, L501.9100, L505.5000, L501.9985 #### [facility] [address] [place], [address] CO2 [Moles/Vol] 23.2 mmol/L Normal 21.0-32.0 [facility] Comment on above: Order Comment: Order Date: 01/03/25Order Info: [id number] - BMPOrder Info: - LIPIDOrder Info: [id number] - URIC Performed By: #### L 501.9520, L501.9100, L505.5000, L501.9985 #### [facility] [address] [place], [address] Creatinine [Mass/Vol] 0.87 mg/dL Normal 0.70-1.20 [facility] Comment on above: Order Comment: Order Date: 01/03/25Order Info: [id number] - BMPOrder Info: - LIPIDOrder Info: [id number] - URIC Performed By: #### L 501.9520, L501.9100, L505.5000, L501.9985 #### [facility] [address] [place], [address] GAP 13 Normal 5-15 [facility] Comment on above: Order Comment: Order Date: 01/03/25Order Info: [id number] - BMPOrder Info: [id number] - LIPIDOrder Info: [id number] - URIC Performed By: #### L 501.9520, L501.9100, L505.5000, L501.9985 #### [facility] [address] [place], [address] GFR/1.73 sq M.predicted among non-blacks MDRD (S/P/Bld) [Vol rate/Area] 89 mL/min/{1.73_m2} Normal >60 [facility] Comment on above: Order Comment: Order Date: 01/03/25Order Info: [id number] - BMPOrder Info: [id number] - LIPIDOrder Info: 1 - URIC Result Comment: mL/m in/1.73m2 CKD-EPI Creatinine Equation (2020) Performed By: #### L 501.9520, L501.9100, L505.5000, L501.9985 #### [facility] [address] [place], [address] Glucose [Mass/Vol] 116 mg/dL High 70-99 [facility] Comment on above: Order Comment: Order Date: 01/03/25Order Info: [id number] - BMPOrder Info: [id number] - LIPIDOrder Info: [id number] - URIC Performed By: #### L 501.9520, L501.9100, L505.5000, L501.9985 #### [facility] [address] [place], [address] Potassium [Moles/Vol] 4.3 mmol/L Normal 3.3-5.1 [facility] Comment on above: Order Comment: Order Date: 01/03/25Order Info: [id number] - BMPOrder Info: [id number] - LIPIDOrder Info: [id number] - URIC Performed By: #### L 501.9520, L501.9100, L505.5000, L501.9985 #### [facility] [address] [place], [address] Sodium [Moles/Vol] 138 mmol/L Normal 133-145 [facility] Comment on above: Order Comment: Order Date: 01/03/25Order Info: [id number] - BMPOrder Info: [id number] - LIPIDOrder Info: [id number] - URIC Performed By: #### L 501.9520, L501.9100, L505.5000, L501.9985 #### [facility] [address] [place], [address] Urea nitrogen [Mass/Vol] 18 mg/dL Normal 4-19 [facility] Comment on above: Order Comment: Order Date: 01/03/25Order Info: [id number] - BMPOrder Info: - LIPIDOrder Info: [id number] - URIC Performed By: #### L 501.9520, L501.9100, L505.5000, L501.9985 #### [facility] [address] [place], [address] Calculated very low density lipoprotein (VLDL) cholesterol measurementOrdered By: Kody Frank on 01-04-2025 VLDL Cholesterol 11 mg/dL 5-40 [facility] Carbon dioxide, total [Moles /volume] in Central venous bloodOrdered By: Kody Frank on 01-04-2025 CO2 [Moles/Vol] 23.2 mmol/L 21.0-32.0 [facility] Chloride assayOrdered By: Michael Frank on 01-04-2025 Chloride [Moles/Vol] 102 mmol/L 98-108 [facility] GFR/1.73 sq M.predicted maria victoria g non-blacks MDRD (S/P/Bld) [Vol rate/Area]Ordered By: Kody Frank on 01-04-2025 Estimated GFR (MDRD) Non-Af Amer 89 >60 [facility] Comment on above: mL/min/1.73m2 CKD-EP I Creatinine Equation (2020) L506.1001on 01-04-2025 Vitamin D 25-OH 31.5 ng/mL Normal 30-100 [facility] Comment on above: Order Comment: Order Date: 01/03/25Order Info: [id number] - BMPOrder Info: - LIPIDOrder Info: [id number] - URIC Result Comment: Nayana min D Status Deficiency: <20 ng/mL (50nmol/L) Insufficiency: 20-30 ng/mL (50-75 nmol/L) Sufficiency: 30-100 ng/mL (75-250 nmol/L) Toxicity: >100 ng/mL (>250 nmol/L) Performed By: #### L 501.9520, L501.9100, L505.5000, L501.9985 #### [facility] [address] [place], [address] LDL calc ser/plasOrdered By: Kody Frank on 01-04-2025 LDL Cholesterol, Calculated 106 mg/dL [facility] Comment on above: Gtfeyxjczr=617-239 m g/dL & Higher Zwjb=178 mg/dL or greater Lipid Profileon 01-04-2025 CHOL:HDL 3.04 Normal [facility] Comment on above: Order Comment: Order Date: 01/03/25Order Info: 06 - BMPOrder Info: [id number] - LIPIDOrder Info: [id number] - URIC Performed By: #### L 501.9520, L501.9100, L505.5000, L501.9985 #### [facility] [address] [place], [address] Cholesterol [Mass/Vol] 175 mg/dL Normal <=200 [facility] Comment on above: Order Comment: Order Date: 01/03/25Order Info: 06 - BMPOrder Info: [id number] - LIPIDOrder Info: [id number] - URIC Result Comment: Chol esterol level, Desirable <200 mg/dL Borderline high cholesterol 200-239 mg/dL High cholesterol >=240 mg/dL Recommendations of the NCEP Adult Treatment Panel for the following risk-cutoff thresholds for the [place] population. Performed By: #### L 501.9520, L501.9100, L505.5000, L501.9985 #### [facility] [address] [place], [address] Cholesterol in HDL [Mass/Vol] 58 mg/dL Normal [facility] Comment on above: Order Comment: Order Date: 01/03/25Order Info: 06- - BMPOrder Info: [id number] - LIPIDOrder Info: [id number] - URIC Result Comment: Ashley onal Cholesterol Education Program (NCEP) guidelines: <40 mg/dL: Low HDL-cholesterol (major risk factor for CHD) >= 60 mg/dL: High HDL-cholesterol (negative risk factor for CHD) HDL-cholesterol is affected by a number of factors, e.g. smoking, exercise, hormones, sex and age. Performed By: #### L 501.9520, L501.9100, L505.5000, L501.9985 #### [facility] [address] [place], [address] Cholesterol in LDL [Mass/Vol] 106 mg/dL Normal [facility] Comment on above: Order Comment: Order Date: 01/03/25Order Info: [id number] - BMPOrder Info: - LIPIDOrder Info: [id number] - URIC Result Comment: Bord nsdumo=847-923 mg/dL Higher Ltyu=423 mg/dL or greater Performed By: #### L 501.9520, L501.9100, L505.5000, L501.9985 #### [facility] [address] [place], [address] Cholesterol in VLDL [Mass/Vol] 11 mg/dL Normal 5-40 [facility] Comment on above: Order Comment: Order Date: 01/03/25Order Info: [id number] - BMPOrder Info: [id number] - LIPIDOrder Info: [id number] - URIC Performed By: #### L 501.9520, L501.9100, L505.5000, L501.9985 #### [facility] [address] [place], [address] Triglyceride [Mass/Vol] 57 mg/dL Normal [facility] Comment on above: Order Comment: Order Date: 01/03/25Order Info: [id number] - BMPOrder Info: - LIPIDOrder Info: [id number] - URIC Result Comment: The drugs N-Acetylcysteine and Metamizole may falsely depress this assay. Normal range: <150 mg/dL Borderline High: 150-199 mg/dL High: 200-499 mg/dL Very High: >500 mg/dL Performed By: #### L 501.9520, L501.9100, L505.5000, L501.9985 #### [facility] [address] [place], [address] Potassium (Unsp spec) [Mass/ Vol]Ordered By: Kody Frank on 01-04-2025 Potassium [Moles/Vol] 4.3 mmol/L 3.3-5.1 [facility] Screening total cholesterol/ high density lipoprotein (HDL) cholesterol ratioOrdered By: Kody Frank on 01-04-2025 Cholesterol.total/Kaila sterol in HDL [Mass ratio] 3.04 {ratio} [facility] Serum creatinine measurement (mass/volume)Ordered By: Kody Frank on 01-04-2025 Creatinine [Mass/Vol] 0.87 mg/dL 0.70-1.20 [facility] Serum glucose measurement (m ass/volume)Ordered By: Kody Frank on 01-04-2025 Glucose [Mass/Vol] 116 mg/dL High 70-99 [facility] Serum or plasma calcium joe urement (mass/volume)Ordered By: oKdy Frank on 01-04-2025 Calcium [Mass/Vol] 9.4 mg/dL 7.6-11.0 [facility] Serum or plasma cholesterol in HDL measurement (mass/volume)Ordered By: Kody Frank on 01-04-2025 Cholesterol in HDL [Mass/Vol] 58 mg/dL >40 [facility] Comment on above: National Cholesterol Education Program (NCEP) guidelines:<40 mg/dL: Low HDL-cholesterol (major risk factor for CHD)>= 60 mg/dL: High HDL-cholesterol (negative risk factor for CHD)HDL-cholesterol is affected by a number of factors, e.g. smoking, exercise, hormones, sex and age. Serum or plasma cholesterol measurement (mass/volume)Ordered By: Kody Frank on 01-04-2025 Cholesterol [Mass/Vol] 175 mg/dL <201 [facility] Comment on above: Cholesterol level, D esirable <200 mg/dLBorderline high cholesterol 200-239 mg/dLHigh cholesterol >=240 mg/dLRecommendations of the NCEP Adult Treatment Panel for the following risk-cutoff thresholds for the [place] population. Serum or plasma urea nitroge n measurement (mass/volume)Ordered By: Kody Frank on 01-04-2025 Urea nitrogen [Mass/Vol] 18 mg/dL 4-19 [facility] Serum or plasma uric acid me asurement (mass/volume)Ordered By: Kody Frank on 01-04-2025 Urate [Mass/Vol] 7.7 mg/dL High 3.5-7.2 [facility] Comment on above: The drugs N-Acetylcy steine and Metamizole may falsely depress this assay. Sodium levelOrdered By: Hola Frank on 01-04-2025 Sodium [Moles/Vol] 138 mmol/L 133-145 [facility] Triglycerides measurementOrd ered By: Kody Frank on 01-04-2025 Triglyceride [Mass/Vol] 57 mg/dL <199 [facility] Comment on above: The drugs N-Acetylcy steine and Metamizole may falsely depress this assay. Normal range: <150 mg/dLBorderline High: 150-199 mg/dLHigh: 200-499 mg/dLVery High: >500 mg/dL Uric Acidon 01-04-2025 URIC 7.7 mg/dL High 3.5-7.2 [facility] Comment on above: Order Comment: Order Date: 01/03/25Order Info: [id number] - BMPOrder Info: [id number] - LIPIDOrder Info: [id number] - URIC Result Comment: The drugs N-Acetylcysteine and Metamizole may falsely depress this assay. Performed By: #### L 501.9520, L501.9100, L505.5000, L501.9985 #### [facility] [address] [place], [address] Vitamin D, 25-hydroxyOrdered By: Kody Frank on 01-04-2025 Vitamin D 25-Hydroxy 31.5 ng/mL 30-100 [facility] Comment on above: Vitamin D StatusDefi ciency: <20 ng/mL (50nmol/L)Insufficiency: 20-30 ng/mL (50-75 nmol/L)Sufficiency: 30-100 ng/mL (75-250 nmol/L)Toxicity: >100 ng/mL (>250 nmol/L) Basophil percentageOrdered B y: Oliver Frank on 03-21-2023 Chloride [Moles/Vol] 108 mmol/L 98-107 [facility] Cholesterol [Mass/Vol] 159 mg/dL <200 [facility] Comment on above: <200 mg/dL Desirable 200-240 mg/dL Borderline >240 mg/dL High Risk Glucose [Mass/Vol] 90 mg/dL 74-106 [facility] Potassium [Moles/Vol] 4.6 mmol/L 3.5-5.1 [facility] Sodium [Moles/Vol] 142 mmol/L 136-145 [facility] Triglyceride [Mass/Vol] 57 mg/dL <199 [facility] Comment on above: The drugs N-Acetylcy steine and Metamizole may falsely depress this assay.Serum Triglycerides Reference Interval Normal <150 mg/dL Borderline high 150 - 199 mg/dL High 200 - 499 mg/dL Very High > or = 500 mg/dL WBC (Bld) [#/Vol] 6.1 10*3/uL 4.4-11.0 [facility] Blood erythrocytes count (nu mber/volume)Ordered By: Oliver Frank on 03-21-2023 RBC (Bld) [#/Vol] 4.79 10*6/uL 4.6-6.2 [facility] Blood hemoglobin measurement (mass/volume)Ordered By: Oliver Frank on 03-21-2023 Hemoglobin (Bld) [Mass/Vol] 16.2 g/dL 13.0-16.5 [facility] Blood platelet mean volumeOr dered By: Oliver Frank on 03-21-2023 Platelet mean volume (Bld) [Entitic vol] 9.4 fL 6.2-12.0 [facility] Determination of erythrocyte mean corpuscular volume (MCV)Ordered By: Oliver Frank on 03-21-2023 MCV (RBC) [Entitic vol] 100.6 fL 80-94 [facility] Hematocrit Auto (Bld) [Volum e fraction]Ordered By: Oliver Frank on 03-21-2023 Hematocrit (Bld) [Volume fraction] 48.2 % 40-54 [facility] Iron measurement (mass/mass) Ordered By: Oliver Frank on 03-21-2023 Iron (Unsp spec) [Mass/Mass] 69 ug/dL 65-175 [facility] - Chemistry and C hemistry - challengeOrdered By: Oliver Frank on 03-21-2023 CO2 [Moles/Vol] 31.0 mmol/L 21.0-32.0 [facility] Urea nitrogen/Creatinine [Mass ratio] 17.4 mg/mg 10-20 [facility] - Hematology and Cell countsOrdered By: Oliver Frank on 03-21-2023 Erythrocyte distribution width (RBC) [Entitic vol] 53.0 fL 35.1-43.9 [facility] Erythrocyte distribution width (RBC) [Ratio] 14.1 % 11.6-14.6 [facility] MCH (RBC) [Entitic mass] 33.8 pg 27.0-32.0 [facility] MCHC Auto (RBC) [Mass/Vol]Or dered By: Oliver Frank on 03-21-2023 MCHC (RBC) [Mass/Vol] 33.6 g/dL 32-36 [facility] No Panel InformationOrdered By: Oliver Frank on 03-21-2023 Estimated GFR (MDRD) Amer 120 mL/min >60 [facility] Comment on above: GFR Calc Estimated GFR (MDRD) Non-Af Amer 99 mL/min >60 [facility] Comment on above: Non- GFR Calc Prostate Specific Antigen Screen 0.60 ng/mL 0.00-4.00 [facility] Comment on above: This test was perfor med using the TPSA assay method [facility]. Values obtained with differentassay methods cannot be used interchangably.When changing PSA assays in the course of monitoring apatient, additional sequential testing should be carriedout to confirm baseline values. Platelets bldOrdered By: Evangelina Frank on 05-26-2023 Platelets (Bld) [#/Vol] 285 10*3/uL 150-450 [facility] Serum or plasma calcium joe urement (mass/volume)Ordered By: Oliver Frank on 03-21-2023 Calcium [Mass/Vol] 9.0 mg/dL 8.5-10.1 [facility] Serum or plasma cholesterol in HDL measurement (mass/volume)Ordered By: Oliver Frank on 03-21-2023 Cholesterol in HDL [Mass/Vol] 55 mg/dL >40 [facility] Comment on above: The drugs N-Acetylcy steine and Metamizole may falsely depress this assay. Reference Range HDL <40 mg/dL Low HDL Cholesterol HDL >or= 60 mg/dL High HDL Cholesterol Serum or plasma cholesterol in VLDL measurement (mass/volume)Ordered By: Oliver Frank on 03-21-2023 Cholesterol in VLDL [Mass/Vol] 11 mg/dL 5-40 [facility] Serum or plasma creatinine m easurement (mass/volume)Ordered By: Oliver Frank on 03-21-2023 Creatinine [Mass/Vol] 0.81 mg/dL 0.70-1.30 [facility] Comment on above: The validity of the calculated GFR & GFRAA in patients over 70 years has not been determined. Clinical correlation is essential. Serum or plasma ferritin eduar surement (mass/volume)Ordered By: Oliver Frank on 03-21-2023 Ferritin [Mass/Vol] 83 ng/mL 26-388 [facility] Serum or plasma low density lipoprotein (LDL) cholesterol measurement (mass/volume)Ordered By: Oliver Frank on 03-21-2023 Cholesterol in LDL [Mass/Vol] 93 mg/dL 0-130 [facility] Serum or plasma urea nitroge n measurement (mass/volume)Ordered By: Oliver Frank on 03-21-2023 Urea nitrogen [Mass/Vol] 14 mg/dL 7-18 [facility] Thin prep Papanicolaou smear with manual screeningOrdered By: Oliver Frank on 03-21-2023 Thin prep Papanicolaou smear with manual screening 3 5-15 [facility] Auto Diffon 06-22-2019 Basophils (Bld) [#/Vol] 0.0 E3/mcL Normal 0.0-0.2 [facility] Comment on above: Order Comment: Order Added by Discern Expert. Performed By: #### 2 [id number] #### [facility] [address] [place] [address] Basophils/100 WBC (Bld) 0.6 % Normal 0.0-2.0 [facility] Comment on above: Order Comment: Order Added by Discern Expert. Performed By: #### 2 [id number] #### [facility] [employer] [address] [place] [address]27 Eos Absolute 0.5 E3/mcL Normal 0.0-0.7 [facility] Comment on above: Order Comment: Order Added by Discern Expert. Performed By: #### 2 [id number] #### [facility] [address] [place] [address] Eosinophils/100 WBC (Bld) 6.2 % Normal 0.0-11.0 [facility] Comment on above: Order Comment: Order Added by Figueroa Expert. Performed By: #### 2 [id number] #### [facility] [employer] [address] [place] [address] 41848 Lymphocytes (Bld) [#/Vol] 1.3 E3/mcL Normal 1.2-3.4 [facility] Comment on above: Order Comment: Order Added by Discern Expert. Performed By: #### 2 [id number] #### [facility] [address] [place] [address] 10978 Lymphocytes/100 WBC (Bld) 16.8 % Low 20.0-55.0 [facility] Comment on above: Order Comment: Order Added by Discern Expert. Performed By: #### 2 [id number] #### [facility] [address] [place] [address] Mcmullen Absolute 0.8 E3/mcL High 0.0-0.7 [facility] Comment on above: Order Comment: Order Added by Discern Expert. Performed By: #### 2 [id number] #### [facility] [employer] [address] [place] [address] Monocytes/100 WBC (Bld) 10.2 % High 0.0-10.0 [facility] Comment on above: Order Comment: Order Added by Discern Expert. Performed By: #### 2 [id number] #### [facility] [employer] [address] [place] [address] Neutro Absolute 5.0 E3/mcL Normal 1.4-6.5 [facility] Comment on above: Order Comment: Order Added by Discern Expert. Performed By: #### 2 [id number] #### [facility] [address] [place] [address] Neutro Auto 66.2 % Normal 37.0-75.0 [facility] Comment on above: Order Comment: Order Added by Discern Expert. Performed By: #### 2 [id number] #### [facility] [address] [place] [address] CBC w/ Auto Diffon Erythrocyte distribution width (RBC) [Ratio] 14.3 % Normal 11.5-14.5 [facility] Comment on above: Performed By: #### 2 [id number] #### [facility] [address] [place] [address] Hematocrit (Bld) [Volume fraction] 46.3 % Normal 42.0-52.0 [facility] Comment on above: Performed By: #### 2 [id number] #### [facility] [address] [place] [address] Hemoglobin (Bld) [Mass/Vol] 15.5 g/dL Normal 13.5-18.0 [facility] Comment on above: Performed By: #### 2 [id number] #### [facility] [address] [place] [address] MCH (RBC) [Entitic mass] 32.6 pg High 27.0-31.0 [facility] Comment on above: Performed By: #### 2 [id number] #### [facility] [address] [place] [address] MCHC (RBC) [Mass/Vol] 33.5 g/dL Normal 33.0-37.0 [facility] Comment on above: Performed By: #### 2 [id number] #### [facility] [address] [place] [address] MCV (RBC) [Entitic vol] 97.3 fL Normal 78.0-100.0 [facility] Comment on above: Performed By: #### 2 [id number] #### [facility] Boyle[facility] [place] [address] Platelet mean volume (Bld) [Entitic vol] 7.8 fL Normal 7.4-11.0 [facility] Comment on above: Performed By: #### 2 [id number] #### [facility] [address] [place] [address] Platelets (Bld) [#/Vol] 317 E3/mcL Normal 130-400 [facility] Comment on above: Performed By: #### 2 [id number] #### [facility] [address] [place] [address]997 RBC (Bld) [#/Vol] 4.75 E6/mcL Normal 3.90-6.10 [facility] Comment on above: Performed By: #### 2 [id number] #### [facility]ar[facility] [address] [place] [address]1895 WBC (Bld) [#/Vol] 7.6 E3/mcL Normal 3.6-11.0 [facility] Comment on above: Performed By: #### 2 [id number] #### [facility] [address] [place] [address] CMPon 06-22-2019 Albumin [Mass/Vol] 4.1 g/dL Normal 3.4-5.0 [facility] Comment on above: Performed By: #### 2 [id number] #### [facility] [employer] [address] [place] [address] 11652 Albumin/Globulin [Mass ratio] 1.6 {ratio} Normal 1.1-1.9 [facility] Comment on above: Performed By: #### 2 [id number] #### [facility] [employer] [address] [place] [address] 77112 Alk Phos 74 Int._Unit/L Normal 33-136 [facility] Comment on above: Performed By: #### 2 [id number] #### [facility] [employer] [address] [place] [address] 83610 ALT [Catalytic activity/Vol] 32 Int._Unit/L Normal 10-52 [facility] Comment on above: Performed By: #### 2 [id number] #### [facility] [employer] [address] [place] [address] 65138 Anion gap [Moles/Vol] 10 mmol/L Normal 10-20 [facility] Comment on above: Performed By: #### 2 [id number] #### [facility] [employer] [address] [place] [address] 50945 AST [Catalytic activity/Vol] 28 Int._Unit/L Normal 9-39 [facility] Comment on above: Performed By: #### 2 [id number] #### [facility] [employer] [address] [place] [address] 74461 Bili Total 0.67 mg/dL Normal 0.00-1.20 [facility] Comment on above: Performed By: #### 2 [id number] #### [facility] [employer] [address] [place] [address] 70573 Calcium [Mass/Vol] 8.9 mg/dL Normal 8.6-10.3 [facility] Comment on above: Performed By: #### 2 [id number] #### [facility] [employer] [address] [place] [address] 46419 Chloride [Moles/Vol] 105 mmol/L Normal 98-107 [facility] Comment on above: Performed By: #### 2 307014 #### [facility] [employer] [address] [place] [address] 37706 CO2 [Moles/Vol] 31.0 mmol/L Normal 21.0-32.0 [facility] Comment on above: Performed By: #### 2 000888 #### [facility] [employer] [address] [place] [address] 20117 Creatinine [Mass/Vol] 0.7 mg/dL Normal 0.5-1.3 [facility] Comment on above: Performed By: #### 2 [id number] #### [facility] [employer] [address] [place] [address] 62868 Globulin (S) [Mass/Vol] 3.0 g/dL Normal 2.0-4.0 [facility] Comment on above: Performed By: #### 2 [id number] #### [facility] [employer] [address] [place] [address] 15093 Glucose [Mass/Vol] 101 mg/dL High 70-99 [facility] Comment on above: Performed By: #### 2 277791 #### [facility] [employer] [address] [place] [address]995 Potassium [Moles/Vol] 4.4 mmol/L Normal 3.5-5.3 [facility] Comment on above: Performed By: #### 2 [id number] #### [facility] [employer] [address] [place] [address] 29543 Protein [Mass/Vol] 6.7 g/dL Normal 6.4-8.2 [facility] Comment on above: Performed By: #### 2 [id number] #### [facility] [employer] [address] [place] [address] 24892 Sodium [Moles/Vol] 141 mmol/L Normal 136-145 [facility] Comment on above: Performed By: #### 2 [id number] #### [facility] [employer] [address] [place] [address] 28913 Urea nitrogen [Mass/Vol] 13 mg/dL Normal 6-23 [facility] Comment on above: Performed By: #### 2 567505 #### [facility] [employer] [address] [place] [address] 06511 Urea nitrogen/Creatinine [Mass ratio] 18.6 ratio Normal 5.4-30.0 [facility] Comment on above: Performed By: #### 2 [id number] #### [facility] [employer] [address] [place] [address] 49961 Lipid Profileon 06-22-2019 Cholesterol [Mass/Vol] 176 mg/dL Normal 0-199 [facility] Comment on above: Result Comment: TOTA L CHOLEESTEROL: <200 NORMAL 200 - 239 BORDERLINE HIGH >240 HIGH Performed By: #### 3 [id number] #### [facility] [employer] [address] [place] [address] 11115 Cholesterol in HDL [Mass/Vol] 54 mg/dL Normal 40-60 [facility] Comment on above: Performed By: #### 3 [id number] #### [facility] [employer] [facility] [place] [address] Cholesterol in LDL [Mass/Vol] 107 mg/dL Normal 0-130 [facility] Comment on above: Result Comment: <100 OPTIMAL 100-129 NEAR / ABOVE OPTIMAL 130-159 BORDERLINE HIGH 160-189 HIGH >190 VERY HIGH CALC LDL NOT VALID WHEN TRIGLYCERIDE IS >400 MG/DL Performed By: #### 3 [id number] #### [facility] [employer] [address] [place] [address] 95179 Cholesterol in VLDL [Mass/Vol] 15 mg/dL Normal 0-40 [facility] Comment on above: Performed By: #### 3 [id number] #### [facility] [employer] [address] [place] [address] 95986 Triglyceride [Mass/Vol] 77 mg/dL Normal 0-149 [facility] Comment on above: Result Comment: AGE DESIRABLE BORDERLINE HIGH 91 D - 9 Y 0 - 74 75 - 99 > 100 10 - 19 Y 0 - 89 90 - 129 > 130 20 -24 Y 0 - 114 115 - 149 > 150 > 25 0 - 149 150 - 199 200 - 499 Performed By: #### 3 [id number] #### [facility] [employer] [address] [place], [place] [address] Vit B12on 06-22-2019 Cobalamin (Vitamin B12) [Mass/Vol] 229 pg/mL Normal 180-914 [facility] Comment on above: Performed By: #### 2 [id number] #### [facility] [employer] [address] [place] [address] 88189 XR Chest 2 Viewson 9 XR Chest 2 Views Exam Date/Time: 06/22/2019 09:44 EDT Reason for Exam: Cough Report STUDY: XR Chest 2 Views; 06/22/2019 9:44 am INDICATION: Cough. COMPARISON: None. ACCESSION NUMBER(S): [id number] ORDERING CLINICIAN: Ted Suárez FINDINGS: PA and [...] (Electronic Signature): 06/22/2019 11:06 am Signed by: Zeiszler MD, Reynaldo C Technologist: HLL [facility] eGFRon 06-22-2019 GFR/1.73 sq M predicted among non-blacks MDRD (S/P/Bld) [Vol rate/Area] mL/min/{1.73_m2} [facility] Comment on above: Order Comment: Order added by Discern Expert. Performed By: #### 1 [id number] #### [facility] [employer] [address] [place], [place] [id number] Vital Signs Date Time Vital Sign Value Performing Clinician Faci lity 07-27-2025 10:00-0400 Heart rate 85 /min Dr. Kody Frank MD Work Phone: 2(603)157-810405 [place] [address] 07-27-2025 07:08-0400 SaO2% (BldA) [Mass fraction] 92 % Dr. Kody Frank MD Work Phone: 6(505)000-428005 [place] [address] 07-27-2025 06:00-0400 Body temperature 97.4 [degF] Dr. Kody Frank MD Work Phone: 8(503)517-288105 [place] [address] 07-27-2025 06:00-0400 Diastolic blood pressure 56 mm[Hg] Dr. Kody Frank MD Work Phone: 0(964)360-924305 [place] [address] 07-27-2025 06:00-0400 Heart rate 86 /min Dr. Kody Frank MD Work Phone: 1(964)012-802505 [place] [address] 07-27-2025 06:00-0400 Respiratory rate 16 /min Dr. Kody Frank MD Work Phone: 0(539)098-650505 [place] [address] 07-27-2025 06:00-0400 Systolic blood pressure 111 mm[Hg] Dr. Kody Frank MD Work Phone: 1(515)141-325705 [place] [address] 07-26-2025 20:22-0400 Body mass index (BMI) [Ratio] 25.4 kg/m2 Dr. Kody Frank MD Work Phone: 9(807)069-984305 [place] [address] 07-26-2025 15:36-0400 Body height 190.[address] Kody Frank MD Work Phone: 1(640)181-524505 [place] [address] 07-26-2025 15:36-0400 Body weight 89.[address] Kody Frank MD Work Phone: [facility] 07-25-2025 14:00-0400 Body temperature 97.7 [degF] Dr. Kody Frank MD Work Phone: [facility] 07-25-2025 14:00-0400 Diastolic blood pressure 102 mm[Hg] Dr. Kody Frank MD Work Phone: [facility] 07-25-2025 14:00-0400 Heart rate 86 /min Dr. Kody Frank MD Work Phone: [facility] 07-25-2025 14:00-0400 Respiratory rate 16 /min Dr. Kody Frank MD Work Phone: [facility] 07-25-2025 14:00-0400 SaO2% (BldA) [Mass fraction] 97 % Dr. Kody Frank MD Work Phone: [facility] 07-25-2025 14:00-0400 Systolic blood pressure 124 mm[Hg] Dr. Kody Frank MD Work Phone: [facility] 07-25-2025 09:01-0400 Body mass index (BMI) [Ratio] 25.5 kg/m2 Dr. Kody Frank MD Work Phone: [facility] 07-24-2025 13:41-0400 Inhaled oxygen flow rate 2 L/min Dr. Kody Frank MD Work Phone: [facility] 07-23-2025 12:59-0400 Body weight 90.[address] Kody Frank MD Work Phone: [facility] 01-15-2022 13:05-0400 Body height 2255.52 cm ADITHYA HAJI Work Phone: [facility] Work Phone: 01-15-2022 13:05-0400 Body mass index (BMI) [Ratio] 0.1 kg/m2 PA Ivan Haynes PA Work Phone: [facility] Work Phone: 01-15-2022 13:05-0400 Body temperature 96.5 [degF] PA Ivan Haynes PA Work Phone: [facility] Work Phone: 01-15-2022 13:05-0400 Body weight 92.98 kg PA Ivan Haynes PA Work Phone: [facility] Work Phone: 01-15-2022 13:05-0400 Diastolic blood pressure 80 mm[Hg] PA Ivan Haynes PA Work Phone: [facility] Work Phone: 01-15-2022 13:05-0400 Heart rate 82 /min PA Ivan Haynes PA Work Phone: [facility] Work Phone: 01-15-2022 13:05-0400 Respiratory rate 14 /min PA Ivan Haynes PA Work Phone: [facility] Work Phone: 01-15-2022 13:05-0400 SaO2% (BldA) [Mass fraction] 95 % PA Ivan Haynes PA Work Phone: [facility] Work Phone: 01-15-2022 13:05-0400 Systolic blood pressure 130 mm[Hg] PA Ivan Haynes PA Work Phone: [facility] Work Phone: Encounters Encounter Date Encounter Type Care Provider Facility Start: 09-09-2025 ambulatory [facility] Start: 08-18-2025 ambulatory [facility] Facility :[facility] Start: 07-26-2025 Non-patient / Non-visit Dr. Judith Brizuela [facility] Work Phone: Start: 07-25-2025 ambulatory Judith Brizuela Facility:[facility] Start: 07-25-2025 Evaluation and management of inpatient Dr. Judith Brizuela DO -Rehab Unit Work Phone: Start: 07-25-2025 Non-patient / Non-visit Dr. Jaye Murrieta MD -[facility] Work Phone: Start: 07-25-2025 ambulatory Rod Carl ty:[facility] Start: 07-25-2025 Non-patient / Non-visit Dr. James Gurrola MD -[facility] Start: 07-24-2025 Non-patient / Non-visit Dr. James Freeman DO [facility] Work Phone: Start: 07-23-2025 ambulatory Herve Keerthi Facility:[facility] Start: 07-23-2025 End: 07-25-2025 Evaluation and management of inpatient Dr. Jaye Murrieta MD -Progressive Care Unit Work Phone: Start: 07-23-2025 ambulatory Kody Frank Faci lity:[facility] Start: 07-23-2025 Non-patient / Non-visit Dr. James Freeman DO [facility] Work Phone: Start: 07-22-2025 ambulatory Rod Carl ty:[facility] Start: 07-22-2025 Non-patient / Non-visit Dr. Rod Collins DO [facility] Work Phone: Start: 05-19-2025 End: 05-19-2025 ambulatory [facility] Start: 01-04-2025 End: 01-04-[address] Kody Frank MD Work Phone: [facility] Work Phone: Start: 01-04-2025 End: 01-04-[address] Kody Frank MD -Laboratory, [facility] Start: 01-04-2025 End: 01-04-2025 ambulatory Kody Frank Facility:[facility] Start: 03-21-2023 End: 03-21-2023 ambulatory [facility] Work Phone: Start: 03-21-2023 End: 03-21-2023 Patient encounter procedure [facility] Start: 04-15-2022 AUDIT Ted Suárez Work Phone: [facility] Work Phone: Start: 02-04-2022 AUDIT Ted Suárez Work Phone: [facility] Work Phone: Start: 01-15-2022 End: 01-15-2022 Patient encounter procedure ADITHYA HAJI Work Phone: [facility] Start: 06-07-2021 AUDIT Ted Suárez Work Phone: [facility] Work Phone: Procedures Date Procedure Procedure Detail Performing Clinician Start: 07-27-2025 Measurement of occul t blood in stool specimen using immunoassay Dr. Kody Frank MD Work Phone: Start: 07-27-[address] Waqar Frank MD Work Phone: Start: 07-26-2025 Serum inorganic phos phate measurement Dr. Kody Frank MD Work Phone: Start: 07-25-[address] Kody Frank MD Work Phone: Start: 07-23-2025 MRI of brain without contrast Dr. Kody Frank MD Work Phone: Start: 07-23-2025 CT of head without contrast Dr. Kody Frank MD Work Phone: Start: 07-23-2025 Methadone measurement, urine Dr. Kody Frank MD Work Phone: Start: 07-22-2025 Plain chest X-ray Dr. Bubba Frank MD Work Phone: Start: 07-22-2025 CT angiography of he ad and neck Dr. Kody Frank MD Work Phone: Start: 07-22-2025 CT of head without contrast Dr. Kody Frank MD Work Phone: Start: 01-15-2022 X-ray of both feet ADITHYA [...] EJACULATION WITHIN 48 HRS[facility] VOL24,NO.2, , PG.339 Performed By: #### 1 [id number] #### [facility] [employer] [address] [place] [address] Start: 12-10-2013 Colonoscopy Ted moore Work Phone: Appendectomy Ted Suárez Work Phone: Phacoemulsification of cataract with intraocular lens implantation Ted Suárez Work Phone: Vasectomy Ted Suárez Work Phone: Plan of Treatment Date Care Activity Detail Author Start: 07-27-2025 Videoswallow [facility] Start: 07-26-2025 Measurement of occult blood in stool specimen using immunoassay [facility] Start: 07-25-2025 Following clinical pathway protocol [facility] Start: 07-25-2025 Recommendation to continue with treatment [facility] Start: 07-25-2025 Urinary bladder training [facility] Start: 07-25-2025 Admission procedure [facility] Start: 07-25-2025 Measuring intake and output [facility] Start: 07-25-2025 Patient referral to dietitian [facility] Start: 07-25-2025 Referral for physical therapy [facility] Start: 07-25-2025 Vital signs measurements [facility] Start: 07-25-2025 [facility] Start: 07-25-2025 Referral to occupational therapist [facility] Start: 07-25-2025 Verification routine [facility] Start: 07-25-2025 Patient discharge [facility] Start: 07-25-2025 Speech therapy assessment [facility] Start: 07-23-2025 Admission procedure [facility] Start: 07-23-2025 Inhalation therapy procedure [facility] Start: 07-22-2025 Following clinical pathway protocol [facility] Start: 07-22-2025 Aspiration precautions [facility] Start: 07-22-2025 Cardiac monitoring [facility] Start: 07-22-2025 Catheterization of vein [facility] Start: 07-22-2025 Consultation [facility] Start: 07-22-2025 Elevation of head of bed [facility] Start: 07-22-2025 Exercises [facility] Start: 07-22-2025 Notification of physician [facility] Start: 07-22-2025 Oxygen therapy [facility] Start: 07-22-2025 Patient referral to dietitian [facility] Start: 07-22-2025 Referral for physical therapy [facility] Start: 07-22-2025 Referral to occupational therapist [facility] Start: 07-22-2025 Referral to service [facility] Start: 07-22-2025 Speech therapy assessment [facility] Start: 07-22-2025 Telemedicine consultation with patient [facility] Start: 07-22-2025 Tobacco use cessation education [facility] Start: 07-22-2025 End: 07-22-2025 [facility] Start: 07-22-2025 Vital signs measurements [facility] Start: 07-22-2025 Admission procedure [facility] Start: 07-22-2025 [facility] Patient Education Booklet - Tennillee rstanding Stroke [facility] Work Phone: Immunizations Immunization Date Immunization Notes Care Provider Dany silva 07-27-2019 influenza virus vacc ine, unspecified formulation Ted Suárez Work Phone: [facility] Work Phone: Comment on above: Series: 2019 tetanus toxoid, redu maximilian diphtheria toxoid, and acellular pertussis vaccine, adsorbed; Translations: [Tdap] Ted Suárez Work Phone: [facility] Work Phone: Comment on above: Series: 09-01-2018 influenza virus vacc ine, unspecified formulation; Translations: [influenza virus vaccine, unspecified formulation] Ted Suárez Work Phone: [facility] Work Phone: Comment on above: Series: 07-27-2018 pneumococcal polysaccharide vaccine, 23 valent; Translations: [Pneumovax 23 25 MCG/0.5ML Injection Injectable] Ted Degrooter Work Phone: [facility] Work Phone: Comment on above: Series: 09-24-2017 pneumococcal conjuga te vaccine, 13 valent; Translations: [Prevnar 13 Intramuscular Suspension] eTd Degrooter Work Phone: [facility] Work Phone: Comment on above: Series: 11-20-2012 zoster vaccine, live ; Translations: [zoster vaccine, live] Ted Degrooter Work Phone: [facility] Work Phone: Comment on above: Series: Payers Date Payer Category Payer Medicare [id number] 2025 Self-pay [id number] 2024 Unknown [id number] 1950 Unknown [id number] 2.16. [id number] Unknown ANTHEM Unknown SELF PAY INSURANCE [id number] Unknown [id number] 2.16.8 [id number] Unknown [id number] 2.16.8 [id number] Unknown [id number] 2.16.8 [id number] Unknown [id number] 2.16.8 [id number] Unknown [id number] 2.16.8 [id number] Unknown [id number] 2.16.8 [id number] Unknown [id number] 2.16.8 [id number] Unknown [id number] 2.16.8 [id number] Unknown [id number] 2.16.8 [id number] Unknown [id number] 2.16.8 40.1.481157.3.579.2.462 Unknown [id number] 2.16.8 [id number] Unknown [id number] 2.16.8 40.1.151371.3.579.2.462 Unknown [id number] 2.16.8 40.1.850285.3.579.2.462 Unknown [id number] 2.16.8 [id number] Unknown [id number] 2.16.8 [id number] Social History Date Type Detail Facility Former smoker Former smoker -[facility] Work Phone: Start: 1950 Sex Assigned At Male W [facility] Start: 08[facility]05-2023 [facility] Start: 01-14-2025 Sex Female (finding) [facility] Start: 07-26-2025 Tobacco smoking stat [facility] Ex-smoker (finding) [facility] Start: 07-26-2025 Tobacco Use Tobacco Use [facility] Sex Female [facility] Goals Date Patient Goal Desired Activity /State Functional Status Date Assessment Result Facility 07-27-2025 Functional status With Assist of 2 [facility] Work Phone: 07-25-2025 Functional status Ambulates [facility] Work Phone: Mental Status Date Assessment Result Facility 07-27-2025 Cognitive function Voice/Name [facility] Work Phone: 07-26-2025 Cognitive function Voice/Name [facility] Work Phone: 07-25-2025 Cognitive function Voice/Name [facility] Work Phone: Clinical Notes 07-22-2025 to 08-16-2025 Note Date & Type Note Facility 08-16-2025 Note [facility] Medical Records Department [address] [place] [address] Discharge Summary 08/16/25 0908 MR#: [id number] Acct: [id number] Name: KODY RUGGIERO Rep #: [id number] : 1950 75 From: Cami Knog NP -C PCP: Dr. Pipe Betancourt MD Status:ADM IN Location: [place] [address]-1 Providers Date of Admission: 07/25/25 Date of Discharge: 08/16/25 Primary Care Physician: Dr. Pipe Betancourt MD Reason For Visit: debility following stroke Diagnosis Discharge Diagnosis (1) Debility: Status: Acute Code(s): R53.81 - Other malaise Plan: *Patient is unsafe to use a cane and requires a charlie walker ???for??? ambulation for in the home and the community. The patient cannot use a standard walker d/t to disorder or condition that causes restricted use of one hand. *Patient has a mobility limitation that cannot be sufficiently resolved by using a cane or walker. Use of a w/c will improve the participating of ADLs on a regular basis in the home. A caregiver can propel patient safely. (2) Stroke: Status: Acute Code(s): I63.9 - Cerebral infarction, unspecified Plan: *continue aspirin 81mg PO daily and plavix 75mg PO daily for 3 months- RX send to pt home pharmacy *following the 3 months, the pt will continue with aspirin only (3) Right hemiplegia: Status: Acute Code(s): G81.91 - Hemiplegia, unspecified affecting right dominant side Plan: *Pt will require outpatient PT/OT/ST (4) Glaucoma: Status: Acute Code(s): H40.9 - Unspecified glaucoma Plan: *continue home medications (5) Asthma: Status: Acute Code(s): J45.909 - Unspecified asthma, uncomplicated Plan: *continue home medications *I have reviewed the oxygen testing and this patient qualifies for the home equipment and portability. The patient is mobile in the home in the community. *O2 at night with sleep or naps (6) Allergic rhinitis: Status: Acute Code(s): J30.9 - Allergic rhinitis, unspecified Plan: *continue home medications (7) Hyperlipidemia, unspecified: Status: Acute Code(s): E78.5 - Hyperlipidemia, unspecified Plan: *Atorvastatin 40mg PO at bedtime sent to pt home pharmacy (8) Gout: Status: Acute Code(s): M10.9 - Gout, unspecified Plan: *continue home medications * follow up with PCP for any flare ups Medications at Discharge Home Medications fluticasone 250 mcg-salmeterol 50 mcg/dose blistr powdr for inhalation 1 inh inhalation Q12H SOB/Wheezing 01/15/22 latanoprost 0.005 % eye drops 1 drp ophthalmic (eye) QODAY eye drops 01/15/22 cholecalciferol (vitamin D3) 50 mcg (2,000 unit) tablet (Vitamin D3) 50 mcg PO DAILY supplement 07/22/25 fluticasone propionate 50 mcg/actuation nasal spray,suspension (Allergy Relief (fluticasone)) 1 spray intranasal DAILY SOB/Wheezing 07/22/25 loratadine 10 mg tablet (Claritin) 10 mg PO DAILY allergies 07/22/25 amlodipine 10 mg tablet 10 mg PO DAILY BP #30 tabs 07/25/25 fluticasone 250 mcg-salmeterol 50 mcg/dose blistr powdr for inhalation (Advair Diskus) 1 inh inhalation BID sob/wheezing 07/26/25 aspirin 81 mg chewable tablet 81 mg PO BREAKFAST 90 days #0 tabs 08/16/25 atorvastatin 40 mg tablet 40 mg PO QHS cholestrol 30 days #30 tabs 08/16/25 clopidogrel 75 mg tablet 75 mg PO DAILY 90 days #90 tabs 08/16/25 Physical Exam Const alert, oriented x3, no apparent distress and average body habitus General Appearance: cooperative and comfortable Orientation / Consciousness: awake, oriented to person, oriented to place and oriented to time Exam Limitations: no limitations HEENT normocephalic Face and Sinus: other slight R sided facial drooping Mouth: oral and palatal mucosa normal Eyes PERRL Eyes Narrative: L eye glaucoma Neck full ROM General: normal visual inspection and trachea midline Lymph Lymphatic: no lymphadenopathy noted Chest inspection of chest normal Resp normal respiratory effort, normal air movement, no retractions, no use of accessory muscles and clear to auscultation bilaterally Effort and Inspection: able to speak in complete sentences Cardio regular rate, regular rhythm, S1 normal heart sound and S2 normal heart sound Peripheral Pulses: pulses 2+ throughout GI normal to inspection, nondistended, normoactive bowel sounds Palpation: soft no CVA tenderness Back/Spine no CVA tenderness Extremity Extremity Narrative: RUE/RLE weakness. RUE contraction felt but, essentially flaccid. R foot drop Skin no rashes or lesions noted Neuro oriented x3 Neuro Narrative: RUE sensation deficit Sensorium / Orientation: awake, alert, oriented to person, oriented to place and oriented to time Speech: speech normal Gait (Neuro): unable to assess gait Sensory Exam: extremities pin-prick: decreased (RUE ), light-touch: decreased (RUE), vibratory: decreased (RUE) and proprioception: decreased (more content not included)... [facility] 07-26-2025 Note [facility] Medical Records Department [address] [place] [address] History Physical Exam 07/26/25 0723 MR#: [id number] Acct: [id number] Name: KODY RUGGIERO Rep #: [id number] : 1950 75 From: Judith Brizuela DO PCP: Dr. Kody Frank MD Status:ADM IN Location: [id number] HPI - General General Date of Admission: 07/25/25 Date of Service: 07/26/25 Chief Complaint: POST STROKE DEBILITY HPI Narrative KODY RUGGIERO, is a 75 YO M with a PMH of tobacco dependence in remission, glaucoma, asthma and seasonal allergies who presented to the emergency room at [facility] on 07/22/2025 at approximately 8 PM complaining of right-sided weakness and slurred speech that had started at about 8 AM that morning and had gotten progressively worse throughout the day. Noncontrast CT brain showed no acute abnormalities. CTA of the head and neck revealed no large intracranial or cervical large vessel occlusion or hemodynamically significant stenosis. There was a mild short segment narrowing of the proximal basilar artery. The ED doc scored a 2 on the NIHSS. He was not a candidate for thrombolytics because sx had been present for > 4 hours. He received ASA in the ED. He was admitted to the hospitalist service and consult was ordered with neurology. NIHSS was 5 when evaluated by teleneurology. 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 MRI was recommended and also loading with 600 mg of Plavix. Radiology reported the MRI is having no evidence of acute intracranial pathology. The neurologist felt the MRI showed a left pontine stroke. Carotid ultrasound showed less than 50% stenosis in the right and left extracranial internal carotid arteries. The vertebrals were patent and antegrade bilaterally. Transthoracic echocardiogram showed a ejection fraction of 60 to 65% with mild mitral regurgitation. Both atria were of normal size. Labs showed the total cholesterol to be 146 with an LDL of 88 and an HDL of 45. Triglycerides were 67. TSH was normal. Hemoglobin A1c was 5.6%. Neurology recommended continuing aspirin and Plavix for a total of 3 months and then discontinuing Plavix and continuing aspirin alone. Mr. Ruggiero was transferred to the acute inpt rehab unit at [facility] on 07/25/25 for 3 hours of therapy daily to restore function/independence at or near his level prior to the recent stroke. All lab drawn this morning was personally reviewed. The white blood cell count is normal at 7.3 with an unremarkable differential. Hemoglobin is 16.5 and platelets are within normal limits. I reviewed the results of the CMP done yesterday and they were unremarkable. LFTs are normal. Has had hyperuricemia in the past. Calcium is normal. Phosphorus and magnesium are normal today. Lipid panel showed triglycerides of 67 with a total cholesterol of 146 and an LDL of 88. The HDL is 45. Tells me that he exercises regular.....walking and hiking. He also tells me that he has had AF in the past.........it usually resolves without treatment and he is not currently on an AC or an antiarrhythmic. He had a stress test in the past and it was negative. No FH of CAD. He has a brother who has had a stroke. [facility] Medical History (Updated 07/26/25 @ 12:[address] Judith Brizuela, DO) Paroxysmal A-fib Tobacco dependence due to cigarettes, in remission Glaucoma Hyperuricemia Seasonal allergies Asthma, mild intermittent Home Medications ???Medication ???Instructions ???Recorded ???Last Taken ???Type fluticasone 250 mcg-salmeterol 50 1 inh inhalation Q12H SOB/Wheezin g 01/15/22 07/22/25 08:14 History mcg/dose blistr powdr for inhalation latanoprost 0.005 % eye drops 1 drp ophthalmic (eye) QODAY eye 0 01/15/22 07/21/25 22:12 History drops cholecalciferol (vitamin D3) 50 50 mcg PO DAILY supplement 5 07/22/25 08:00 History mcg (2,000 unit) tablet (Vitamin D3) fluticasone propionate 50 1 spray intranasal DAILY 07/22/25 07/22/25 08:13 History mcg/actuation nasal SOB/Wheezing spray,suspension (Allergy Relief (fluticasone)) loratadine 10 mg tablet (Claritin) 10 mg PO DAILY allergies 5 07/22/25 08:12 History amlodipine 10 mg tablet 10 mg PO DAILY BP #30 tabs 5 Unknown Rx aspirin 81 mg chewable tablet 81 mg PO BREAKFAST heart health Unknown Rx #30 tabs atorvastatin 40 mg tablet 40 mg PO QHS cholestrol #30 tabs 0 07/25/25 Unknown Rx clopidogrel 75 mg tablet 75 mg PO DAILY supplement #90 tabs 07/25/25 Unknown Rx fluticasone 250 mcg-salmeterol 50 1 inh inhalation BID sob/wheezing 07/26/25 Unknown History mcg/dose blistr powdr for inhalation (Advair Diskus) Allergy/AdvReac Type Severity Reaction Status Date / Time No Known Allergies Allergy Verified 08/05/23 09:38 Family History (Upd (more content not included)... [facility] 07-25-2025 Discharge summary [facility] 07-25-2025 Discharge summary [facility] 07-25-2025 Note [facility] Medical Records Department [address] [place] [address] Discharge Summary 07/25/25 1653 MR#: [id number] Acct: [id number] Name: KODY RUGGIERO Rep #: [id number] : 1950 75 From: Jaye Murrieta MD PCP: Dr. Kody Frank MD Status:DIS IN Location: [place] [address] Providers Date of Admission: 07/23/25 Date of Discharge: 07/25/25 Primary Care Physician: Dr. Kody Frank MD Consultations 07/22/25 21:50 Consult: Tele-Neurology Routine Consulting Provider: [facility] Reason for Consult: Acute Ischemic Stroke/TIA EMERGENT Consult: No MD Notified: Yes Date Notified: 07/22/25 Time Notified: 23:40 Method of Notification: Answering Service Nursing Unit Staff Notify [facility] of Tele-Neurology Consult: Yes Reason For Visit: TIA VS CVA Diagnosis Discharge Diagnosis (1) Right arm weakness: Status: Deleted Code(s): R29.898 - Other symptoms and signs involving the musculoskeletal system (2) Right leg weakness: Status: Deleted Code(s): R29.898 - Other symptoms and signs involving the musculoskeletal system (3) Slurred speech: Status: Deleted Code(s): R47.81 - Slurred speech Medications at Discharge Home Medications fluticasone 250 mcg-salmeterol 50 mcg/dose blistr powdr for inhalation 1 inh inhalation Q12H SOB/Wheezing 01/15/22 latanoprost 0.005 % eye drops 1 drp ophthalmic (eye) QODAY eye drops 01/15/22 cholecalciferol (vitamin D3) 50 mcg (2,000 unit) tablet (Vitamin D3) 50 mcg PO DAILY supplement 07/22/25 fluticasone propionate 50 mcg/actuation nasal spray,suspension (Allergy Relief (fluticasone)) 1 spray intranasal DAILY SOB/Wheezing 07/22/25 loratadine 10 mg tablet (Claritin) 10 mg PO DAILY allergies 07/22/25 amlodipine 10 mg tablet 10 mg PO DAILY BP #30 tabs 07/25/25 aspirin 81 mg chewable tablet 81 mg PO BREAKFAST heart health #30 tabs 07/25/25 atorvastatin 40 mg tablet 40 mg PO QHS cholestrol #30 tabs 07/25/25 clopidogrel 75 mg tablet 75 mg PO DAILY supplement #90 tabs 07/25/25 fluticasone 250 mcg-salmeterol 50 mcg/dose blistr powdr for inhalation (Advair Diskus) 1 inh inhalation BID sob/wheezing 07/26/25 Hospital Course Operations None Procedures 2-D Echocardiogram Summary of Care Provided Minutes Spent on Discharge: 40 Hospital Course: Patient is a 75-year-old male with a past medical history as outlined was admitted to the ED on 07/22/2025 with complaint of right lower extremity weakness and slurred speech with the symptoms beginning at around 8 AM on the morning of admission. He was doing some exercise and noted increased heaviness and weakness in his right lower extremity. He did not feel right throughout the whole day. He also noted subsequently that the dexterity in his right hand was affected and associated with slurred speech so he came into the ED due to concerns for stroke. CT of the brain showed no acute intracranial abnormality. CTA of the head and neck showed no hemodynamically significant occlusion. He was admitted to be managed for stroke rule out. Telestroke was consulted. He had 2D echo which showed EF of 60 to 65% with mild mitral regurgitation. He had MRI which showed no evidence of acute intracranial pathology. However neurology reviewed the MRI and felt that patient likely had a left pontine stroke. Patient was therefore managed for acute stroke especially in light of him having the clear deficits with a right-sided weakness. He was placed on aspirin and atorvastatin high intensity as well as Plavix. PT OT and speech therapy were consulted. Per neurology he was to be on dual antiplatelet therapy for 3 months and then to continue with aspirin monotherapy and continue with high intensity statin. He was discharged to the acute rehab unit on 07/25/2025. He is follow-up with his primary care doctor within 1 to 2 weeks and was referred to neurology on outpatient basis. Patient seen and examined prior to discharge. He had no active complaints and had an uneventful night. Review of systems otherwise negative. Labs and vitals reviewed. Home medication reviewed and reconciled. Physical Exam Const alert, oriented x3 and no apparent distress General Appearance: cooperative and comfortable HEENT normocephalic, head/scalp atraumatic, moist oral mucous membranes and oropharynx normal Mouth: oral and palatal mucosa normal Eyes EOMs intact bilaterally and conjunctivae normal Neck supple and no JVD Resp normal respiratory effort, no retractions, no use of accessory muscles and clear to auscultation bilaterally Cardio regular rate, regular rhythm, S1 normal heart sound, S2 normal heart sound and no murmurs GI normal to inspection, nondistended, normoactive bowel sounds, soft to palpation and non-tender Extremity normal to inspection Skin no rashes or lesions noted Neuro oriented x3 Neuro Na (more content not included)... [facility] 07-25-2025 Progress note Note Date/Time July 25, 2025 2:35pm [facility] Medical Records Department [address] [place] [address] Progress Note - Neurology 07/25/25 1427 MR#: [id number] Acct: [id number] Name: KODY RUGGIERO Rep #:[id number] : 1950 75 From: Low Roa PCP: Dr. Kody Frank MD Status :ADM IN Location: [place] [address] Assessment and Plan: Neuro Assessment/Plan Telestroke Attending Progress Note 75 y/o man with h/o former tobacco abuse, mild intermittent asthma p/w right sided weakness along with slurred speech, progressive worsening. CT Head- no acute intracranial process. CTA- mild stenosis of basilar artery. LDL: 88, MRI: Left pontine stroke. Likely small vessel disease. Diagnosis: Left pontine stroke, small vessel disease Plan: Continue ASA, plavix for 3 months then ASA alone along with statin. Permissive HTN acutely and gradual normalization of blood pressure PT,OT, speech, swallow eval stroke education Smoking cessation Evaluation for rehabilitation I personally attended this patient and spent a total time of 35 minutes evaluating this patient including clinical assessment, review of chart, medical history imaging, and determining appropriate treatment and workup. Subject: Neurology Subjective He reports no new complaints at this time. Still has no movement in RUE with antigravity in RLE. EEG Results Procedure Details EEG Procedure Details: KODY RUGGIERO is a 75 year old M with a past medical history of , who presents for evaluation of Electroencephalogram on DATE at TIME Objective Data Objective Data Vital Signs: Vital Signs Temp Pulse Resp BP Pulse Ox O2 Del Method O2 Flow Rate 97.7 F L 86 16 124/102 H 97 Room Air 2 07/25/25 14:00 07/25/25 14:00 07/25/25 14:00 07/25/25 14:00 07/25/25 14:00 07/25/25 14:00 07/24/25 13:41 Oxygen Flow Rate (L/min) 2 Oxygen Delivery Method Room Air Weight: 90.2 kg Body Mass Index (BMI) 25.5 Intake & Output: Intake and Output for Last 24 Hours 07/23/25 07/24/25 07/25/25 23:59 23:59 23:59 Intake Total 2450 / 2450 900 / 900 Balance 2450 / 2450 900 / 900 Lab / Micro Data 07/25/25 12:10 07/25/25 12:10 Labs: Laboratory Results - last 24 hr 07/25/25 12:10: WBC 8.6, RBC 4.97, Hgb 16.3, Hct 46.9, MCV 94.4 H, MCH 32.8 H, MCHC 34.8, RDW Std Deviation 44.9 H, RDW Coeff of Driss 13.0, Plt Count 285, MPV 9.1, Immature Gran % (Auto) 0.300, Neut % (Auto) 61.2, Lymph % (Auto) 17.6 L, Mcmullen % (Auto) 14.7 H, Eos % (Auto) 5.7 H, Baso % (Auto) 0.5, Absolute Neuts (auto) 5.3, Absolute Lymphs (auto) 1.51, Nucleated RBC % 0, Sodium 140, Potassium 4.4, Chloride 106, Carbon Dioxide 20.5 L, Anion Gap 13, BUN 13, Creatinine 0.78, Estim Creat Clear Calc 89.91, Est GFR (MDRD) Non-Af 92, BUN/Creatinine Ratio 16.7, Glucose 117 H, Calcium 9.2, Total Bilirubin 0.56, AST32, ALT 27, Alkaline Phosphatase 89, Total Protein 6.9, Albumin 4.1, Globulin 2.8, Albumin/Globulin Ratio 1.5 NIHSS NIHSS Nursing Documentation NIHSS Nursing Documentation: NIHSS: Ischemic Stroke/TIA Start: 07/22/25 21:50 Text: For PCU Patients: NIH and Neuro Check every 4 Status: Active hours, PRN and with change in RN caregiver. Freq: [id number] Protocol: Activity Type Activity Date Activity User E-sign Co-sign Detail Recorded Client Recorded Date Recorded By Document 07/25/25 14:00 JR [id number] 07/25/25 14:25 07/25/25 14:00 NIH Stroke Scale [NIHSS] A score of 0 is "normal" or asymptomatic . Total possible score is 42. Inpatient: RN or Physician to activate a stroke alert for onset of new stroke symptoms or with NIHSS increase >/= 3 points. Following change in neurological status, NIHSS will be performed per physician order or more frequently PRN. -1a. Level of Consciousness 0 - Alert; keenly responsive -1b. LOC Questions 0 - Answers BOTH questions correctly -1c. LOC Commands 0 - Performs BOTH tasks correctly -2. Best Gaze 0 - Normal -3. Visual 0 - No visual loss -4. Facial Palsy 1 - Minor paralysis ( flattened nasolabial fold , asymmetry on smiling) -5a. Left Arm 0 - No drift; arm holds 90 ( or 45) degrees for full 10 seconds -5b. Right Arm 3 - No effort against gravity ; arm falls -6a. Left Leg 0 - No drift; leg holds 30- degree position for full 5 seconds -6b. Right Leg 2 - Some effort against gravity; -7. Limb Ataxia 0 - Absent -8. Sensory 0 - Normal; no sensory loss -9. Best Language 0 - No aphasia; normal -10. Dysarthria 1 = Mild-to- moderate dysarthria; -11. Extinction and Inattention 0 - No abnormality -Total 7 Query Text:A score of 0 is "normal" or asymptomatic. Total possible score is 42 . ED: Notify Physician for NIHSS increase by > / = 3 points. Inpatient: RN or Physician to activate a stroke alert for NIHSS increase of > / = 3 points. Coma Scale [Assess] -Eye Opening Spontaneous -Motor Obeys Commands -Verbal Oriented [Total] -Coma Scale Total 15 NIHSS 1a. Level of Consciousness: 0 - Alert; keenly responsive 1b. LOC Questions: 0 - Answers BOTH questions correctly 1c. LOC Commands: 0 - Performs BOTH tasks correctly 2. Best Gaze: 0 - Normal 3. Visual: 0 - No visual loss 4. Facial Palsy: 0 - Normal symmetrical movements 5a. Left Arm: 0 - No drift; arm holds 90 (or 45) degrees for full 10 seconds 5b. Right Arm: 4- No movement 6a. Left Le - No drift; leg holds 30-degree position for full 5 seconds 6b. Right Le - Drift; leg falls by the end of 5-seconds, but does not hit bed 7. Limb Ataxia: 0 - Absent 8. Sensory: 0 - Normal; no sensory loss 9. Best Language: 0 - No aphasia; normal 10. Dysarthria: 0 - Normal 11. Extinction and Inattention: 0 - No abnormality Total: 5 07/25/25 1435 <Electronically signed by Low Dillon MD> Cosigner Signature (if applicable): CC: ~ Signed [facility] Work Phone: 1(840) 431-579809-29-2025 Progress note [facility] Medical Records Department [address] [place] [address] Progress Note - Neurology 07/25/25 1427 MR#: [id number] Acct: [id number] Name: KODY RUGGIERO Rep #:[id number] : 1950 75 From: Low Roa PCP: Dr. Kody Frank MD Status :ADM IN Location: [place] [address] Assessment and Plan: Neuro Assessment/Plan Telestroke Attending Progress Note 75 y/o man with h/o former tobacco abuse, mild intermittent asthma p/w right sided weakness along with slurred speech, progressive worsening. CT Head- no acute intracranial process. CTA- mild stenosis of basilar artery. LDL: 88, MRI: Left pontine stroke. Likely small vessel disease. Diagnosis: Left pontine stroke, small vessel disease Plan: Continue ASA, plavix for 3 months then ASA alone along with statin. Permissive HTN acutely and gradual normalization of blood pressure PT,OT, speech, swallow eval stroke education Smoking cessation Evaluation for rehabilitation I personally attended this patient and spent a total time of 35 minutes evaluating this patient including clinical assessment, review of chart, medical history imaging, and determining appropriate treatment and workup. Subject: Neurology Subjective He reports no new complaints at this time. Still has no movement in RUE with antigravity in RLE. EEG Results Procedure Details EEG Procedure Details: KODY RUGGIERO is a 75 year old M with a past medical history of , who presents for evaluation of Electroencephalogram on DATE at TIME Objective Data Objective Data Vital Signs: Vital Signs Temp Pulse Resp BP Pulse Ox O2 Del Method O2 Flow Rate 97.7 F L 86 16 124/102 H 97 Room Air 2 07/25/25 14:00 07/25/25 14:00 07/25/25 14:00 07/25/25 14:00 07/25/25 14:00 07/25/25 14:00 07/24/25 13:41 Oxygen Flow Rate (L/min) 2 Oxygen Delivery Method Room Air Weight: 90.2 kg Body Mass Index (BMI) 25.5 Intake & Output: Intake and Output for Last 24 Hours 07/23/25 07/24/25 07/25/25 23:59 23:59 23:59 Intake Total 2450 / 2450 900 / 900 Balance 2450 / 2450 900 / 900 Lab / Micro Data 07/25/25 12:10 07/25/25 12:10 Labs: Laboratory Results - last 24 hr 07/25/25 12:10: WBC 8.6, RBC 4.97, Hgb 16.3, Hct 46.9, MCV 94.4 H, MCH 32.8 H, MCHC 34.8, RDW Std Deviation 44.9 H, RDW Coeff of Driss 13.0, Plt Count 285, MPV 9.1, Immature Gran % (Auto) 0.300, Neut %(Auto) 61.2, Lymph % (Auto) 17.6 L, Mcmullen % (Auto) 14.7 H, Eos % (Auto) 5.7 H, Baso % (Auto) 0.5, Absolute Neuts (auto) 5.3, Absolute Lymphs (auto) 1.51, Nucleated RBC % 0, Sodium 140, Potassium 4.4, Chloride 106, Carbon Dioxide 20.5 L, Anion Gap 13, BUN 13, Creatinine 0.78, Estim Creat Clear Calc 89.91, Est GFR (MDRD) Non-Af 92, BUN/Creatinine Ratio 16.7, Glucose 117 H, Calcium 9.2, Total Bilirubin 0.56, AST32, ALT 27, Alkaline Phosphatase 89, Total Protein 6.9, Albumin 4.1, Globulin 2.8, Albumin/Globulin Ratio 1.5 NIHSS NIHSS Nursing Documentation NIHSS Nursing Documentation: NIHSS: Ischemic Stroke/TIA Start: 07/22/25 21:50 Text: For PCU Patients: NIH and Neuro Check every 4 Status: Active hours, PRN and with change in RN caregiver. Freq: [id number] Protocol: Activity Type Activity Date Activity User E-sign Co-sign Detail Recorded Client Recorded Date Recorded By Document 07/25/25 14:00 [id number] 07/25/25 14:25 07/25/25 14:00 NIH Stroke Scale [NIHSS] A score of 0 is "normal" or asymptomatic . Total possible score is 42. Inpatient: RN or Physician to activate a stroke alert for onset of new stroke symptoms or with NIHSS increase >/= 3 points. Following change in neurological status, NIHSS will be performed per physician order or more frequently PRN. -1a. Level of Consciousness 0 - Alert; keenly responsive -1b. LOC Questions 0 - Answers BOTH questions correctly -1c. LOC Commands 0 - Performs BOTH tasks correctly -2. Best Gaze 0 - Normal -3. Visual 0 - No visual loss -4. Facial Palsy 1 - Minor paralysis ( flattened nasolabial fold , asymmetry on smiling) -5a. Left Arm 0 - No drift; arm holds 90 ( or 45) degrees for full 10 seconds -5b. Right Arm 3 - No effort against gravity ; arm falls -6a. Left Leg 0 - No drift; leg holds 30- degree position for full 5 seconds -6b. Right Leg 2 - Some effort against gravity; -7. Limb Ataxia 0 - Absent -8. Sensory 0 - Normal; no sensory loss -9. Best Language 0 - No aphasia; normal -10. Dysarthria 1 = Mild-to- moderate dysarthria; -11. Extinction and Inattention 0 - No abnormality -Total 7 Query Text:A score of 0 is "normal" or asymptomatic. Total possible score is 42 . ED: Notify Physician for NIHSS increase by > / = 3 points. Inpatient: RN or Physician to activate a stroke alert for NIHSS increase of > / = 3 points. Coma Scale [Assess] -Eye Opening Spontaneous -Motor Obeys Commands -Verbal Oriented [Total] -Coma Scale Total 15 NIHSS 1a. Level of Consciousness: 0 - Alert; keenly responsive 1b. LOC Questions: 0 - Answers BOTH questions correctly 1c. LOC Commands: 0 - Performs BOTH tasks correctly 2. Best Gaze: 0 - Normal 3. Visual: 0 - No visual loss 4. Facial Palsy: 0 - Normal symmetrical movements 5a. Left Arm: 0 - No drift; arm holds 90 (or 45) degrees for full 10 seconds 5b. Right Arm: 4- No movement 6a. Left Le - No drift; leg holds 30-degree position for full 5 seconds 6b. Right Le - Drift; leg falls by the end of 5-seconds, but does not hit bed 7. Limb Ataxia: 0 - Absent 8. Sensory: 0 - Normal; no sensory loss 9. Best Language: 0 - No aphasia; normal 10. Dysarthria: 0 - Normal 11. Extinction and Inattention: 0 - No abnormality Total: 5 07/25/25 1435 Cosigner Signature (if applicable): CC: ~ Signed [facility]09-29-2025 Hospital Discharge instructionsAdditional Instructions Date of [facility]: [facility] Phone: 1(440) 435-863209-28-2025 Progress note Author James Freeman [facility] Note Date/Time July 24, 2025 1:11pm [facility] Medical Records Department [address] [place] [address] Progress Note - Hospitalist 07/24/25916 MR#: [id number] Acct: [id number] Name: KODY RUGGIERO Rep #:[id number] : 1950 75 From: Jamse Freeman DO PCP: Dr. Kody Frank MD Status :ADM IN Location: [place] [address] 1 Reason for Visit Chief Complaint: RLE Weakness and Slurred Speech. Subjective Subjective Feels he is able to speak better. Able to move his right lower extremity somewhat better but still profound deficits in his right upper extremity. Objective Data Objective Data Vital Signs: Vital Signs Temp Pulse Resp BP Pulse Ox O2 Del Method O2 Flow Rate 36.1 C L 67 20 H 147/102 H 96 Room Air 2 07/24/25 07:17 07/24/25 07:17 07/24/25 07:17 07/24/25 07:17 07/24/25 07:17 07/24/25 07:50 07/24/25 07:17 Oxygen Flow Rate (L/min) 2 Oxygen Delivery Method Room Air Weight: 90.2 kg Body Mass Index (BMI) 25.5 Intake & Output: Intake and Output for Last 24 Hours 07/22/25 07/23/25 07/24/25 23:59 23:59 23:59 Intake Total 2450 / 2450 Balance 2450 / 2450 Lab / Micro Data 07/22/25 18:51 07/22/25 18:51 Radiography Diagnostic Testing: Radiology Impression Echocardiogram 07/22/25 20:51 Interpretation Summary The estimated ejection fraction is 60-65 %. Mild MR Contrast/Definity used Ordering Physician: Rod Collins Referring Physician: Kody Frank Performed By: Roxanne Courtney, SARINA, RVT Brain MRI 07/23/25 20:51 IMPRESSION: 1. No evidence of acute intracranial pathology. 2. Other findings as noted. Reading Location: [facility] Physical Exam Const alert and no apparent distress HEENT head/scalp atraumatic and moist oral mucous membranes Resp normal respiratory effort and no retractions Extremity normal to inspection and no clubbing, cyanosis or edema Neuro Neuro Narrative: Muscle strength is 1 out of 5 in the right upper extremity and he is able to flex his right knee but not extend it. Sensation is grossly intact on his face arms and legs and equal. Still slightly slurred speech but overall improved from the 27th. Psych affect normal Assessment & Plan Assessment/Plan (1) Right arm weakness: (2) Right leg weakness: (3) Slurred speech: PLAN: Plan Acute CVA * Delayed presentation as patient presented several hours after initial presentation as his symptoms did progress even while he was in the hospital. * CTA of the head and neck showed no LVO. He had a repeat CT given worsening symptoms and that was negative. * MRI read by radiology as unremarkable but neurology felt the patient had a pontine stroke. I would defer to neurology as the patient has profound symptoms. * continue ASA, atorvastatin, clopidogrel * Continue with PT OT and speech therapy. Chronic conditions: * Mild intermittent asthma; Stable with no evidence of acute flare at this time. Continue current treatment. * Glaucoma; on latanoprost eye drops - Continue latanoprost as previous. DVT prophylaxis - Enoxaparin 40 mg sq daily. Disposition: To be determined. But anticipate the patient requiring acute rehabwhen he is ready for discharge. Discussed with the patient's at bedside. Charges/Coding Visit Charges Inpatient E&M: 34045 Subs Hosp L2 NIHSS NIHSS Nursing Documentation NIHSS Nursing Documentation: NIHSS: Ischemic Stroke/TIA Start: 07/22/25 21:50 Text: For PCU Patients: NIH and Neuro Check every 4 Status: Active hours, PRN and with change in RN caregiver. Freq: [id number] Protocol: Activity Type Activity Date Activity User E-sign Co-sign Detail Recorded Client Recorded Date Recorded By Document 07/24/25 07:17 [id number] 07/24/25 07:24 07/24/25 07:17 NIH Stroke Scale [NIHSS] A score of 0 is "normal" or asymptomatic . Total possible score is 42. Inpatient: RN or Physician to activate a stroke alert for onset of new stroke symptoms or with NIHSS increase >/= 3 points. Following change in neurological status, NIHSS will be performed per physician order or more frequently PRN. -1a. Level of Consciousness 0 - Alert; keenly responsive -1b. LOC Questions 0 - Answers BOTH questions correctly -1c. LOC Commands 0 - Performs BOTH tasks correctly -2. Best Gaze 0 - Normal -3. Visual 0 - No visual loss -4. Facial Palsy 1 - Minor paralysis ( flattened nasolabial fold , asymmetry on smiling) -5a. Left Arm 0 - No drift; arm holds 90 ( or 45) degrees for full 10 seconds -5b. Right Arm 3 - No effort against gravity ; arm falls -6a. Left Leg 0 - No drift; leg holds 30- degree position for full 5 seconds -6b. Right Leg 2 - Some effort against gravity; -7. Limb Ataxia 1 - Present in 1 limb -8. Sensory 0 - Normal; no sensory loss -9. Best Language 0 - No aphasia; normal -10. Dysarthria 1 = Mild-to- moderate dysarthria; -11. Extinction and Inattention 0 - No abnormality -Total 8 Query Text:A score of 0 is "normal" or asymptomatic. Total possible score is 42 . ED: Notify Physician for NIHSS increase by > / = 3 points. Inpatient: RN or Physician to activate a stroke alert for NIHSS increase of > / = 3 points. Coma Scale [Assess] -Eye Opening Spontaneous -Motor Obeys Commands -Verbal Oriented [Total] -Coma Scale Total 15 07/24/25 1311 <Electronically signed by James Freeman DO> Cosigner Signature (if applicable): CC: ~ Signed [facility] Work Phone: 1(705) 494-900109-28-2025 Progress note [facility] Medical Records Department [address] [place] [address] Progress Note - Hospitalist 07/24/25916 MR#: [id number] Acct: [id number] Name: KODY RUGGIERO Rep #:[id number] : 1950 75 From: James Freeman DO PCP: Dr. Kody Frank MD Status :ADM IN Location: [place] [address] Reason for Visit Chief Complaint: RLE Weakness and Slurred Speech. Subjective Subjective Feels he is able to speak better. Able to move his right lower extremity somewhat better but still profound deficits in his right upper extremity. Objective Data Objective Data Vital Signs: Vital Signs Temp Pulse Resp BP Pulse Ox O2 Del Method O2 Flow Rate 36.1 C L 67 20 H 147/102 H 96 Room Air 2 07/24/25 07:17 07/24/25 07:17 07/24/25 07:17 07/24/25 07:17 07/24/25 07:17 07/24/25 07:50 07/24/25 07:17 Oxygen Flow Rate (L/min) 2 Oxygen Delivery Method Room Air Weight: 90.2 kg Body Mass Index (BMI) 25.5 Intake & Output: Intake and Output for Last 24 Hours 07/22/25 07/23/25 07/24/25 23:59 23:59 23:59 Intake Total 2450 / 2450 Balance 2450 / 2450 Lab / Micro Data 07/22/25 18:51 07/22/25 18:51 Radiography Diagnostic Testing: Radiology Impression Echocardiogram 07/22/25 20:51 Interpretation Summary The estimated ejection fraction is 60-65 %. Mild MR Contrast/Definity used Ordering Physician: Rod Collins Referring Physician: Kody Frank Performed By: Roxanne Courtney, SARINA, RVT Brain MRI 07/23/25 20:51 IMPRESSION: 1. No evidence of acute intracranial pathology. 2. Other findings as noted. Reading Location: [id number] Physical Exam Const alert and no apparent distress HEENT head/scalp atraumatic and moist oral mucous membranes Resp normal respiratory effort and no retractions Extremity normal to inspection and no clubbing, cyanosis or edema Neuro Neuro Narrative: Muscle strength is 1 out of 5 in the right upper extremity and he is able to flex his right knee but not extend it. Sensation is grossly intact on his face arms and legs and equal. Still slightly slurred speech but overall improved from the 27th. Psych affect normal Assessment & Plan Assessment/Plan (1) Right arm weakness: (2) Right leg weakness: (3) Slurred speech: PLAN: Plan Acute CVA * Delayed presentation as patient presented several hours after initial presentation as his symptoms did progress even while he was in the hospital. * CTA of the head and neck showed no LVO. He had a repeat CT given worsening symptoms and that was negative. * MRI read by radiology as unremarkable but neurology felt the patient had a pontine stroke. I would defer to neurology as the patient has profound symptoms. * continue ASA, atorvastatin, clopidogrel * Continue with PT OT and speech therapy. Chronic conditions: * Mild intermittent asthma; Stable with no evidence of acute flare at this time. Continue current treatment. * Glaucoma; on latanoprost eye drops - Continue latanoprost as previous. DVT prophylaxis - Enoxaparin 40 mg sq daily. Disposition: To be determined. But anticipate the patient requiring acute rehabwhen he is ready fordischarge. Discussed with the patient's at bedside. Charges/Coding Visit Charges Inpatient E&M: 07093 Subs Hosp L2 NIHSS NIHSS Nursing Documentation NIHSS Nursing Documentation: NIHSS: Ischemic Stroke/TIA Start: 07/22/25 21:50 Text: For PCU Patients: NIH and Neuro Check every 4 Status: Active hours, PRN and with change in RN caregiver. Freq: [id number] Protocol: Activity Type Activity Date Activity User E-sign Co-sign Detail Recorded Client Recorded Date Recorded By Document 07/24/25 07:17 [id number] 07/24/25 07:24 07/24/25 07:17 NIH Stroke Scale [NIHSS] A score of 0 is "normal" or asymptomatic . Total possible score is 42. Inpatient: RN or Physician to activate a stroke alert for onset of new stroke symptoms or with NIHSS increase >/= 3 points. Following change in neurological status, NIHSS will be performed per physician order or more frequently PRN. -1a. Level of Consciousness 0 - Alert; keenly responsive -1b. LOC Questions 0 - Answers BOTH questions correctly -1c. LOC Commands 0 - Performs BOTH tasks correctly -2. Best Gaze 0 - Normal -3. Visual 0 - No visual loss -4. Facial Palsy 1 - Minor paralysis ( flattened nasolabial fold , asymmetry on smiling) -5a. Left Arm 0 - No drift; arm holds 90 ( or 45) degrees for full 10 seconds -5b. Right Arm 3 - No effort against gravity ; arm falls -6a. Left Leg 0 - No drift; leg holds 30- degree position for full 5 seconds -6b. Right Leg 2 - Some effort against gravity; -7. Limb Ataxia 1 - Present in 1 limb -8. Sensory 0 - Normal; no sensory loss -9. Best Language 0 - No aphasia; normal -10. Dysarthria 1 = Mild-to- moderate dysarthria; -11. Extinction and Inattention 0 - No abnormality -Total 8 Query Text:A score of 0 is "normal" or asymptomatic. Total possible score is 42 . ED: Notify Physician for NIHSS increase by > / = 3 points. Inpatient: RN or Physician to activate a stroke alert for NIHSS increase of > / = 3 points. Coma Scale [Assess] -Eye Opening Spontaneous -Motor Obeys Commands -Verbal Oriented [Total] -Coma Scale Total 15 07/24/25 1311 Cosigner Signature (if applicable): CC: ~ Signed [facility]09-28-2025 Progress note Author Suzanne Reddy [facility] Note Date/Time July 24, 2025 9:45am [facility] Medical Records Department [address] [place] [address] Progress Note - Neurology 07/24/25 0730 MR#: [id number] Acct: [id number] Name: KODY RUGGIERO Rep #:[id number] : 1950 75 From: Suzanne Reddy MD PCP: Dr. Kody Frank MD Status :ADM SANDEEP Location: [place] [address] Objective Data Objective Data Vital Signs: Vital Signs Temp Pulse Resp BP Pulse Ox O2 Del Method O2 Flow Rate 96.9 F L 67 20 H 147/102 H 96 Nasal Cannula 2 07/24/25 07:17 07/24/25 07:17 07/24/25 07:17 07/24/25 07:17 07/24/25 07:17 07/24/25 07:17 07/24/25 07:17 Oxygen Flow Rate (L/min) 2 Oxygen Delivery Method Nasal Cannula Weight: 90.2 kg Body Mass Index (BMI) 25.5 Intake & Output: Intake and Output for Last 24 Hours 07/22/25 07/23/25 07/24/25 23:59 23:59 23:59 Intake Total 2450 / 2450 Balance 2450 / 2450 Lab / Micro Data 07/22/25 18:51 07/22/25 18:51 Labs: Laboratory Results - last 24 hr 07/23/25 07:30: Triglycerides 67, Cholesterol 146, LDL Cholesterol, Calc 88, VLDL Cholesterol 13, HDL Cholesterol 45, Cholesterol/HDL Ratio 3.26 Radiography Diagnostic Testing: Radiology Impression Echocardiogram 07/22/25 20:51 Interpretation Summary The estimated ejection fraction is 60-65 %. Mild MR Contrast/Definity used Ordering Physician: Rod Collins Referring Physician: Kody Frank Performed By: Roxanne Courtney, SARINA, RVT Brain MRI 07/23/25 20:51 IMPRESSION: 1. No evidence of acute intracranial pathology. 2. Other findings as noted. Reading Location: [id number] Physical Exam Const Orientation / Consciousness: awake and oriented to person HEENT normocephalic Resp normal respiratory effort Neuro Neuro Narrative: Awake, alert oriented X3 CN: No gross facial assymetry Mild dysarthria RHP Right UE is plegic and RLE able to lift it a second against gravity2-3/5 Left 5/5 Sensation: Intact Subject: Neurology Subjective KODY RUGGIERO is a 75 year old M, with a past medical history of former tobacco abuse, mild intermittent asthma who presents to [facility] ER complaining of RLE weakness and slurred speech. Mr. Ruggiero reports his symptoms began at ~8 AM while he was doing some exercises when he noted increasing heaviness and weakness in his Right lower extremity with patient not feeling right throughout the day. Then a few hours later he noted decreased dexterity in his Right hand followed by slurred speech so he and his family decided to come in for further evaluation and treatment with strong suspicion for CVA. He denies associated headache, head trauma, anticoagulation or similar previous episodes. His symptoms got worse in the night with worseningweakness on right side, slurred speech with NIHSS 5. He was given ASA initially then loaded with plavix He is getting better over last 24 hours in terms of speech and right leg weakness CT scan of the brain without contrast which revealed no acute intracranial abnormality CTA of the head and neck with IV contrast that revealed no large intracranial orcervical large vessel occlusion or hemodynamically significant stenosis. there is with mild short-segment narrowing of the proximal basilar artery Assessment and Plan: Stroke Assessment/Plan KODY RUGGIERO is a 75 M with a history of with a history of tobacco abuse, mild intermittent asthma who presents for evaluation of right sided weakness Neurological examination shows Right hemiparesis. Neuroimaging shows CT head negative, CTA: Mid basilar stenosis, LDL: 88, MRI: Left pontine stroke. Acute stroke from basilar stenosis vs small vessel disease, ECHO: EF 60-65% Plan Continue ASA, plavix for 3 months then ASA alone Permissive HTN acutely and gradual normalization of blood pressure PT,OT, speech, swallow eval stroke education Smoking cessation Evaluation for rehabilitation Thanks for consult. Spent 30 min in evaluation and management NIHSS NIHSS Nursing Documentation NIHSS Nursing Documentation: NIHSS: Ischemic Stroke/TIA Start: 07/22/25 21:50 Text: For PCU Patients: NIH and Neuro Check every 4 Status: Active hours, PRN and with change in RN caregiver. Freq: [id number] Protocol: Activity Type Activity Date Activity User E-sign Co-sign Detail Recorded Client Recorded Date Recorded By Document 07/24/25 07:17 [id number] 07/24/25 07:24 07/24/25 07:17 NIH Stroke Scale [NIHSS] A score of 0 is "normal" or asymptomatic . Total possible score is 42. Inpatient: RN or Physician to activate a stroke alert for onset of new stroke symptoms or with NIHSS increase >/= 3 points. Following change in neurological status, NIHSS will be performed per physician order or more frequently PRN. -1a. Level of Consciousness 0 - Alert; keenly responsive -1b. LOC Questions 0 - Answers BOTH questions correctly -1c. LOC Commands 0 - Performs BOTH tasks correctly -2. Best Gaze 0 - Normal -3. Visual 0 - No visual loss -4. Facial Palsy 1 - Minor paralysis ( flattened nasolabial fold , asymmetry on smiling) -5a. Left Arm 0 - No drift; arm holds 90 ( or 45) degrees for full 10 seconds -5b. Right Arm 3 - No effort against gravity ; arm falls -6a. Left Leg 0 - No drift; leg holds 30- degree position for full 5 seconds -6b. Right Leg 2 - Some effort against gravity; -7. Limb Ataxia 1 - Present in 1 limb -8. Sensory 0 - Normal; no sensory loss -9. Best Language 0 - No aphasia; normal -10. Dysarthria 1 = Mild-to- moderate dysarthria; -11. Extinction and Inattention 0 - No abnormality -Total 8 Query Text:A score of 0 is "normal" or asymptomatic. Total possible score is 42 . ED: Notify Physician for NIHSS increase by > / = 3 points. Inpatient: RN or Physician to activate a stroke alert for NIHSS increase of > / = 3 points. Coma Scale [Assess] -Eye Opening Spontaneous -Motor Obeys Commands -Verbal Oriented [Total] -Coma Scale Total 15 NIHSS 1a. Level of Consciousness: 0 - Alert; keenly responsive 1b. LOC Questions: 0 - Answers BOTH questions correctly 1c. LOC Commands: 0 - Performs BOTH tasks correctly 2. Best Gaze: 0 - Normal 3. Visual: 0 - No visual loss 4. Facial Palsy: 0 - Normal symmetrical movements 5b. Right Arm: 4- No movement 6a. Left Le - No drift; leg holds 30-degree position for full 5 seconds 6b. Right Le - Some effort against gravity; 7. Limb Ataxia: 0 - Absent 8. Sensory: 0 - Normal; no sensory loss 9. Best Language: 0 - No aphasia; normal 10. Dysarthria: 1 = [id number]-ys-vpguivdt dysarthria; 11. Extinction and Inattention: 0 - No abnormality Total: 7 07/24/25 0945 <Electronically signed by Suzanne Reddy MD> Cosigner Signature (if applicable): CC: ~ Signed [facility] Work Phone: 1(949) 341-373509-28-2025 Progress note [facility] Medical Records Department [address] [place] [address] Progress Note - Neurology 07/24/25 0730 MR#: [id number] Acct: [id number] Name: KODY RUGGIERO Rep #:[id number] : 1950 75 From: Suzanne Reddy MD PCP: Dr. Kody Frank MD Status :ADM SANDEEP Location: [place] [address] Objective Data Objective Data Vital Signs: Vital Signs Temp Pulse Resp BP Pulse Ox O2 Del Method O2 Flow Rate 96.9 F L 67 20 H 147/102 H 96 Nasal Cannula 2 07/24/25 07:17 07/24/25 07:17 07/24/25 07:17 07/24/25 07:17 07/24/25 07:17 07/24/25 07:17 07/24/25 07:17 Oxygen Flow Rate (L/min) 2 Oxygen Delivery Method Nasal Cannula Weight: 90.2 kg Body Mass Index (BMI) 25.5 Intake & Output: Intake and Output for Last 24 Hours 07/22/25 07/23/25 07/24/25 23:59 23:59 23:59 Intake Total 2450 / 2450 Balance 2450 / 2450 Lab / Micro Data 07/22/25 18:51 07/22/25 18:51 Labs: Laboratory Results - last 24 hr 07/23/25 07:30: Triglycerides 67, Cholesterol 146, LDL Cholesterol, Calc 88, VLDL Cholesterol 13, HDL Cholesterol 45, Cholesterol/HDL Ratio 3.26 Radiography Diagnostic Testing: Radiology Impression Echocardiogram 07/22/25 20:51 Interpretation Summary The estimated ejection fraction is 60-65 %. Mild MR Contrast/Definity used Ordering Physician: Rod Collins Referring Physician: Kody Frank Performed By: Roxanne Courtney, SARINA, RVT Brain MRI 07/23/25 20:51 IMPRESSION: 1. No evidence of acute intracranial pathology. 2. Other findings as noted. Reading Location: [facility] Physical Exam Const Orientation / Consciousness: awake and oriented to person HEENT normocephalic Resp normal respiratory effort Neuro Neuro Narrative: Awake, alert oriented X3 CN: No gross facial assymetry Mild dysarthria RHP Right UE is plegic and RLE able to lift it a second against gravity2-3/5 Left 5/5 Sensation: Intact Subject: Neurology Subjective KODY RUGGIERO is a 75 year old M, with a past medical history of former tobacco abuse, mild intermittent asthma who presents to [facility] ER complaining of RLE weakness and slurred speech. Mr. Ruggiero reports his symptoms began at ~8 AM while he was doing some exercises when he noted increasing heaviness and weakness in his Right lower extremity with patient not feeling right throughout the day. Then a few hours later he noted decreased dexterity in his Right hand followed by slurred speech so he and his family decided to come in for further evaluation and treatment with strong suspicion for CVA. He denies associated headache, head trauma, anticoagulation or similar previous episodes. His symptoms got worse in the night with worseningweakness on right side, slurred speech with NIHSS 5. He was given ASA initially then loaded with plavix He is getting better over last 24 hours in terms of speech and right leg weakness CT scan of the brain without contrast which revealed no acute intracranial abnormality CTA of the head and neck with IV contrast that revealed no large intracranial orcervical large vessel occlusion or hemodynamically significant stenosis. there is with mild short-segment narrowing of the proximal basilar artery Assessment and Plan: Stroke Assessment/Plan KODY RUGGIERO is a 75 M with a history of with a history of tobacco abuse, mild intermittentasthma who presents for evaluation of right sided weakness Neurological examination shows Right hemiparesis. Neuroimaging shows CT head negative, CTA: Mid basilar stenosis, LDL: 88, MRI: Left pontine stroke. Acute stroke from basilar stenosis vs small vesseldisease, ECHO: EF 60-65% Plan Continue ASA, plavix for 3 months then ASA alone Permissive HTN acutely and gradual normalization of blood pressure PT,OT, speech, swallow eval stroke education Smoking cessation Evaluation for rehabilitation Thanks for consult. Spent 30 min in evaluation and management NIHSS NIHSS Nursing Documentation NIHSS Nursing Documentation: NIHSS: Ischemic Stroke/TIA Start: 07/22/25 21:50 Text: For PCU Patients: NIH and Neuro Check every 4 Status: Active hours, PRN and with change in RN caregiver. Freq: [id number] Protocol: Activity Type Activity Date Activity User E-sign Co-sign Detail Recorded Client Recorded Date Recorded By Document 07/24/25 07:17 [id number] 07/24/25 07:24 07/24/25 07:17 NIH Stroke Scale [NIHSS] A score of 0 is "normal" or asymptomatic . Total possible score is 42. Inpatient: RN or Physician to activate a stroke alert for onset of new stroke symptoms or with NIHSS increase >/= 3 points. Following change in neurological status, NIHSS will be performed per physician order or more frequently PRN. -1a. Level of Consciousness 0 - Alert; keenly responsive -1b. LOC Questions 0 - Answers BOTH questions correctly -1c. LOC Commands 0 - Performs BOTH tasks correctly -2. Best Gaze 0 - Normal -3. Visual 0 - No visual loss -4. Facial Palsy 1 - Minor paralysis ( flattened nasolabial fold , asymmetry on smiling) -5a. Left Arm 0 - No drift; arm holds 90 ( or 45) degrees for full 10 seconds -5b. Right Arm 3 - No effort against gravity ; arm falls -6a. Left Leg 0 - No drift; leg holds 30- degree position for full 5 seconds -6b. Right Leg 2 - Some effort against gravity; -7. Limb Ataxia 1 - Present in 1 limb -8. Sensory 0 - Normal; no sensory loss -9. Best Language 0 - No aphasia; normal -10. Dysarthria 1 = Mild-to- moderate dysarthria; -11. Extinction and Inattention 0 - No abnormality -Total 8 Query Text:A score of 0 is "normal" or asymptomatic. Total possible score is 42 . ED: Notify Physician for NIHSS increase by > / = 3 points. Inpatient: RN or Physician to activate a stroke alert for NIHSS increase of > / = 3 points. Coma Scale [Assess] -Eye Opening Spontaneous -Motor Obeys Commands -Verbal Oriented [Total] -Coma Scale Total 15 NIHSS 1a. Level of Consciousness: 0 - Alert; keenly responsive 1b. LOC Questions: 0 - Answers BOTH questions correctly 1c. LOC Commands: 0 - Performs BOTH tasks correctly 2. Best Gaze: 0 - Normal 3. Visual: 0 - No visual loss 4. Facial Palsy: 0 - Normal symmetrical movements 5b. Right Arm: 4- No movement 6a. Left Le - No drift; leg holds 30-degree position for full 5 seconds 6b. Right Le - Some effort against gravity; 7. Limb Ataxia: 0 - Absent 8. Sensory: 0 - Normal; no sensory loss 9. Best Language: 0 - No aphasia; normal 10. Dysarthria: 1 = [id number] dysarthria; 11. Extinction and Inattention: 0 - No abnormality Total: 7 07/24/25 0945 Cosigner Signature (if applicable): CC: ~ Signed [facility]09-27-2025 Consult note Author Suzanne Reddy [facility] Note Date/Time July 23, 2025 12:58pm [facility] Medical Records Department [address] [place] [address] Consultation - Neurology 07/23/25 0935 MR#: [id number] Acct: [id number] Name: KODY RUGGIERO Rep #:[id number] : 1950 75 From: Suzanne Reddy MD PCP: Dr. Kody Frank MD Status :ADM SANDEEP Location: [place] [address] Assessment and Plan: Stroke Assessment/Plan KODY RUGGIERO is a 75 M with a history of tobacco abuse, mild intermittent asthma who presents for evaluation of right sided weakness Neurological examination shows Right hemiparesis. Neuroimaging shows CT head negative, CTA: Mid basilar stenosis, LDL: 88, MRI: Left pontine stroke. Acute stroke from basilar stenosis vs small vessel disease Plan Continue ASA, plavix for 3 months then ASA alone stroke w/up: ECHO, HBA1c Permissive HTN IVF PT,OT, speech, swallow eval stroke education Smoking cessation Tanks for consult. Spent 40 min in evaluation and management HPI Consult Data Date of Consult: 07/23/25 HPI Narrative HPI Narrative: KODY RUGGIERO, is a 75 M with a past medical history of former tobacco abuse, mild intermittent asthma who presents to [facility] ER complaining of RLE weakness and slurred speech. Mr. Ruggiero reports his symptoms began at ~8 AM while he was doing some exercises when he noted increasing heaviness and weakness in his Right lower extremity with patient not feeling right throughout the day. Then a few hours later he noted decreased dexterity in his Right hand followed by slurred speech so he and his family decided to come in for further evaluation and treatment with strong suspicion for CVA. He denies associated headache, head trauma, anticoagulation or similarprevious episodes. His symptoms got worse in the night with worsening weakness on right side, slurred speech with NIHSS 5. He was given ASA initially then loaded with plavix CT scan of the brain without contrast which revealed no acute intracranial abnormality CTA of the head and neck with IV contrast that revealed no large intracranial orcervical large vessel occlusion or hemodynamically significant stenosis. there is with mild short-segment narrowing of the proximal basilar artery [facility] Medical History Seasonal allergies Asthma, mild intermittent Home Medications ?Medication ?Instructions ?Recorded ?Last Taken ?Type fluticasone 250 mcg-salmeterol 50 1 inh inhalation Q12 H 01/15/22 07/22/25 08:14 History mcg/dose blistr powdr for inhalation latanoprost 0.005 % eye drops 1 drp ophthalmic (eye) Q AVERY 01/15/22 07/21/25 22:12 History cholecalciferol (vitamin D3) 50 50 mcg PO DAILY 07/22/25 08:00 History mcg (2,000 unit) tablet (Vitamin D3) fluticasone propionate 50 1 spray intranasal DAILY 07/22/25 08:13 History mcg/actuation nasal spray,suspension (Allergy Relief (fluticasone)) loratadine 10 mg tablet (Claritin) 10 mg PO DAILY 06/2807/22/25 08:12 History Allergy/AdvReac Type Severity Reaction Status Date / Time No Known Allergies Allergy Verified 08/05/23 09:38 Social History Smoking Status: Former smoker Vital Signs Vital Signs Vital Signs: 07/22/25 18:35 07/22/25 18:46 07/22/25 18:56 Temperature 96.4 F L Temperature Source Oral Pulse Rate 54 L 54 L Pulse Strength Respiratory Rate 16 16 Respiratory Effort Respiratory Depth Respiratory Pattern Blood Pressure 165/98 H 165/98 H Blood Pressure Mean 120 120 Blood Pressure Source Blood Pressure Position Blood Pressure Location Pulse Ox 95 95 Oxygen Delivery Method Room Air Room Air Room Air Oxygen Flow Rate (L/min) 07/22/25 18:59 07/22/25 19:30 07/22/25 20:00 Temperature Temperature Source Pulse Rate 65 68 69 Pulse Strength Respiratory Rate 22 H 16 18 Respiratory Effort Respiratory Depth Respiratory Pattern Blood Pressure 145/89 H 150/82 H 134/88 H Blood Pressure Mean 107 104 103 Blood Pressure Source Blood Pressure Position Blood Pressure Location Pulse Ox 96 96 94 Oxygen Delivery Method Room Air Room Air Room Air Oxygen Flow Rate (L/min) 07/22/25 20:30 07/22/25 21:00 07/22/25 21:00 Temperature 98.0 F Temperature Source Pulse Rate 64 64 64 Pulse Strength Respiratory Rate 16 16 16 Respiratory Effort Respiratory Depth Respiratory Pattern Blood Pressure 141/69 H 140/81 H 140/81 H Blood Pressure Mean 93 100 100 Blood Pressure Source Blood Pressure Position Blood Pressure Location Pulse Ox 97 94 94 Oxygen Delivery Method Room Air Room Air Oxygen Flow Rate (L/min) 07/22/25 21:30 07/22/25 22:00 07/22/25 22:00 Temperature 98.5 F Temperature Source Oral Pulse Rate 65 62 Pulse Strength Normal (2+) Respiratory Rate 18 18 Respiratory Effort Respiratory Depth Respiratory Pattern Blood Pressure 141/90 H 159/92 H Blood Pressure Mean 107 114 Blood Pressure Source Monitor Blood Pressure Position Semi-Fowlers Blood Pressure Location Right Arm Pulse Ox 93 96 Oxygen Delivery Method Room Air Room Air Oxygen Flow Rate (L/min) 07/22/25 22:26 07/22/25 23:00 07/22/25 23:11 Temperature Temperature Source Pulse Rate Pulse Strength Respiratory Rate Respiratory Effort Normal Non-Labored Respiratory Depth Normal Respiratory Pattern Normal Blood Pressure Blood Pressure Mean Blood Pressure Source Blood Pressure Position Blood Pressure Location Pulse Ox 94 97 Oxygen Delivery Method Room Air Room Air Nasal Cannula Oxygen Flow Rate (L/min) 1 07/23/25 01:20 07/23/25 05:20 07/23/25 05:35 Temperature 97.2 F L 97.4 F L 97.8 F Temperature Source Temporal Temporal Temporal Pulse Rate 66 66 64 Pulse Strength Respiratory Rate 18 18 18 Respiratory Effort Respiratory Depth Respiratory Pattern Blood Pressure 161/100 H 164/89 H 168/96 H Blood Pressure Mean 120 114 120 Blood Pressure Source Monitor Monitor Blood Pressure Position Semi-Fowlers Semi-Fowlers Blood Pressure Location Right Arm Right Arm Pulse Ox 96 98 96 Oxygen Delivery Method Nasal Cannula Nasal Cannula Nasal Cannula Oxygen Flow Rate (L/min) 1 2 2 07/23/25 06:48 07/23/25 07:28 07/23/25 08:05 Temperature 97.8 F Temperature Source Temporal Pulse Rate 60 Pulse Strength Normal (2+) Respiratory Rate 18 Respiratory Effort Respiratory Depth Respiratory Pattern Blood Pressure 175/90 H Blood Pressure Mean 118 Blood Pressure Source Monitor Blood Pressure Position Semi-Fowlers Blood Pressure Location Left Arm Pulse Ox 97 Oxygen Delivery Method Nasal Cannula Nasal Cannula Oxygen Flow Rate (L/min) 1 2 07/23/25 08:09 Temperature Temperature Source Pulse Rate Pulse Strength Respiratory Rate Respiratory Effort Normal Non-Labored Respiratory Depth Normal Respiratory Pattern Normal Blood Pressure Blood Pressure Mean Blood Pressure Source Blood Pressure Position Blood Pressure Location Pulse Ox Oxygen Delivery Method Room Air Oxygen Flow Rate (L/min) Weight Weight: 90.2 kg Body Mass Index (BMI) 25.5 Physical Exam Const alert, oriented x3 and no apparent distress General Appearance: cooperative, comfortable and well kempt HEENT normocephalic Neuro Neuro Narrative: AAOX3 speech fluent No aphasia C 2-12 intact except ? mild right facial assymetry Right hemiparesis and left antigravity 5/5 Sensation: Intact No ataxia on left Lab / Micro Data 07/22/25 18:51 07/22/25 18:51 Labs: Laboratory Results - last 24 hr 07/22/25 18:51: WBC 10.2, RBC 4.73, Hgb 15.7, Hct 45.8, MCV 96.8 H, MCH 33.2 H, MCHC 34.3, RDW Std Deviation 47.1 H, RDW Coeff of Driss 13.1, Plt Count 279, MPV 9.3, Immature Gran % (Auto) 0.400, Neut % (Auto) 67.3, Lymph % (Auto) 17.2 L, Mcmullen % (Auto) 10.6 H, Eos % (Auto) 4.0, Baso % (Auto) 0.5, Absolute Neuts (auto) 6.8, Absolute Lymphs (auto) 1.75, Nucleated RBC % 0, PT 13.7, INR 1.0, APTT 34.6, Sodium 140, Potassium 4.1, Chloride 105, Carbon Dioxide 21.4, Anion Gap 14, BUN 21 H, Creatinine 0.85, Est GFR (MDRD) Non-Af 90, BUN/Creatinine Ratio 24.2 H, Glucose 101 H, Hemoglobin A1c 5.6, Calcium 9.1, Troponin T High Sens 12 07/22/25 20:52: Troponin T Hi Sens 2 Hr 13, TSH 1.890 07/22/25 22:37: Troponin T Hi Sens 4Hr 11, Ethyl Alcohol < 10.1 07/23/25 01:30: Urine Opiates Screen NEGATIVE, U Buprenorphine Qual NEGATIVE, UrOxycodone Screen NEGATIVE, Urine Methadone Screen NEGATIVE, Urine Fentanyl Screen NEGATIVE, Ur Barbiturates Screen NEGATIVE, Ur Phencyclidine Scrn NEGATIVE, Ur Amphetamines Screen NEGATIVE, U Benzodiazepines Scrn NEGATIVE, Urine Cocaine Screen NEGATIVE, U Cannabinoids Screen NEGATIVE 07/23/25 05:35: POC Glucose 108 H 07/23/25 07:30: Triglycerides 67, Cholesterol 146, LDL Cholesterol, Calc 88, VLDL Cholesterol 13, HDL Cholesterol 45, Cholesterol/HDL Ratio 3.26 Imaging Radiology Impression Brain CT 07/22/25 18:39 IMPRESSION: No acute intracranial abnormality seen. Reading Location: [facility] Head/Neck CTA 07/22/25 18:40 IMPRESSION: No intracranial or cervical large vessel arterial occlusion or hemodynamically significant stenosis. Short-segment mild narrowing of the proximal basilar artery. Anatomic variants as noted. Reading Location: [id number] Chest X-Ray 07/22/25 19:12 IMPRESSION: Cardiomegaly. No acute pulmonary disease. Reading Location: [facility] Brain CT 07/23/25 05:36 IMPRESSION: No CT evidence for acute brain abnormality. Reading Location: [place] [address] Active Medications Active Medications Active Medications: Current Medications Generic Name Dose Route Start Last Admin Trade Name Freq PRN Reason Stop Dose Admin Acetaminophen 650 mg 07/22/25 21:50 Acetaminophen 325 Mg Tablet PO Q6H PRN PRN Pain 1-10 Or Fever>99.6 Albuterol Sulfate 2.5 mg 07/23/25 00:00 Albuterol 2.5 Mg/3 Ml Vial.Neb. INHALATION Q6HWA.RT IRENE Aspirin 81 mg 07/23/25 08:00 07/23/25 09:31 Aspirin 81 Mg Tab.Chew PO 81 mg BREAKFAST IRENE Administration Atorvastatin Calcium 40 mg 07/22/25 22:00 07/22/25 22:50 Atorvastatin Calcium 40 Mg Tablet PO 40 mg QHS IRENE Administration Budesonide 0.5 mg 07/23/25 06:00 Budesonide Respules 0.5 Mg/2 Ml Ampul.Neb. INHALATION Q12H.RT IRENE Cholecalciferol 50 mcg 07/23/25 10:00 07/23/25 09:31 Cholecalciferol (Vit D3) 25 Mcg Tablet (1,000 Units) PO 50 mcg DAILY IRENE Administration Clopidogrel Bisulfate 75 mg 07/24/25 10:00 Clopidogrel Bisulfate 75 Mg Tablet PO DAILY IRENE Enoxaparin Sodium 40 mg 07/23/25 10:00 07/23/25 09:32 Enoxaparin 40 Mg/0.4 Ml Syringe SC 40 mg DAILY IRENE Administration Fluticasone Propionate 1 spray 07/23/25 10:00 07/23/25 09:31 Fluticasone 0.05% 1 [place] Nasal.Sry NASAL 1 spray DAILY IRENE Administration Sodium Chloride 1,000 mls @ 70 mls/hr 07/22/25 20:52 07/22/25 22:50 IV 07/23/25 11:09 70 mls/hr .[id number] IRENE Administration Sodium Chloride 250 mls @ 15 mls/hr 07/22/25 21:51 IV .[id number] PRN Saline Flush Sodium Chloride 250 mls @ 15 mls/hr 07/22/25 21:51 IV .[id number] PRN Additional IVPB Infusion Latanoprost 1 drp 07/23/25 22:00 Latanoprost 0.005% 1 Bottle OPHTHALMIC QODAY@2200 IRENE Loratadine 10 mg 07/23/25 10:00 07/23/25 09:31 Loratadine 10 Mg Tablet PO 10 mg DAILY IRENE Administration Sodium Chloride 10 - 40 ml 07/22/25 21:51 0.9% Saline Lock 10 Ml Syringe IV UD PRN SALINE FLUSH NIHSS NIHSS Nursing Documentation NIHSS Nursing Documentation: NIHSS: Ischemic Stroke/TIA Start: 07/22/25 21:50 Text: For PCU Patients: NIH and Neuro Check every 4 Status: Active hours, PRN and with change in RN caregiver. Freq: [id number] Protocol: Activity Type Activity Date Activity User E-sign Co-sign Detail Recorded Client Recorded Date Recorded By Document 07/23/25 07:28 IN [id number] 07/23/25 08:07 [place] 07/23/25 07:28 NIH Stroke Scale [NIHSS] A score of 0 is "normal" or asymptomatic . Total possible score is 42. Inpatient: RN or Physician to activate a stroke alert for onset of new stroke symptoms or with NIHSS increase >/= 3 points. Following change in neurological status, NIHSS will be performed per physician order or more frequently PRN. -1a. Level of Consciousness 0 - Alert; keenly responsive -1b. LOC Questions 0 - Answers BOTH questions correctly -1c. LOC Commands 0 - Performs BOTH tasks correctly -2. Best Gaze 0 - Normal -3. Visual 0 - No visual loss -4. Facial Palsy 0 - Normal symmetrical movements -5a. Left Arm 0 - No drift; arm holds 90 ( or 45) degrees for full 10 seconds -5b. Right Arm 3 - No effort against gravity ; arm falls -6a. Left Leg 0 - No drift; leg holds 30- degree position for full 5 seconds -6b. Right Leg 2 - Some effort against gravity; -7. Limb Ataxia 2 - Present in 2 limbs -8. Sensory 0 - Normal; no sensory loss -9. Best Language 0 - No aphasia; normal -10. Dysarthria 1 = Mild-to- moderate dysarthria; -11. Extinction and Inattention 0 - No abnormality -Total 8 Query Text:A score of 0 is "normal" or asymptomatic. Total possible score is 42 . ED: Notify Physician for NIHSS increase by > / = 3 points. Inpatient: RN or Physician to activate a stroke alert for NIHSS increase of > / = 3 points. Coma Scale [Assess] -Eye Opening Spontaneous -Motor Obeys Commands -Verbal Oriented [Total] -Coma Scale Total 15 NIHSS 1a. Level of Consciousness: 0 - Alert; keenly responsive 1b. LOC Questions: 0 - Answers BOTH questions correctly 3. Visual: 0 - No visual loss 5a. Left Arm: 0 - No drift; arm holds 90 (or 45) degrees for full 10 seconds 5b. Right Arm: 4- No movement 6a. Left Le - No drift; leg holds 30-degree position for full 5 seconds 6b. Right Le - No effort against gravity; leg falls to bed immediately 7. Limb Ataxia: 0 - Absent 8. Sensory: 0 - Normal; no sensory loss 9. Best Language: 0 - No aphasia; normal 10. Dysarthria: 0 - Normal 11. Extinction and Inattention: 0 - No abnormality Total: 7 07/23/25 1258 <Electronically signed by Suzanne Reddy MD> Cosigner Signature (if applicable): CC: Dr. Kody Frank MD~ Signed [facility] Work Phone: [phone]) 868-874809-27-2025 Progress note Author James Freeman [facility] Note Date/Time July 23, 2025 12:31pm [facility] Medical Records Department [address] [place] [address] Progress Note - Hospitalist 07/23/25 0854 MR#: [id number] Acct: [id number] Name: KODY RUGGIERO Rep #:[id number] : 1950 75 From: James Freeman DO PCP: Dr. Kody Frank MD Status :ADM SANDEEP Location: [place] [address] Reason for Visit Chief Complaint: RLE Weakness and Slurred Speech. Subjective Subjective Patient has had progressive right sided weakness as well as dysarthria since 8:00 yesterday morning. And currently has very limited movement of his right upper extremity. Also has weakness in his right lower extremity but not as profound as his arm. Objective Data Objective Data Vital Signs: Vital Signs Temp Pulse Resp BP Pulse Ox O2 Del Method O2 Flow Rate 36.6 C 60 18 175/90 H 97 Room Air 2 07/23/25 07:28 07/23/25 07:28 07/23/25 07:28 07/23/25 07:28 07/23/25 07:28 07/23/25 08:09 07/23/25 07:28 Oxygen Flow Rate (L/min) 2 Oxygen Delivery Method Room Air Weight: 90.2 kg Body Mass Index (BMI) 25.5 Intake & Output: Intake and Output for Last 24 Hours 07/21/25 07/22/25 07/23/25 23:59 23:59 23:59 Intake Total 650 / 650 Balance 650 / 650 Lab / Micro Data 07/22/25 18:51 07/22/25 18:51 Labs: Laboratory Results - last 24 hr 07/22/25 18:51: WBC 10.2, RBC 4.73, Hgb 15.7, Hct 45.8, MCV 96.8 H, MCH 33.2 H, MCHC 34.3, RDW Std Deviation 47.1 H, RDW Coeff of Driss 13.1, Plt Count 279, MPV 9.3, Immature Gran % (Auto) 0.400, Neut % (Auto) 67.3, Lymph % (Auto) 17.2 L, Mcmullen % (Auto) 10.6 H, Eos % (Auto) 4.0, Baso % (Auto) 0.5, Absolute Neuts (auto) 6.8, Absolute Lymphs (auto) 1.75, Nucleated RBC % 0, PT 13.7, INR 1.0, APTT 34.6, Sodium 140, Potassium 4.1, Chloride 105, Carbon Dioxide 21.4, Anion Gap 14, BUN 21 H, Creatinine 0.85, Est GFR (MDRD) Non-Af 90, BUN/Creatinine Ratio 24.2 H, Glucose 101 H, Hemoglobin A1c 5.6, Calcium 9.1, Troponin T High Sens 12 07/22/25 20:52: Troponin T Hi Sens 2 Hr 13, TSH 1.890 07/22/25 22:37: Troponin T Hi Sens 4Hr 11, Ethyl Alcohol < 10.1 07/23/25 01:30: Urine Opiates Screen NEGATIVE, U Buprenorphine Qual NEGATIVE, UrOxycodone Screen NEGATIVE, Urine Methadone Screen NEGATIVE, Urine Fentanyl Screen NEGATIVE, Ur Barbiturates Screen NEGATIVE, Ur Phencyclidine Scrn NEGATIVE, Ur Amphetamines Screen NEGATIVE, U Benzodiazepines Scrn NEGATIVE, Urine Cocaine Screen NEGATIVE, U Cannabinoids Screen NEGATIVE 07/23/25 05:35: POC Glucose 108 H 07/23/25 07:30: Triglycerides 67, Cholesterol 146, LDL Cholesterol, Calc 88, VLDL Cholesterol 13, HDL Cholesterol 45, Cholesterol/HDL Ratio 3.26 Radiography Diagnostic Testing: Radiology Impression Brain CT 07/22/25 18:39 IMPRESSION: No acute intracranial abnormality seen. Reading Location: [facility] Head/Neck CTA 07/22/25 18:40 IMPRESSION: No intracranial or cervical large vessel arterial occlusion or hemodynamically significant stenosis. Short-segment mild narrowing of the proximal basilar artery. Anatomic variants as noted. Reading Location: [facility] Chest X-Ray 07/22/25 19:12 IMPRESSION: Cardiomegaly. No acute pulmonary disease. Reading Location: [facility] Brain CT 07/23/25 05:36 IMPRESSION: No CT evidence for acute brain abnormality. [facility] Physical Exam Const alert and no apparent distress HEENT head/scalp atraumatic and moist oral mucous membranes Resp normal respiratory effort, no retractions, no use of accessory muscles and clearto auscultation bilaterally Cardio regular rate, regular rhythm, S1 normal heart sound and S2 normal heart sound GI normal to inspection, nondistended, normoactive bowel sounds, soft to palpation,non-tender and non-distended Extremity normal to inspection Neuro Neuro Narrative: Slight right facial droop compared to the left. Slight dysarthria. Muscle strength 2-5 in the right upper extremity and 3-5 in the right lower extremity. 5-5 in left upper and left lower extremity. Sensation grossly intact throughout. Sensorium / Orientation: awake and alert Psych affect normal Assessment & Plan Assessment/Plan (1) Right arm weakness: (2) Right leg weakness: (3) Slurred speech: PLAN: Plan Acute CVA * suspected given his symptoms * Delayed presentation as patient presented several hours after initial presentation as his symptoms did progress even while he was in the hospital. * CTA of the head and neck showed no LVO. He had a repeat CT given worsening symptoms and that was negative. * follow up MRI, neuro consult, echo * continue ASA, atorvastatin, clopidogrel Chronic conditions: * Mild intermittent asthma; on fluticasone propion-salmeterol BID - Stable with no evidence of acute flare at this time. Continue current treatment. * Glaucoma; on latanoprost eye drops - Continue latanoprost as previous. DVT prophylaxis - Enoxaparin 40 mg sq daily. Charges/Coding Visit Charges Inpatient E&M: 29816 Subs Hosp L2 NIHSS NIHSS Nursing Documentation NIHSS Nursing Documentation: NIHSS: Ischemic Stroke/TIA Start: 07/22/25 21:50 Text: For PCU Patients: NIH and Neuro Check every 4 Status: Active hours, PRN and with change in RN caregiver. Freq: [id number] Protocol: Activity Type Activity Date Activity User E-sign Co-sign Detail Recorded Client Recorded Date Recorded By Document 07/23/25 07:28 IN [id number] 07/23/25 08:07 IN 07/23/25 07:28 NIH Stroke Scale [NIHSS] A score of 0 is "normal" or asymptomatic . Total possible score is 42. Inpatient: RN or Physician to activate a stroke alert for onset of new stroke symptoms or with NIHSS increase >/= 3 points. Following change in neurological status, NIHSS will be performed per physician order or more frequently PRN. -1a. Level of Consciousness 0 - Alert; keenly responsive -1b. LOC Questions 0 - Answers BOTH questions correctly -1c. LOC Commands 0 - Performs BOTH tasks correctly -2. Best Gaze 0 - Normal -3. Visual 0 - No visual loss -4. Facial Palsy 0 - Normal symmetrical movements -5a. Left Arm 0 - No drift; arm holds 90 ( or 45) degrees for full 10 seconds -5b. Right Arm 3 - No effort against gravity ; arm falls -6a. Left Leg 0 - No drift; leg holds 30- degree position for full 5 seconds -6b. Right Leg 2 - Some effort against gravity; -7. Limb Ataxia 2 - Present in 2 limbs -8. Sensory 0 - Normal; no sensory loss -9. Best Language 0 - No aphasia; normal -10. Dysarthria 1 = Mild-to- moderate dysarthria; -11. Extinction and Inattention 0 - No abnormality -Total 8 Query Text:A score of 0 is "normal" or asymptomatic. Total possible score is 42 . ED: Notify Physician for NIHSS increase by > / = 3 points. Inpatient: RN or Physician to activate a stroke alert for NIHSS increase of > / = 3 points. Coma Scale [Assess] -Eye Opening Spontaneous -Motor Obeys Commands -Verbal Oriented [Total] -Coma Scale Total 15 07/23/25 1231 <Electronically signed by James Freeman DO> Cosigner Signature (if applicable): CC: ~ Signed [facility] Work Phone: [phone] 164-775509-27-2025 Consult note [facility] Medical Records Department [address] [place] [address] Consultation - Neurology 07/23/25 0935 MR#: [id number] Acct: [id number] Name: KODY RUGGIERO Rep #:[id number] : 1950 75 From: Suzanne Reddy MD PCP: Dr. Kody Frank MD Status :ADM SANDEEP Location: [place] [address] Assessment and Plan: Stroke Assessment/Plan KODY RUGGIERO is a 75 M with a history of tobacco abuse, mild intermittent asthma who presents for evaluation of right sided weakness Neurological examination shows Right hemiparesis. Neuroimaging shows CT head negative, CTA: Mid basilar stenosis, LDL: 88, MRI: Left pontine stroke. Acute stroke from basilar stenosis vs small vesseldisease Plan Continue ASA, plavix for 3 months then ASA alone stroke w/up: ECHO, HBA1c Permissive HTN IVF PT,OT, speech, swallow eval stroke education Smoking cessation Tanks for consult. Spent 40 min in evaluation and management HPI Consult Data Date of Consult: 07/23/25 HPI Narrative HPI Narrative: KODY RUGGIERO, is a 75 M with a past medical history of former tobacco abuse, mild intermittent asthma who presents to [facility] ER complaining of RLE weakness and slurred speech. Mr. Ruggiero reports his symptoms began at ~8 AM while he was doing some exercises when he noted increasing heaviness and weakness in his Right lower extremity with patient not feeling right throughout the day. Then a few hours later he noted decreased dexterity in his Right hand followed by slurred speech so he and his family decided to come in for further evaluation and treatment with strong suspicion for CVA. He denies associated headache, head trauma, anticoagulation or similarprevious episodes. His symptoms got worse in the night with worsening weakness on right side, slurred speech with NIHSS 5. He was given ASA initially then loaded with plavix CT scan of the brain without contrast which revealed no acute intracranial abnormality CTA of the head and neck with IV contrast that revealed no large intracranial orcervical large vessel occlusion or hemodynamically significant stenosis. there is with mild short-segment narrowing of the proximal basilar artery [facility] Medical History Seasonal allergies Asthma, mild intermittent Home Medications ?Medication ?Instructions ?Recorded ?Last Taken ?Type fluticasone 250 mcg-salmeterol 50 1 inh inhalation Q12 H 01/15/22 07/22/25 08:14 History mcg/dose blistr powdr for inhalation latanoprost 0.005 % eye drops 1 drp ophthalmic (eye) Q AVERY 01/15/22 07/21/25 22:12 History cholecalciferol (vitamin D3) 50 50 mcg PO DAILY 07/22/25 08:00 History mcg (2,000 unit) tablet (Vitamin D3) fluticasone propionate 50 1 spray intranasal DAILY 07/22/25 08:13 History mcg/actuation nasal spray,suspension (Allergy Relief (fluticasone)) loratadine 10 mg tablet (Claritin) 10 mg PO DAILY 06/2807/22/25 08:12 History Allergy/AdvReac Type Severity Reaction Status Date / Time No Known Allergies Allergy Verified 08/05/23 09:38 Social History Smoking Status: Former smoker Vital Signs Vital Signs Vital Signs: 07/22/25 18:35 07/22/25 18:46 07/22/25 18:56 Temperature 96.4 F L Temperature Source Oral Pulse Rate 54 L 54 L Pulse Strength Respiratory Rate 16 16 Respiratory Effort Respiratory Depth Respiratory Pattern Blood Pressure 165/98 H 165/98 H Blood Pressure Mean 120 120 Blood Pressure Source Blood Pressure Position Blood Pressure Location Pulse Ox 95 95 Oxygen Delivery Method Room Air Room Air Room Air Oxygen Flow Rate (L/min) 07/22/25 18:59 07/22/25 19:30 07/22/25 20:00 Temperature Temperature Source Pulse Rate 65 68 69 Pulse Strength Respiratory Rate 22 H 16 18 Respiratory Effort Respiratory Depth Respiratory Pattern Blood Pressure 145/89 H 150/82 H 134/88 H Blood Pressure Mean 107 104 103 Blood Pressure Source Blood Pressure Position Blood Pressure Location Pulse Ox 96 96 94 Oxygen Delivery Method Room Air Room Air Room Air Oxygen Flow Rate (L/min) 07/22/25 20:30 07/22/25 21:00 07/22/25 21:00 Temperature 98.0 F Temperature Source Pulse Rate 64 64 64 Pulse Strength Respiratory Rate 16 16 16 Respiratory Effort Respiratory Depth Respiratory Pattern Blood Pressure 141/69 H 140/81 H 140/81 H Blood Pressure Mean 93 100 100 Blood Pressure Source Blood Pressure Position Blood Pressure Location Pulse Ox 97 94 94 Oxygen Delivery Method Room Air Room Air Oxygen Flow Rate (L/min) 07/22/25 21:30 07/22/25 22:00 07/22/25 22:00 Temperature 98.5 F Temperature Source Oral Pulse Rate 65 62 Pulse Strength Normal (2+) Respiratory Rate 18 18 Respiratory Effort Respiratory Depth Respiratory Pattern Blood Pressure 141/90 H 159/92 H Blood Pressure Mean 107 114 Blood Pressure Source Monitor Blood Pressure Position Semi-Fowlers Blood Pressure Location Right Arm Pulse Ox 93 96 Oxygen Delivery Method Room Air Room Air Oxygen Flow Rate (L/min) 07/22/25 22:26 07/22/25 23:00 07/22/25 23:11 Temperature Temperature Source Pulse Rate Pulse Strength Respiratory Rate Respiratory Effort Normal Non-Labored Respiratory Depth Normal Respiratory Pattern Normal Blood Pressure Blood Pressure Mean Blood Pressure Source Blood Pressure Position Blood Pressure Location Pulse Ox 94 97 Oxygen Delivery Method Room Air Room Air Nasal Cannula Oxygen Flow Rate (L/min) 1 07/23/25 01:20 07/23/25 05:20 07/23/25 05:35 Temperature 97.2 F L 97.4 F L 97.8 F Temperature Source Temporal Temporal Temporal Pulse Rate 66 66 64 Pulse Strength Respiratory Rate 18 18 18 Respiratory Effort Respiratory Depth Respiratory Pattern Blood Pressure 161/100 H 164/89 H 168/96 H Blood Pressure Mean 120 114 120 Blood Pressure Source Monitor Monitor Blood Pressure Position Semi-Fowlers Semi-Fowlers Blood Pressure Location Right Arm Right Arm Pulse Ox 96 98 96 Oxygen Delivery Method Nasal Cannula Nasal Cannula Nasal Cannula Oxygen Flow Rate (L/min) 1 2 2 07/23/25 06:48 07/23/25 07:28 07/23/25 08:05 Temperature 97.8 F Temperature Source Temporal Pulse Rate 60 Pulse Strength Normal (2+) Respiratory Rate 18 Respiratory Effort Respiratory Depth Respiratory Pattern Blood Pressure 175/90 H Blood Pressure Mean 118 Blood Pressure Source Monitor Blood Pressure Position Semi-Fowlers Blood Pressure Location Left Arm Pulse Ox 97 Oxygen Delivery Method Nasal Cannula Nasal Cannula Oxygen Flow Rate (L/min) 1 2 07/23/25 08:09 Temperature Temperature Source Pulse Rate Pulse Strength Respiratory Rate Respiratory Effort Normal Non-Labored Respiratory Depth Normal Respiratory Pattern Normal Blood Pressure Blood Pressure Mean Blood Pressure Source Blood Pressure Position Blood Pressure Location Pulse Ox Oxygen Delivery Method Room Air Oxygen Flow Rate (L/min) Weight Weight: 90.2 kg Body Mass Index (BMI) 25.5 Physical Exam Const alert, oriented x3 and no apparent distress General Appearance: cooperative, comfortable and well kempt HEENT normocephalic Neuro Neuro Narrative: AAOX3 speech fluent No aphasia C 2-12 intact except ? mild right facial assymetry Right hemiparesis and left antigravity 5/5 Sensation: Intact No ataxia on left Lab / Micro Data 07/22/25 18:51 07/22/25 18:51 Labs: Laboratory Results - last 24 hr 07/22/25 18:51: WBC 10.2, RBC 4.73, Hgb 15.7, Hct 45.8, MCV 96.8 H, MCH 33.2 H, MCHC 34.3, RDW Std Deviation 47.1 H, RDW Coeff of Driss 13.1, Plt Count 279, MPV 9.3, Immature Gran % (Auto) 0.400, Neut % (Auto) 67.3, Lymph % (Auto) 17.2 L, Mcmullen % (Auto) 10.6 H, Eos % (Auto) 4.0, Baso % (Auto) 0.5, Absolute Neuts (auto) 6.8, Absolute Lymphs (auto) 1.75, Nucleated RBC % 0, PT 13.7, INR 1.0, APTT 34.6,Sodium 140, Potassium 4.1, Chloride 105, Carbon Dioxide 21.4, Anion Gap 14, BUN 21 H, Creatinine 0.85, Est GFR (MDRD) Non-Af 90, BUN/Creatinine Ratio 24.2 H, Glucose 101 H, Hemoglobin A1c 5.6, Calcium 9.1, Troponin T High Sens 12 07/22/25 20:52: Troponin T Hi Sens 2 Hr 13, TSH 1.890 07/22/25 22:37: Troponin T Hi Sens 4Hr 11, Ethyl Alcohol < 10.1 07/23/25 01:30: Urine Opiates Screen NEGATIVE, U Buprenorphine Qual NEGATIVE, UrOxycodone Screen NEGATIVE, Urine Methadone Screen NEGATIVE, Urine Fentanyl Screen NEGATIVE, Ur Barbiturates Screen NEGATIVE, Ur Phencyclidine Scrn NEGATIVE, Ur Amphetamines Screen NEGATIVE, U Benzodiazepines Scrn NEGATIVE, Urine Cocaine Screen NEGATIVE, U Cannabinoids Screen NEGATIVE 07/23/25 05:35: POC Glucose 108 H 07/23/25 07:30: Triglycerides 67, Cholesterol 146, LDL Cholesterol, Calc 88, VLDL Cholesterol 13, HDL Cholesterol 45, Cholesterol/HDL Ratio 3.26 Imaging Radiology Impression Brain CT 07/22/25 18:39 IMPRESSION: No acute intracranial abnormality seen. Reading Location: [facility] Head/Neck CTA 07/22/25 18:40 IMPRESSION: No intracranial or cervical large vessel arterial occlusion or hemodynamically significant stenosis. Short-segment mild narrowing of the proximal basilar artery. Anatomic variants as noted. Reading Location: [facility] Chest X-Ray 07/22/25 19:12 IMPRESSION: Cardiomegaly. No acute pulmonary disease. Reading Location: [id number] Brain CT 07/23/25 05:36 IMPRESSION: No CT evidence for acute brain abnormality. Reading Location: [place] [address] Active Medications Active Medications Active Medications: Current Medications Generic Name Dose Route Start Last Admin Trade Name Freq PRN Reason Stop Dose Admin Acetaminophen 650 mg 07/22/25 21:50 Acetaminophen 325 Mg Tablet PO Q6H PRN PRN Pain 1-10 Or Fever>99.6 Albuterol Sulfate 2.5 mg 07/23/25 00:00 Albuterol 2.5 Mg/3 Ml Vial.Neb. INHALATION Q6HWA.RT IRENE Aspirin 81 mg 07/23/25 08:00 07/23/25 09:31 Aspirin 81 Mg Tab.Chew PO 81 mg BREAKFAST IRENE Administration Atorvastatin Calcium 40 mg 07/22/25 22:00 07/22/25 22:50 Atorvastatin Calcium 40 Mg Tablet PO 40 mg QHS IRENE Administration Budesonide 0.5 mg 07/23/25 06:00 Budesonide Respules 0.5 Mg/2 Ml Ampul.Neb. INHALATION Q12H.RT IRENE Cholecalciferol 50 mcg 07/23/25 10:00 07/23/25 09:31 Cholecalciferol (Vit D3) 25 Mcg Tablet (1,000 Units) PO 50 mcg DAILY IRENE Administration Clopidogrel Bisulfate 75 mg 07/24/25 10:00 Clopidogrel Bisulfate 75 Mg Tablet PO DAILY IRENE Enoxaparin Sodium 40 mg 07/23/25 10:00 07/23/25 09:32 Enoxaparin 40 Mg/0.4 Ml Syringe SC 40 mg DAILY IRENE Administration Fluticasone Propionate 1 spray 07/23/25 10:00 07/23/25 09:31 Fluticasone 0.05% 1 [place] Nasal.Sry NASAL 1 spray DAILY IRENE Administration Sodium Chloride 1,000 mls @ 70 mls/hr 07/22/25 20:52 07/22/25 22:50 IV 07/23/25 11:09 70 mls/hr .[id number] IRENE Administration Sodium Chloride 250 mls @ 15 mls/hr 07/22/25 21:51 IV .[id number] PRN Saline Flush Sodium Chloride 250 mls @ 15 mls/hr 07/22/25 21:51 IV .[id number] PRN Additional IVPB Infusion Latanoprost 1 drp 07/23/25 22:00 Latanoprost 0.005% 1 Bottle OPHTHALMIC QODAY@2200 IRENE Loratadine 10 mg 07/23/25 10:00 07/23/25 09:31 Loratadine 10 Mg Tablet PO 10 mg DAILY IRENE Administration Sodium Chloride 10 - 40 ml 07/22/25 21:51 0.9% Saline Lock 10 Ml Syringe IV UD PRN SALINE FLUSH NIHSS NIHSS Nursing Documentation NIHSS Nursing Documentation: NIHSS: Ischemic Stroke/TIA Start: 07/22/25 21:50 Text: For PCU Patients: NIH and Neuro Check every 4 Status: Active hours, PRN and with change in RN caregiver. Freq: [id number] Protocol: Activity Type Activity Date Activity User E-sign Co-sign Detail Recorded Client Recorded Date Recorded By Document 07/23/25 07:28 IN [id number] 07/23/25 08:07 IN 07/23/25 07:28 NIH Stroke Scale [NIHSS] A score of 0 is "normal" or asymptomatic . Total possible score is 42. Inpatient: RN or Physician to activate a stroke alert for onset of new stroke symptoms or with NIHSS increase >/= 3 points. Following change in neurological status, NIHSS will be performed per physician order or more frequently PRN. -1a. Level of Consciousness 0 - Alert; keenly responsive -1b. LOC Questions 0 - Answers BOTH questions correctly -1c. LOC Commands 0 - Performs BOTH tasks correctly -2. Best Gaze 0 - Normal -3. Visual 0 - No visual loss -4. Facial Palsy 0 - Normal symmetrical movements -5a. Left Arm 0 - No drift; arm holds 90 ( or 45) degrees for full 10 seconds -5b. Right Arm 3 - No effort against gravity ; arm falls -6a. Left Leg 0 - No drift; leg holds 30- degree position for full 5 seconds -6b. Right Leg 2 - Some effort against gravity; -7. Limb Ataxia 2 - Present in 2 limbs -8. Sensory 0 - Normal; no sensory loss -9. Best Language 0 - No aphasia; normal -10. Dysarthria 1 = Mild-to- moderate dysarthria; -11. Extinction and Inattention 0 - No abnormality -Total 8 Query Text:A score of 0 is "normal" or asymptomatic. Total possible score is 42 . ED: Notify Physician for NIHSS increase by > / = 3 points. Inpatient: RN or Physician to activate a stroke alert for NIHSS increase of > / = 3 points. Coma Scale [Assess] -Eye Opening Spontaneous -Motor Obeys Commands -Verbal Oriented [Total] -Coma Scale Total 15 NIHSS 1a. Level of Consciousness: 0 - Alert; keenly responsive 1b. LOC Questions: 0 - Answers BOTH questions correctly 3. Visual: 0 - No visual loss 5a. Left Arm: 0 - No drift; arm holds 90 (or 45) degrees for full 10 seconds 5b. Right Arm: 4- No movement 6a. Left Le - No drift; leg holds 30-degree position for full 5 seconds 6b. Right Le - No effort against gravity; leg falls to bed immediately 7. Limb Ataxia: 0 - Absent 8. Sensory: 0 - Normal; no sensory loss 9. Best Language: 0 - No aphasia; normal 10. Dysarthria: 0 - Normal 11. Extinction and Inattention: 0 - No abnormality Total: 7 07/23/25 1258 Cosigner Signature (if applicable): CC: Dr. Kody Frank MD~ Signed [facility]09-27-2025 Evaluation note* Diagnosis Onset Date Resolution Status Admit Date Right arm weakness deleted 2024 10:51am Right leg weakness deleted 2024 10:51am Slurred speech deleted July 23, 2025 10:51am Asthma, mild intermittent acute July 25, 2025 5:30pm Dysarthria acute June 5:30pm Dysphagia acute June 5:30pm Facial droop due to acute cerebrovascular accident (CVA) acute S eptember 2024 5:30pm Glaucoma acute June 5:30pm Hyperuricemia acute June [id number] 5:30pm Ischemic cerebrovascular accident (CVA) acute July 25, 2025 5:30pm Paroxysmal A-fib acute Junembe r 2024 5:30pm Physical debility acute Septemb er 2024 5:30pm Right sided weakness acute Sept ember 2024 5:30pm Seasonal allergies chronic Septem marty 2024 5:30pm [facility] Work Phone: 1(555) 667-900609-27-2025 Progress note [facility] Medical Records Department [address] [place] [address] Progress Note - Hospitalist 07/23/25 0854 MR#: [id number] Acct: [id number] Name: KODY RUGGIERO Rep #:[id number] : 1950 75 From: James Freeman DO PCP: Dr. Kody Frank MD Status :ADM SANDEEP Location: [place] [address] Reason for Visit Chief Complaint: RLE Weakness and Slurred Speech. Subjective Subjective Patient has had progressive right sided weakness as well as dysarthria since 8:00 yesterday morning. And currently has very limited movement of his right upper extremity. Also has weakness in his right lower extremity but not as profound as his arm. Objective Data Objective Data Vital Signs: Vital Signs Temp Pulse Resp BP Pulse Ox O2 Del Method O2 Flow Rate 36.6 C 60 18 175/90 H 97 Room Air 2 07/23/25 07:28 07/23/25 07:28 07/23/25 07:28 07/23/25 07:28 07/23/25 07:28 07/23/25 08:09 07/23/25 07:28 Oxygen Flow Rate (L/min) 2 Oxygen Delivery Method Room Air Weight: 90.2 kg Body Mass Index (BMI) 25.5 Intake & Output: Intake and Output for Last 24 Hours 07/21/25 07/22/25 07/23/25 23:59 23:59 23:59 Intake Total 650 / 650 Balance 650 / 650 Lab / Micro Data 07/22/25 18:51 07/22/25 18:51 Labs: Laboratory Results - last 24 hr 07/22/25 18:51: WBC 10.2, RBC 4.73, Hgb 15.7, Hct 45.8, MCV 96.8 H, MCH 33.2 H, MCHC 34.3, RDW Std Deviation 47.1 H, RDW Coeff of Driss 13.1, Plt Count 279, MPV 9.3, Immature Gran % (Auto) 0.400, Neut % (Auto) 67.3, Lymph % (Auto) 17.2 L, Mcmullen % (Auto) 10.6 H, Eos % (Auto) 4.0, Baso % (Auto) 0.5, Absolute Neuts (auto) 6.8, Absolute Lymphs (auto) 1.75, Nucleated RBC % 0, PT 13.7, INR 1.0, APTT 34.6,Sodium 140, Potassium 4.1, Chloride 105, Carbon Dioxide 21.4, Anion Gap 14, BUN 21 H, Creatinine 0.85, Est GFR (MDRD) Non-Af 90, BUN/Creatinine Ratio 24.2 H, Glucose 101 H, Hemoglobin A1c 5.6, Calcium 9.1, Troponin T High Sens 12 07/22/25 20:52: Troponin T Hi Sens 2 Hr 13, TSH 1.890 07/22/25 22:37: Troponin T Hi Sens 4Hr 11, Ethyl Alcohol < 10.1 07/23/25 01:30: Urine Opiates Screen NEGATIVE, U Buprenorphine Qual NEGATIVE, UrOxycodone Screen NEGATIVE, Urine Methadone Screen NEGATIVE, Urine Fentanyl Screen NEGATIVE, Ur Barbiturates Screen NEGATIVE, Ur Phencyclidine Scrn NEGATIVE, Ur Amphetamines Screen NEGATIVE, U Benzodiazepines Scrn NEGATIVE, Urine Cocaine Screen NEGATIVE, U Cannabinoids Screen NEGATIVE 07/23/25 05:35: POC Glucose 108 H 07/23/25 07:30: Triglycerides 67, Cholesterol 146, LDL Cholesterol, Calc 88, VLDL Cholesterol 13, HDL Cholesterol 45, Cholesterol/HDL Ratio 3.26 Radiography Diagnostic Testing: Radiology Impression Brain CT 07/22/25 18:39 IMPRESSION: No acute intracranial abnormality seen. Reading Location: [id number] Head/Neck CTA 07/22/25 18:40 IMPRESSION: No intracranial or cervical large vessel arterial occlusion or hemodynamically significant stenosis. Short-segment mild narrowing of the proximal basilar artery. Anatomic variants as noted. Reading Location: [facility] Chest X-Ray 07/22/25 19:12 IMPRESSION: Cardiomegaly. No acute pulmonary disease. Reading Location: [id number] Brain CT 07/23/25 05:36 IMPRESSION: No CT evidence for acute brain abnormality. Reading Location: [place] [address] Physical Exam Const alert and no apparent distress HEENT head/scalp atraumatic and moist oral mucous membranes Resp normal respiratory effort, no retractions, no use of accessory muscles and clearto auscultation bilaterally Cardio regular rate, regular rhythm, S1 normal heart sound and S2 normal heart sound GI normal to inspection, nondistended, normoactive bowel sounds, soft to palpation,non-tender and non-distended Extremity normal to inspection Neuro Neuro Narrative: Slight right facial droop compared to the left. Slight dysarthria. Muscle strength 2-5 in the rightupper extremity and 3-5 in the right lower extremity. 5-5 in left upper and left lower extremity. Sensation grossly intact throughout. Sensorium / Orientation: awake and alert Psych affect normal Assessment & Plan Assessment/Plan (1) Right arm weakness: (2) Right leg weakness: (3) Slurred speech: PLAN: Plan Acute CVA * suspected given his symptoms * Delayed presentation as patient presented several hours after initial presentation as his symptoms did progress even while he was in the hospital. * CTA of the head and neck showed no LVO. He had a repeat CT given worsening symptoms and that was negative. * follow up MRI, neuro consult, echo * continue ASA, atorvastatin, clopidogrel Chronic conditions: * Mild intermittent asthma; on fluticasone propion-salmeterol BID - Stable with no evidence of acute flare at this time. Continue current treatment. * Glaucoma; on latanoprost eye drops - Continue latanoprost as previous. DVT prophylaxis - Enoxaparin 40 mg sq daily. Charges/Coding Visit Charges Inpatient E&M: 27269 Subs Hosp L2 NIHSS NIHSS Nursing Documentation NIHSS Nursing Documentation: NIHSS: Ischemic Stroke/TIA Start: 07/22/25 21:50 Text: For PCU Patients: NIH and Neuro Check every 4 Status: Active hours, PRN and with change in RN caregiver. Freq: [id number] Protocol: Activity Type Activity Date Activity User E-sign Co-sign Detail Recorded Client Recorded Date Recorded By Document 07/23/25 07:28 JANIE [id number] 07/23/25 08:07 IN 07/23/25 07:28 NIH Stroke Scale [NIHSS] A score of 0 is "normal" or asymptomatic . Total possible score is 42. Inpatient: RN or Physician to activate a stroke alert for onset of new stroke symptoms or with NIHSS increase >/= 3 points. Following change in neurological status, NIHSS will be performed per physician order or more frequently PRN. -1a. Level of Consciousness 0 - Alert; keenly responsive -1b. LOC Questions 0 - Answers BOTH questions correctly -1c. LOC Commands 0 - Performs BOTH tasks correctly -2. Best Gaze 0 - Normal -3. Visual 0 - No visual loss -4. Facial Palsy 0 - Normal symmetrical movements -5a. Left Arm 0 - No drift; arm holds 90 ( or 45) degrees for full 10 seconds -5b. Right Arm 3 - No effort against gravity ; arm falls -6a. Left Leg 0 - No drift; leg holds 30- degree position for full 5 seconds -6b. Right Leg 2 - Some effort against gravity; -7. Limb Ataxia 2 - Present in 2 limbs -8. Sensory 0 - Normal; no sensory loss -9. Best Language 0 - No aphasia; normal -10. Dysarthria 1 = Mild-to- moderate dysarthria; -11. Extinction and Inattention 0 - No abnormality -Total 8 Query Text:A score of 0 is "normal" or asymptomatic. Total possible score is 42 . ED: Notify Physician for NIHSS increase by > / = 3 points. Inpatient: RN or Physician to activate a stroke alert for NIHSS increase of > / = 3 points. Coma Scale [Assess] -Eye Opening Spontaneous -Motor Obeys Commands -Verbal Oriented [Total] -Coma Scale Total 15 07/23/25 1231 Cosigner Signature (if applicable): CC: ~ Signed [facility]09-27-2025 History and physical note Author Rod Brar [facility] Note Date/Time July 23, 2025 7:48am [facility] Medical Records Department [address] [place] [address] H&P Exam - Hospitalist 07/22/252035 MR#: [id number] Acct: [id number] Name: KODY RUGGIERO Rep #:[id number] : 1950 75 From: oRd Calderon DO PCP: Dr. Kody Frank MD Status :ADM SANDEEP Location: [place] [address] HPI - General General Date of Admission: 07/22/25 Date of Service: 07/22/25 Chief Complaint: RLE Weakness and Slurred Speech. HPI Narrative KODY RUGGIERO, is a 75 M with a past medical history of former tobacco abuse, mild intermittent asthma; on fluticasone propion-salmeterol BID, seasonalallergies; on loratadine and fluticasone NS and glaucoma; on latanoprost eye drops who presents to [facility] ER complaining of RLE weakness and slurred speech. Mr. Ruggiero reports his symptoms began at ~8 AM earlier this morning while he was doing some exercises when he noted increasing heaviness and weakness in his Right lower extremity with patient not feeling right throughout the day. Then a few hours later he noted decreased dexterity in his Right hand followed by slurred speech so he and his family decided to come in for further evaluation and treatment with strong suspicion for CVA. He denies associated headache, head trauma, anticoagulation or similar previous episodes. In the ER he underwent CT scan of the brain without contrast which revealed no acute intracranial abnormality followed by CTA of the head and neck with IV contrast that revealed no large intracranial or cervical large vessel occlusion or hemodynamically significant stenosis with mild short-segment narrowing of the proximal basilar artery in addition to a CXR that revealed no acute pulmonary process. He was then diagnosed with TIA versus CVA and admittedto the PCU under observation status for ongoing care for stay that is expected to be less than 2 midnights. [facility] Medical History Seasonal allergies Asthma, mild intermittent Home Medications ?Medication ?Instructions ?Recorded ?Last Taken ?Type fluticasone 250 mcg-salmeterol 50 1 inh inhalation Q12 H 01/15/22 07/22/25 08:14 History mcg/dose blistr powdr for inhalation latanoprost 0.005 % eye drops 1 drp ophthalmic (eye) Q AVERY 01/15/22 07/21/25 22:12 History cholecalciferol (vitamin D3) 50 50 mcg PO DAILY 07/22/25 08:00 History mcg (2,000 unit) tablet (Vitamin D3) fluticasone propionate 50 1 spray intranasal DAILY 07/22/25 08:13 History mcg/actuation nasal spray,suspension (Allergy Relief (fluticasone)) loratadine 10 mg tablet (Claritin) 10 mg PO DAILY 06/2807/22/25 08:12 History Allergy/AdvReac Type Severity Reaction Status Date / Time No Known Allergies Allergy Verified 08/05/23 09:38 Social History Smoking Status: Former smoker ROS ROS Narrative Review of Systems: Constitutional: Patient denies fever or chills. Eyes: Patient denies change in vision or discharge from eyes. ENT: Patient denies runny nose, sore throat or ear pain. Resp: Patient denies shortness of breath or cough. CV: Patient denies chest pain, palpitations, heart racing or lower extremity edema. GI: Patient denies abdominal pain, nausea, vomiting, diarrhea or constipation. : Patient denies dysuria or hematuria. MSK: Patient admits to weakness and heaviness in his Right upper and lower extremity as per HPI. Skin: Patient denies rash, abscess, wounds or jaundice. Psych: Patient denies symptoms of uncontrolled depression or anxiety. Neuro: Patient admits to Right-sided weakness with slurred speech as per HPI buthe denies headache or paresthesias. Allergy: Patient denies lip swelling, tongue swelling or urticaria. Hematology: Patient denies easy bleeding or easy bruisability. Endocrinology: Patient denies polyuria, polydipsia, polyphagia or heat/cold intolerance. 14 point ROS otherwise negative except for positives noted above in HPI. Vital Signs Vital Signs Vital Signs: 07/22/25 18:35 07/22/25 18:46 07/22/25 18:56 Temperature 96.4 F L Temperature Source Oral Pulse Rate 54 L 54 L Respiratory Rate 16 16 Blood Pressure 165/98 H 165/98 H Blood Pressure Mean 120 120 Pulse Ox 95 95 Oxygen Delivery Method Room Air Room Air Room Air 07/22/25 18:59 07/22/25 19:30 07/22/25 20:00 Temperature Temperature Source Pulse Rate 65 68 69 Respiratory Rate 22 H 16 18 Blood Pressure 145/89 H 150/82 H 134/88 H Blood Pressure Mean 107 104 103 Pulse Ox 96 96 94 Oxygen Delivery Method Room Air Room Air Room Air 07/22/25 20:30 Temperature Temperature Source Pulse Rate 64 Respiratory Rate 16 Blood Pressure 141/69 H Blood Pressure Mean 93 Pulse Ox 97 Oxygen Delivery Method Room Air Physical Exam Const alert, oriented x3, no apparent distress, average body habitus and healthy appearing General Appearance: cooperative HEENT normocephalic, head/scalp atraumatic, hearing grossly normal bilaterally and moist oral mucous membranes Eyes PERRL, EOMs intact bilaterally and conjunctivae normal Neck no lymphadenopathy, supple and no JVD Resp normal respiratory effort, no retractions, no use of accessory muscles and clearto auscultation bilaterally Cardio regular rate and regular rhythm GI normal to inspection, nondistended, normoactive bowel sounds, soft to palpation,non-tender and non-distended Extremity normal to inspection, full ROM and no clubbing, cyanosis or edema Skin Skin Narrative: Patient has evidence of rash, abscess, wounds or jaundice. Neuro oriented x3, CN's II-XII intact bilaterally, moves all extremities and no focal motor deficits Sensorium / Orientation: awake, alert, oriented to person, oriented to place andoriented to time Speech: speech normal Psych affect normal Results Medical Records Data Attestation: I reviewed the patient's medical records Lab / Micro Data Attestation: I reviewed the patient's lab results. 07/22/25 18:51 07/22/25 18:51 Labs: Laboratory Results - last 24 hr 07/22/25 18:51: WBC 10.2, RBC 4.73, Hgb 15.7, Hct 45.8, MCV 96.8 H, MCH 33.2 H, MCHC 34.3, RDW Std Deviation 47.1 H, RDW Coeff of Driss 13.1, Plt Count 279, MPV 9.3, Immature Gran % (Auto) 0.400, Neut % (Auto) 67.3, Lymph % (Auto) 17.2 L, Mcmullen % (Auto) 10.6 H, Eos % (Auto) 4.0, Baso % (Auto) 0.5, Absolute Neuts (auto) 6.8, Absolute Lymphs (auto) 1.75, Nucleated RBC % 0, PT 13.7, INR 1.0, APTT 34.6, Sodium 140, Potassium 4.1, Chloride 105, Carbon Dioxide 21.4, Anion Gap 14, BUN 21 H, Creatinine 0.85, Est GFR (MDRD) Non-Af 90, BUN/Creatinine Ratio 24.2 H, Glucose 101 H, Calcium 9.1, Troponin T High Sens 12 Imaging Radiology Impression Brain CT 07/22/25 18:39 IMPRESSION: No acute intracranial abnormality seen. Reading Location: [facility] Head/Neck CTA 07/22/25 18:40 IMPRESSION: No intracranial or cervical large vessel arterial occlusion or hemodynamically significant stenosis. Short-segment mild narrowing of the proximal basilar artery. Anatomic variants as noted. Reading Location: [facility] Chest X-Ray 07/22/25 19:12 IMPRESSION: Cardiomegaly. No acute pulmonary disease. Reading Location: [facility] Assessment & Plan Assessment/Plan (1) Right arm weakness: (2) Right leg weakness: (3) Slurred speech: PLAN: Plan 1. Right-sided weakness with Slurred speech consistent with TIA vs CVA - Admit to PCU under observation status. Check MRI of the brain to evaluate for evidence of CVA. Check echocardiogram to evaluate LVEF. Continue ECASA and begin satin. Check TSH, B12, Folate, HgbA1c, Lipid Profile, CLEMENTINE and UDS. [facility] tel[facility] evaluation is greatly appreciated. 2. Mild intermittent asthma; on fluticasone propion-salmeterol BID - Stable with no evidence of acute flare at this time. Continue current treatment. 3. Former tobacco abuse - Noted. 4. Seasonal allergies; on loratadine and fluticasone NS - Present treatment to be maintained as before. 5. Glaucoma; on latanoprost eye drops - Continue latanoprost as previous. 6. DVT prophylaxis - Enoxaparin 40 mg sq daily. Update: Stroke alert was called at approximately 5:30 AM after patient was notedto have increasing weakness in his right upper extremity and right lower extremity. He underwent stat head CT without contrast that revealed no acute changes. Dr. Kuo of [facility] teleneu[facility] evaluated patient thoroughly and recommended for Plavix load of 600 mg p.o. x 1+500 cc bolus of normal saline x 1and then continue maintenance fluid for suspected stuttering infarct with MRI ofbrain still pending in a.m. ENVELOPE STUFFER was updated with plan. Total time: Approximately (but not less than) 40 minutes. Charges/Coding Visit Charges Inpatient E&M: 12192 Init Hosp L1 07/23/25 0749 <Electronically signed by Rod Collins DO> Cosigner Signature (if applicable): CC: Dr. Kody Frank MD; Dr. Rod Collins DO~ Signed [facility] Work Phone: [phone] History and physical note [facility] Medical Records Department [address] [place] [address] H&P Exam - Hospitalist 07/22/252035 MR#: [id number] Acct: [id number] Name: KODY RUGGIERO Rep #:[id number] : 1950 75 From: Rod Calderon DO PCP: Dr. Kody Frank MD Status :ADM SANDEEP Location: [place] [address] HPI - General General Date of Admission: 07/22/25 Date of Service: 07/22/25 Chief Complaint: RLE Weakness and Slurred Speech. HPI Narrative KODY RUGGIERO, is a 75 M with a past medical history of former tobacco abuse, mild intermittent asthma; on fluticasone propion-salmeterol BID, seasonalallergies; on loratadine and fluticasone NS and glaucoma; on latanoprost eye drops who presents to [facility] ER complaining of RLE weakness and slurred speech. Mr. Ruggiero reports his symptoms began at ~8 AM earlier this morning while he was doing some exercises when he noted increasing heaviness and weakness in his Rightlower extremity with patient not feeling right throughout the day. Then a few hours later he noted decreased dexterity in his Right hand followed by slurred speech so he and his family decided to come in for further evaluation and treatment with strong suspicion for CVA. He denies associated headache, head trauma, anticoagulation or similar previous episodes. In the ER he underwent CT scan of thebrain without contrast which revealed no acute intracranial abnormality followed by CTA of the headand neck with IV contrast that revealed no large intracranial or cervical large vessel occlusion orhemodynamically significant stenosis with mild short-segment narrowing of the proximal basilar artery in addition to a CXR that revealed no acute pulmonary process. He was then diagnosed with TIA versus CVA and admittedto the PCU under observation status for ongoing care for stay that is expected to be less than 2 midnights. [facility] Medical History Seasonal allergies Asthma, mild intermittent Home Medications ?Medication ?Instructions ?Recorded ?Last Taken ?Type fluticasone 250 mcg-salmeterol 50 1 inh inhalation Q12 H 01/15/22 07/22/25 08:14 History mcg/dose blistr powdr for inhalation latanoprost 0.005 % eye drops 1 drp ophthalmic (eye) Q AVERY 01/15/22 07/21/25 22:12 History cholecalciferol (vitamin D3) 50 50 mcg PO DAILY 07/22/25 08:00 History mcg (2,000 unit) tablet (Vitamin D3) fluticasone propionate 50 1 spray intranasal DAILY 07/22/25 08:13 History mcg/actuation nasal spray,suspension (Allergy Relief (fluticasone)) loratadine 10 mg tablet (Claritin) 10 mg PO DAILY 06/2807/22/25 08:12 History Allergy/AdvReac Type Severity Reaction Status Date / Time No Known Allergies Allergy Verified 08/05/23 09:38 Social History Smoking Status: Former smoker ROS ROS Narrative Review of Systems: Constitutional: Patient denies fever or chills. Eyes: Patient denies change in vision or discharge from eyes. ENT: Patient denies runny nose, sore throat or ear pain. Resp: Patient denies shortness of breath or cough. CV: Patient denies chest pain, palpitations, heart racing or lower extremity edema. GI: Patient denies abdominal pain, nausea, vomiting, diarrhea or constipation. : Patient denies dysuria or hematuria. MSK: Patient admits to weakness and heaviness in his Right upper and lower extremity as per HPI. Skin: Patient denies rash, abscess, wounds or jaundice. Psych: Patient denies symptoms of uncontrolled depression or anxiety. Neuro: Patient admits to Right-sided weakness with slurred speech as per HPI buthe denies headache or paresthesias. Allergy: Patient denies lip swelling, tongue swelling or urticaria. Hematology: Patient denies easy bleeding or easy bruisability. Endocrinology: Patient denies polyuria, polydipsia, polyphagia or heat/cold intolerance. 14 point ROS otherwise negative except for positives noted above in HPI. Vital Signs Vital Signs Vital Signs: 07/22/25 18:35 07/22/25 18:46 07/22/25 18:56 Temperature 96.4 F L Temperature Source Oral Pulse Rate 54 L 54 L Respiratory Rate 16 16 Blood Pressure 165/98 H 165/98 H Blood Pressure Mean 120 120 Pulse Ox 95 95 Oxygen Delivery Method Room Air Room Air Room Air 07/22/25 18:59 07/22/25 19:30 07/22/25 20:00 Temperature Temperature Source Pulse Rate 65 68 69 Respiratory Rate 22 H 16 18 Blood Pressure 145/89 H 150/82 H 134/88 H Blood Pressure Mean 107 104 103 Pulse Ox 96 96 94 Oxygen Delivery Method Room Air Room Air Room Air 07/22/25 20:30 Temperature Temperature Source Pulse Rate 64 Respiratory Rate 16 Blood Pressure 141/69 H Blood Pressure Mean 93 Pulse Ox 97 Oxygen Delivery Method Room Air Physical Exam Const alert, oriented x3, no apparent distress, average body habitus and healthy appearing General Appearance: cooperative HEENT normocephalic, head/scalp atraumatic, hearing grossly normal bilaterally and moist oral mucous membranes Eyes PERRL, EOMs intact bilaterally and conjunctivae normal Neck no lymphadenopathy, supple and no JVD Resp normal respiratory effort, no retractions, no use of accessory muscles and clearto auscultation bilaterally Cardio regular rate and regular rhythm GI normal to inspection, nondistended, normoactive bowel sounds, soft to palpation,non-tender and non-distended Extremity normal to inspection, full ROM and no clubbing, cyanosis or edema Skin Skin Narrative: Patient has evidence of rash, abscess, wounds or jaundice. Neuro oriented x3, CN's II-XII intact bilaterally, moves all extremities and no focal motor deficits Sensorium / Orientation: awake, alert, oriented to person, oriented to place andoriented to time Speech: speech normal Psych affect normal Results Medical Records Data Attestation: I reviewed the patient's medical records Lab / Micro Data Attestation: I reviewed the patient's lab results. 07/22/25 18:51 07/22/25 18:51 Labs: Laboratory Results - last 24 hr 07/22/25 18:51: WBC 10.2, RBC 4.73, Hgb 15.7, Hct 45.8, MCV 96.8 H, MCH 33.2 H, MCHC 34.3, RDW Std Deviation 47.1 H, RDW Coeff of Driss 13.1, Plt Count 279, MPV 9.3, Immature Gran % (Auto) 0.400, Neut % (Auto) 67.3, Lymph % (Auto) 17.2 L, Mcmullen % (Auto) 10.6 H, Eos % (Auto) 4.0, Baso % (Auto) 0.5, Absolute Neuts (auto) 6.8, Absolute Lymphs (auto) 1.75, Nucleated RBC % 0, PT 13.7, INR 1.0, APTT 34.6,Sodium 140, Potassium 4.1, Chloride 105, Carbon Dioxide 21.4, Anion Gap 14, BUN 21 H, Creatinine 0.85, Est GFR (MDRD) Non-Af 90, BUN/Creatinine Ratio 24.2 H, Glucose 101 H, Calcium 9.1, Troponin T High Sens 12 Imaging Radiology Impression Brain CT 07/22/25 18:39 IMPRESSION: No acute intracranial abnormality seen. Reading Location: [facility] Head/Neck CTA 07/22/25 18:40 IMPRESSION: No intracranial or cervical large vessel arterial occlusion or hemodynamically significant stenosis. Short-segment mild narrowing of the proximal basilar artery. Anatomic variants as noted. Reading Location: [facility] Chest X-Ray 07/22/25 19:12 IMPRESSION: Cardiomegaly. No acute pulmonary disease. Reading Location: [id number] Assessment & Plan Assessment/Plan (1) Right arm weakness: (2) Right leg weakness: (3) Slurred speech: PLAN: Plan 1. Right-sided weakness with Slurred speech consistent with TIA vs CVA - Admit to PCU under observation status. Check MRI of the brain to evaluate for evidence of CVA. Check echocardiogram to evaluate LVEF. Continue ECASA and begin satin. Check TSH, B12, Folate, HgbA1c, Lipid Profile, CLEMENTINE and UDS. [facility] evaluation is greatly appreciated. 2. Mild intermittent asthma; on fluticasone propion-salmeterol BID - Stable with no evidence of acute flare at this time. Continue current treatment. 3. Former tobacco abuse - Noted. 4. Seasonal allergies; on loratadine and fluticasone NS - Present treatment to be maintained as before. 5. Glaucoma; on latanoprost eye drops - Continue latanoprost as previous. 6. DVT prophylaxis - Enoxaparin 40 mg sq daily. Update: Stroke alert was called at approximately 5:30 AM after patient was notedto have increasing weakness in his right upper extremity and right lower extremity. He underwent stat head CT without contrast that revealed no acute changes. Dr. Kuo of [facility] evaluated patient thoroughly and recommended for Plavix load of 600 mg p.o. x 1+500 cc bolus of normal saline x 1and then continue maintenance fluid for suspected stuttering infarct with MRI ofbrain still pending in a.m. ENVELOPE STUFFER wasupdated with plan. Total time: Approximately (but not less than) 40 minutes. Charges/Coding Visit Charges Inpatient E&M: 78554 Init Hosp L1 07/23/25 0789 Cosigner Signature (if applicable): CC: Dr. Kody Frank MD; Dr. Rod Collins DO~ Signed [facility]09-27-2025 Radiology Diagnostic study note [facility] Imaging Services [address] [place], [place] [id number] STROKE Brain/Head without Cont MR#: [id number] Acct: [id number] Name: KODY RUGGIERO Rep #: [id number] : 1950 M 75 From: Regino Hendrix MD PCP: Dr. Kody Frank MD Status: ADM SANDEEP Study:STROKE Brain/Head without Cont Date of Exam: 07/23/25 Exam# [id number] Ordering Dr: Rod Liu DO PROCEDURE: STROKE BRAIN/HEAD WITHOUT CONT 07/23/2025 REASON FOR EXAM: STROKE ALERT TECHNIQUE: Procedure Code: CTBR.ST Modality: CT Procedure: STROKE BRAIN/HEAD WITHOUT CONT Coronal and Sagittal reconstruction series were provided. One or more dose reduction techniques were used (e.g., Automated exposure control, adjustment of the mA and/or kV according to patient size, use of iterative reconstruction technique. RADIATION DOSE SUMMARY: CTDlvol: 12.3 mGy DLP: 387 mGycm COMPARISON: CT scan on 07/22/2025. FINDINGS: Mild diffuse cortical atrophy, commensurate with the patient's age. Scattered hypodense foci in the periventricular and subcortical white matter suggestive of chronic ischemic white matter disease. Normal size of the ventricles and extra-axial spaces for the patient's age. Normal basal ganglia and thalami. Normal brainstem. Normal cerebellum. There is no demonstrated extra-axial, intraparenchymal, or intraventricular hemorrhage. There are no findings of an acute ischemic infarction. Normal calvarium. There is no demonstrated fracture. Normal soft tissue structures. Moderate chronic mucosal inflammatory changes of the visualized paranasal sinuses. Air-fluid level in the right maxillary sinus. CT/STROKE Brain/Head without Cont IMPRESSION: No CT evidence for acute brain abnormality. Reading [facility] CC: Dr. Kody Frank MD; Dr. Rod Collins DO ~ Paint Stock Clerk: Signed [facility]09-26-2025 Discharge summary Author Lobito Her [facility] Note Date/Time July 22, 2025 8:41pm [facility] Medical Records Department [address] [place] [address] Emergency Department Summary 07/22/25 MR#: [id number] Acct: [id number] Name: KODY RUGGIERO Rep #:[id number] : 1950 75 From: Lobito Her DO PCP: Dr. Kody Frank MD Status :REG ER Location: ED HPI History of Present Illness Chief Complaint: Stroke Alert Narrative Narrative: Patient is a 75-year-old male with no known significant past medical history whopresents to the emergency department with concern for stroke. Patient was stroke alerted from triage. Patient states that around 8 AM this morning he wasdoing some exercises and notes that his right lower extremity felt heavy and felt off he continued about his day. He states that he later on throughout the day also developed some right hand fine motor difficulty. He also complains of slurred speech as well as his significant other at bedside also states that he has had slurred speech. They state that nothing like this has ever happened before but given the concern for stroke they brought him here to be further evaluated. Patient denies any headaches denies any head trauma denies any bloodthinner medications PFSH [facility] Medical History Seasonal allergies Asthma, mild intermittent Home Medications ?Medication ?Instructions ?Recorded ?Last Taken ?Type fluticasone 250 mcg-salmeterol 50 1 inh inhalation Q12 H 01/15/22 Unknown History mcg/dose blistr powdr for inhalation latanoprost 0.005 % eye drops 1 drp ophthalmic (eye) Q AVERY 01/15/22 Unknown History cholecalciferol (vitamin D3) 50 50 mcg PO DAILY Unknown History mcg (2,000 unit) tablet (Vitamin D3) fluticasone propionate 50 1 spray intranasal DAILY Unknown History mcg/actuation nasal spray,suspension (Allergy Relief (fluticasone)) loratadine 10 mg tablet (Claritin) 10 mg PO DAILY 06/28 04/20 Unknown History Allergy/AdvReac Type Severity Reaction Status Date / Time No Known Allergies Allergy Verified 08/05/23 09:38 Social History Smoking Status: Former smoker ROS ROS ED ROS Narrative Constitutional: Denies any headache, lightness, dizziness, fevers, chills Eyes: Denies double vision blurry vision Cardiovascular: Denies chest pain Respiratory: Denies shortness of breath Abdomen: Denies abdominal pain nausea vomit diarrhea : Denies urinary symptoms Neurological: Complains of right leg and arm heaviness and numbness as noted above as well as slurred speech as noted above Musculoskeletal: Denies back pain Skin: Denies any rashes or lesions EXAM Physical Exam Narrative Exam Narrative: General: Patient was lying in bed rest comfortably did not appear to be in acutedistress Head: Atraumatic, normocephalic Eyes: PERRL bilaterally, EOMI bilaterally, no conjunctival injection noted Neck: Soft, supple, trachea midline Cardiovascular: Regular rate and rhythm no murmurs gallops rubs noted Respiratory: Clear to auscultation bilaterally no rales rhonchi or wheeze noted Abdomen: Soft, nondistended, no tenderness to palpation Extremities: +5/5 strength noted in the bilateral lower extremities, radial pulses +2/4 in the bilateral extremities, no pedal edema exam Neurological: Patient following commands knew that he was at [facility] the year is 2024 NIH of 2 GCS 15 Skin: Warm, dry, intact no rashes or lesions noted Const Vital Signs: 07/22/25 18:35 07/22/25 18:46 07/22/25 18:56 Temperature 96.4 F L Temperature Source Oral Pulse Rate 54 L 54 L Respiratory Rate 16 16 Blood Pressure 165/98 H 165/98 H Blood Pressure Mean 120 120 Pulse Ox 95 95 Oxygen Delivery Method Room Air Room Air Room Air 07/22/25 18:59 07/22/25 19:30 07/22/25 20:00 Temperature Temperature Source Pulse Rate 65 68 69 Respiratory Rate 22 H 16 18 Blood Pressure 145/89 H 150/82 H 134/88 H Blood Pressure Mean 107 104 103 Pulse Ox 96 96 94 Oxygen Delivery Method Room Air Room Air Room Air 07/22/25 20:30 Temperature Temperature Source Pulse Rate 64 Respiratory Rate 16 Blood Pressure 141/69 H Blood Pressure Mean 93 Pulse Ox 97 Oxygen Delivery Method Room Air MDM MDM MDM Narrative Medical decision making narrative: Patient is a 75-year-old male who presents to the emergency department with concern for stroke. On the differential diagnose includes but not limited to, intracranial hemorrhage, hypertensive emergency, ischemic stroke, posterior circulation stroke, complex migraine. Once workup is obtained and reviewed he will be reevaluated. Patient is not a tenecteplase candidate as his symptoms started around 8 AM thismorning, and states that his symptoms were persistent throughout the day howeverthey did progressively worsen throughout the day and into this evening. Patient's CBC reviewed and showed no evidence of cytosis white blood cell normalat 10.2, he was 15.7, plate count of 279. Patient INR normal at 1, PT of 13.7. Patient sodium was 140, potassium normal 4.1, creatinine 0.85. Patient's troponin was 12, EKG reviewed which showed sinus rhythm with a rate of 64 bpm PRinterval normal at 176. Patient CT head and brain without contrast reviewed showed no acute intracranial abnormalities. Patient CTA head and neck reviewed showed no acute large vessel occlusion there were short segmental mild narrowingof the proximal basilar artery anatomic variant as noted. Patient chest x-ray reviewed by myself by radiology showed cardiomegaly no other acute cardiopulmonary processes. Patient was given 325 mg aspirin. At this point time will discuss case with hospitalist for admission for further stroke workup. Spoke with hospitalist Dr. Cartwright who will accept the patient for admission. Patient was notified is agreeable with this plan all question concerns answered. Lab Data Labs: Laboratory Results - last 24 hr 07/22/25 18:51 WBC 10.2 RBC 4.73 Hgb 15.7 Hct 45.8 MCV 96.8 H MCH 33.2 H MCHC 34.3 RDW Std Deviation 47.1 H RDW Coeff of Driss 13.1 Plt Count 279 MPV 9.3 Immature Gran % (Auto) 0.400 Neut % (Auto) 67.3 Lymph % (Auto) 17.2 L Mcmullen % (Auto) 10.6 H Eos % (Auto) 4.0 Baso % (Auto) 0.5 Absolute Neuts (auto) 6.8 Absolute Lymphs (auto) 1.75 Nucleated RBC % 0 PT 13.7 INR 1.0 APTT 34.6 Sodium 140 Potassium 4.1 Chloride 105 Carbon Dioxide 21.4 Anion Gap 14 BUN 21 H Creatinine 0.85 Est GFR (MDRD) Non-Af 90 BUN/Creatinine Ratio 24.2 H Glucose 101 H Calcium 9.1 Troponin T High Sens 12 Radiography Diagnostic Testing: Clinical Impression(s) from Imaging Studies Brain CT 07/22/25 18:39 IMPRESSION: No acute intracranial abnormality seen. Reading Location: [id number] Head/Neck CTA 07/22/25 18:40 IMPRESSION: No intracranial or cervical large vessel arterial occlusion or hemodynamically significant stenosis. Short-segment mild narrowing of the proximal basilar artery. Anatomic variants as noted. Reading Location: [id number] Chest X-Ray 07/22/25 19:12 IMPRESSION: Cardiomegaly. No acute pulmonary disease. Reading Location: [id number] Discharge Plan Dx/Rx/DC Orders Clinical Impression: Right arm weakness, Right leg weakness, Slurred speech Disposition Disposition: Acute Care Hospital [facility] What to do if you have Problems For any increased pain, shortness of breath, bleeding, nausea or vomiting, chestpain, or any unexpected problems, contact your Primary Care Provider. Call [facility] ([phone]) or report to the closest Emergency Room. Call 911 if necessary. 07/22/252040 <Electronically signed by Lobito Her DO> Cosigner Signature (if applicable): CC: Dr. Kody Frank MD ~ Signed [facility] Work Phone: 1(112) 862-640909-26-2025 Discharge summary [facility] Medical Records Department [address] [place] [id number] Emergency Department Summary 07/22/25 MR#: [id number] Acct: [id number] Name: KODY RUGGIERO Rep #:[id number] : 1950 75 From: Lobito Her DO PCP: Dr. Kody Frank MD Status :REG ER Location: ED HPI History of Present Illness Chief Complaint: Stroke Alert Narrative Narrative: Patient is a 75-year-old male with no known significant past medical history whopresents to the emergency department with concern for stroke. Patient was stroke alerted from triage. Patient states that around 8 AM this morning he wasdoing some exercises and notes that his right lower extremity feltheavy and felt off he continued about his day. He states that he later on throughout the day also developed some right hand fine motor difficulty. He also complains of slurred speech as well as his significant other at bedside also states that he has had slurred speech. They state that nothing likethis has ever happened before but given the concern for stroke they brought him here to be further e valuated. Patient denies any headaches denies any head trauma denies any bloodthinner medications [facility] Medical History Seasonal allergies Asthma, mild intermittent Home Medications ?Medication ?Instructions ?Recorded ?Last Taken ?Type fluticasone 250 mcg-salmeterol 50 1 inh inhalation Q12 H 01/15/22 Unknown History mcg/dose blistr powdr for inhalation latanoprost 0.005 % eye drops 1 drp ophthalmic (eye) Q AVERY 01/15/22 Unknown History cholecalciferol (vitamin D3) 50 50 mcg PO DAILY Unknown History mcg (2,000 unit) tablet (Vitamin D3) fluticasone propionate 50 1 spray intranasal DAILY Unknown History mcg/actuation nasal spray,suspension (Allergy Relief (fluticasone)) loratadine 10 mg tablet (Claritin) 10 mg PO DAILY 06/28 04/20 Unknown History Allergy/AdvReac Type Severity Reaction Status Date / Time No Known Allergies Allergy Verified 08/05/23 09:38 Social History Smoking Status: Former smoker ROS ROS ED ROS Narrative Constitutional: Denies any headache, lightness, dizziness, fevers, chills Eyes: Denies double vision blurry vision Cardiovascular: Denies chest pain Respiratory: Denies shortness of breath Abdomen: Denies abdominal pain nausea vomit diarrhea : Denies urinary symptoms Neurological: Complains of right leg and arm heaviness and numbness as noted above as well as slurred speech as noted above Musculoskeletal: Denies back pain Skin: Denies any rashes or lesions EXAM Physical Exam Narrative Exam Narrative: General: Patient was lying in bed rest comfortably did not appear to be in acutedistress Head: Atraumatic, normocephalic Eyes: PERRL bilaterally, EOMI bilaterally, no conjunctival injection noted Neck: Soft, supple, trachea midline Cardiovascular: Regular rate and rhythm no murmurs gallops rubs noted Respiratory: Clear to auscultation bilaterally no rales rhonchi or wheeze noted Abdomen: Soft, nondistended, no tenderness to palpation Extremities: +5/5 strength noted in the bilateral lower extremities, radial pulses +2/4 in the bilateral extremities, no pedal edema exam Neurological: Patient following commands knew that he was at [facility] the year is 2024 NIH of 2 GCS 15 Skin: Warm, dry, intact no rashes or lesions noted Const Vital Signs: 07/22/25 18:35 07/22/25 18:46 07/22/25 18:56 Temperature 96.4 F L Temperature Source Oral Pulse Rate 54 L 54 L Respiratory Rate 16 16 Blood Pressure 165/98 H 165/98 H Blood Pressure Mean 120 120 Pulse Ox 95 95 Oxygen Delivery Method Room Air Room Air Room Air 07/22/25 18:59 07/22/25 19:30 07/22/25 20:00 Temperature Temperature Source Pulse Rate 65 68 69 Respiratory Rate 22 H 16 18 Blood Pressure 145/89 H 150/82 H 134/88 H Blood Pressure Mean 107 104 103 Pulse Ox 96 96 94 Oxygen Delivery Method Room Air Room Air Room Air 07/22/25 20:30 Temperature Temperature Source Pulse Rate 64 Respiratory Rate 16 Blood Pressure 141/69 H Blood Pressure Mean 93 Pulse Ox 97 Oxygen Delivery Method Room Air MDM MDM MDM Narrative Medical decision making narrative: Patient is a 75-year-old male who presents to the emergency department with concern for stroke. On the differential diagnose includes but not limited to, intracranial hemorrhage, hypertensive emergency, ischemic stroke, posterior circulation stroke, complex migraine. Once workup is obtained and reviewed he will be reevaluated. Patient is not a tenecteplase candidate as his symptoms started around 8 AM sebastián, and statesthat his symptoms were persistent throughout the day howeverthey did progressively worsen throughout the day and into this evening. Patient's CBC reviewed and showed no evidence of cytosis white blood cell normalat 10.2, he was 15.7, plate count of 279. Patient INR normal at 1, PT of 13.7. Patient sodium was 140, potassium normal4.1, creatinine 0.85. Patient's troponin was 12, EKG reviewed which showed sinus rhythm with a rateof 64 bpm PRinterval normal at 176. Patient CT head and brain without contrast reviewed showed no acute intracranial abnormalities. Patient CTA head and neck reviewed showed no acute large vessel occlusion there were short segmental mild narrowingof the proximal basilar artery anatomic variant as noted. Patient chest x-ray reviewed by myself by radiology showed cardiomegaly no other acute cardiopulmonary processes. Patient was given 325 mg aspirin. At this point time will discuss case with hospitalist for admission for further stroke workup. Spoke with hospitalist Dr. Cartwright who will accept the patient for admission. Patient was notified is agreeable with this plan all question concerns answered. Lab Data Labs: Laboratory Results - last 24 hr 07/22/25 18:51 WBC 10.2 RBC 4.73 Hgb 15.7 Hct 45.8 MCV 96.8 H MCH 33.2 H MCHC 34.3 RDW Std Deviation 47.1 H RDW Coeff of Driss 13.1 Plt Count 279 MPV 9.3 Immature Gran % (Auto) 0.400 Neut % (Auto) 67.3 Lymph % (Auto) 17.2 L Mcmullen % (Auto) 10.6 H Eos % (Auto) 4.0 Baso % (Auto) 0.5 Absolute Neuts (auto) 6.8 Absolute Lymphs (auto) 1.75 Nucleated RBC % 0 PT 13.7 INR 1.0 APTT 34.6 Sodium 140 Potassium 4.1 Chloride 105 Carbon Dioxide 21.4 Anion Gap 14 BUN 21 H Creatinine 0.85 Est GFR (MDRD) Non-Af 90 BUN/Creatinine Ratio 24.2 H Glucose 101 H Calcium 9.1 Troponin T High Sens 12 Radiography Diagnostic Testing: Clinical Impression(s) from Imaging Studies Brain CT 07/22/25 18:39 IMPRESSION: No acute intracranial abnormality seen. Reading Location: [id number] Head/Neck CTA 07/22/25 18:40 IMPRESSION: No intracranial or cervical large vessel arterial occlusion or hemodynamically significant stenosis. Short-segment mild narrowing of the proximal basilar artery. Anatomic variants as noted. Reading Location: [id number] Chest X-Ray 07/22/25 19:12 IMPRESSION: Cardiomegaly. No acute pulmonary disease. Reading Location: [facility] Discharge Plan Dx/Rx/DC Orders Clinical Impression: Right arm weakness, Right leg weakness, Slurred speech Disposition Disposition: Acute Care Hospital [facility] What to do if you have Problems For any increased pain, shortness of breath, bleeding, nausea or vomiting, chestpain, or any unexpected problems, contact your Primary Care Provider. Call [facility] ([phone]) or report tothe closest Emergency Room. Call 911 if necessary. 07/22/252040 Cosigner Signature (if applicable): CC: Dr. Kody Frank MD ~ Signed [facility]09-26-2025 Radiology Diagnostic study note [facility] Imaging Services [address] [place], [place] [id number] Chest 1 View MR#: [id number] Acct: [id number] Name: KODY RUGGIERO Rep #: [id number] : 1950 M 75 From: Sarwat House MD PCP: Dr. Kody Frank MD Status: REG ER Study:Chest 1 View Date of Exam: 5 Exam# [id number] Ordering Dr: Win Her DO PROCEDURE: CHEST 1 VIEW 07/22/2025 REASON FOR EXAM: NEURO DEFICIT, ACUTE, STROKE SUSPECTED TECHNIQUE: Frontal view of the chest. COMPARISON: None. FINDINGS: Lungs/Pleura: Clear. No pneumothorax or sizable pleural effusion. Heart/Mediastinum: Mildly enlarged. No vascular congestion. Bones/Soft tissues: Mild degenerative changes of the spine and AC joints. RAD/Chest 1 View IMPRESSION: Cardiomegaly. No acute pulmonary disease. Reading Location: [facility] CC: Dr. Kody Frank MD; Dr. Lobito Her DO ~ Paint Stock Clerk: Signed [facility]09-26-2025 Radiology Diagnostic study note [facility] Imaging Services [address] [place] [address] STROKE CTA Head AND Neck W/Con MR#: [id number] Acct: [id number] Name: KODY RUGGIERO Rep #: [id number] : 1950 M 75 From: Sarwat House MD PCP: Dr. Kody Frank MD Status: REG ER Study:STROKE CTA Head AND Neck W/Con Date of Exam: 07/22/25 Exam# [id number] Ordering Dr: Win Her DO PROCEDURE: STROKE CTA HEAD AND NECK W/CON 07/22/2025 REASON FOR EXAM: NEURO DEFICIT, ACUTE, STROKE SUSPECTED TECHNIQUE: Procedure Code: CTCTA.ST.HN Modality: CT Procedure: STROKE CTA HEAD AND NECK W/CON Multiplanar Sagittal and Coronal images were obtained. 3D post processing was performed. CONTRAST: Isovue 370 VOLUME: 100 mL One or more dose reduction techniques were used (e.g., Automated exposure control, adjustment of the mA and/or kV according to patient size, use of iterative reconstruction technique). RADIATION DOSE SUMMARY: DLP: 993.19 mGycm COMPARISON: None. FINDINGS: CTA HEAD: Patent intracranial arterial vasculature. No large vessel occlusion, flow- limiting stenosis, saccular aneurysm, or vascular malformation identified. There is focal short-segment mild luminal narrowing of the proximal basilar artery (S2 image 375). origin of the right posterior cerebral artery with no visible connection to the basilar, anatomic variant. Hypoplastic caliber of the right [place] A1 segment compared to the left. CTA NECK: Conventional aortic arch branching. Bilateral cervical carotid and codominant vertebral arteries are patent without any significant stenosis. No aneurysm or dissection. NON-ANGIOGRAPHIC FINDINGS: Absent [place] ocular lenses. Peripheral mucosal thickening throughout the paranasal sinuses with small amount of dependent fluid in right maxillary sinus. Mild multilevel cervical spondylotic changes. CT/STROKE CTA Head AND Neck W/Con IMPRESSION: No intracranial or cervical large vessel arterial occlusion or hemodynamically significant stenosis. Short-segment mild narrowing of the proximal basilar artery. Anatomic variants as noted. Reading Location: [id number] CC: Dr. Kody Frank MD; Dr. Lobito Her DO ~ Paint Stock Clerk: Signed [facility]09-26-2025 Radiology Diagnostic study note [facility] Imaging Services [address] [place] [id number] STROKE Brain/Head without Cont MR#: [id number] Acct: [id number] Name: KODY RUGGIERO Rep #: [id number] : 1950 75 From: Francisco Javier Faustin MD PCP: Dr. Kody Frank MD Status: REG ER Study:STROKE Brain/Head without Cont Date of Exam: 07/22/25 Exam# [id number] Ordering Dr: Win Her DO PROCEDURE: STROKE BRAIN/HEAD WITHOUT CONT 07/22/2025 REASON FOR EXAM: NEURO DEFICIT, ACUTE, STROKE SUSPECTED TECHNIQUE: Procedure Code: CTBR.ST Modality: CT Procedure: STROKE BRAIN/HEAD WITHOUT CONT Coronal and Sagittal reconstruction series were provided. One or more dose reduction techniques were used (e.g., Automated exposure control, adjustment of the mA and/or kV according to patient size, use of iterative reconstruction technique. RADIATION DOSE SUMMARY: CTDlvol: 47.06 mGy DLP: 890.33 mGycm COMPARISON: None. FINDINGS: BRAIN: No acute intraparenchymal hemorrhage. No mass lesion. No CT evidence for acute territorial infarct.No midline shift or extra-axial collection. VENTRICLES: No hydrocephalus. ORBITS: The orbits are unremarkable. SINUSES AND MASTOIDS: Mild bilateral maxillary, ethmoid and sphenoid sinus mucosal thickening. Small amount of right maxillary sinus fluid. The right mastoid air cells are clear. A few left inferior mastoid air cells are opacified. SOFT TISSUES: No acute abnormality seen. BONES: No acute osseous abnormality seen. OTHER: Carotid siphon calcification bilaterally. CT/STROKE Brain/Head without Cont IMPRESSION: No acute intracranial abnormality seen. Reading Location: [facility] CC: Dr. Kody Frank MD; Dr. Lobito Her DO ~ Paint Stock Clerk: Signed [facility] Author Suzanne Reddy [facility] Note Date/Time July 23, 2025 12:58pm [facility] Medical Records Department [address] [place] [address] Consultation - Neurology 07/23/25 0935 MR#: [id number] Acct: [id number] Name: KODY RUGGIERO Rep #:[id number] : 1950 75 From: Suzanne Reddy MD PCP: Dr. Kody Frank MD Status :ADM SANDEEP Location: [place] [address] Assessment and Plan: Stroke Assessment/Plan KODY RUGGIERO is a 75 M with a history of tobacco abuse, mild intermittent asthma who presents for evaluation of right sided weakness Neurological examination shows Right hemiparesis. Neuroimaging shows CT head negative, CTA: Mid basilar stenosis, LDL: 88, MRI: Left pontine stroke. Acute stroke from basilar stenosis vs small vessel disease Plan Continue ASA, plavix for 3 months then ASA alone stroke w/up: ECHO, HBA1c Permissive HTN IVF PT,OT, speech, swallow eval stroke education Smoking cessation Tanks for consult. Spent 40 min in evaluation and management HPI Consult Data Date of Consult: 07/23/25 HPI Narrative HPI Narrative: KODY RUGGIERO, is a 75 M with a past medical history of former tobacco abuse, mild intermittent asthma who presents to [facility] ER complaining of RLE weakness and slurred speech. Mr. Ruggiero reports his symptoms began at ~8 AM while he was doing some exercises when he noted increasing heaviness and weakness in his Right lower extremity with patient not feeling right throughout the day. Then a few hours later he noted decreased dexterity in his Right hand followed by slurred speech so he and his family decided to come in for further evaluation and treatment with strong suspicion for CVA. He denies associated headache, head trauma, anticoagulation or similarprevious episodes. His symptoms got worse in the night with worsening weakness on right side, slurred speech with NIHSS 5. He was given ASA initially then loaded with plavix CT scan of the brain without contrast which revealed no acute intracranial abnormality CTA of the head and neck with IV contrast that revealed no large intracranial orcervical large vessel occlusion or hemodynamically significant stenosis. there is with mild short-segment narrowing of the proximal basilar artery [facility] Medical History Seasonal allergies Asthma, mild intermittent Home Medications ?Medication ?Instructions ?Recorded ?Last Taken ?Type fluticasone 250 mcg-salmeterol 50 1 inh inhalation Q12 H 01/15/22 07/22/25 08:14 History mcg/dose blistr powdr for inhalation latanoprost 0.005 % eye drops 1 drp ophthalmic (eye) Q AVERY 01/15/22 07/21/25 22:12 History cholecalciferol (vitamin D3) 50 50 mcg PO DAILY 07/22/25 08:00 History mcg (2,000 unit) tablet (Vitamin D3) fluticasone propionate 50 1 spray intranasal DAILY 07/22/25 08:13 History mcg/actuation nasal spray,suspension (Allergy Relief (fluticasone)) loratadine 10 mg tablet (Claritin) 10 mg PO DAILY 06/2807/22/25 08:12 History Allergy/AdvReac Type Severity Reaction Status Date / Time No Known Allergies Allergy Verified 08/05/23 09:38 Social History Smoking Status: Former smoker Vital Signs Vital Signs Vital Signs: 07/22/25 18:35 07/22/25 18:46 07/22/25 18:56 Temperature 96.4 F L Temperature Source Oral Pulse Rate 54 L 54 L Pulse Strength Respiratory Rate 16 16 Respiratory Effort Respiratory Depth Respiratory Pattern Blood Pressure 165/98 H 165/98 H Blood Pressure Mean 120 120 Blood Pressure Source Blood Pressure Position Blood Pressure Location Pulse Ox 95 95 Oxygen Delivery Method Room Air Room Air Room Air Oxygen Flow Rate (L/min) 07/22/25 18:59 07/22/25 19:30 07/22/25 20:00 Temperature Temperature Source Pulse Rate 65 68 69 Pulse Strength Respiratory Rate 22 H 16 18 Respiratory Effort Respiratory Depth Respiratory Pattern Blood Pressure 145/89 H 150/82 H 134/88 H Blood Pressure Mean 107 104 103 Blood Pressure Source Blood Pressure Position Blood Pressure Location Pulse Ox 96 96 94 Oxygen Delivery Method Room Air Room Air Room Air Oxygen Flow Rate (L/min) 07/22/25 20:30 07/22/25 21:00 07/22/25 21:00 Temperature 98.0 F Temperature Source Pulse Rate 64 64 64 Pulse Strength Respiratory Rate 16 16 16 Respiratory Effort Respiratory Depth Respiratory Pattern Blood Pressure 141/69 H 140/81 H 140/81 H Blood Pressure Mean 93 100 100 Blood Pressure Source Blood Pressure Position Blood Pressure Location Pulse Ox 97 94 94 Oxygen Delivery Method Room Air Room Air Oxygen Flow Rate (L/min) 07/22/25 21:30 07/22/25 22:00 07/22/25 22:00 Temperature 98.5 F Temperature Source Oral Pulse Rate 65 62 Pulse Strength Normal (2+) Respiratory Rate 18 18 Respiratory Effort Respiratory Depth Respiratory Pattern Blood Pressure 141/90 H 159/92 H Blood Pressure Mean 107 114 Blood Pressure Source Monitor Blood Pressure Position Semi-Fowlers Blood Pressure Location Right Arm Pulse Ox 93 96 Oxygen Delivery Method Room Air Room Air Oxygen Flow Rate (L/min) 07/22/25 22:26 07/22/25 23:00 07/22/25 23:11 Temperature Temperature Source Pulse Rate Pulse Strength Respiratory Rate Respiratory Effort Normal Non-Labored Respiratory Depth Normal Respiratory Pattern Normal Blood Pressure Blood Pressure Mean Blood Pressure Source Blood Pressure Position Blood Pressure Location Pulse Ox 94 97 Oxygen Delivery Method Room Air Room Air Nasal Cannula Oxygen Flow Rate (L/min) 1 07/23/25 01:20 07/23/25 05:20 07/23/25 05:35 Temperature 97.2 F L 97.4 F L 97.8 F Temperature Source Temporal Temporal Temporal Pulse Rate 66 66 64 Pulse Strength Respiratory Rate 18 18 18 Respiratory Effort Respiratory Depth Respiratory Pattern Blood Pressure 161/100 H 164/89 H 168/96 H Blood Pressure Mean 120 114 120 Blood Pressure Source Monitor Monitor Blood Pressure Position Semi-Fowlers Semi-Fowlers Blood Pressure Location Right Arm Right Arm Pulse Ox 96 98 96 Oxygen Delivery Method Nasal Cannula Nasal Cannula Nasal Cannula Oxygen Flow Rate (L/min) 1 2 2 07/23/25 06:48 07/23/25 07:28 07/23/25 08:05 Temperature 97.8 F Temperature Source Temporal Pulse Rate 60 Pulse Strength Normal (2+) Respiratory Rate 18 Respiratory Effort Respiratory Depth Respiratory Pattern Blood Pressure 175/90 H Blood Pressure Mean 118 Blood Pressure Source Monitor Blood Pressure Position Semi-Fowlers Blood Pressure Location Left Arm Pulse Ox 97 Oxygen Delivery Method Nasal Cannula Nasal Cannula Oxygen Flow Rate (L/min) 1 2 07/23/25 08:09 Temperature Temperature Source Pulse Rate Pulse Strength Respiratory Rate Respiratory Effort Normal Non-Labored Respiratory Depth Normal Respiratory Pattern Normal Blood Pressure Blood Pressure Mean Blood Pressure Source Blood Pressure Position Blood Pressure Location Pulse Ox Oxygen Delivery Method Room Air Oxygen Flow Rate (L/min) Weight Weight: 90.2 kg Body Mass Index (BMI) 25.5 Physical Exam Const alert, oriented x3 and no apparent distress General Appearance: cooperative, comfortable and well kempt HEENT normocephalic Neuro Neuro Narrative: AAOX3 speech fluent No aphasia C 2-12 intact except ? mild right facial assymetry Right hemiparesis and left antigravity 5/5 Sensation: Intact No ataxia on left Lab / Micro Data 07/22/25 18:51 07/22/25 18:51 Labs: Laboratory Results - last 24 hr 07/22/25 18:51: WBC 10.2, RBC 4.73, Hgb 15.7, Hct 45.8, MCV 96.8 H, MCH 33.2 H, MCHC 34.3, RDW Std Deviation 47.1 H, RDW Coeff of Driss 13.1, Plt Count 279, MPV 9.3, Immature Gran % (Auto) 0.400, Neut % (Auto) 67.3, Lymph % (Auto) 17.2 L, Mcmullen % (Auto) 10.6 H, Eos % (Auto) 4.0, Baso % (Auto) 0.5, Absolute Neuts (auto) 6.8, Absolute Lymphs (auto) 1.75, Nucleated RBC % 0, PT 13.7, INR 1.0, APTT 34.6, Sodium 140, Potassium 4.1, Chloride 105, Carbon Dioxide 21.4, Anion Gap 14, BUN 21 H, Creatinine 0.85, Est GFR (MDRD) Non-Af 90, BUN/Creatinine Ratio 24.2 H, Glucose 101 H, Hemoglobin A1c 5.6, Calcium 9.1, Troponin T High Sens 12 07/22/25 20:52: Troponin T Hi Sens 2 Hr 13, TSH 1.890 07/22/25 22:37: Troponin T Hi Sens 4Hr 11, Ethyl Alcohol < 10.1 07/23/25 01:30: Urine Opiates Screen NEGATIVE, U Buprenorphine Qual NEGATIVE, UrOxycodone Screen NEGATIVE, Urine Methadone Screen NEGATIVE, Urine Fentanyl Screen NEGATIVE, Ur Barbiturates Screen NEGATIVE, Ur Phencyclidine Scrn NEGATIVE, Ur Amphetamines Screen NEGATIVE, U Benzodiazepines Scrn NEGATIVE, Urine Cocaine Screen NEGATIVE, U Cannabinoids Screen NEGATIVE 07/23/25 05:35: POC Glucose 108 H 07/23/25 07:30: Triglycerides 67, Cholesterol 146, LDL Cholesterol, Calc 88, VLDL Cholesterol 13, HDL Cholesterol 45, Cholesterol/HDL Ratio 3.26 Imaging Radiology Impression Brain CT 07/22/25 18:39 IMPRESSION: No acute intracranial abnormality seen. Reading Location: [facility] Head/Neck CTA 07/22/25 18:40 IMPRESSION: No intracranial or cervical large vessel arterial occlusion or hemodynamically significant stenosis. Short-segment mild narrowing of the proximal basilar artery. Anatomic variants as noted. Reading Location: [facility] Chest X-Ray 07/22/25 19:12 IMPRESSION: Cardiomegaly. No acute pulmonary disease. Reading Location: [facility] Brain CT 07/23/25 05:36 IMPRESSION: No CT evidence for acute brain abnormality. Reading Location: [place] [address] Active Medications Active Medications Active Medications: Current Medications Generic Name Dose Route Start Last Admin Trade Name Freq PRN Reason Stop Dose Admin Acetaminophen 650 mg 07/22/25 21:50 Acetaminophen 325 Mg Tablet PO Q6H PRN PRN Pain 1-10 Or Fever>99.6 Albuterol Sulfate 2.5 mg 07/23/25 00:00 Albuterol 2.5 Mg/3 Ml Vial.Neb. INHALATION Q6HWA.RT IRENE Aspirin 81 mg 07/23/25 08:00 07/23/25 09:31 Aspirin 81 Mg Tab.Chew PO 81 mg BREAKFAST IRENE Administration Atorvastatin Calcium 40 mg 07/22/25 22:00 07/22/25 22:50 Atorvastatin Calcium 40 Mg Tablet PO 40 mg QHS IRENE Administration Budesonide 0.5 mg 07/23/25 06:00 Budesonide Respules 0.5 Mg/2 Ml Ampul.Neb. INHALATION Q12H.RT IRENE Cholecalciferol 50 mcg 07/23/25 10:00 07/23/25 09:31 Cholecalciferol (Vit D3) 25 Mcg Tablet (1,000 Units) PO 50 mcg DAILY IRENE Administration Clopidogrel Bisulfate 75 mg 07/24/25 10:00 Clopidogrel Bisulfate 75 Mg Tablet PO DAILY IRENE Enoxaparin Sodium 40 mg 07/23/25 10:00 07/23/25 09:32 Enoxaparin 40 Mg/0.4 Ml Syringe SC 40 mg DAILY IRENE Administration Fluticasone Propionate 1 spray 07/23/25 10:00 07/23/25 09:31 Fluticasone 0.05% 1 [place] Nasal.Sry NASAL 1 spray DAILY IRENE Administration Sodium Chloride 1,000 mls @ 70 mls/hr 07/22/25 20:52 07/22/25 22:50 IV 07/23/25 11:09 70 mls/hr .[id number] IRENE Administration Sodium Chloride 250 mls @ 15 mls/hr 07/22/25 21:51 IV .[id number] PRN Saline Flush Sodium Chloride 250 mls @ 15 mls/hr 07/22/25 21:51 IV .[id number] PRN Additional IVPB Infusion Latanoprost 1 drp 07/23/25 22:00 Latanoprost 0.005% 1 Bottle OPHTHALMIC QODAY@2200 IRENE Loratadine 10 mg 07/23/25 10:00 07/23/25 09:31 Loratadine 10 Mg Tablet PO 10 mg DAILY IRENE Administration Sodium Chloride 10 - 40 ml 07/22/25 21:51 0.9% Saline Lock 10 Ml Syringe IV UD PRN SALINE FLUSH NIHSS NIHSS Nursing Documentation NIHSS Nursing Documentation: NIHSS: Ischemic Stroke/TIA Start: 07/22/25 21:50 Text: For PCU Patients: NIH and Neuro Check every 4 Status: Active hours, PRN and with change in RN caregiver. Freq: [id number] Protocol: Activity Type Activity Date Activity User E-sign Co-sign Detail Recorded Client Recorded Date Recorded By Document 07/23/25 07:28 JANIE [id number] 07/23/25 08:07 IN 07/23/25 07:28 NIH Stroke Scale [NIHSS] A score of 0 is "normal" or asymptomatic . Total possible score is 42. Inpatient: RN or Physician to activate a stroke alert for onset of new stroke symptoms or with NIHSS increase >/= 3 points. Following change in neurological status, NIHSS will be performed per physician order or more frequently PRN. -1a. Level of Consciousness 0 - Alert; keenly responsive -1b. LOC Questions 0 - Answers BOTH questions correctly -1c. LOC Commands 0 - Performs BOTH tasks correctly -2. Best Gaze 0 - Normal -3. Visual 0 - No visual loss -4. Facial Palsy 0 - Normal symmetrical movements -5a. Left Arm 0 - No drift; arm holds 90 ( or 45) degrees for full 10 seconds -5b. Right Arm 3 - No effort against gravity ; arm falls -6a. Left Leg 0 - No drift; leg holds 30- degree position for full 5 seconds -6b. Right Leg 2 - Some effort against gravity; -7. Limb Ataxia 2 - Present in 2 limbs -8. Sensory 0 - Normal; no sensory loss -9. Best Language 0 - No aphasia; normal -10. Dysarthria 1 = Mild-to- moderate dysarthria; -11. Extinction and Inattention 0 - No abnormality -Total 8 Query Text:A score of 0 is "normal" or asymptomatic. Total possible score is 42 . ED: Notify Physician for NIHSS increase by > / = 3 points. Inpatient: RN or Physician to activate a stroke alert for NIHSS increase of > / = 3 points. Coma Scale [Assess] -Eye Opening Spontaneous -Motor Obeys Commands -Verbal Oriented [Total] -Coma Scale Total 15 NIHSS 1a. Level of Consciousness: 0 - Alert; keenly responsive 1b. LOC Questions: 0 - Answers BOTH questions correctly 3. Visual: 0 - No visual loss 5a. Left Arm: 0 - No drift; arm holds 90 (or 45) degrees for full 10 seconds 5b. Right Arm: 4- No movement 6a. Left Le - No drift; leg holds 30-degree position for full 5 seconds 6b. Right Le - No effort against gravity; leg falls to bed immediately 7. Limb Ataxia: 0 - Absent 8. Sensory: 0 - Normal; no sensory loss 9. Best Language: 0 - No aphasia; normal 10. Dysarthria: 0 - Normal 11. Extinction and Inattention: 0 - No abnormality Total: 7 09/27/25 1258 <Electronically signed by Suzanne Reddy MD> Cosigner Signature (if applicable): CC: Dr. Kody Frank MD~ Signed [facility] Work Phone: Discharge summary Author Jaye Glenny [facility] Note Date/Time July 25, 2025 4:53pm [facility] Medical Records Department [address] [place] [address] Transfer to [facility] MR#: [id number] Acct: [id number] Name: KODY RUGGIERO Rep #:[id number] : 1950 75 From: Jaye Murrieta MD PCP: Dr. Kody Frank MD Status :ADM IN Certification of patient admission REQUIRED AT TIME OF ADMISSION. I CERTIFY THAT POST-HOSPITAL ECF SERVICES ARE REQUIRED TO BE GIVEN ON AN IN-PATIENT BASIS BECAUSE OF THE ABOVE NAMED PATIENT'S NEED FOR ALF CARE ON A CONTINUING BASIS FOR THE CONDITION(S) FOR WHICH HE/SHE WAS RECEIVING IN-PATIENT HOSPITAL SERVICES PRIOR TO HIS/HER TRANSFER TO [facility]. 07/25/25 1653<Electronically signed by Jaye Murrieta MD> Diet Diet Order/Speech Therapy: INPATIENT Hospital Diet / Speech Therapy Order(s) 07/23/25 07:34 Diet: Cardiac - Heart Healthy Routine Orders/Code Status Enema Frequency: Daily PRN Suppository Type: Dulcolax 10mg DC O2, CPAP, BIPAP needs Home O2 Discharge instructions: No Therapies Weight Bearing: Weight bearing as tolerated Physical Therapy: Eval and Treat Occupational Therapy: Eval and Treat Problem/Diagnosis (1) Right arm weakness: Status: Acute Code(s): R29.898 - Other symptoms and signs involving the musculoskeletal system (2) Right leg weakness: Status: Acute Code(s): R29.898 - Other symptoms and signs involving the musculoskeletal system (3) Slurred speech: Status: Acute Code(s): R47.81 - Slurred speech Allergies/Procedures Done in Hospital Allergies No Known Allergies Allergy (Verified 08/05/23 09:38) Procedures: 2-D Echocardiogram Type of Care/Length of Stay Estimated LOS: Convalescent Care Less Than 30 days Type of Care Needed: Skilled Rehab Potential: Fair Prognosis: Fair Additional Orders/Day of Discharge Day of Discharge: 07/25/25 Dietary and Speech Recommendations Dietitian Recommendations/Changes: Continue Cardiac diet to manage medical conditions. Discharge Plan Admission Admit Date/Time: 07/23/25 10:51 Primary Reason for Your Visit: acute CVA Attending Provider: Jaye Murrieta Primary Care Provider: Kody Frank Consulting Providers: Herve Pendleton; Lillian Parker; Suzanne Reddy; Sharda Luna; Alona Kuo; Low Dillon; Ragini Mishra; Drew Ortiz; Ronny Bolanos; Mor Ibarra; Danni Odonnell; Jessica Lee; Josue Sesay; Torie De Leon; Oneida Castro; Roger Jack; Flaquito Noble; Tonny Miller; Yonas Hall; Marianela Jacobs; Maren De La Cruz; Rod Collins; James Freeman Instructions Patient Instructions: Booklet - Understanding Stroke Discharge Orders/Prescriptions Prescriptions: New atorvastatin 40 mg Tablet 40 mg PO QHS Qty: 30 2RF clopidogrel 75 mg Tablet 75 mg PO DAILY Qty: 90 0RF aspirin 81 mg Tablet,Chewable 81 mg PO BREAKFAST Qty: 30 2RF amlodipine 10 mg tablet 10 mg PO DAILY Qty: 30 2RF Continued latanoprost 0.005 % drops 1 drp ophthalmic (eye) QODAY fluticasone propion-salmeterol 250-50 mcg/dose blister with device 1 inh inhalation Q12H cholecalciferol (vitamin D3) [Vitamin D3] 50 mcg (2,000 unit) tablet 50 mcg PO DAILY loratadine [Claritin] 10 mg tablet 10 mg PO DAILY fluticasone propionate [Allergy Relief (fluticasone)] 50 mcg/actuation spray,suspension 1 spray intranasal DAILY Rx Instructions: administer into each nostril Referrals / Follow Up: Kody Frank MD [Primary Care Provider, Family Practice] - Within 1 Week Efrain Lawson MD [Non-Staff -Ordering Privileges, Neurology] - Within 2 Weeks Disposition Disposition (needs filled in before D/C Order can be placed): Inpatient Rehab Unit/Facility Charges/Coding Visit Charges Inpatient E&M: 54357 Disch Hosp >30min 07/25/251652 <Electronically signed by Jaye Murrieta MD> Cosigner Signature (if applicable): CC: Sharda Luna; Torie De Leon; Flaquito Noble; Alona Kuo MD; Suzanne Reddy MD; Herve Pendleton MD; Dr. Lillian Parker MD; Dr. Kody Frank MD; Dr.David Dennis DO; Dr. Low Dillon MD; Dr. James Freeman DO; Dr. Ragini Mishra MD; Dr. Ronny Bolanos MD; Dr. Drew Ortiz MD; Dr. Mor Ibarra MD; Dr. Danni Odonnell DO; Dr. Josue Sesay DO; Dr. Roger Jack MD; Dr. Oneida Castro MD; Dr. Tonny Miller MD; Dr. Yonas Hall MD; Dr. Marianela Jacobs MD; Jessica Lee DO; Maren De La Cruz MD ~ [facility] Work Phone: Discharge summary Author [facility] Note Date/Time July 25, 2025 5:25pm [facility] Medical Records Department [address] [place] [id number] Discharge Summary 07/25/251652 MR#: [id number] Acct: [id number] Name: KODY RUGGIERO Rep #:[id number] : 1950 75 From: Jaye Murrieta MD PCP: Dr. Kody Frank MD Status :DIS IN Location: [facility] [id number] Providers Date of Admission: 07/23/25 Date of Discharge: 07/25/25 Primary Care Physician: Dr. Kody Frank MD Consultations 07/22/25 21:50 Consult: Tele-Neurology Routine Consulting Provider: [facility] Reason for Consult: Acute Ischemic Stroke/TIA EMERGENT Consult: No MD Notified: Yes Date Notified: 07/22/25 Time Notified: 23:40 Method of Notification: Answering Service Nursing Unit Staff Notify [facility] of Tele-Neurology Consult: Yes Reason For Visit: TIA VS CVA Diagnosis Discharge Diagnosis (1) Right arm weakness: Status: Deleted Code(s): R29.898 - Other symptoms and signs involving the musculoskeletal system (2) Right leg weakness: Status: Deleted Code(s): R29.898 - Other symptoms and signs involving the musculoskeletal system (3) Slurred speech: Status: Deleted Code(s): R47.81 - Slurred speech Medications at Discharge Home Medications fluticasone 250 mcg-salmeterol 50 mcg/dose blistr powdr for inhalation 1 inh inhalation Q12H SOB/Wheezing 01/15/22 latanoprost 0.005 % eye drops 1 drp ophthalmic (eye) QODAY eye drops 01/15/22 cholecalciferol (vitamin D3) 50 mcg (2,000 unit) tablet (Vitamin D3) 50 mcg PO DAILY supplement 07/22/25 fluticasone propionate 50 mcg/actuation nasal spray,suspension (Allergy Relief (fluticasone)) 1 spray intranasal DAILY SOB/Wheezing 07/22/25 loratadine 10 mg tablet (Claritin) 10 mg PO DAILY allergies 07/22/25 amlodipine 10 mg tablet 10 mg PO DAILY BP #30 tabs 07/25/25 aspirin 81 mg chewable tablet 81 mg PO BREAKFAST heart health #30 tabs 07/25/25 atorvastatin 40 mg tablet 40 mg PO QHS cholestrol #30 tabs 07/25/25 clopidogrel 75 mg tablet 75 mg PO DAILY supplement #90 tabs 07/25/25 fluticasone 250 mcg-salmeterol 50 mcg/dose blistr powdr for inhalation (Advair Diskus) 1 inh inhalation BID sob/wheezing 07/26/25 Hospital Course Operations None Procedures 2-D Echocardiogram Summary of Care Provided Minutes Spent on Discharge: 40 Hospital Course: Patient is a 75-year-old male with a past medical history as outlined was admitted to the ED on 07/22/2025 with complaint of right lower extremity weaknessand slurred speech with the symptoms beginning at around 8 AM on the morning of admission. He was doing some exercise and noted increased heaviness and weakness in his right lower extremity. He did not feel right throughout the whole day. He also noted subsequently that the dexterity in his right hand was affected and associated with slurred speech so he came into the ED due to concerns for stroke. CT of the brain showed no acute intracranial abnormality. CTA of the head and neck showed no hemodynamically significant occlusion. He was admitted to be managed for stroke rule out. Telestroke was consulted. He had 2D echo which showed EF of 60 to 65% with mild mitral regurgitation. He hadMRI which showed no evidence of acute intracranial pathology. However neurologyreviewed the MRI and felt that patient likely had a left pontine stroke. Patient was therefore managed for acute stroke especially in light of him havingthe clear deficits with a right-sided weakness. He was placed on aspirin and atorvastatin high intensity as well as Plavix. PT OT and speech therapy were consulted. Per neurology he was to be on dual antiplatelet therapy for 3 monthsand then to continue with aspirin monotherapy and continue with high intensity statin. He was discharged to the acute rehab unit on 07/25/2025. He is follow-up with his primary care doctor within 1 to 2 weeks and was referred to neurology on outpatient basis. Patient seen and examined prior to discharge. He had no active complaints and had an uneventful night. Review of systems otherwise negative. Labs and vitalsreviewed. Home medication reviewed and reconciled. Physical Exam Const alert, oriented x3 and no apparent distress General Appearance: cooperative and comfortable HEENT normocephalic, head/scalp atraumatic, moist oral mucous membranes and oropharynxnormal Mouth: oral and palatal mucosa normal Eyes EOMs intact bilaterally and conjunctivae normal Neck supple and no JVD Resp normal respiratory effort, no retractions, no use of accessory muscles and clearto auscultation bilaterally Cardio regular rate, regular rhythm, S1 normal heart sound, S2 normal heart sound and no murmurs GI normal to inspection, nondistended, normoactive bowel sounds, soft to palpation and non-tender Extremity normal to inspection Skin no rashes or lesions noted Neuro oriented x3 Neuro Narrative: Right sided hemiplegia due to stroke. Speech is mildly slurred. Motor Exam: strength 5/5 throughout Psych affect normal Weight / BMI Weight Weight: 198 lb 13.711 oz Body Mass Index (BMI) 25.5 ABG / Lab / Microbiology Data 07/25/25 12:10 07/25/25 12:10 Laboratory: Laboratory Results - last 24 hr 07/25/25 12:10: WBC 8.6, RBC 4.97, Hgb 16.3, Hct 46.9, MCV 94.4 H, MCH 32.8 H, MCHC 34.8, RDW Std Deviation 44.9 H, RDW Coeff of Driss 13.0, Plt Count 285, MPV 9.1, Immature Gran % (Auto) 0.300, Neut % (Auto) 61.2, Lymph % (Auto) 17.6 L, Mcmullen % (Auto) 14.7 H, Eos % (Auto) 5.7 H, Baso % (Auto) 0.5, Absolute Neuts (auto) 5.3, Absolute Lymphs (auto) 1.51, Nucleated RBC % 0, Sodium 140, Potassium 4.4, Chloride 106, Carbon Dioxide 20.5 L, Anion Gap 13, BUN 13, Creatinine 0.78, Estim Creat Clear Calc 89.91, Est GFR (MDRD) Non-Af 92, BUN/Creatinine Ratio 16.7, Glucose 117 H, Calcium 9.2, Total Bilirubin 0.56, AST32, ALT 27, Alkaline Phosphatase 89, Total Protein 6.9, Albumin 4.1, Globulin 2.8, Albumin/Globulin Ratio 1.5 D/C Instructions Discharge Activity: Return to Normal Activity Weight Bearing Status: Weight bearing as tolerated Call your doctor if you observe: Fever of 101 or Higher, Inability to urinate, Shortness of breath, Dizziness and Chest pain DC O2, CPAP, BIPAP Needs Home O2 Discharge instructions: No Meaningful Use Info Meaningful Use Meaningful Use Diagnoses (Choose all that apply): Ischemic CVA CVA Therapy Assessed for PT,OT and/or ST?: Yes Ischemic Stroke Antithrombotic order at d/c?: Yes Reason antithrombotic not ordered: Treatment not Indicated Dx of Atrial fib/flutter?: No Anticoagulant at discharge?: No Reason anticoagulant not ordered: Treatment not Indicated Statins at discharge?: Yes Primary Dx Acute Ischemic CVA?: Yes IV thrombolytic ordered during stay?: No Reason IV thrombolytic not ordered: Treatment not Indicated Discharge Plan Admission Admit Date/Time: 07/23/25 10:51 Primary Reason for Your Visit: acute CVA Attending Provider: Jaye Murrieta Primary Care Provider: Kody Frank Consulting Providers: Herve Pendleton; Lillian Parker; Suzanne Reddy; Sharda Luna; Alona Kuo; Low Dillon; Ragini Mishra; Drew Ortiz; Ronny Bolanos; Mor Ibarra; Danni Odonnell; Jessica Lee; Josue Sesay; Torie De Leon; Oneida Castro; Roger Jack; Flaquito Noble; Tonny Miller; Yonas Hall; Marianela Jacobs; Maren De La Cruz; Rod Collins; James Freeman Instructions Patient Instructions: Booklet - Understanding Stroke Discharge Orders/Prescriptions Prescriptions: New atorvastatin 40 mg Tablet 40 mg PO QHS Qty: 30 2RF clopidogrel 75 mg Tablet 75 mg PO DAILY Qty: 90 0RF aspirin 81 mg Tablet,Chewable 81 mg PO BREAKFAST Qty: 30 2RF amlodipine 10 mg tablet 10 mg PO DAILY Qty: 30 2RF Continued latanoprost 0.005 % drops 1 drp ophthalmic (eye) QODAY fluticasone propion-salmeterol 250-50 mcg/dose blister with device 1 inh inhalation Q12H cholecalciferol (vitamin D3) [Vitamin D3] 50 mcg (2,000 unit) tablet 50 mcg PO DAILY loratadine [Claritin] 10 mg tablet 10 mg PO DAILY fluticasone propionate [Allergy Relief (fluticasone)] 50 mcg/actuation spray,suspension 1 spray intranasal DAILY Rx Instructions: administer into each nostril No Action fluticasone propion-salmeterol [Advair Diskus] 250-50 mcg/dose blister with device 1 inh inhalation BID Referrals / Follow Up: Kody Frank MD [Primary Care Provider, Family Practice] - Within 1 Week Efrain Lawson MD [Non-Staff -Ordering Privileges, Neurology] - Within 2 Weeks Disposition Disposition (needs filled in before D/C Order can be placed): Inpatient Rehab Unit/Facility Charges/Coding Visit Charges Inpatient E&M: 68887 Disch Hosp >30min 07/26/25 0302 <Electronically signed by Jaye Murrieta MD> Cosigner Signature (if applicable): CC: Dr. Kody Frank MD; Dr. Jaye Murrieta MD~ Signed [facility] Work Phone: Evaluation note* Diagnosis Onset Date Resolution Status Right foot strain acute [facility] Work Phone: Evaluation noteNo assessment information available [facility] Work Phone: Evaluation note* Diagnosis Onset Date Resolution Status Admit Date Right arm weakness deleted 2024 10:51am Right leg weakness deleted [facility]2024 10:51am Slurred speech deleted July 23, 2025 10:51am Asthma, mild intermittent acute July 25, 2025 5:30pm Dysarthria acute June 5:30pm Dysphagia acute June 5:30pm Facial droop due to acute cerebrovascular accident (CVA) acute S eptember 2024 5:30pm Glaucoma acute June 5:30pm Hyperuricemia acute June [id number] 5:30pm Ischemic cerebrovascular accident (CVA) acute July 25, 2025 5:30pm Paroxysmal A-fib acute Junembe r 2024 5:30pm [facility] 5:30[facility] Right sided weakness acute Jun ember 2024 5:30pm Seasonal allergies chronic Jun 2024 5:30pm [facility] Work Phone: History and physical note Author Rod Brar [facility] Note Date/Time July 23, 2025 7:48am [facility] Medical Records Department [address] [place] [address] H&P Exam - Hospitalist 07/22/252035 MR#: [id number] Acct: [id number] Name: KODY RUGGIERO Rep #:[id number] : 1950 75 From: Rod Calderon DO PCP: Dr. Kody Frank MD Status :ADM SANDEEP Location: [place] [address] HPI - General General Date of Admission: 07/22/25 Date of Service: 09/26/25 Chief Complaint: RLE Weakness and Slurred Speech. HPI Narrative KODY RUGGIERO, is a 75 M with a past medical history of former tobacco abuse, mild intermittent asthma; on fluticasone propion-salmeterol BID, seasonalallergies; on loratadine and fluticasone NS and glaucoma; on latanoprost eye drops who presents to [facility] ER complaining of RLE weakness and slurred speech. Mr. Ruggiero reports his symptoms began at ~8 AM earlier this morning while he was doing some exercises when he noted increasing heaviness and weakness in his Right lower extremity with patient not feeling right throughout the day. Then a few hours later he noted decreased dexterity in his Right hand followed by slurred speech so he and his family decided to come in for further evaluation and treatment with strong suspicion for CVA. He denies associated headache, head trauma, anticoagulation or similar previous episodes. In the ER he underwent CT scan of the brain without contrast which revealed no acute intracranial abnormality followed by CTA of the head and neck with IV contrast that revealed no large intracranial or cervical large vessel occlusion or hemodynamically significant stenosis with mild short-segment narrowing of the proximal basilar artery in addition to a CXR that revealed no acute pulmonary process. He was then diagnosed with TIA versus CVA and admittedto the PCU under observation status for ongoing care for stay that is expected to be less than 2 midnights. [facility] Medical History Seasonal allergies Asthma, mild intermittent Home Medications ?Medication ?Instructions ?Recorded ?Last Taken ?Type fluticasone 250 mcg-salmeterol 50 1 inh inhalation Q12 H 01/15/22 07/22/25 08:14 History mcg/dose blistr powdr for inhalation latanoprost 0.005 % eye drops 1 drp ophthalmic (eye) Q AVERY 01/15/22 07/21/25 22:12 History cholecalciferol (vitamin D3) 50 50 mcg PO DAILY 07/22/25 08:00 History mcg (2,000 unit) tablet (Vitamin D3) fluticasone propionate 50 1 spray intranasal DAILY 07/22/25 08:13 History mcg/actuation nasal spray,suspension (Allergy Relief (fluticasone)) loratadine 10 mg tablet (Claritin) 10 mg PO DAILY 06/2807/22/25 08:12 History Allergy/AdvReac Type Severity Reaction Status Date / Time No Known Allergies Allergy Verified 08/05/23 09:38 Social History Smoking Status: Former smoker ROS ROS Narrative Review of Systems: Constitutional: Patient denies fever or chills. Eyes: Patient denies change in vision or discharge from eyes. ENT: Patient denies runny nose, sore throat or ear pain. Resp: Patient denies shortness of breath or cough. CV: Patient denies chest pain, palpitations, heart racing or lower extremity edema. GI: Patient denies abdominal pain, nausea, vomiting, diarrhea or constipation. : Patient denies dysuria or hematuria. MSK: Patient admits to weakness and heaviness in his Right upper and lower extremity as per HPI. Skin: Patient denies rash, abscess, wounds or jaundice. Psych: Patient denies symptoms of uncontrolled depression or anxiety. Neuro: Patient admits to Right-sided weakness with slurred speech as per HPI buthe denies headache or paresthesias. Allergy: Patient denies lip swelling, tongue swelling or urticaria. Hematology: Patient denies easy bleeding or easy bruisability. Endocrinology: Patient denies polyuria, polydipsia, polyphagia or heat/cold intolerance. 14 point ROS otherwise negative except for positives noted above in HPI. Vital Signs Vital Signs Vital Signs: 07/22/25 18:35 07/22/25 18:46 07/22/25 18:56 Temperature 96.4 F L Temperature Source Oral Pulse Rate 54 L 54 L Respiratory Rate 16 16 Blood Pressure 165/98 H 165/98 H Blood Pressure Mean 120 120 Pulse Ox 95 95 Oxygen Delivery Method Room Air Room Air Room Air 07/22/25 18:59 07/22/25 19:30 07/22/25 20:00 Temperature Temperature Source Pulse Rate 65 68 69 Respiratory Rate 22 H 16 18 Blood Pressure 145/89 H 150/82 H 134/88 H Blood Pressure Mean 107 104 103 Pulse Ox 96 96 94 Oxygen Delivery Method Room Air Room Air Room Air 07/22/25 20:30 Temperature Temperature Source Pulse Rate 64 Respiratory Rate 16 Blood Pressure 141/69 H Blood Pressure Mean 93 Pulse Ox 97 Oxygen Delivery Method Room Air Physical Exam Const alert, oriented x3, no apparent distress, average body habitus and healthy appearing General Appearance: cooperative HEENT normocephalic, head/scalp atraumatic, hearing grossly normal bilaterally and moist oral mucous membranes Eyes PERRL, EOMs intact bilaterally and conjunctivae normal Neck no lymphadenopathy, supple and no JVD Resp normal respiratory effort, no retractions, no use of accessory muscles and clearto auscultation bilaterally Cardio regular rate and regular rhythm GI normal to inspection, nondistended, normoactive bowel sounds, soft to palpation,non-tender and non-distended Extremity normal to inspection, full ROM and no clubbing, cyanosis or edema Skin Skin Narrative: Patient has evidence of rash, abscess, wounds or jaundice. Neuro oriented x3, CN's II-XII intact bilaterally, moves all extremities and no focal motor deficits Sensorium / Orientation: awake, alert, oriented to person, oriented to place andoriented to time Speech: speech normal Psych affect normal Results Medical Records Data Attestation: I reviewed the patient's medical records Lab / Micro Data Attestation: I reviewed the patient's lab results. 07/22/25 18:51 07/22/25 18:51 Labs: Laboratory Results - last 24 hr 07/22/25 18:51: WBC 10.2, RBC 4.73, Hgb 15.7, Hct 45.8, MCV 96.8 H, MCH 33.2 H, MCHC 34.3, RDW Std Deviation 47.1 H, RDW Coeff of Driss 13.1, Plt Count 279, MPV 9.3, Immature Gran % (Auto) 0.400, Neut % (Auto) 67.3, Lymph % (Auto) 17.2 L, Mcmullen % (Auto) 10.6 H, Eos % (Auto) 4.0, Baso % (Auto) 0.5, Absolute Neuts (auto) 6.8, Absolute Lymphs (auto) 1.75, Nucleated RBC % 0, PT 13.7, INR 1.0, APTT 34.6, Sodium 140, Potassium 4.1, Chloride 105, Carbon Dioxide 21.4, Anion Gap 14, BUN 21 H, Creatinine 0.85, Est GFR (MDRD) Non-Af 90, BUN/Creatinine Ratio 24.2 H, Glucose 101 H, Calcium 9.1, Troponin T High Sens 12 Imaging Radiology Impression Brain CT 07/22/25 18:39 IMPRESSION: No acute intracranial abnormality seen. Reading Location: [facility] Head/Neck CTA 07/22/25 18:40 IMPRESSION: No intracranial or cervical large vessel arterial occlusion or hemodynamically significant stenosis. Short-segment mild narrowing of the proximal basilar artery. Anatomic variants as noted. Reading Location: [facility] Chest X-Ray 07/22/25 19:12 IMPRESSION: Cardiomegaly. No acute pulmonary disease. Reading Location: [facility] Assessment & Plan Assessment/Plan (1) Right arm weakness: (2) Right leg weakness: (3) Slurred speech: PLAN: Plan 1. Right-sided weakness with Slurred speech consistent with TIA vs CVA - Admit to PCU under observation status. Check MRI of the brain to evaluate for evidence of CVA. Check echocardiogram to evaluate LVEF. Continue ECASA and begin satin. Check TSH, B12, Folate, HgbA1c, Lipid Profile, CLEMENTINE and UDS. [facility] evaluation is greatly appreciated. 2. Mild intermittent asthma; on fluticasone propion-salmeterol BID - Stable with no evidence of acute flare at this time. Continue current treatment. 3. Former tobacco abuse - Noted. 4. Seasonal allergies; on loratadine and fluticasone NS - Present treatment to be maintained as before. 5. Glaucoma; on latanoprost eye drops - Continue latanoprost as previous. 6. DVT prophylaxis - Enoxaparin 40 mg sq daily. Update: Stroke alert was called at approximately 5:30 AM after patient was notedto have increasing weakness in his right upper extremity and right lower extremity. He underwent stat head CT without contrast that revealed no acute changes. Dr. Kuo of [facility] evaluated patient thoroughly and recommended for Plavix load of 600 mg p.o. x 1+500 cc bolus of normal saline x 1and then continue maintenance fluid for suspected stuttering infarct with MRI ofbrain still pending in a.m. ENVELOPE STUFFER was updated with plan. Total time: Approximately (but not less than) 40 minutes. Charges/Coding Visit Charges Inpatient E&M: 29948 Init Hosp L1 07/23/25 0748 <Electronically signed by Rod Collins DO> Cosigner Signature (if applicable): CC: Dr. Kody Frank MD; Dr. Rod Collins DO~ Signed [facility] Work Phone: Hospital Discharge instructionsAdditional Instructions [facility]: [facility]: Progress note Author James Freeman [facility] Note Date/Time July 23, 2025 12:31pm [facility] Medical Records Department [address] [place] [address] Progress Note - Hospitalist 07/23/25 0854 MR#: [id number] Acct: [id number] Name: NELIDAKODY MATOS Rep #:[id number] : 1950 75 From: James Freeamn DO PCP: Dr. Kody Frank MD Status :ADM SANDEEP Location: [place] [address] Reason for Visit Chief Complaint: RLE Weakness and Slurred Speech. Subjective Subjective Patient has had progressive right sided weakness as well as dysarthria since 8:00 yesterday morning. And currently has very limited movement of his right upper extremity. Also has weakness in his right lower extremity but not as profound as his arm. Objective Data Objective Data Vital Signs: Vital Signs Temp Pulse Resp BP Pulse Ox O2 Del Method O2 Flow Rate 36.6 C 60 18 175/90 H 97 Room Air 2 07/23/25 07:28 07/23/25 07:28 07/23/25 07:28 07/23/25 07:28 07/23/25 07:28 07/23/25 08:09 07/23/25 07:28 Oxygen Flow Rate (L/min) 2 Oxygen Delivery Method Room Air Weight: 90.2 kg Body Mass Index (BMI) 25.5 Intake & Output: Intake and Output for Last 24 Hours 09/25/25 09/26/25 09/27/25 23:59 23:59 23:59 Intake Total 650 / 650 Balance 650 / 650 Lab / Micro Data 07/22/25 18:51 07/22/25 18:51 Labs: Laboratory Results - last 24 hr 07/22/25 18:51: WBC 10.2, RBC 4.73, Hgb 15.7, Hct 45.8, MCV 96.8 H, MCH 33.2 H, MCHC 34.3, RDW Std Deviation 47.1 H, RDW Coeff of Driss 13.1, Plt Count 279, MPV 9.3, Immature Gran % (Auto) 0.400, Neut % (Auto) 67.3, Lymph % (Auto) 17.2 L, Mcmullen % (Auto) 10.6 H, Eos % (Auto) 4.0, Baso % (Auto) 0.5, Absolute Neuts (auto) 6.8, Absolute Lymphs (auto) 1.75, Nucleated RBC % 0, PT 13.7, INR 1.0, APTT 34.6, Sodium 140, Potassium 4.1, Chloride 105, Carbon Dioxide 21.4, Anion Gap 14, BUN 21 H, Creatinine 0.85, Est GFR (MDRD) Non-Af 90, BUN/Creatinine Ratio 24.2 H, Glucose 101 H, Hemoglobin A1c 5.6, Calcium 9.1, Troponin T High Sens 12 07/22/25 20:52: Troponin T Hi Sens 2 Hr 13, TSH 1.890 07/22/25 22:37: Troponin T Hi Sens 4Hr 11, Ethyl Alcohol < 10.1 07/23/25 01:30: Urine Opiates Screen NEGATIVE, U Buprenorphine Qual NEGATIVE, UrOxycodone Screen NEGATIVE, Urine Methadone Screen NEGATIVE, Urine Fentanyl Screen NEGATIVE, Ur Barbiturates Screen NEGATIVE, Ur Phencyclidine Scrn NEGATIVE, Ur Amphetamines Screen NEGATIVE, U Benzodiazepines Scrn NEGATIVE, Urine Cocaine Screen NEGATIVE, U Cannabinoids Screen NEGATIVE 07/23/25 05:35: POC Glucose 108 H 07/23/25 07:30: Triglycerides 67, Cholesterol 146, LDL Cholesterol, Calc 88, VLDL Cholesterol 13, HDL Cholesterol 45, Cholesterol/HDL Ratio 3.26 Radiography Diagnostic Testing: Radiology Impression Brain CT 07/22/25 18:39 IMPRESSION: No acute intracranial abnormality seen. Reading Location: [facility] Head/Neck CTA 07/22/25 18:40 IMPRESSION: No intracranial or cervical large vessel arterial occlusion or hemodynamically significant stenosis. Short-segment mild narrowing of the proximal basilar artery. Anatomic variants as noted. Reading Location: [facility] Chest X-Ray 07/22/25 19:12 IMPRESSION: Cardiomegaly. No acute pulmonary disease. Reading Location: [facility] Brain CT 07/23/25 05:36 IMPRESSION: No CT evidence for acute brain abnormality. Reading Location: [place] [address] Physical Exam Const alert and no apparent distress HEENT head/scalp atraumatic and moist oral mucous membranes Resp normal respiratory effort, no retractions, no use of accessory muscles and clearto auscultation bilaterally Cardio regular rate, regular rhythm, S1 normal heart sound and S2 normal heart sound GI normal to inspection, nondistended, normoactive bowel sounds, soft to palpation,non-tender and non-distended Extremity normal to inspection Neuro Neuro Narrative: Slight right facial droop compared to the left. Slight dysarthria. Muscle strength 2-5 in the right upper extremity and 3-5 in the right lower extremity. 5-5 in left upper and left lower extremity. Sensation grossly intact throughout. Sensorium / Orientation: awake and alert Psych affect normal Assessment & Plan Assessment/Plan (1) Right arm weakness: (2) Right leg weakness: (3) Slurred speech: PLAN: Plan Acute CVA * suspected given his symptoms * Delayed presentation as patient presented several hours after initial presentation as his symptoms did progress even while he was in the hospital. * CTA of the head and neck showed no LVO. He had a repeat CT given worsening symptoms and that was negative. * follow up MRI, neuro consult, echo * continue ASA, atorvastatin, clopidogrel Chronic conditions: * Mild intermittent asthma; on fluticasone propion-salmeterol BID - Stable with no evidence of acute flare at this time. Continue current treatment. * Glaucoma; on latanoprost eye drops - Continue latanoprost as previous. DVT prophylaxis - Enoxaparin 40 mg sq daily. Charges/Coding Visit Charges Inpatient E&M: 15584 Subs Hosp L2 NIHSS NIHSS Nursing Documentation NIHSS Nursing Documentation: NIHSS: Ischemic Stroke/TIA Start: 07/22/25 21:50 Text: For PCU Patients: NIH and Neuro Check every 4 Status: Active hours, PRN and with change in RN caregiver. Freq: [id number] Protocol: Activity Type Activity Date Activity User E-sign Co-sign Detail Recorded Client Recorded Date Recorded By Document 07/23/25 07:28 JANIE [id number] 07/23/25 08:07 KS 07/23/25 07:28 NIH Stroke Scale [NIHSS] A score of 0 is "normal" or asymptomatic . Total possible score is 42. Inpatient: RN or Physician to activate a stroke alert for onset of new stroke symptoms or with NIHSS increase >/= 3 points. Following change in neurological status, NIHSS will be performed per physician order or more frequently PRN. -1a. Level of Consciousness 0 - Alert; keenly responsive -1b. LOC Questions 0 - Answers BOTH questions correctly -1c. LOC Commands 0 - Performs BOTH tasks correctly -2. Best Gaze 0 - Normal -3. Visual 0 - No visual loss -4. Facial Palsy 0 - Normal symmetrical movements -5a. Left Arm 0 - No drift; arm holds 90 ( or 45) degrees for full 10 seconds -5b. Right Arm 3 - No effort against gravity ; arm falls -6a. Left Leg 0 - No drift; leg holds 30- degree position for full 5 seconds -6b. Right Leg 2 - Some effort against gravity; -7. Limb Ataxia 2 - Present in 2 limbs -8. Sensory 0 - Normal; no sensory loss -9. Best Language 0 - No aphasia; normal -10. Dysarthria 1 = Mild-to- moderate dysarthria; -11. Extinction and Inattention 0 - No abnormality -Total 8 Query Text:A score of 0 is "normal" or asymptomatic. Total possible score is 42 . ED: Notify Physician for NIHSS increase by > / = 3 points. Inpatient: RN or Physician to activate a stroke alert for NIHSS increase of > / = 3 points. Coma Scale [Assess] -Eye Opening Spontaneous -Motor Obeys Commands -Verbal Oriented [Total] -Coma Scale Total 15 07/23/25 1231 <Electronically signed by James Freeman DO> Cosigner Signature (if applicable): CC: ~ Signed [facility] Work Phone: Progress note Author Suzanne Reddy [facility] Note Date/Time July 24, 2025 9:45am [facility] Medical Records Department [address] [place] [address] Progress Note - Neurology 07/24/25729 MR#: [id number] Acct: [id number] Name: KODY RUGGIERO Rep #:[id number] : 1950 75 From: Suzanne Reddy MD PCP: Dr. Kody Frank MD Status :ADM SANDEEP Location: [place] [address] Objective Data Objective Data Vital Signs: Vital Signs Temp Pulse Resp BP Pulse Ox O2 Del Method O2 Flow Rate 96.9 F L 67 20 H 147/102 H 96 Nasal Cannula 2 07/24/25 07:17 07/24/25 07:17 07/24/25 07:17 07/24/25 07:17 07/24/25 07:17 07/24/25 07:17 07/24/25 07:17 Oxygen Flow Rate (L/min) 2 Oxygen Delivery Method Nasal Cannula Weight: 90.2 kg Body Mass Index (BMI) 25.5 Intake & Output: Intake and Output for Last 24 Hours 07/22/25 07/23/25 07/24/25 23:59 23:59 23:59 Intake Total 2450 / 2450 Balance 2450 / 2450 Lab / Micro Data 07/22/25 18:51 07/22/25 18:51 Labs: Laboratory Results - last 24 hr 07/23/25 07:30: Triglycerides 67, Cholesterol 146, LDL Cholesterol, Calc 88, VLDL Cholesterol 13, HDL Cholesterol 45, Cholesterol/HDL Ratio 3.26 Radiography Diagnostic Testing: Radiology Impression Echocardiogram 07/22/25 20:51 Interpretation Summary The estimated ejection fraction is 60-65 %. Mild MR Contrast/Definity used Ordering Physician: Rod Collins Referring Physician: Kody Frank Performed By: Roxanne Courtney, SARINA, RVT Brain MRI 07/23/25 20:51 IMPRESSION: 1. No evidence of acute intracranial pathology. 2. Other findings as noted. Reading Location: [facility] Physical Exam Const Orientation / Consciousness: awake and oriented to person HEENT normocephalic Resp normal respiratory effort Neuro Neuro Narrative: Awake, alert oriented X3 CN: No gross facial assymetry Mild dysarthria RHP Right UE is plegic and RLE able to lift it a second against gravity2-3/5 Left 5/5 Sensation: Intact Subject: Neurology Subjective KODY RUGGIERO is a 75 year old M, with a past medical history of former tobacco abuse, mild intermittent asthma who presents to [facility] ER complaining of RLE weakness and slurred speech. Mr. Ruggiero reports his symptoms began at ~8 AM while he was doing some exercises when he noted increasing heaviness and weakness in his Right lower extremity with patient not feeling right throughout the day. Then a few hours later he noted decreased dexterity in his Right hand followed by slurred speech so he and his family decided to come in for further evaluation and treatment with strong suspicion for CVA. He denies associated headache, head trauma, anticoagulation or similar previous episodes. His symptoms got worse in the night with worseningweakness on right side, slurred speech with NIHSS 5. He was given ASA initially then loaded with plavix He is getting better over last 24 hours in terms of speech and right leg weakness CT scan of the brain without contrast which revealed no acute intracranial abnormality CTA of the head and neck with IV contrast that revealed no large intracranial orcervical large vessel occlusion or hemodynamically significant stenosis. there is with mild short-segment narrowing of the proximal basilar artery Assessment and Plan: Stroke Assessment/Plan KODY RUGGIERO is a 75 M with a history of with a history of tobacco abuse, mild intermittent asthma who presents for evaluation of right sided weakness Neurological examination shows Right hemiparesis. Neuroimaging shows CT head negative, CTA: Mid basilar stenosis, LDL: 88, MRI: Left pontine stroke. Acute stroke from basilar stenosis vs small vessel disease, ECHO: EF 60-65% Plan Continue ASA, plavix for 3 months then ASA alone Permissive HTN acutely and gradual normalization of blood pressure PT,OT, speech, swallow eval stroke education Smoking cessation Evaluation for rehabilitation Thanks for consult. Spent 30 min in evaluation and management NIHSS NIHSS Nursing Documentation NIHSS Nursing Documentation: NIHSS: Ischemic Stroke/TIA Start: 07/22/25 21:50 Text: For PCU Patients: NIH and Neuro Check every 4 Status: Active hours, PRN and with change in RN caregiver. Freq: [id number] Protocol: Activity Type Activity Date Activity User E-sign Co-sign Detail Recorded Client Recorded Date Recorded By Document 07/24/25 07:17 [id number] 07/24/25 07:24 07/24/25 07:17 NIH Stroke Scale [NIHSS] A score of 0 is "normal" or asymptomatic . Total possible score is 42. Inpatient: RN or Physician to activate a stroke alert for onset of new stroke symptoms or with NIHSS increase >/= 3 points. Following change in neurological status, NIHSS will be performed per physician order or more frequently PRN. -1a. Level of Consciousness 0 - Alert; keenly responsive -1b. LOC Questions 0 - Answers BOTH questions correctly -1c. LOC Commands 0 - Performs BOTH tasks correctly -2. Best Gaze 0 - Normal -3. Visual 0 - No visual loss -4. Facial Palsy 1 - Minor paralysis ( flattened nasolabial fold , asymmetry on smiling) -5a. Left Arm 0 - No drift; arm holds 90 ( or 45) degrees for full 10 seconds -5b. Right Arm 3 - No effort against gravity ; arm falls -6a. Left Leg 0 - No drift; leg holds 30- degree position for full 5 seconds -6b. Right Leg 2 - Some effort against gravity; -7. Limb Ataxia 1 - Present in 1 limb -8. Sensory 0 - Normal; no sensory loss -9. Best Language 0 - No aphasia; normal -10. Dysarthria 1 = Mild-to- moderate dysarthria; -11. Extinction and Inattention 0 - No abnormality -Total 8 Query Text:A score of 0 is "normal" or asymptomatic. Total possible score is 42 . ED: Notify Physician for NIHSS increase by > / = 3 points. Inpatient: RN or Physician to activate a stroke alert for NIHSS increase of > / = 3 points. Coma Scale [Assess] -Eye Opening Spontaneous -Motor Obeys Commands -Verbal Oriented [Total] -Coma Scale Total 15 NIHSS 1a. Level of Consciousness: 0 - Alert; keenly responsive 1b. LOC Questions: 0 - Answers BOTH questions correctly 1c. LOC Commands: 0 - Performs BOTH tasks correctly 2. Best Gaze: 0 - Normal 3. Visual: 0 - No visual loss 4. Facial Palsy: 0 - Normal symmetrical movements 5b. Right Arm: 4- No movement 6a. Left Le - No drift; leg holds 30-degree position for full 5 seconds 6b. Right Le - Some effort against gravity; 7. Limb Ataxia: 0 - Absent 8. Sensory: 0 - Normal; no sensory loss 9. Best Language: 0 - No aphasia; normal 10. Dysarthria: 1 = Iupj-fs-awjblyyd dysarthria; 11. Extinction and Inattention: 0 - No abnormality Total: 7 07/24/25 0945 <Electronically signed by Suzanne Reddy MD> Cosigner Signature (if applicable): CC: ~ Signed [facility] Work Phone: Progress note Author James Freeman [facility] Note Date/Time July 24, 2025 1:11pm [facility] Medical Records Department [address] [place] [address] Progress Note - Hospitalist 07/24/25916 MR#: [id number] Acct: [id number] Name: KODY RUGGIERO Rep #:[id number] : 1950 75 From: James Freeman DO PCP: Dr. Kody Frank MD Status :ADM IN Location: [place] [address] Reason for Visit Chief Complaint: RLE Weakness and Slurred Speech. Subjective Subjective Feels he is able to speak better. Able to move his right lower extremity somewhat better but still profound deficits in his right upper extremity. Objective Data Objective Data Vital Signs: Vital Signs Temp Pulse Resp BP Pulse Ox O2 Del Method O2 Flow Rate 36.1 C L 67 20 H 147/102 H 96 Room Air 2 07/24/25 07:17 07/24/25 07:17 07/24/25 07:17 07/24/25 07:17 07/24/25 07:17 07/24/25 07:50 07/24/25 07:17 Oxygen Flow Rate (L/min) 2 Oxygen Delivery Method Room Air Weight: 90.2 kg Body Mass Index (BMI) 25.5 Intake & Output: Intake and Output for Last 24 Hours 07/22/25 07/23/25 07/24/25 23:59 23:59 23:59 Intake Total 2450 / 2450 Balance 2450 / 2450 Lab / Micro Data 07/22/25 18:51 07/22/25 18:51 Radiography Diagnostic Testing: Radiology Impression Echocardiogram 07/22/25 20:51 Interpretation Summary The estimated ejection fraction is 60-65 %. Mild MR Contrast/Definity used Ordering Physician: Rod Collins Referring Physician: Kody Frank Performed By: Roxanne Courtney, RDCS, RVT Brain MRI 07/23/25 20:51 IMPRESSION: 1. No evidence of acute intracranial pathology. 2. Other findings as noted. Reading Location: [id number] Physical Exam Const alert and no apparent distress HEENT head/scalp atraumatic and moist oral mucous membranes Resp normal respiratory effort and no retractions Extremity normal to inspection and no clubbing, cyanosis or edema Neuro Neuro Narrative: Muscle strength is 1 out of 5 in the right upper extremity and he is able to flex his right knee but not extend it. Sensation is grossly intact on his face arms and legs and equal. Still slightly slurred speech but overall improved from the 27th. Psych affect normal Assessment & Plan Assessment/Plan (1) Right arm weakness: (2) Right leg weakness: (3) Slurred speech: PLAN: Plan Acute CVA * Delayed presentation as patient presented several hours after initial presentation as his symptoms did progress even while he was in the hospital. * CTA of the head and neck showed no LVO. He had a repeat CT given worsening symptoms and that was negative. * MRI read by radiology as unremarkable but neurology felt the patient had a pontine stroke. I would defer to neurology as the patient has profound symptoms. * continue ASA, atorvastatin, clopidogrel * Continue with PT OT and speech therapy. Chronic conditions: * Mild intermittent asthma; Stable with no evidence of acute flare at this time. Continue current treatment. * Glaucoma; on latanoprost eye drops - Continue latanoprost as previous. DVT prophylaxis - Enoxaparin 40 mg sq daily. Disposition: To be determined. But anticipate the patient requiring acute rehabwhen he is ready for discharge. Discussed with the patient's at bedside. Charges/Coding Visit Charges Inpatient E&M: 89029 Subs Hosp L2 NIHSS NIHSS Nursing Documentation NIHSS Nursing Documentation: NIHSS: Ischemic Stroke/TIA Start: 07/22/25 21:50 Text: For PCU Patients: NIH and Neuro Check every 4 Status: Active hours, PRN and with change in RN caregiver. Freq: [id number] Protocol: Activity Type Activity Date Activity User E-sign Co-sign Detail Recorded Client Recorded Date Recorded By Document 07/24/25 07:17 [id number] 07/24/25 07:24 07/24/25 07:17 NIH Stroke Scale [NIHSS] A score of 0 is "normal" or asymptomatic . Total possible score is 42. Inpatient: RN or Physician to activate a stroke alert for onset of new stroke symptoms or with NIHSS increase >/= 3 points. Following change in neurological status, NIHSS will be performed per physician order or more frequently PRN. -1a. Level of Consciousness 0 - Alert; keenly responsive -1b. LOC Questions 0 - Answers BOTH questions correctly -1c. LOC Commands 0 - Performs BOTH tasks correctly -2. Best Gaze 0 - Normal -3. Visual 0 - No visual loss -4. Facial Palsy 1 - Minor paralysis ( flattened nasolabial fold , asymmetry on smiling) -5a. Left Arm 0 - No drift; arm holds 90 ( or 45) degrees for full 10 seconds -5b. Right Arm 3 - No effort against gravity ; arm falls -6a. Left Leg 0 - No drift; leg holds 30- degree position for full 5 seconds -6b. Right Leg 2 - Some effort against gravity; -7. Limb Ataxia 1 - Present in 1 limb -8. Sensory 0 - Normal; no sensory loss -9. Best Language 0 - No aphasia; normal -10. Dysarthria 1 = Mild-to- moderate dysarthria; -11. Extinction and Inattention 0 - No abnormality -Total 8 Query Text:A score of 0 is "normal" or asymptomatic. Total possible score is 42 . ED: Notify Physician for NIHSS increase by > / = 3 points. Inpatient: RN or Physician to activate a stroke alert for NIHSS increase of > / = 3 points. Coma Scale [Assess] -Eye Opening Spontaneous -Motor Obeys Commands -Verbal Oriented [Total] -Coma Scale Total 15 07/24/25 1311 <Electronically signed by James Freeman DO> Cosigner Signature (if applicable): CC: ~ Signed [facility] Work Phone: Progress note Author Low Dillon [facility] Note Date/Time July 25, 2025 2:35pm [facility] Medical Records Department [address] [place] [address] Progress Note - Neurology 07/25/25 1427 MR#: [id number] Acct: [id number] Name: KODY RUGGIERO Rep #:[id number] : 1950 75 From: Low Roa PCP: Dr. Kody Frank MD Status :ADM IN Location: [place] [address] Assessment and Plan: Neuro Assessment/Plan Telestroke Attending Progress Note 75 y/o man with h/o former tobacco abuse, mild intermittent asthma p/w right sided weakness along with slurred speech, progressive worsening. CT Head- no acute intracranial process. CTA- mild stenosis of basilar artery. LDL: 88, MRI: Left pontine stroke. Likely small vessel disease. Diagnosis: Left pontine stroke, small vessel disease Plan: Continue ASA, plavix for 3 months then ASA alone along with statin. Permissive HTN acutely and gradual normalization of blood pressure PT,OT, speech, swallow eval stroke education Smoking cessation Evaluation for rehabilitation I personally attended this patient and spent a total time of 35 minutes evaluating this patient including clinical assessment, review of chart, medical history imaging, and determining appropriate treatment and workup. Subject: Neurology Subjective He reports no new complaints at this time. Still has no movement in RUE with antigravity in RLE. EEG Results Procedure Details EEG Procedure Details: KODY RUGGIERO is a 75 year old M with a past medical history of , who presents for evaluation of Electroencephalogram on DATE at TIME Objective Data Objective Data Vital Signs: Vital Signs Temp Pulse Resp BP Pulse Ox O2 Del Method O2 Flow Rate 97.7 F L 86 16 124/102 H 97 Room Air 2 07/25/25 14:00 07/25/25 14:00 07/25/25 14:00 07/25/25 14:00 07/25/25 14:00 07/25/25 14:00 07/24/25 13:41 Oxygen Flow Rate (L/min) 2 Oxygen Delivery Method Room Air Weight: 90.2 kg Body Mass Index (BMI) 25.5 Intake & Output: Intake and Output for Last 24 Hours 07/23/25 07/24/25 07/25/25 23:59 23:59 23:59 Intake Total 2450 / 2450 900 / 900 Balance 2450 / 2450 900 / 900 Lab / Micro Data 07/25/25 12:10 07/25/25 12:10 Labs: Laboratory Results - last 24 hr 07/25/25 12:10: WBC 8.6, RBC 4.97, Hgb 16.3, Hct 46.9, MCV 94.4 H, MCH 32.8 H, MCHC 34.8, RDW Std Deviation 44.9 H, RDW Coeff of Driss 13.0, Plt Count 285, MPV 9.1, Immature Gran % (Auto) 0.300, Neut % (Auto) 61.2, Lymph % (Auto) 17.6 L, Mcmullen % (Auto) 14.7 H, Eos % (Auto) 5.7 H, Baso % (Auto) 0.5, Absolute Neuts (auto) 5.3, Absolute Lymphs (auto) 1.51, Nucleated RBC % 0, Sodium 140, Potassium 4.4, Chloride 106, Carbon Dioxide 20.5 L, Anion Gap 13, BUN 13, Creatinine 0.78, Estim Creat Clear Calc 89.91, Est GFR (MDRD) Non-Af 92, BUN/Creatinine Ratio 16.7, Glucose 117 H, Calcium 9.2, Total Bilirubin 0.56, AST32, ALT 27, Alkaline Phosphatase 89, Total Protein 6.9, Albumin 4.1, Globulin 2.8, Albumin/Globulin Ratio 1.5 NIHSS NIHSS Nursing Documentation NIHSS Nursing Documentation: NIHSS: Ischemic Stroke/TIA Start: 07/22/25 21:50 Text: For PCU Patients: NIH and Neuro Check every 4 Status: Active hours, PRN and with change in RN caregiver. Freq: [id number] Protocol: Activity Type Activity Date Activity User E-sign Co-sign Detail Recorded Client Recorded Date Recorded By Document 07/25/25 14:00 [id number] 07/25/25 14:25 07/25/25 14:00 NIH Stroke Scale [NIHSS] A score of 0 is "normal" or asymptomatic . Total possible score is 42. Inpatient: RN or Physician to activate a stroke alert for onset of new stroke symptoms or with NIHSS increase >/= 3 points. Following change in neurological status, NIHSS will be performed per physician order or more frequently PRN. -1a. Level of Consciousness 0 - Alert; keenly responsive -1b. LOC Questions 0 - Answers BOTH questions correctly -1c. LOC Commands 0 - Performs BOTH tasks correctly -2. Best Gaze 0 - Normal -3. Visual 0 - No visual loss -4. Facial Palsy 1 - Minor paralysis ( flattened nasolabial fold , asymmetry on smiling) -5a. Left Arm 0 - No drift; arm holds 90 ( or 45) degrees for full 10 seconds -5b. Right Arm 3 - No effort against gravity ; arm falls -6a. Left Leg 0 - No drift; leg holds 30- degree position for full 5 seconds -6b. Right Leg 2 - Some effort against gravity; -7. Limb Ataxia 0 - Absent -8. Sensory 0 - Normal; no sensory loss -9. Best Language 0 - No aphasia; normal -10. Dysarthria 1 = Mild-to- moderate dysarthria; -11. Extinction and Inattention 0 - No abnormality -Total 7 Query Text:A score of 0 is "normal" or asymptomatic. Total possible score is 42 . ED: Notify Physician for NIHSS increase by > / = 3 points. Inpatient: RN or Physician to activate a stroke alert for NIHSS increase of > / = 3 points. Coma Scale [Assess] -Eye Opening Spontaneous -Motor Obeys Commands -Verbal Oriented [Total] -Coma Scale Total 15 NIHSS 1a. Level of Consciousness: 0 - Alert; keenly responsive 1b. LOC Questions: 0 - Answers BOTH questions correctly 1c. LOC Commands: 0 - Performs BOTH tasks correctly 2. Best Gaze: 0 - Normal 3. Visual: 0 - No visual loss 4. Facial Palsy: 0 - Normal symmetrical movements 5a. Left Arm: 0 - No drift; arm holds 90 (or 45) degrees for full 10 seconds 5b. Right Arm: 4- No movement 6a. Left Le - No drift; leg holds 30-degree position for full 5 seconds 6b. Right Le - Drift; leg falls by the end of 5-seconds, but does not hit bed 7. Limb Ataxia: 0 - Absent 8. Sensory: 0 - Normal; no sensory loss 9. Best Language: 0 - No aphasia; normal 10. Dysarthria: 0 - Normal 11. Extinction and Inattention: 0 - No abnormality Total: 5 07/25/25 1435 <Electronically signed by Low Dillon MD> Cosigner Signature (if applicable): CC: ~ Signed [facility] Work Phone: Reason for referral (narrative)No reason for referral information availableWSelect [facility] [place] Work Phone: Summary Purpose Family History No Family History Records FoundUnknown Family Member Name Dates Details No pertinent family history: Mother, Father(V49.89, Z78.9) Status:Active Unknown Family Member Name Dates Details No pertinent family history: Mother, Father(V49.89, Z78.9) Status:Active Unknown Family Member Name Dates Details No pertinent family history: Mother, Father(V49.89, Z78.9) Status:Active Relationship Condition Age at Onset Recorded Date/T brielle brother Cerebrovascular accident (CVA) Unknown father Chronic obstructive pulmonary disease Unk nown Advance Directives No Advanced Directives Records Found Advance Directive Response Recorded Date/ Time Do you have a Healthcare Pow er of Museum Attendant? Yes July 22, 2025 10:14pm Name of Medical Power of Museum Attendant Missy Ruggiero July 22, 2025 10:14pm Do you have a Healthcare Pow er of Museum Attendant? Yes July 25, 2025 5:43pm Advance Directive Response Recorded Date/ Time Do you have a Healthcare Pow er of Museum Attendant? Yes July 22, 2025 10:14pm Name of Medical Power of Museum Attendant Missy Ruggiero July 22, 2025 10:14pm Do you have a Healthcare Pow er of Museum Attendant? Yes July 27, 2025 12:12pm Name of Medical Power of Museum Attendant Missy Ruggiero, July 27, 2025 12:12pm Chief Complaint and Reason for Visit Chief Complaint RIGHT FOOT INJURY EORDER- RIGHT FOOT Reason for Visit Right foot strain Chief Complaint Admit Date TIA VS CVA July 22, 2025 8:47pm TIA VS CVA July 23, 2025 8:54am TIA VS CVA July 23, 2025 10:51am TIA VS CVA July 24, 2025 9:17am TIA VS CVA July 25, 2025 4:52pm cva July 25, 2025 5:30pm Reason for Visit Admit Date Right arm weakness July 23, 2025 10:51am Right leg weakness July 23, 2025 10:51am Slurred speech July 23, 2025 10:51am Asthma, mild intermittent June 5:30pm Dysarthria July 25, 2025 5:30pm Dysphagia July 25, 2025 5:30pm Facial droop due to acute cerebrovascula r accident (CVA) July 25, 2025 5:30pm Glaucoma July 25, 2025 5:30pm Hyperuricemia July 25, 2025 5:30pm Ischemic cerebrovascular accident (CVA) July 25, 2025 5:30pm Paroxysmal A-fib July 25, 2025 5:30pm Physical debility July 25, 2025 5:30pm Right sided weakness July 25 5:30pm Seasonal allergies July 25, 2025 5:30pm Chief Complaint Admit Date TIA VS CVA July 22, 2025 8:47pm TIA VS CVA July 23, 2025 8:54am TIA VS CVA July 23, 2025 10:51am TIA VS CVA July 24, 2025 9:17am TIA VS CVA July 25, 2025 4:52pm cva July 25, 2025 5:30pm cva July 26, 2025 7:23am Additional Source Comments (unrecognized sect ion and content) No Status Records FoundNo Status Records FoundNo Status Records FoundNo Status Records Found INFORMATION SOURCE (unrecogn ized section and content) DATE CREATED AUTHOR 06/23/2019 [facility] DATE CREATED AUTHOR AUTHOR'S ORGANIZ ATION 11/11/2020 [employer] DATE CREATED AUTHOR AUTHOR'S ORGANIZ ATION 05/20/[address] [facility] DATE CREATED AUTHOR AUTHOR'S ORGANIZ ATION 08/16/2025 [facility] Goals (unrecognized section and content) Goals [...] Status: Active Member Role Status Dates Dr. Kody Frank MD Primary Care Provider Acti ve Team Status: Inactive Member Role Status Dates Dr. Kody Frank MD Primary Care Provider Acti ve Start: January 04, 2025 End: January 04, 2025 Dr. Kody Frank MD Attending Provider Active Start: January 04, 2025 End: January 04, 2025 Dr. Kody Frank MD Referring Provider Active Start: January 04, 2025 End: January 04, 2025 Team Status: Active Member Role/Relationship Status Dates Dr. Kody Frank MD Primary care physician Act rafael Team Status: Active Member Role/Relationship Status Dates Dr. Kody Frank MD Primary care physician Act rafael Start: July 22, 2025 Dr. Lobito Her , DO Emergency Departme nt Physician Active Start: July 22, 2025 Dr. Rod Collins , DO Admitting physician Active Start: July 22, 2025 Dr. Rod Collins , DO Attending physician Active Start: July 22, 2025 Dr. Rod Collins , DO Nurse Practitioner Active Start: July 22, 2025 Herve Pendleton MD Nurse Practitioner Active Start : July 22, 2025 Dr. Lillian Parker MD Nurse Practitioner Active St art: July 22, 2025 Suzanne Reddy MD Nurse Practitioner Active S tart: July 22, 2025 Dr. Sharda Luna , Nurse Practitioner Active Start: July 22, 2025 Dr. Alona Kuo MD Nurse Practitioner Active St art: July 22, 2025 Dr. Low Dillon MD Nurse Practitioner Active Start: July 22, 2025 Dr. Ragini Mishra MD Nurse Practitioner Active S tart: July 22, 2025 Dr. Drew Ortiz MD Nurse Practitioner Active St art: July 22, 2025 Dr. Ronny Bolanos MD Nurse Practitioner Active S tart: July 22, 2025 Dr. Mor Ibarra MD Nurse Practitioner Active Start: July 22, 2025 Dr. Danni Odonnell , Nurse Practitioner Active Start: July 22, 2025 Jessica Lee MD Nurse Practitioner Active S tart: July 22, 2025 Dr. Josue Sesay MD Nurse Practitioner Active Start: July 22, 2025 Dr. Torie De Leon MD Nurse Practitioner Active S tart: July 22, 2025 Dr. Oneida Castro MD Nurse Practitioner Active Start: July 22, 2025 Dr. Roger Jack MD Nurse Practitioner Active Start: June Dr. Flaquito Noble MD Nurse Practitioner Active Start: July 22, 2025 Dr. Tonny Miller MD Nurse Practitioner Active Start: July 22, 2025 Dr. Yonas Hall MD Nurse Practitioner Active Start: July 22, 2025 Dr. Marianela Jacobs MD Nurse Practitioner Active St art: July 22, 2025 Maren De La Cruz MD Nurse Practitioner Active St art: July 22, 2025 Dr. James Freeman , Nurse Practitioner Active Start: July 22, 2025 Team Status: Active Member Role/Relationship Status Dates Dr. Kody Frank MD Primary care physician Act rafael Start: July 23, 2025 Dr. Mushtaq Lozano MD Attending physician Active Start: July 23, 2025 Team Status: Active Member Role/Relationship Status Dates Dr. Kody Frank MD Primary care physician Act rafael Start: July 23, 2025 Dr. Lobito Her , DO Emergency Departme nt Physician Active Start: July 23, 2025 Dr. Rod Collins , DO Admitting physician Active Start: July 23, 2025 Dr. Rod Collins , DO Nurse Practitioner Active Start: July 23, 2025 Herve Pendleton MD Nurse Practitioner Active Start : July 23, 2025 Dr. Lillian Parker MD Nurse Practitioner Active St art: July 23, 2025 Suzanne Reddy MD Nurse Practitioner Active S tart: July 23, 2025 Dr. Sharda Luna , Nurse Practitioner Active Start: July 23, 2025 Dr. Alona Kuo MD Nurse Practitioner Active St art: July 23, 2025 Dr. Low Dillon MD Nurse Practitioner Active Start: July 23, 2025 Dr. Ragini Mishra MD Nurse Practitioner Active S tart: July 23, 2025 Dr. Drew Ortiz MD Nurse Practitioner Active St art: July 23, 2025 Dr. Ronny Bolanos MD Nurse Practitioner Active S tart: July 23, 2025 Dr. Mor Ibarra MD Nurse Practitioner Active Start: July 23, 2025 Dr. Danni Odonnell DO Nurse Practitioner Active Start: July 23, 2025 Jessica Lee MD Nurse Practitioner Active S tart: July 23, 2025 Dr. Josue Sesay MD Nurse Practitioner Active Start: July 23, 2025 Dr. Torie De Leon MD Nurse Practitioner Active S tart: July 23, 2025 Dr. Oneida Castro MD Nurse Practitioner Active Start: July 23, 2025 Dr. Roger Jack MD Nurse Practitioner Active Start: June Dr. Flaquito Noble MD Nurse Practitioner Active Start: July 23, 2025 Dr. Tonny Miller MD Nurse Practitioner Active Start: July 23, 2025 Dr. Yonas Hall MD Nurse Practitioner Active Start: July 23, 2025 Dr. Marianela Jacobs MD Nurse Practitioner Active St art: July 23, 2025 Maren De La Cruz MD Nurse Practitioner Active St art: July 23, 2025 Dr. James Freeman DO Attending physician Active Start: July 23, 2025 Dr. James Freeman DO Nurse Practitioner Active Start: July 23, 2025 Team Status: Inactive Member Role/Relationship Status Dates Dr. Kody Frank MD Primary care physician Act rafael Start: July 23, 2025 End: July 25, 2025 Dr. Lobito Her , Emergency Departme nt Physician Active Start: July 23, 2025 End: July 25, 2025 Dr. Rod Collins DO Admitting physician Active Start: July 23, 2025 End: July 25, 2025 Dr. Rod Collins DO Nurse Practitioner Active Start: July 23, 2025 End: July 25, 2025 Herve Pendleton MD Nurse Practitioner Active Start : July 23, 2025 End: July 25, 2025 Dr. Lillian Parker MD Nurse Practitioner Active St art: July 23, 2025 End: July 25, 2025 Suzanne Reddy MD Nurse Practitioner Active S tart: July 23, 2025 End: July 25, 2025 Dr. Sharda Luna DO Nurse Practitioner Active Start: July 23, 2025 End: July 25, 2025 Dr. Alona Kuo MD Nurse Practitioner Active St art: July 23, 2025 End: July 25, 2025 Dr. Low Dillon MD Nurse Practitioner Active Start: July 23, 2025 End: July 25, 2025 Dr. Ragini Mishra MD Nurse Practitioner Active S tart: July 23, 2025 End: July 25, 2025 Dr. Drew Ortiz MD Nurse Practitioner Active St art: July 23, 2025 End: July 25, 2025 Dr. Ronny Bolanos MD Nurse Practitioner Active S tart: July 23, 2025 End: July 25, 2025 Dr. Mor Ibarra MD Nurse Practitioner Active Start: July 23, 2025 End: July 25, 2025 Dr. Danni Odonnell , Nurse Practitioner Active Start: July 23, 2025 End: July 25, 2025 Jessica Lee MD Nurse Practitioner Active S tart: July 23, 2025 End: July 25, 2025 Dr. Josue Sesay MD Nurse Practitioner Active Start: July 23, 2025 End: July 25, 2025 Dr. Torie De Leon MD Nurse Practitioner Active S tart: July 23, 2025 End: July 25, 2025 Dr. Oneida Castro MD Nurse Practitioner Active Start: July 23, 2025 End: July 25, 2025 Dr. Roger Jack MD Nurse Practitioner Active Start: June End: July 25, 2025 Dr. Flaquito Noble MD Nurse Practitioner Active Start: July 23, 2025 End: July 25, 2025 Dr. Tonny Miller MD Nurse Practitioner Active Start: July 23, 2025 End: July 25, 2025 Dr. Yonas Hall MD Nurse Practitioner Active Start: July 23, 2025 End: July 25, 2025 Dr. Marianela Jacobs MD Nurse Practitioner Active St art: July 23, 2025 End: July 25, 2025 Maren De La rCuz MD Nurse Practitioner Active St art: July 23, 2025 End: July 25, 2025 Dr. Jaye Murrieta MD Attending physician Active Start: July 23, 2025 End: July 25, 2025 Dr. James Freeman , Nurse Practitioner Active Start: July 23, 2025 End: July 25, 2025 Team Status: Active Member Role/Relationship Status Dates Dr. Kody Frank MD Primary care physician Act rafael Start: July 24, 2025 Dr. Lobito Her , Emergency Departme nt Physician Active Start: July 24, 2025 Dr. Rod Collins , Admitting physician Active Start: July 24, 2025 Dr. Rod Collins , Nurse Practitioner Active Start: July 24, 2025 Herve Pendleton MD Nurse Practitioner Active Start : July 24, 2025 Dr. Lillian Parker MD Nurse Practitioner Active St art: July 24, 2025 Suzanne Reddy MD Nurse Practitioner Active S tart: July 24, 2025 Dr. Sharda Luna , Nurse Practitioner Active Start: July 24, 2025 Dr. Alona Kuo MD Nurse Practitioner Active St art: July 24, 2025 Dr. Low Dillon MD Nurse Practitioner Active Start: July 24, 2025 Dr. Ragini Mishra MD Nurse Practitioner Active S tart: July 24, 2025 Dr. Drew Ortiz MD Nurse Practitioner Active St art: July 24, 2025 Dr. Ronny Bolanos MD Nurse Practitioner Active S tart: July 24, 2025 Dr. Mor Ibarra MD Nurse Practitioner Active Start: July 24, 2025 Dr. Danni Odonenll DO Nurse Practitioner Active Start: July 24, 2025 Jessica Lee MD Nurse Practitioner Active S tart: July 24, 2025 Dr. Josue Sesay MD Nurse Practitioner Active Start: July 24, 2025 Dr. Torie De Leon MD Nurse Practitioner Active S tart: July 24, 2025 Dr. Oneida Castro MD Nurse Practitioner Active Start: July 24, 2025 Dr. Roger Jack MD Nurse Practitioner Active Start: June Dr. Flaquito Noble MD Nurse Practitioner Active Start: July 24, 2025 Dr. Tonny Miller MD Nurse Practitioner Active Start: July 24, 2025 Dr. Yonas Hall MD Nurse Practitioner Active Start: July 24, 2025 Dr. Marianela Jacobs MD Nurse Practitioner Active St art: July 24, 2025 Maren De La Cruz MD Nurse Practitioner Active St art: July 24, 2025 Dr. James Freeman DO Attending physician Active Start: July 24, 2025 Dr. James Freeman DO Nurse Practitioner Active Start: July 24, 2025 Team Status: Active Member Role/Relationship Status Dates Dr. Kody Frank MD Primary care physician Act rafael Start: July 25, 2025 Dr. James Gurrola MD Attending physician Active Start: July 25, 2025 Team Status: Active Member Role/Relationship Status Dates Dr. Kody Frank MD Primary care physician Act rafael Start: July 25, 2025 Dr. Lobito Her , Emergency Departme nt Physician Active Start: July 25, 2025 Dr. Rod Collins DO Admitting physician Active Start: July 25, 2025 Dr. Rod Collins , Nurse Practitioner Active Start: July 25, 2025 Herve Pendleton MD Nurse Practitioner Active Start : July 25, 2025 Dr. Lillian Parker MD Nurse Practitioner Active St art: July 25, 2025 Suzanne Reddy MD Nurse Practitioner Active S tart: July 25, 2025 Dr. Sharda Luna , Nurse Practitioner Active Start: July 25, 2025 Dr. Alona Kuo MD Nurse Practitioner Active St art: July 25, 2025 Dr. Low Dillon MD Nurse Practitioner Active Start: July 25, 2025 Dr. Ragini Mishra MD Nurse Practitioner Active S tart: July 25, 2025 Dr. Drew Ortiz MD Nurse Practitioner Active St art: July 25, 2025 Dr. Ronny Bolanos MD Nurse Practitioner Active S tart: July 25, 2025 Dr. Mor Ibarra MD Nurse Practitioner Active Start: July 25, 2025 Dr. Danni Odonnell , Nurse Practitioner Active Start: July 25, 2025 Jessica Lee MD Nurse Practitioner Active S tart: July 25, 2025 Dr. Josue Sesay MD Nurse Practitioner Active Start: July 25, 2025 Dr. Torie De Leon MD Nurse Practitioner Active S tart: July 25, 2025 Dr. Oneida Castro MD Nurse Practitioner Active Start: July 25, 2025 Dr. Roger Jack MD Nurse Practitioner Active Start: June Dr. Flaquito Noble MD Nurse Practitioner Active Start: July 25, 2025 Dr. Tonny Miller MD Nurse Practitioner Active Start: July 25, 2025 Dr. Yonas Hall MD Nurse Practitioner Active Start: July 25, 2025 Dr. Marianela Jacobs MD Nurse Practitioner Active St art: July 25, 2025 Maren De La Cruz MD Nurse Practitioner Active St art: July 25, 2025 Dr. Jaye Murrieta MD Attending physician Active Start: July 25, 2025 Dr. Jaye Murrieta MD Nurse Practitioner Active Start: July 25, 2025 Dr. James Freeman DO Nurse Practitioner Active Start: July 25, 2025 Team Status: Active Member Role/Relationship Status Dates Dr. Kody Frank MD Primary care physician Act rafael Start: July 25, 2025 Dr. Judith Brizuela DO Admitting physician Active Start: June Dr. Judith Brizuela DO Attending physician Active Start: June Dr. Judith Brizuela DO Referring Provider Active Start: June Team Status: Active Member Role/Relationship Status Dates Dr. Kody Frank MD Primary care physician Act rafael Start: July 26, 2025 Dr. Judith Brizuela DO Admitting physician Active Start: June Dr. Judith Brizuela DO Attending physician Active Start: June Dr. Judith Brizuela DO Referring Provider Active Start: June Dr. Judith Brizuela DO Nurse Practitioner Active Start: June FOR RECORDS PERTAINING TO PATIENTS WHO ARE [...] BE BASED ON THE PRIMARY CLINICAL RECORDS. [employer] provides no warranty or guarantee of the accuracy or completeness of information in this document.
== END | disposition home or self-care (01) ==
LOC: SL 20:34
PROVIDERS: PCP Family Medicine Adult Medicine; Visit Provider Internal Medicine
DX: G47.30 Sleep apnea, unspecified (principal)
CPT/HCPCS: 95810

== ENCOUNTER → 2025-09-16 | Outpatient (CLI) | payer BC, SELFPAY | END | disposition home or self-care (01) | LOC: SL 10:15 | PROVIDERS: PCP Family Medicine Adult Medicine; Referring Provider Nurse Practitioner Acute Care; Visit Provider Nurse Practitioner Acute Care | DX: Z00.00 Encounter for general adult medical examination without abnormal findings (principal) ==